=== PATIENT | male | born 1945 | race Caucasian/White ===

== ENCOUNTER 2020-07-17 00:12 | Observation (INO) | payer MEDICARE, BC ==
[~2020-07-17] VITALS: Ht 180.3 cm; Wt 102.1 kg
[~2020-07-17 00:12] MED LIST: AMLODIPINE BESY10 MG PO; ASPIRIN81 MG PO; COREG25 MG PO; FUROSEMIDE40 MG PO; ISOSORBIDE DINI30 MG PO; ISOSORBIDE1 GM; LIPITOR20 MG PO; LISINOPRIL40 MG PO; PLAVIX75 MG PO; PRILOSEC40 MG PO; QUINAPRIL HCL40 MG PO; TRIAMTERENE-HC1 EACH PO; VERAPAMIL ER240 MG PO; VICODIN 5-5001 EACH PO; coreg; furosemide; isosorbide; plavix; prilosec; verapamil
[2020-07-17] MEDS ORDERED: ASPIRIN 325 MG TAB PO ONE (00:30)
--- NOTE | 2020-07-17 00:36 | Emergency Department Note ---
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 Any updates have been documented here. 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 Past Surgical History: Cholecysctectomy, CABG, Back Surgery Other Surgery: CABG X2 avr, LT WRIST SX BILATERAL KNEE SX BACK SX X2 Social History Physically hurt or threatened: No Other Last Tetanus: unknown Review of Systems Review of Systems Constitutional: Reports no symptoms EENTM: Reports no symptoms Cardiovascular: Reports as per HPI, Reports chest pain Respiratory: Reports no symptoms Gastrointestinal: Reports no symptoms Genitourinary: Reports no symptoms Musculoskeletal: Reports no symptoms Integumentary: Reports no symptoms Neurological: Reports no symptoms Psychological: Reports no symptoms Endocrine: Reports no symptoms Hematological/Lymphatic: Reports no symptoms Physical Exam Related Data Allergies: Uncoded Allergies: DARVOCET (Allergy, Mild, RASH, 05/02/12) Triage Vital Signs Vital Signs Date Time Temp Pulse Resp B/P (MAP) Pulse Ox O2 Delivery O2 Flow Rate FiO2 07/17/20 00:18 98.1 90 20 170/91 98 Room Air Vital signs reviewed: Yes Physical Exam CONSTITUTIONAL Constitutional: Present well-developed, Present well-nourished HENT HENT: Present normocephalic, Present atraumatic, Present oropharynx clear/mo ist, Present nose normal HENT L/R: Present left ext ear normal, Present right ext ear normal EYES Eyes: Reports PERRL, Reports conjunctivae normal NECK Neck: Present ROM normal PULMONARY Pulmonary: Present effort normal, Present breath sounds normal CARDIOVASCULAR Cardiovascular: Present regular rhythm, Present heart sounds normal, Present capillary refill normal, Present normal rate GASTROINTESTINAL Abdominal: Present soft, Present nontender, Present bowel sounds normal GENITOURINARY Genitourinary: Present exam deferred SKIN Skin: Present warm, Present dry MUSCULOSKELETAL Musculoskeletal: Present ROM normal NEUROLOGICAL Neurological: Present alert, Present oriented x 3, Present no gross motor or sensory deficits PSYCHOLOGICAL Psychological: Present mood/affect normal, Present judgement normal Procedures 12 Lead ECG Interpretation ECG Interpretation : Woodworking Machine Offbearer: Interpreted by ED physician Date: Jul 17, 2020 Prior ECG tracings: reviewed Rhythm: sinus rhythm Rate: normal QRS axis: normal ST segment flattening: all T waves normal: Yes Clinical Impression: non-specific ECG Assessment & Plan Medical Decision Making MDM 75-year-old male presents for chest pain. States it is a case having a heart attack. History of CABG 2 and multiple stents. He was given aspirin and his sy mptoms largely resolved. Initial cardiopulmonary workup is unremarkable. He'll be admitted for chest pain workup. Patient was discussed with Dr. Colindres who does agree to admit. Reassessment Reassessment time: 02:12 Reassessment Well appearing, pain free Assessment & Plan Final Impression: (1) Chest pain Depart Disposition: ADMITTED Last Vital Signs Date Time Temp Pulse Resp B/P (MAP) Pulse Ox O2 Delivery O2 Flow Rate FiO2 07/17/20 00:18 98.1 90 20 170/91 98 Room Air Home Meds Reported Medications Lisinopril (LISINOPRIL) 40 Mg Tablet, 40 MG PO DAILY 06/24/15 Aspirin (ASPIRIN) 81 Mg Tab.chew, 81 MG PO DAILY 06/24/15 Furosemide (FUROSEMIDE) 40 Mg Tablet, 40 MG PO Daily, #30 TAB 06/24/15 Triamterene/Hydrochlorothiazid (TRIAMTERENE-HCTZ 50-25 MG CAP) 1 Each Capsule, 1 TAB PO DAILY 06/24/15 Amlodipine Besylate (AMLODIPINE BESYLATE) 10 Mg Tablet, 10 MG PO DAILY, #30 TAB 06/24/15 Atorvastatin Calcium (LIPITOR) 20 Mg Tablet, 20 MG PO DAILY 11/13/12 Isosorbide Dinitrate (ISOSORBIDE DINITRATE) 30 Mg Tablet, 30 MG PO DAILY 11/13/12 Carvedilol (COREG) 25 Mg Tab, 25 MG PO DAILY 11/13/12 Clopidogrel Bisulfate* (PLAVIX) 75 Mg Tablet, 75 MG PO DAILY 11/13/12 Omeprazole (PRILOSEC) 40 Mg Capsule.dr, 20 MG PO DAILY 11/13/12 Medications in the ED Aspirin 325 mg ONCE ONCE PO ; Start 07/17/20 at 00:30; Stop 07/17/20 at 00:31; Status UNV MINGO HEATH MD Jul 17, 2020 00:36
[2020-07-17 00:42] LABS: BASOPHILS # (AUTO) 0.1 (0.0-0.1); BASOPHILS % 0.8 % (0.0-1.0); EOSINOPHILS # (AUTO) 2.1 (0.0-0.4); EOSINOPHILS % 16.1 % (0.0-6.0); HEMATOCRIT 43.9 % (38.2-49.6); HEMOGLOBIN 15.1 g/dL (14.0-18.0); LYMPHOCYTES # (AUTO) 2.8 (1.0-3.2); LYMPHOCYTES % 21.5 % (18.0-39.1); MEAN CORPUSCULAR HEMOGLOBIN 32.6 pg (28-32); MEAN CORPUSCULAR HGB CONC 34.4 g/dL (31-35); MEAN CORPUSCULAR VOLUME 94.8 fL (81-99); MONOCYTES # (AUTO) 0.9 (0.2-0.8); MONOCYTES % 7.1 % (4.4-11.3); NEUTROPHILS # (AUTO) 7.1 (2.1-6.9); PLATELET COUNT 228 x10e3/uL (140-360); RED BLOOD COUNT 4.63 x10e6/uL (4.3-5.7)
[2020-07-17 01:03] LABS: ALBUMIN 4.7 g/dL (3.5-5.0); ALBUMIN/GLOBULIN RATIO 1.3 (0.8-2.0); ANION GAP 21.1 mmol/L (8-16); CREATININE, SERUM 1.44 mg/dL (0.72-1.25); POTASSIUM 3.1 mmol/L (3.5-5.1)
--- OUTSIDE RECORDS SUMMARY | 2020-07-17 01:18 | XMS REPORT | Clinical Summary ---
Author Author [facility] Address Unknown Phone Unavailable Care Team Providers Care Side Laster Tack Name Role Phone Geovanni Collazo MD PCP Allergies Comments Active Allergy Reactions Severity Noted Date Oxycodone-Acetaminophen Hives 03/07/2018 Propoxyphene Rash Low 10/07/2015 N-Acetaminophen Medications End Date Status Medication Sig Dispensed Refills Start Date Active amLODIPine (NORVASC) 10 Take 10 mg by 1 mg tablet mouth daily. 8 Active PROLENSA 0.07 % INSTILL 1 1 ophthalmic solution DROP IN RIGHT 8 EYE DAILY Active carvedilol (COREG) 25 MG Take 25 mg by 1 01/10 tablet mouth 2 (two) 8 times a day. Active celecoxib (CeleBREX) 200 TAKE 1 1 02/16 MG capsule CAPSULE TWICE 8 A DAY BY ORAL ROUTE DIRECTED FOR 90 DAYS. Active clopidogrel (PLAVIX) 75 Take 75 mg by 1 mg tablet mouth daily. 8 Active finasteride (PROSCAR) 5 TAKE 1 TABLET 1 mg tablet EVERY DAY BY 8 [address]TE FOR 90 DAYS. Active furosemide (LASIX) 40 mg Take 40 mg by 1 02/16 tablet mouth daily. 8 Active glimepiride (AMARYL) 2 MG TAKE 1 TABLET 11/06 tablet ONCE A DAY 8 WITH BREAKFAST Active hydroCHLOROthiazide Take 25 mg by 1 (HYDRODIURIL) 25 MG mouth daily. 8 tablet Active irbesartan (AVAPRO) 150 TAKE 1 TABLET MG tablet EVERY DAY BY 8 OR[address] R[address]TE FOR 90 DAYS. Active isosorbide mononitrate Take 60 mg by 1 01 (IMDUR) 60 MG 24 hr mouth daily. 8 tablet Active JENTADUETO XR 2.5-1,000 TAKE 2 1 mg tablet, IR & ER, TABLETS BY 8 biphasic 24hr MOUTH ONCE A DAY WITH LUNCH Active losartan (COZAAR) 50 MG Take 50 mg by 0 tablet mouth daily. 8 Active LOTEMAX 0.5 % drops,gel INSTILL 1 DROP INTO 8 RIGHT EYE 4 TIMES A DAY. START THE DAY BEFORE SURGERY Active nitroglycerin (NITROSTAT) PLACE 1 PILL 0 11/06 0.4 MG SL tablet UNDER TONGUE 8 EVERY 5 MINUTES FOR CHEST PAIN(MAX 3 PILLS & IF NO RELIEF 911) Active omeprazole (PriLOSEC) 20 Take 20 mg by 1 02/16 MG capsule mouth daily. 8 Active oxybutynin XL TAKE 1 TABLET 1 (DITROPAN-XL) 10 MG 24 hr EVERY DAY BY 8 tablet ORAL ROUTE FOR 90 DAYS. Active potassium chloride 20 mEq Take 1 tablet 0 11/06 tablet extended release by mouth 2 8 (two) times a day. Active rosuvastatin (CRESTOR) 40 TAKE 1 11/06 MG tablet TABLET(S) 8 EVERY DAY BY ORAL ROUTE FOR 90 DAYS. Active tamsulosin (FLOMAX) 0.4 Take 0.4 mg 1 mg capsule,extended by mouth 8 release 24hr daily. Active aspirin (ECOTRIN) 81 MG Take 81 mg by 0 enteric coated tablet mouth daily. Active carisoprodol (SOMA) 350 Take 350 mg 0 MG tablet by mouth daily. Active HYDROcodone-acetaminophen Take 1 tablet 0 (NORCO) 10-325 mg per by mouth tablet daily. Active lisinopril Take 40 mg by 0 (PRINIVIL,ZESTRIL) 40 mg mouth daily. tablet Active omeprazole (PriLOSEC) 20 TAKE ONE 0 MG capsule CAPSULE BY MOUTH EVERY DAY Active metFORMIN (GLUCOPHAGE) Take 1,000 mg 0 1,000 mg tablet by mouth 2 (two) times a day with meals. Active Problems Problem Noted Date Nuclear sclerotic cataract of left eye 03/27/2018 CAD (coronary artery disease) 03/06/2018 Diabetes mellitus with renal complications 8 Social History Date Tobacco Use Types Packs/Day Years Used Former Smoker Cigarettes Smokeless Tobacco: Never Used Drinks/Week oz/Week Comments Alcohol Use No Sex Assigned at Date Recorded Not on file Industry Job Start Date Occupation Not on file Not on file Not on file Travel End Travel History Travel Start No recent travel history available. Last Filed Vital Signs Not on file Plan of Treatment Not on file Implants Device Identifier Shelf Expiration Date Model / Serial / L ot Implanted Type Area Manufactur er 06/04/2021 [id number] / [id number] / [id number] Lens Iol Tecnis Monofocal Zcb 22.5d Intraocula Left: Eye ADAMS - [id number] - [id number] Lens MEDICAL Implanted: Qty: 1 on 03/28/2018 by Implant [employer] Murray Young MD at [facility] 03/26/2021 [id number] / [id number] / [id number] Lens Iol Tecnis Monofocal Zcb 21.5d Right: Eye A BBOTT - [id number] - [id number] MEDICAL Implanted: Qty: 1 on 03/07/2018 by [employer] Murray Young MD at [facility] Results Not on fileafter 07/17/2019 Insurance Type Payer Benefit Subscriber ID Effective Phone Address Plan / Dates Group Medicare MEDICARE MEDICARE xxxxxxxxxx [id number] [place], [place] B PPO BCBS BCBS xxxxxxxxxxxxxxx 2013- CHOICE Present PPO/ERIC JAIN PPO Advance Directives For more information, please contact: [phone] Patient Disc Pad 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
--- OUTSIDE RECORDS SUMMARY | 2020-07-17 01:19 | XMS REPORT | Continuity of Care Document ---
Author Author [facility] t Organization [facility] Address 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 Name Role Phone Zay DAVIS, Daniel Galarza PCP Payers Payer Name Policy Type Policy Number Effective Date Expiration Date S ource Problems Condition Name Condition Details Condition Category Status Onset Date Resolution Date Last Treatment Date Treating Clinician Comments Source Nuclear sclerotic cataract of left eye Nuclear sclerotic cat aract of left eye Disease Active 2018-03-27 00:00:00 Hakan Fuentes CAD (coronary artery disease) CAD (coronary artery disease) Disease Active 2018-03-06 00:00:00 Hakan Fuentes Diabetes mellitus with renal complications Diabetes me llitus with renal complications Disease Active 2018-03-06 00:00:00 Hakan Fuentes Renal disorder due to type 2 diabetes mellitus Renal D isorder Due to Type 2 Diabetes Mellitus Problem Active 2018-01-25 00:00:00 [facility] Chronic kidney disease stage 2 Chronic Kidney Disease Stage 2 Probl em Active 2018-01-25 00:00:00 [facility] Old myocardial infarction Old Myocardial Infarction Problem Ac tive 2018-01-24 00:00:00 [facility] Abdominal aortic atherosclerosis Abdominal Aortic Atherosclerosi s Problem Active 2017-02-15 00:00:00 [facility] Type 2 diabetes mellitus Type 2 Diabetes Mellitus Problem Acti ve 2016-12-27 00:00:00 [facility] Stable angina Stable Angina Problem Active 2016-12-27 00:00:00 [facility] 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 Problem Active 2016-12-27 00:00:00 [facility] History of percutaneous transluminal coronary angiopla sty History of Percutaneous Transluminal Coronary Angioplasty Problem Active 2016-12-27 00:00:00 [facility] Diverticular disease of colon Diverticular Disease of Colon Problem Active 2016-11-21 00:00:00 [facility] Steatosis of liver Steatosis of Liver Problem Active 2016-11-21 00:00:0 0 [facility] Pure hypercholesterolemia Pure Hypercholesterolemia Problem Ac tive 2015-10-07 00:00:00 [facility] Hypertensive heart and renal disease with (congestive) heart failure Hypertensive Heart and Renal Disease with (Congestive) Heart Failure Problem Active 2015-10-07 00:00:00 [facility] Chronic kidney disease Chronic Kidney Disease Problem Active 2015-10-07 00:00:00 [facility] Coronary bypass graft finding Coronary Bypass Graft Finding Problem Active 2015-10-07 00:00:00 [facility] Coronary arteriosclerosis in [place] artery Coronary Ar teriosclerosis in [place] Artery Problem Active 2006-04-16 00:00:00 [facility] Backache Backache Problem Active 2006-04-16 00:00:00 [facility] Edema Edema Problem Active 2006-04-16 00:00:00 [facility] History of artificial heart valve History of Artificial Heart Va lve Problem Active 2006-04-16 00:00:00 [facility] Myocardial infarction Myocardial Infarction Problem Active 201 06-05-29 00:00:00 2018-01-24 00:00:00 [facility] Benign essential hypertension Benign Essential Hypertension Problem Active 2017-04-04 00:00:00 2017-04-25 00:00:00 [facility] Chronic renal impairment Chronic Renal Impairment Problem Acti ve 2015-10-07 00:00:00 2017-01-25 00:00:00 [facility] Coronary atherosclerosis Coronary Atherosclerosis Problem Acti ve 2015-10-07 00:00:00 2016-12-27 00:00:00 [facility] Practice Left heart failure Left Heart Failure Problem Active 3 00:00:00 2016-12-27 00:00:00 [facility] History of cardiac surgery History of Cardiac Surgery Problem Active 2015-10-07 00:00:00 2016-12-27 00:00:00 [facility] Angina pectoris Angina Pectoris Problem Active 2006-04-16 00:0 0:00 2016-12-27 00:00:00 Damion ely Clinical finding Clinical Finding Problem Active 2015-10-07 00 :00:00 2016-12-26 00:00:00 Damion ely Allergies, Adverse Reactions, Alerts Allergy Name Allergy Type Status Severity Reaction(s) Onset Date Inacti ve Date Treating Clinician Comments Source codeine DA Active MO 2019-12-01 00:00:00 [facility] propoxyphene DA Active U 2019-12-01 00:00:00 [facility] acetaminophen DA Active U 2019-12-01 00:00:00 [facility] propoxyphene DA Active U 2018-10-24 00:00:00 [facility] acetaminophen DA Active U 2018-10-24 00:00:00 [facility] Oxycodone-Acetaminophen Propensity to adverse reactions to drug Activ e Hives 2018-03-07 00:00:00 [place] Elvia cartwrightist codeine DA Active MO 2016-08-19 00:00:00 [facility] propoxyphene DA Active MO 2016-08-19 00:00:00 [facility] DARVOCET-N 100 Allergy to substance Active Rash 2015-10-07 00:00 :00 [facility] Propoxyphene N-Acetaminophen Propensity to adverse reactions to spencer g Active Rash 2015-10-07 00:00:00 Hakan Fuentes Social History Social Habit Start Date Stop Date Quantity Comments Source History of tobacco use Cigarette Smoker Hakan Fuentes Sex Assigned At [facility] [employer] Alcohol intake 2018-03-28 00:00:00 2018-03-28 00:00:00 Current non-drinker of alcohol (finding) Hakan Fuentes Smoking Status Start Date Stop Date Source Never Smoker Damion ely Former smoker 2018-03-28 00:00:00 2018-03-28 00:00:00 Hakan Fuentes Medications Ordered Medication Name Filled Medication Name Start Date Stop Da te Current Medication? Ordering Clinician Indication Dosage Frequency Signature (SIG) Comments Components Source aspirin (ECOTRIN) 81 MG enteric coated tablet 2018-03-28 07:37:0 9 Yes 81mg QD Take 81 mg by mouth daily. H conor Fuentes carisoprodol (SOMA) 350 MG tablet 2018-03-28 07:37:09 Yes 350mg QD Take 350 mg by mouth daily. Hakan Fuentes HYDROcodone-acetaminophen (NORCO) 10-325 mg per tablet 2018-03-28 07:37:09 Yes 1{tbl} QD Take 1 tablet by mouth daily. Hakan Fuentes lisinopril (PRINIVIL,ZESTRIL) 40 mg tablet 2018-03-28 07:37:09 Yes 40mg QD Take 40 mg by mouth daily. Michael Mckeeist omeprazole (PriLOSEC) 20 MG capsule 2018-03-28 07:37:09 Yes TAKE ONE CAPSULE BY MOUTH EVERY DAY [facility] metFORMIN (GLUCOPHAGE) 1,000 mg tablet 2018-03-28 07:37:09 Yes 1000mg Q.5D Take 1,000 mg by mouth 2 (two) times a day with meals. Hakan Fuentes amLODIPine (NORVASC) 10 mg tablet 2018-02-16 00:00:00 Yes 10mg QD Take 10 mg by mouth daily. Hakna Fuentes celecoxib (CeleBREX) 200 MG capsule 2018-02-16 00:00:00 Yes TAKE 1 CAPSULE TWICE A DAY BY ORAL ROUTE DIRECTED FOR 90 DAYS. Hakan Fuentes finasteride (PROSCAR) 5 mg tablet 2018-02-16 00:00:00 Yes TAKE 1 TABLET EVERY DAY BY ORAL ROUTE FOR 90 DAYS. Hakan Fuentes furosemide (LASIX) 40 mg tablet 2018-02-16 00:00:00 Yes 40mg QD Take 40 mg by mouth daily. Hakan Fuentes isosorbide mononitrate (IMDUR) 60 MG 24 hr tablet 2018-02-16 00:00:00 Yes 60mg QD Take 60 mg by mouth daily. Hakan Fuentes omeprazole (PriLOSEC) 20 MG capsule 2018-02-16 00:00:00 Yes 20mg QD Take 20 mg by mouth daily. Hakan Fuentes oxybutynin XL (DITROPAN-XL) 10 MG 24 hr tablet 2018-02-16 00:00: 00 Yes TAKE 1 TABLET EVERY DAY BY ORAL ROUTE FOR 90 DAYS. Hakan Fuentes tamsulosin (FLOMAX) 0.4 mg capsule,extended release 24hr 2018-02-16 00:00:00 Yes .4mg QD Take 0.4 mg by mouth daily. Hakan Fuentes LOTEMAX 0.5 % drops,gel 2018-01-18 00:00:00 Yes INSTILL 1 DROP INTO RIGHT EYE 4 TIMES A DAY. START THE DAY BEFORE SURGERY Hakan Fuentes carvedilol (COREG) 25 MG tablet 2018-01-10 00:00:00 Yes 25mg Q.5D Take 25 mg by mouth 2 (two) times a day. Wisam Fuentes clopidogrel (PLAVIX) 75 mg tablet 2018-01-10 00:00:00 Yes 75mg QD Take 75 mg by mouth daily. Hakan Fuentes hydroCHLOROthiazide (HYDRODIURIL) 25 MG tablet 2018-01-10 00:00: 00 Yes 25mg QD Take 25 mg by mouth daily. H conor Fuentes PROLENSA 0.07 % ophthalmic solution 2018-01-08 00:00:00 Yes INSTILL 1 DROP IN RIGHT EYE DAILY Hakan velazquez irbesartan (AVAPRO) 150 MG tablet 2017-12-30 00:00:00 Yes TAKE 1 TABLET EVERY DAY BY ORAL ROUTE FOR 90 DAYS. Hakan Fuentes JENTADUETO XR 2.5-1,000 mg tablet, IR & ER, biphasic 24hr 2017-12-04 00:00:00 Yes TAKE 2 TABLETS BY MOUTH ONCE A D AY WITH LUNCH Hakan Fuentes glimepiride (AMARYL) 2 MG tablet 2017-12-03 00:00:00 Yes TAKE 1 TABLET ONCE A DAY WITH BREAKFAST Hakan Fuentes rosuvastatin (CRESTOR) 40 MG tablet 2017-12-03 00:00:00 Yes TAKE 1 TABLET(S) EVERY DAY BY ORAL ROUTE FOR 90 DAYS. Hakan Fuentes losartan (COZAAR) 50 MG tablet 2017-11-29 00:00:00 Yes 50mg QD Take 50 mg by mouth daily. Hakan Fuentes nitroglycerin (NITROSTAT) 0.4 MG SL tablet 2017-11-29 00:00:[address] 1 PILL UNDER TONGUE EVERY 5 MINUTES FOR CHEST PAIN(MAX 3 PILLS & IF NO RELIEF 911) Hakan Fuentes potassium chloride 20 mEq tablet extended release 2017-11-29 00:00:00 Yes 1{tbl} Q.5D Take 1 tablet by mouth 2 (two) times a day. Hakan Fuentes Accu-Chek Gaye Plus test strips Accu-Chek Gaye Plus test strips No Accu-Chek Gaye Plus test strips [facility] amlodipine 10 mg tablet amlodipine 10 mg tablet No amlodipine 10 mg tablet [facility] ice aspirin 81 mg tablet,delayed release aspirin 81 mg tablet,delayed r elease No aspirin 81 mg tablet,delayed release [facility] carisoprodol 350 mg tablet carisoprodol 350 mg tablet No carisoprodol 350 mg tablet [facility] carvedilol 25 mg tablet carvedilol 25 mg tablet No carvedilol 25 mg tablet [facility] ice celecoxib 200 mg capsule celecoxib 200 mg capsule No celecoxib 200 mg capsule [facility] ice clopidogrel 75 mg tablet clopidogrel 75 mg tablet No clopidogrel 75 mg tablet [facility] ice finasteride 5 mg tablet finasteride 5 mg tablet No finasteride 5 mg tablet [facility] ice furosemide 40 mg tablet furosemide 40 mg tablet No furosemide 40 mg tablet [facility] glimepiride 2 mg tablet glimepiride 2 mg tablet No glimepiride 2 mg tablet [facility] hydrochlorothiazide 25 mg tablet hydrochlorothiazide 25 mg tablet No hydrochlorothiazide 25 mg tablet [facility] hydrocodone 10 mg-acetaminophen 325 mg tablet hydrocod one 10 mg-acetaminophen 325 mg tablet No hydrocodone 10 mg-acetam inophen 325 mg tablet [facility] hydrocodone-homatropine 5 mg-1.5 mg/5 mL syrup hydroco done-homatropine 5 mg-1.5 mg/5 mL syrup No hydrocodone-homatropine 5 mg-1.5 mg/5 mL syrup [facility] irbesartan 150 mg tablet irbesartan 150 mg tablet No irbesartan 150 mg tablet [facility] ice isosorbide mononitrate ER 60 mg tablet,extended releas e 24 hr isosorbide mononitrate ER 60 mg tablet,extended release 24 hr No isosorbide mononitrate ER 60 mg tablet,extended release 24 hr [facility] Jentadueto XR 2.5 mg-1,000 mg tablet, extended release Jentadueto XR 2.5 mg- 1,000 mg tablet, extended release No Jentadueto XR 2.5 mg-1,000 mg tablet, extended release [facility] Levemir FlexTouch U-100 Insulin 100 unit/mL (3 mL) sub cutaneous pen Levemir FlexTouch U-100 Insulin 100 unit/mL (3 mL) subcutaneous pen No Levemir FlexTouch U-100 Insulin 100 unit/mL (3 mL) subcutaneous pen [facility] lisinopril 40 mg tablet lisinopril 40 mg tablet No lisinopril 40 mg tablet [facility] losartan 50 mg tablet Take 1 tablet every day by oral route. losartan 50 mg tablet Take 1 tablet every day by oral route. No 1 Q1D losartan 50 mg tablet Take 1 tablet every day by oral route. [facility] Lotemax 0.5 % eye gel drops Lotemax 0.5 % eye gel drops No Lotemax 0.5 % eye gel drops [facility] nitroglycerin 0.4 mg sublingual tablet P lace 1 tablet as needed by sublingual route. nitroglycerin 0.4 mg sublingual tablet P lace 1 tablet as needed by sublingual route. No 1 nitrog lycerin 0.[address] 1 tablet as needed by sublingual route. [facility] Novolog U-100 Insulin aspart 100 unit/mL subcutaneous solution Novolog U-100 Insulin aspart 100 unit/mL subcutaneous solution No Novolog U-100 Insulin aspart 100 unit/mL subcutaneous solution [facility] omeprazole 20 mg capsule,delayed release omeprazole 20 mg capsule,delayed release No omeprazole 20 mg capsule,delay ed release [facility] oxybutynin chloride ER 10 mg tablet,extended release 2 4 hr oxybutynin chloride ER 10 mg tablet,extended release 24 hr No oxybutynin chloride ER 10 mg tablet,extended release 24 hr [facility] potassium chloride ER 20 mEq tablet,extended release(p art/cryst) potassium chloride ER 20 mEq tablet,extended release(part/cryst) No potassium chloride ER 20 mEq tablet,extended release(part/cryst) [facility] Prolensa 0.07 % eye drops Prolensa 0.07 % eye drops No Prolensa 0.07 % eye drops [facility] rosuvastatin 40 mg tablet rosuvastatin 40 mg tablet No rosuvastatin 40 mg tablet [facility] tamsulosin 0.4 mg capsule tamsulosin 0.4 mg capsule No tamsulosin 0.4 mg capsule [facility] atorvastatin 20 mg tablet atorvastatin 20 mg tablet 00:00:00 No atorvastatin 20 mg tablet [facility] potassium chloride ER 20 mEq tablet,extended release p otassium chloride ER 20 mEq tablet,extended release 2017-12-03 00:00:00 No potassium chloride ER 20 mEq tablet,extended release [facility] Depo-Medrol 80 mg/mL suspension for injection injected 1 ml, once, deep IM Depo- Medrol 80 mg/mL suspension for injection injected 1 ml, once, deep IM 2017-11-21 00:00:00 No Depo- Medrol 80 mg/mL suspension for injection injected 1 ml, once, deep IM [facility] Klor-Con 20 mEq tablet,extended release Take 1 tablet every day by oral route as directed for 90 days. Klor-Con 20 mEq tablet,extended release Take 1 tablet every day by oral route as directed for 90 days. 2017-11-21 00:00:00 N o 1 Q1D Klor-Con 20 mEq tablet,extended release Take 1 tablet every day by oral route as directed for 90 days. [facility] methocarbamol 750 mg tablet methocarbamol 750 mg tablet 2017-07-18 00:00:00 No methocarbamol 750 mg tablet [facility] Kenalog 40 mg/mL suspension for injectio n mixed with lidocaine and injected into trigger point Kenalog 40 mg/mL suspension for injectio n mixed with lidocaine and injected into trigger point 2017-06-05 00:00:00 No Kenalog 40 mg/mL suspension for injection mixed with lidocaine and injected into trigger point [facility] lidocaine (PF) 10 mg/mL (1 %) injection solution mixed with Kenalog and injected into posterior superior iliac spine lidocaine (PF) 10 mg/mL (1 %) injection solution mixed with Kenalog and injected into posterior superior iliac spine 2017-06-05 00:00:00 No lidoc tosha (PF) 10 mg/mL (1 %) injection solution mixed with Kenalog and injected into posterior superior iliac spine [facility] meclizine 12.5 mg tablet meclizine 12.5 mg tablet 2017-04-25 00: 00:00 No meclizine 12.5 mg tablet [facility] tramadol 50 mg tablet tramadol 50 mg tablet 2017-04-25 00:00:00 No tramadol 50 mg tablet [facility] ctice Synvexia Patch 4 %-1 % topical Synvexia Patch 4 %-1 % topical 2017-04-04 00:00:00 No Synvexia Patch 4 %-1 % topical [facility] Voltaren 1 % topical gel Voltaren 1 % topical gel 2017-04-04 00: 00:00 No Voltaren 1 % topical gel [facility] amoxicillin 500 mg capsule amoxicillin 500 mg capsule 2016 00:00:00 No amoxicillin 500 mg capsule [facility] hydrocodone 7.5 mg-acetaminophen 325 mg tablet hydroco done 7.5 mg-acetaminophen 325 mg tablet 2017-03-21 00:00:00 No hydrocodone 7.5 mg-acetaminophen 325 mg tablet [facility] ibuprofen 800 mg tablet ibuprofen 800 mg tablet 2017-03-21 00:00 :00 No ibuprofen 800 mg tablet [facility] levofloxacin 500 mg tablet levofloxacin 500 mg tablet 2016 00:00:00 No levofloxacin 500 mg tablet [facility] methylprednisolone 4 mg tablets in a dose pack methylp rednisolone 4 mg tablets in a dose pack 2017-03-21 00:00:00 No methylprednisolone 4 mg tablets in a dose pack [facility] ice ondansetron 8 mg disintegrating tablet ondansetron 8 mg disinteg rating tablet 2017-03-21 00:00:00 No ondansetron 8 mg dis integrating tablet [facility] promethazine 25 mg/mL injection solution Take 1 mL by injection route. promethazine 25 mg/mL injection solution Take 1 mL by injection route. 2017-03-21 00:00:00 No 1mL prome thazine 25 mg/mL injection solution Take 1 mL by injection route. [facility] Pr actice Isosorbide Mononitrate CR 60 mg tablet,e xtended release Take 1 tablet every day by oral route as directed for 90 days. Isosorbide Mononitrate CR 60 mg tablet,extended release Take 1 tablet every day by oral route as directed for 90 days. 2017-02-15 00:00:00 No 1 Q1D Isos orbide Mononitrate CR 60 mg tablet,extended release Take 1 tablet every day by oral route as directed for 90 days. [facility] Ordered Immunization Name Filled Immunization Name Date Status Comments Source pneumococcal conjugate PCV 13 pneumococcal conjugate PCV 13 2017 15:11:00 Completed [facility] influenza, high dose seasonal influenza, high dose seasonal 2016 17:01:00 Completed [facility] influenza, injectable, quadrivalent influenza, injectable, q uadrivalent 2015-10-07 00:00:00 Completed [facility] ice influenza, seasonal, injectable influenza, seasonal, injecta ble 2014-07-21 00:00:00 Completed [facility] ice Vital Signs Vital Name Observation Time Observation Value Comments Source BP Diastolic 2018-01-25 00:00:00 89 mm[Hg] [facility] Height 2018-01-25 00:00:00 71 [in_i] [facility] BMI (Body Mass Index) 2018-01-25 00:00:00 31.7 kg/m2 [facility] BP Systolic 2018-01-25 00:00:00 166 mm[Hg] [facility] Body Weight 2018-01-25 00:00:00 227.4 [lb_av] [facility] BP Diastolic 2017-12-03 00:00:00 93 mm[Hg] [facility] Height 2017-12-03 00:00:00 71 [in_i] [facility] BMI (Body Mass Index) 2017-12-03 00:00:00 31.9 kg/m2 [facility] BP Systolic 2017-12-03 00:00:00 181 mm[Hg] [facility] Body Weight 2017-12-03 00:00:00 228.6 [lb_av] [facility] BP Diastolic 2017-11-21 00:00:00 77 mm[Hg] [facility] Height 2017-11-21 00:00:00 71 [in_i] [facility] BMI (Body Mass Index) 2017-11-21 00:00:00 31.5 kg/m2 [facility] BP Systolic 2017-11-21 00:00:00 131 mm[Hg] [facility] Body Weight 2017-11-21 00:00:00 225.6 [lb_av] [facility] BP Diastolic 2017-07-18 00:00:00 81 mm[Hg] [facility] Height 2017-07-18 00:00:00 71 [in_i] [facility] BMI (Body Mass Index) 2017-07-18 00:00:00 31.2 kg/m2 [facility] BP Systolic 2017-07-18 00:00:00 156 mm[Hg] [facility] Body Weight 2017-07-18 00:00:00 224 [lb_av] [facility] BP Diastolic 2017-06-05 00:00:00 85 mm[Hg] [facility] Height 2017-06-05 00:00:00 71 [in_i] [facility] BMI (Body Mass Index) 2017-06-05 00:00:00 30.8 kg/m2 [facility] BP Systolic 2017-06-05 00:00:00 156 mm[Hg] [facility] Body Weight 2017-06-05 00:00:00 221 [lb_av] [facility] BP Diastolic 2017-04-25 00:00:00 85 mm[Hg] [facility] Height 2017-04-25 00:00:00 71 [in_i] [facility] BMI (Body Mass Index) 2017-04-25 00:00:00 32 kg/m2 [facility] BP Systolic 2017-04-25 00:00:00 163 mm[Hg] [facility] Body Weight 2017-04-25 00:00:00 229.1 [lb_av] [facility] BP Diastolic 2017-04-04 00:00:00 91 mm[Hg] [facility] Height 2017-04-04 00:00:00 71 [in_i] [facility] BMI (Body Mass Index) 2017-04-04 00:00:00 31.8 kg/m2 [facility] BP Systolic 2017-04-04 00:00:00 165 mm[Hg] [facility] Body Weight 2017-04-04 00:00:00 228 [lb_av] [facility] BP Diastolic 2017-03-21 00:00:00 90 mm[Hg] [facility] Height 2017-03-21 00:00:00 71 [in_i] [facility] BMI (Body Mass Index) 2017-03-21 00:00:00 31.9 kg/m2 [facility] BP Systolic 2017-03-21 00:00:00 180 mm[Hg] [facility] Body Weight 2017-03-21 00:00:00 228.8 [lb_av] [facility] BP Diastolic 2017-02-15 00:00:00 94 mm[Hg] [facility] Height 2017-02-15 00:00:00 71 [in_i] [facility] BMI (Body Mass Index) 2017-02-15 00:00:00 31.5 kg/m2 [facility] BP Systolic 2017-02-15 00:00:00 158 mm[Hg] [facility] Body Weight 2017-02-15 00:00:00 226 [lb_av] [facility] BP Diastolic 2017-01-25 00:00:00 78 mm[Hg] [facility] Height 2017-01-25 00:00:00 71 [in_i] [facility] BMI (Body Mass Index) 2017-01-25 00:00:00 30.9 kg/m2 [facility] BP Systolic 2017-01-25 00:00:00 131 mm[Hg] [facility] Body Weight 2017-01-25 00:00:00 221.6 [lb_av] [facility] BP Diastolic 2016-12-27 00:00:00 78 mm[Hg] [facility] Height 2016-12-27 00:00:00 71 [in_i] [facility] BMI (Body Mass Index) 2016-12-27 00:00:00 31.2 kg/m2 [facility] BP Systolic 2016-12-27 00:00:00 137 mm[Hg] [facility] Body Weight 2016-12-27 00:00:00 224 [lb_av] [facility] BP Diastolic 2015-10-07 00:00:00 80 mm[Hg] [facility] Height 2015-10-07 00:00:00 68.5 [in_i] [facility] BMI (Body Mass Index) 2015-10-07 00:00:00 33.77 kg/m2 [facility] BP Systolic 2015-10-07 00:00:00 134 mm[Hg] [facility] Body Weight 2015-10-07 00:00:00 225.4 [lb_av] [facility] BP Diastolic 2015-04-08 00:00:00 78 mm[Hg] [facility] Height 2015-04-08 00:00:00 68.5 [in_i] [facility] BMI (Body Mass Index) 2015-04-08 00:00:00 34.43 kg/m2 [facility] BP Systolic 2015-04-08 00:00:00 125 mm[Hg] [facility] Body Weight 2015-04-08 00:00:00 229.8 [lb_av] [facility] BP Diastolic 2014-11-27 00:00:00 86 mm[Hg] [facility] Height 2014-11-27 00:00:00 68.5 [in_i] [facility] BMI (Body Mass Index) 2014-11-27 00:00:00 33.59 kg/m2 [facility] BP Systolic 2014-11-27 00:00:00 120 mm[Hg] [facility] Body Weight 2014-11-27 00:00:00 224.2 [lb_av] [facility] BP Diastolic 2014-11-11 00:00:00 86 mm[Hg] [facility] Height 2014-11-11 00:00:00 68.5 [in_i] [facility] BMI (Body Mass Index) 2014-11-11 00:00:00 34.76 kg/m2 [facility] BP Systolic 2014-11-11 00:00:00 115 mm[Hg] [facility] Body Weight 2014-11-11 00:00:00 232 [lb_av] [facility] BP Diastolic 2014-08-19 00:00:00 80 mm[Hg] [facility] Height 2014-08-19 00:00:00 68.5 [in_i] [facility] BMI (Body Mass Index) 2014-08-19 00:00:00 35.24 kg/m2 [facility] BP Systolic 2014-08-19 00:00:00 140 mm[Hg] [facility] Body Weight 2014-08-19 00:00:00 235.2 [lb_av] [facility] Height 2014-04-07 00:00:00 68.5 [in_i] [facility] Body Weight 2014-04-07 00:00:00 231.4 [lb_av] [facility] Height 2013-09-24 00:00:00 68.5 [in_i] [facility] Body Weight 2013-09-24 00:00:00 320.8 [lb_av] [facility] Height 2013-04-25 00:00:00 69.5 [in_i] [facility] [facility] Weight 2013-04-25 00:00:00 230.8 [lb_av] [facility] Height 2013-03-18 00:00:00 69.5 [in_i] [facility] Body Weight 2013-03-18 00:00:00 225.6 [lb_av] [facility] Height 2012-11-28 00:00:00 69.5 [in_i] [facility] Body Weight 2012-11-28 00:00:00 225.6 [lb_av] [facility] Height 2012-09-30 00:00:00 69.5 [in_i] [facility] Body Weight 2012-09-30 00:00:00 225.6 [lb_av] [facility] Height 2012-07-03 00:00:00 69.5 [in_i] [facility] Body Weight 2012-07-03 00:00:00 227.6 [lb_av] [facility] Height 2012-07-01 00:00:00 69.5 [in_i] [facility] Body Weight 2012-07-01 00:00:00 227.6 [lb_av] [facility] Height 2012-04-22 00:00:00 69.5 [in_i] [facility] Body Weight 2012-04-22 00:00:00 221.8 [lb_av] [facility] Height 2012-01-26 00:00:00 69.5 [in_i] [facility] Body Weight 2012-01-26 00:00:00 225.4 [lb_av] [facility] Height 2011-11-21 00:00:00 69.5 [in_i] [facility] Body Weight 2011-11-21 00:00:00 219.6 [lb_av] [facility] Body Weight 2011-09-20 00:00:00 228.2 [lb_av] [facility] Height 2011-09-20 00:00:00 69.5 [in_i] [facility] Height 2011-09-06 00:00:00 69.5 [in_i] [facility] Body Weight 2011-09-06 00:00:00 228.2 [lb_av] [facility] Body Weight 2010-12-13 00:00:00 213 [lb_av] [facility] Height 2010-08-10 00:00:00 69.5 [in_i] [facility] Body Weight 2010-08-10 00:00:00 208.2 [lb_av] [facility] Body Weight 2010-05-30 00:00:00 203 [lb_av] [facility] Height 2010-05-19 00:00:00 69.5 [in_i] [facility] Body Weight 2010-05-19 00:00:00 203 [lb_av] [facility] Body Weight 2010-04-11 00:00:00 206.6 [lb_av] [facility] Body Weight 2010-03-29 00:00:00 203.6 [lb_av] [facility] Body Weight 2009-08-13 00:00:00 220 [lb_av] [facility] Body Weight 2009-06-28 00:00:00 220 [lb_av] [facility] Height 2009-03-22 00:00:00 69.5 [in_i] [facility] Body Weight 2009-03-22 00:00:00 213 [lb_av] [facility] Height 2009-03-03 00:00:00 69.5 [in_i] [facility] Body Weight 2009-03-03 00:00:00 216 [lb_av] [facility] Height 2009-02-23 00:00:00 69.5 [in_i] [facility] Body Weight 2009-02-23 00:00:00 216 [lb_av] [facility] Body Weight 2008-07-09 00:00:00 215.5 [lb_av] [facility] Body Weight 2007-11-29 00:00:00 215.8 [lb_av] [facility] Body Weight 2007-08-02 00:00:00 218.5 [lb_av] [facility] Body Weight 2007-07-29 00:00:00 215.2 [lb_av] [facility] Body Weight 2007-02-12 00:00:00 221.3 [lb_av] [facility] Body Weight 2006-08-08 00:00:00 220 [lb_av] [facility] Body Weight 2006-07-18 00:00:00 217 [lb_av] [facility] Body Weight 2006-07-17 00:00:00 217 [lb_av] [facility] Body Weight 2006-04-16 00:00:00 212 [lb_av] [facility] Body Weight 2005-12-07 00:00:00 211 [lb_av] [facility] Body Weight 2005-11-09 00:00:00 215 [lb_av] [facility] Body Weight 2005-08-15 00:00:00 200 [lb_av] [facility] Body Weight 2005-08-04 00:00:00 200 [lb_av] [facility] Body Weight 2005-07-21 00:00:00 186 [lb_av] [facility] Body Weight 2004-11-15 00:00:00 214 [lb_av] [facility] Procedures Procedure Date / Time Performed Performing Clinician Sourc e Stent Placemt Retro Carotid 2017-11-28 00:00:00 [facility] X-RAY HIP UNLIATERAL (2-3 VIEWS) 2017-03-21 00:00:00 [facility] Cabg 2016-11-05 00:00:00 [facility] Plan of Care Planned Activity Planned Date Details Comments Source Instructions [facility] Instructions [facility] Encounters Start Date/Time End Date/Time Encounter Type Admission Type Attendi [facility] Facility Care Department Encounter ID Source 2018-01-25 00:00:00 2018-01-25 00:00:00 PAPA Marroquin: [id number] [facility], [address] [address], Ph. [facility] [id number] [facility] 2017-12-28 00:00:00 2017-12-28 00:00:00 Kristen De La Torre: [address] [facility] [address], Ph. [facility] - Care Management [id number] [facility] ice 2017-12-14 00:00:00 2017-12-14 00:00:00 Kristen De La Torre: [address] [facility] [facility], [place] [address], Ph. [facility] - Care Management [id number] [facility] ice 2017-12-03 00:00:00 2017-12-03 00:00:00 Geovanni Collazo MD: [address] [facility] [address], [address], [place] [address], Ph. [facility] [id number] [facility] colleen 2017-11-30 00:00:00 2017-11-30 00:00:00 Kristen De La Torre: [address], [address], [place] [address], [facility]. [facility] [id number] [facility] Family [facility] ice 2017-11-21 00:00:00 2017-11-21 00:00:00 Geovanni Collazo MD: [address] [facility], [address] [address], Ph. VFP [facility] Practice - [facility] [id number] [facility] Prac colleen 2017-07-18 00:00:00 2017-07-18 00:00:00 Geovanni Collazo MD: [address] [facility], [address] [address], Ph. V[facility] Practice - [facility] [id number] [facility] Prac colleen 2017-06-05 00:00:00 2017-06-05 00:00:00 Geovanni Collazo MD: [address] [facility], [address] [address], Ph. VFP [facility] Practice [facility] [id number] [facility] Prac colleen 2017-04-25 00:00:00 2017-04-25 00:00:00 Geovanni Collazo MD: [address] [facility], [address] [address], Ph. V[facility] Practice - [facility] [id number] [facility] Prac colleen 2017-04-04 00:00:00 2017-04-04 00:00:00 Jarad Oscar MD: [address] [facility], [address] [address], Ph. [facility] Practice - [facility] [id number] [facility] Prac colleen 2017-03-21 00:00:00 2017-03-21 00:00:00 BRICE CancinoP: [address] [facility], [address] [address], Ph. VFP [place] [facility] [id number] [facility] Prac [facility] 2017-02-15 00:00:00 2017-02-15 00:00:00 PAPA Cutler : [address] [facility], [address] [address], Ph. [facility] [id number] [facility] Practice 2017-01-25 00:00:00 2017-01-25 00:00:00 Geovanni Collazo MD: [address] [facility], [address] [address], Ph. [facility] [id number] [facility] 2016-12-27 00:00:00 2016-12-27 00:00:00 Geovanni Collazo MD: [address] [facility], [address] [address], Ph. [facility] [id number] [facility] 2016-12-12 00:00:00 2016-12-12 00:00:00 Gayla Wells: [address] [facility], [address] [address], Ph. [facility] Practice - Care Management [id number] [facility] 2016-11-28 00:00:00 2016-11-28 00:00:00 Geovanni Collazo MD: [address] [facility], [address] [address], Ph. [facility] [id number] [facility] 2016-11-27 00:00:00 2016-11-27 00:00:00 Gayla Claros: [address] [facility], [address] [address], Ph. [facility] Practice - Care Management [id number] [facility] Results Test Description Test Time Test Comments Results Result Comments Source INTERVERTEBRAL DISC 2020-03-22 15:57:00 RUN DATE: 03/22/20 [facility] PAGE 1 RUN TIME: 1557 Specimen Inquiry RUN USER: INTERFACE PATIENT: CELESTE JORDAN LOC: MOR U #: [id number] AGE/SX: 74/M ROOM: [facility] RE03/17/20REG DR: King Ahn MD : 45 BED: A DIS: 03/18/20 STATUS: DIS Jose TLOC: SPEC #: [id number] RECD: 03/18/20 STATUS: SOUT REQ #: [id number] TIANA: 03/17/20- SUBM DR: King Ahn MD ENTERED: 03/18/20 SP TYPE: INT DISC OTHR DR: Geovanni Collazo MD ORDERED: GROSS [place]: [place] [address] [place] [address] [email or web address] King Ahn MD [address] [facility]. [address] [address] PROCEDURES: GROSS (03/22/20-1236) TISSUES: LUMBAR REGION - DISC CLINICAL HISTORY COLLECTION DATE: 03/17/20 L4-5 RECURRENT DISC HERNIATION FINAL DIAGNOSIS Lumbar disc, right side, L4-5, redo laminectomy, medial facetectomy, and microsurgical discectomy: INTERVERTEBRAL DISC MATERIAL, FIBROTIC FIBROCONNECTIVE TISSUE, AND BONE NEGATIVE FOR MALIGNANCY DMW/gm D 93232, 12100 MACROSCOPIC The specimen is received in formalin, labeled with the patient's name, and identified as "lumbar disc". It consists of multiple paniauga fibrous fragments of tissue and palpable bone measuring 2.5 x 2.5 x 0.5 cm in aggregate. Samples of the specimen are submitted for decalcification and follow up microscopic evaluation in a single cassette. CONTINUED ON NEXT PAGE RUN DATE: 03/22/20 [facility] PAGE 2 RUN TIME: 1557 Specimen Inquiry RUN USER: INTERFACE SPEC #: [id number] PATIENT: CELESTE JORDAN #[id number] (Juan Jose nukatia) MACROSCOPIC (Continued) GROSS PERFORMED AT [facility] [address] [place] [address] (p)[phone] MICROSCOPIC All of the stains, including any controls performed, stain appropriately. MICROSCOPIC PERFORMED AT [facility] [address] [place] [address] (p)[phone] PERFORMING SITE Processed at: [facility] [address] [place] [address] Signed SIGNATURE ON FILE Lindsay Bolden MD 03/22/20 1557 END OF REPORT GLUBED 2020-03-18 08:32:00 Test Item GLUBED (test code = GLUBED) 308 mg/dL 74-106 H Performed by certified tanning drum operator [facility]~ - XR SPINE 1 V SPEC [id number] 13:20:00 FAX: Geovanni Antonio MD [phone] [place]: B St: REG FAX: King Stroud MD [phone] Name: CELESTE JORDAN [facility] : 1945 Age/S: 74/M [address] [facility] Unit #: [id number] Loc: [facility] [place] [address] Phys: King Ahn MD Acct: [id number] Dis Date: Status: REG SDC PHONE #: [phone] Exam Date: 03/17/2020 1219 FAX #: [phone] Reason: LAMINOTOMY EXAMS: CPT CODE: [id number] XR SPINE 1 V SPEC LEVEL [id number] HISTORY: LAMINOTOMY TECHNIQUE: Intraoperative late ral views of the lumbar spine. Comparison:Lumbar spine radiographs September 16, 2019 FINDINGS/ IMPRESSION: Moderate-sized vertebral body osteophytes are present on L3-L4. Verteb ral body heights and intervertebral disc spaces are maintained. Disc deg eneration is seen at L4-L5. Surgical instrumentation projects over the l evel of L4-L5. Location: [facility] Electronica lly Signed by Cyril Hale MD on 03/17/2020 at 1320 Repor deneen and signed by: Cyril Hale MD CC: Alonso Foster; King Ahn MD Technologist: FAISAL LUQUE JR Trnscrd Date/Time/By: 03/17/2020 (1493) : By: [email or web address] Orig Print D/T: S: 03/17/2020 (3390) PAGE 1 Signed Report - XR SPINE 1 V SPEC [id number] 13:20:00 FAX: Geovanni Antonio MD [phone] [place]: B St: REG FAX: King Stroud MD [phone] Name: CELESTE JORDAN [facility] : 1945 Age/S: 74/M [address] Unit #: [id number] Loc: [place] [address] Phys: King Ahn MD Acct: [id number] Dis Date: Status: REG [facility] PHONE #: [phone] Exam Date: 03/17/2020 1211 FAX #: [phone] Reason: LAMINOTOMY EXAMS: CPT CODE: [id number] XR SPINE 1 V SPEC LEVEL 92443 HISTORY: LAMINOTOMY TECHNIQUE: Intraoperative lateral views of the lumbar spine. Comparison:Lumbar spine radiographs September 16, 2019 FINDINGS/ IMPRESSION: Moderate- sized vertebral body osteophytes are present on L3-L4. Vertebral body heights and intervertebral disc spaces are maintained. Disc degeneration is seen at L4-L5. Surgical instrumentation projects over the level of L4-L5. Location: [facility] at 1320 Reported and signed by: Cyril Hale MD CC: Geovanni Collazo M.D.; King Ahn MD Technologist: FAISAL LUQUE JR Trnscrd Date/Time/By: 03/17/2020 (1320) : By: [email or web address] Orig Print D/T: S: 03/17/2020 (0281) PAGE 1 Signed Report [id number] 10:08:00* Test Item Value Reference Range Interpretation Comments GLUBED (test code = GLUBED) 178 mg/dL 74-106 H Performed by certified tanning drum operator at [facility] PROTHROMBIN [id number] 16:40:00* Test Item Value Reference Range Interpretation Comments PROTHROMBIN TIME PATIENT (test code = PTP) 10.9 seconds 9.0-14.0 N INTERNATIONAL NORMAL RATIO (test code = INR) 0.9 0.8-1.2 N The therapeutic range for oral anticoagulant therapy formost indications is an international normalized ratio (INR)of between 2.0 and 3.0. The recommended therapeutic INRrange for various clinical situations is listed below: Clinical Situation INR range Pulmonary e mbolism treatment (2.0-3.0)Venous thrombosis treatmentVenous thrombosis prophylaxis (high risk surgery)Prevention of systemic embolism from: Acute myocardial infarction Valvular heart disease Atrial fibrillation Mechanical prosthetic heart valves (2.5-3.5) IS PATIENT ON ANTICOAGULANTS? YLIST ANTICOAGULANTS PLAVIX ASPIRIN THROMBOPLASTIN TIME [id number] 16:40:00* Test Item Value Reference Range Interpretation Comments THROMBOPLASTIN TIME PARTIAL (test code = PTT) 30.3 seconds 23.0-37. 0 N IS PATIENT ON ANTICOAGULANTS? YLIST ANTICOAGULANTS PLAVIX ASPIRINCBC W/AUTO [id number] 16:29:00* Test Item Value Reference Range Interpretation Comments WHITE BLOOD CELL (test code = WBC) 11.5 K/mm3 4.5-12.5 N RED BLOOD CELL (test code = RBC) 4.47 mill/mm3 4.0-5.8 N HEMOGLOBIN (test code = HGB) 14.8 gram/dL 13.0-17.5 N HEMATOCRIT (test code = HCT) 41.9 % 42.0-52.0 L MEAN CELL VOLUME (test code = MCV) 93.7 fL 80-98 N MEAN CELL HGB (test code = MCH) 33.1 picogram 27.0-33.0 H MEAN CELL HGB CONCETRATION (test code = MCHC) 35.3 gram/dL 33.0-36. 0 N RED CELL DISTRIBUTION WIDTH (test code = RDW) 12.1 % 11.6-16. 2 N RED CELL DISTRIBUTION WIDTH SD (test code = RDW-SD) 41.7 fL 37 .0-51.0 N PLATELET COUNT (test code = PLT) 194 K/mm3 150-450 N MEAN PLATELET VOLUME (test code = MPV) 12.3 fL 6.7-11.0 H NEUTROPHIL % (test code = NT%) 61.7 % 39.0-69.0 N IMMATURE GRANULOCYTE % (test code = IG%) 0.5 % 0.0-5.0 N LYMPHOCYTE % (test code = LY%) 19.0 % 25.0-55.0 L MONOCYTE % (test code = MO%) 7.2 % 0.0-10.0 N EOSINOPHIL % (test code = EO%) 10.7 % 0.0-5.0 H BASOPHIL % (test code = BA%) 0.9 % 0.0-1.0 N NUCLEATED RBC % (test code = NRBC%) 0.0 % 0-0 N NEUTROPHIL # (test code = NT#) 7.07 K/mm3 1.8-7.7 N IMMATURE GRANULOCYTE # (test code = IG#) 0.06 x10 3/uL 0-0.03 H LYMPHOCYTE # (test code = LY#) 2.18 K/mm3 1.0-5.0 N MONOCYTE # (test code = MO#) 0.83 K/mm3 0-0.8 H EOSINOPHIL # (test code = EO#) 1.23 K/mm3 0.0-0.5 H BASOPHIL # (test code = BA#) 0.10 K/mm3 0.0-0.2 N NUCLEATED RBC # (test code = NRBC#) 0.00 K/mm3 0.0-0.1 N MANUAL DIFF REQUIRED (test code = MDIFF) NO CBC W/AUTO [id number] 16:27:00* Test Item Value Reference Range Interpretation Comments WHITE BLOOD CELL (test code = WBC) K/mm3 4.5-12.5 RED BLOOD CELL (test code = RBC) mill/mm3 4.0-5.8 HEMOGLOBIN (test code = HGB) 14.8 gram/dL 13.0-17.5 N HEMATOCRIT (test code = HCT) % 42.0-52.0 MEAN CELL VOLUME (test code = MCV) fL 80-98 MEAN CELL HGB (test code = MCH) picogram 27.0-33.0 MEAN CELL HGB CONCETRATION (test code = MCHC) gram/dL 33.0-36. 0 RED CELL DISTRIBUTION WIDTH (test code = RDW) % 11.6-16. 2 RED CELL DISTRIBUTION WIDTH SD (test code = RDW-SD) fL 37 .0-51.0 PLATELET COUNT (test code = PLT) K/mm3 150-450 MEAN PLATELET VOLUME (test code = MPV) fL 6.7-11.0 NEUTROPHIL % (test code = NT%) % 39.0-69.0 IMMATURE GRANULOCYTE % (test code = IG%) % 0.0-5.0 LYMPHOCYTE % (test code = LY%) % 25.0-55.0 MONOCYTE % (test code = MO%) % 0.0-10.0 EOSINOPHIL % (test code = EO%) % 0.0-5.0 BASOPHIL % (test code = BA%) % 0.0-1.0 NEUTROPHIL # (test code = NT#) K/mm3 1.8-7.7 LYMPHOCYTE # (test code = LY#) K/mm3 1.0-5.0 MONOCYTE # (test code = MO#) K/mm3 0-0.8 EOSINOPHIL # (test code = EO#) K/mm3 0.0-0.5 BASOPHIL # (test code = BA#) K/mm3 0.0-0.2 BASIC METABOLIC [id number] 16:27:00* Test Item Value Reference Range Interpretation Comments SODIUM (test code = NA) 138 mmol/L 136-145 N POTASSIUM (test code = K) 3.1 mmol/L 3.5-5.1 L CHLORIDE (test code = CL) 105.0 mmol/L 98-107 N CARBON DIOXIDE (test code = CO2) 25.0 mmol/L 21-32 N ANION GAP (test code = GAP) 11.1 10-20 N GLUCOSE (test code = GLU) 241 mg/dL 74-106 H BLOOD UREA NITROGEN (test code = BUN) 27 mg/dL 7-18 H GLOMERULAR FILTRATION RATE (test code = GFR) 42 mL/min >=60 Estimated GFR by using Modified MDRD formula.Chronic kidney disease is defined as either kidney damageor GFR <60 mL/min/1.73 m2 for >3 months. CREATININE (test code = CREAT) 1.60 mg/dL 0.7-1.3 H BUN/CREATININE RATIO (test code = BUN/CREA) 16.9 10-20 N CALCIUM (test code = CA) 9.1 mg/dL 8.5-10.1 N Coronavirus 2019 nCo [id number] 16:15:00* Test Item Value Reference Range Interpretation Comments Coronavirus 2019 nCoV Bedside (test code = COVNONPUIBED) Negative V.LAB.SPR 03/16/20 1531- XR CHEST 2 [id number] 15:48:00 FAX: Geovanni Antonio MD [phone] [place]: O St: PRE FAX: King Stroud MD [phone] Name: CELESTE JORDAN [facility] : 1945 Age/S: 74/M [address] [facility] Unit #: [id number] Loc: [place] [address] Phys: King Ahn MD Acct: [id number] Dis Date: Status: PRE IN PHONE #: [phone] Exam Date: 03/16/2020 1534 FAX #: [phone] Reason: PRE OP EXAMS: CPT CODE: [id number] XR CHEST 2 V 24383 REASON FOR EXAM: PRE OP Exam Order Date: 3:18 PM Ordering: King Ahn MD Attending:Julissa Ahn MD Location:[facility] PROCEDURE: - XR CHEST 2 V COMPARISON: 12/01/2019 FINDINGS: PA and lateral views o f the chest show clear lungs without evidence of consolidation. No evidenc e of effusion. The heart size is minimally enlarged. 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 Pulmonary vasculatures are unremarkable. The osseous structures are grossly intact. IMPRESSION: Minimal cardiomegaly at 1548 Reported and signed by: Mulugeta Li M.D. CC: Geovanni oCllazo M.D.; King Ahn MD Technologist: Ioana Valle(Jacinto) [facility] Date/Time/By: 10/2020 (1548) : By: [email or web address] Orig Print D/T: S: 03/16/2020 (1220) PAGE 1 Signed Report [id number] 05:56:00* Test Item Value Reference Range Interpretation Comments GLUBED (test code = GLUBED) 221 mg/dL 74-106 H Performed by certified tanning drum operator at [facility] [id number] 21:13:00* Test Item Value Reference Range Interpretation Comments GLUBED (test code = GLUBED) 271 mg/dL 74-106 H Performed by certified tanning drum operator at [facility] [id number] 18:31:00* Test Item Value Reference Range Interpretation Comments GLUBED (test code = GLUBED) 173 mg/dL 74-106 H Performed by certified tanning drum operator at [facility] [id number] 12:55:00* Test Item Value Reference Range Interpretation Comments GLUBED (test code = GLUBED) 141 mg/dL 74-106 H Performed by certified tanning drum operator at [facility] [id number] 05:08:00* Test Item Value Reference Range Interpretation Comments GLUBED (test code = GLUBED) 180 mg/dL 74-106 H Performed by certified tanning drum operator at [facility] [id number] 21:02:00* Test Item Value Reference Range Interpretation Comments GLUBED (test code = GLUBED) 146 mg/dL 74-106 H Performed by certified tanning drum operator at [facility] [id number] 17:04:00* Test Item Value Reference Range Interpretation Comments GLUBED (test code = GLUBED) 111 mg/dL 74-106 H Performed by certified tanning drum operator at [facility] [id number] 11:41:00* Test Item Value Reference Range Interpretation Comments GLUBED (test code = GLUBED) 201 mg/dL 74-106 H Performed by certified tanning drum operator at [facility] SED [id number] 09:43:00* Test Item Value Reference Range Interpretation Comments SED RATE (test code = SEDW) 36 mm/hr 0-15 H WINTROBE METHOD: NORMAL RANGE FOR MEN: 0-9 MM/HR WOMAN: 0-20 MM/HR SED RATE [id number] 09:42:00* Test Item Value Reference Range Interpretation Comments SED RATE CHRIS (test code = SEDW) 36 mm/hr 0-15 H - XR ANKLE 2 VIEWS [id number] 08:15:00 FAX: Geovanni Antonio MD [phone] [place]: St: ADM FAX: Carlton Bowden MD FAX: Sandy Olmstead [phone] Name: CELESTE JORDAN [facility] : 1945 Age/S: 74/M [address] [facility] Unit #: [id number] Loc: [address] [place] [address] Phys: Sandy Birch Acct: [id number] Dis Date: Status: ADM IN ONE #: [phone] Exam Date: 12/07/2019 0741 FAX #: [phone] Reason: pain, decreased ROM EXAMS: CPT CODE: [id number] XR AN[place] [address] [place] [address] CLINICAL HISTO RY: pain, decreased ROM TECHNIQUE: AP and lateral views of the lef t ankle COMPARISON: None FINDINGS/ IMPRESSIO N: No fracture. Bones are appropriately aligned and the ankle mortise is preserved. There is swelling of the soft tissues or o n the left ankle with joint effusion. Small calcaneal enthesophytes are present. Location: [facility] at 0815 Reported and signed b y: Cyril Hale MD CC: Geovanni Collazo M.D.; Carlton Saravia ; Sandy Birch Technologist: ROZ CHAVES RT(R) Trnscrd Date/Time/By: 12/07/2019 (0815) : By: [email or web address] Orig Print D/T: S: 12/07/2019 (0605) PAGE 1 Signed Report C REACTIVE [id number] 07:08:00* Test Item Value Reference Range Interpretation Comments C REACTIVE PROTEIN (test code = CRP) 6.17 mg/dL 0-0.3 H BASIC METABOLIC [id number] 07:08:00* Test Item Value Reference Range Interpretation Comments SODIUM (test code = NA) 142 mmol/L 136-145 N POTASSIUM (test code = K) 3.5 mmol/L 3.5-5.1 N CHLORIDE (test code = CL) 109.0 mmol/L 98-107 H CARBON DIOXIDE (test code = CO2) 24.0 mmol/L 21-32 N ANION GAP (test code = GAP) 12.5 10-20 N GLUCOSE (test code = GLU) 125 mg/dL 74-106 H BLOOD UREA NITROGEN (test code = BUN) 17 mg/dL 7-18 N GLOMERULAR FILTRATION RATE (test code = GFR) 59 mL/min >=60 Estimated GFR by using Modified MDRD formula.Chronic kidney disease is defined as either kidney damageor GFR <60 mL/min/1.73 m2 for >3 months. CREATININE (test code = CREAT) 1.20 mg/dL 0.7-1.3 N BUN/CREATININE RATIO (test code = BUN/CREA) 14.2 10-20 N CALCIUM (test code = CA) 8.4 mg/dL 8.5-10.1 L BASIC METABOLIC [id number] 07:05:00* Test Item Value Reference Range Interpretation Comments SODIUM (test code = NA) 142 mmol/L 136-145 N POTASSIUM (test code = K) 3.5 mmol/L 3.5-5.1 N CHLORIDE (test code = CL) 109.0 mmol/L 98-107 H CARBON DIOXIDE (test code = CO2) mmol/L 21-32 ANION GAP (test code = GAP) 10-20 GLUCOSE (test code = GLU) mg/dL 74-106 BLOOD UREA NITROGEN (test code = BUN) mg/dL 7-18 GLOMERULAR FILTRATION RATE (test code = GFR) mL/min >=60 CREATININE (test code = CREAT) mg/dL 0.7-1.3 BUN/CREATININE RATIO (test code = BUN/CREA) 10-20 CALCIUM (test code = CA) mg/dL 8.5-10.1 CBC W/AUTO [id number] 07:00:00* Test Item Value Reference Range Interpretation Comments WHITE BLOOD CELL (test code = WBC) 11.9 K/mm3 4.5-12.5 N RED BLOOD CELL (test code = RBC) 3.89 mill/mm3 4.0-5.8 L HEMOGLOBIN (test code = HGB) 12.6 gram/dL 13.0-17.5 L HEMATOCRIT (test code = HCT) 36.9 % 42.0-52.0 L MEAN CELL VOLUME (test code = MCV) 94.9 fL 80-98 N MEAN CELL HGB (test code = MCH) 32.4 picogram 27.0-33.0 N MEAN CELL HGB CONCETRATION (test code = MCHC) 34.1 gram/dL 33.0-36. 0 N RED CELL DISTRIBUTION WIDTH (test code = RDW) 12.7 % 11.6-16. 2 N RED CELL DISTRIBUTION WIDTH SD (test code = RDW-SD) 43.9 fL 37 .0-51.0 N PLATELET COUNT (test code = PLT) 152 K/mm3 150-450 N MEAN PLATELET VOLUME (test code = MPV) 12.4 fL 6.7-11.0 H NEUTROPHIL % (test code = NT%) 62.8 % 39.0-69.0 N IMMATURE GRANULOCYTE % (test code = IG%) 0.4 % 0.0-5.0 N LYMPHOCYTE % (test code = LY%) 13.0 % 25.0-55.0 L MONOCYTE % (test code = MO%) 9.1 % 0.0-10.0 N EOSINOPHIL % (test code = EO%) 14.0 % 0.0-5.0 H BASOPHIL % (test code = BA%) 0.7 % 0.0-1.0 N NUCLEATED RBC % (test code = NRBC%) 0.0 % 0-0 N NEUTROPHIL # (test code = NT#) 7.47 K/mm3 1.8-7.7 N IMMATURE GRANULOCYTE # (test code = IG#) 0.05 x10 3/uL 0-0.03 H LYMPHOCYTE # (test code = LY#) 1.54 K/mm3 1.0-5.0 N MONOCYTE # (test code = MO#) 1.08 K/mm3 0-0.8 H EOSINOPHIL # (test code = EO#) 1.67 K/mm3 0.0-0.5 H BASOPHIL # (test code = BA#) 0.08 K/mm3 0.0-0.2 N NUCLEATED RBC # (test code = NRBC#) 0.00 K/mm3 0.0-0.1 N MANUAL DIFF REQUIRED (test code = MDIFF) NO [id number] 21:09:00* Test Item Value Reference Range Interpretation Comments GLUBED (test code = GLUBED) 189 mg/dL 74-106 H Performed by certified tanning drum operator at [facility] [id number] 16:21:00* Test Item Value Reference Range Interpretation Comments GLUBED (test code = GLUBED) 95 mg/dL 74-106 N Performed by certified tanning drum operator at [facility] [id number] 11:52:00* Test Item Value Reference Range Interpretation Comments GLUBED (test code = GLUBED) 184 mg/dL 74-106 H Performed by certified tanning drum operator at [facility] [id number] 06:19:00* Test Item Value Reference Range Interpretation Comments GLUBED (test code = GLUBED) 123 mg/dL 74-106 H Performed by certified tanning drum operator at [facility] BASIC METABOLIC [id number] 05:31:00* Test Item Value Reference Range Interpretation Comments SODIUM (test code = NA) 141 mmol/L 136-145 N POTASSIUM (test code = K) 3.0 mmol/L 3.5-5.1 L CHLORIDE (test code = CL) 106.0 mmol/L 98-107 N CARBON DIOXIDE (test code = CO2) 27.0 mmol/L 21-32 N ANION GAP (test code = GAP) 11.0 10-20 N GLUCOSE (test code = GLU) 119 mg/dL 74-106 H BLOOD UREA NITROGEN (test code = BUN) 15 mg/dL 7-18 N GLOMERULAR FILTRATION RATE (test code = GFR) 59 mL/min >=60 Estimated GFR by using Modified MDRD formula.Chronic kidney disease is defined as either kidney damageor GFR <60 mL/min/1.73 m2 for >3 months. CREATININE (test code = CREAT) 1.20 mg/dL 0.7-1.3 N BUN/CREATININE RATIO (test code = BUN/CREA) 12.5 10-20 N CALCIUM (test code = CA) 8.5 mg/dL 8.5-10.1 N URIC [id number] 05:31:00* Test Item Value Reference Range Interpretation Comments URIC ACID (test code = URIC) 6.2 mg/dL 2.6-7.2 N BASIC METABOLIC [id number] 05:25:00* Test Item Value Reference Range Interpretation Comments SODIUM (test code = NA) 141 mmol/L 136-145 N POTASSIUM (test code = K) 3.0 mmol/L 3.5-5.1 L CHLORIDE (test code = CL) 106.0 mmol/L 98-107 N CARBON DIOXIDE (test code = CO2) mmol/L 21-32 ANION GAP (test code = GAP) 10-20 GLUCOSE (test code = GLU) mg/dL 74-106 BLOOD UREA NITROGEN (test code = BUN) mg/dL 7-18 GLOMERULAR FILTRATION RATE (test code = GFR) mL/min >=60 CREATININE (test code = CREAT) mg/dL 0.7-1.3 BUN/CREATININE RATIO (test code = BUN/CREA) 10-20 CALCIUM (test code = CA) mg/dL 8.5-10.1 URIC [id number] 05:25:00* Test Item Value Reference Range Interpretation Comments URIC ACID (test code = URIC) mg/dL 2.6-7.2 CBC W/AUTO [id number] 05:22:00* Test Item Value Reference Range Interpretation Comments WHITE BLOOD CELL (test code = WBC) 12.6 K/mm3 4.5-12.5 H RED BLOOD CELL (test code = RBC) 4.03 mill/mm3 4.0-5.8 N HEMOGLOBIN (test code = HGB) 13.2 gram/dL 13.0-17.5 N HEMATOCRIT (test code = HCT) 38.1 % 42.0-52.0 L MEAN CELL VOLUME (test code = MCV) 94.5 fL 80-98 N MEAN CELL HGB (test code = MCH) 32.8 picogram 27.0-33.0 N MEAN CELL HGB CONCETRATION (test code = MCHC) 34.6 gram/dL 33.0-36. 0 N RED CELL DISTRIBUTION WIDTH (test code = RDW) 12.6 % 11.6-16. 2 N RED CELL DISTRIBUTION WIDTH SD (test code = RDW-SD) 43.6 fL 37 .0-51.0 N PLATELET COUNT (test code = PLT) 149 K/mm3 150-450 L MEAN PLATELET VOLUME (test code = MPV) 12.3 fL 6.7-11.0 H NEUTROPHIL % (test code = NT%) 64.7 % 39.0-69.0 N IMMATURE GRANULOCYTE % (test code = IG%) 0.4 % 0.0-5.0 N LYMPHOCYTE % (test code = LY%) 13.4 % 25.0-55.0 L MONOCYTE % (test code = MO%) 9.8 % 0.0-10.0 N EOSINOPHIL % (test code = EO%) 11.1 % 0.0-5.0 H BASOPHIL % (test code = BA%) 0.6 % 0.0-1.0 N NUCLEATED RBC % (test code = NRBC%) 0.0 % 0-0 N NEUTROPHIL # (test code = NT#) 8.14 K/mm3 1.8-7.7 H IMMATURE GRANULOCYTE # (test code = IG#) 0.05 x10 3/uL 0-0.03 H LYMPHOCYTE # (test code = LY#) 1.69 K/mm3 1.0-5.0 N MONOCYTE # (test code = MO#) 1.23 K/mm3 0-0.8 H EOSINOPHIL # (test code = EO#) 1.40 K/mm3 0.0-0.5 H BASOPHIL # (test code = BA#) 0.08 K/mm3 0.0-0.2 N NUCLEATED RBC # (test code = NRBC#) 0.00 K/mm3 0.0-0.1 N MANUAL DIFF REQUIRED (test code = MDIFF) NO [id number] 20:58:00* Test Item Value Reference Range Interpretation Comments GLUBED (test code = GLUBED) 165 mg/dL 74-106 H Performed by certified tanning drum operator at [facility] [id number] 11:44:00* Test Item Value Reference Range Interpretation Comments GLUBED (test code = GLUBED) 163 mg/dL 74-106 H Performed by certified tanning drum operator at [facility] BASIC METABOLIC [id number] 06:56:00* Test Item Value Reference Range Interpretation Comments SODIUM (test code = NA) 142 mmol/L 136-145 N POTASSIUM (test code = K) 3.6 mmol/L 3.5-5.1 N CHLORIDE (test code = CL) 108.0 mmol/L 98-107 H CARBON DIOXIDE (test code = CO2) 24.0 mmol/L 21-32 N ANION GAP (test code = GAP) 13.6 10-20 N GLUCOSE (test code = GLU) 133 mg/dL 74-106 H BLOOD UREA NITROGEN (test code = BUN) 17 mg/dL 7-18 N GLOMERULAR FILTRATION RATE (test code = GFR) 59 mL/min >=60 Estimated GFR by using Modified MDRD formula.Chronic kidney disease is defined as either kidney damageor GFR <60 mL/min/1.73 m2 for >3 months. CREATININE (test code = CREAT) 1.20 mg/dL 0.7-1.3 N BUN/CREATININE RATIO (test code = BUN/CREA) 14.2 10-20 N CALCIUM (test code = CA) 8.6 mg/dL 8.5-10.1 N BASIC METABOLIC [id number] 06:48:00* Test Item Value Reference Range Interpretation Comments SODIUM (test code = NA) 142 mmol/L 136-145 N POTASSIUM (test code = K) 3.6 mmol/L 3.5-5.1 N CHLORIDE (test code = CL) 108.0 mmol/L 98-107 H CARBON DIOXIDE (test code = CO2) mmol/L 21-32 ANION GAP (test code = GAP) 10-20 GLUCOSE (test code = GLU) mg/dL 74-106 BLOOD UREA NITROGEN (test code = BUN) mg/dL 7-18 GLOMERULAR FILTRATION RATE (test code = GFR) mL/min >=60 CREATININE (test code = CREAT) mg/dL 0.7-1.3 BUN/CREATININE RATIO (test code = BUN/CREA) 10-20 CALCIUM (test code = CA) mg/dL 8.5-10.1 CBC W/AUTO [id number] 06:28:00* Test Item Value Reference Range Interpretation Comments WHITE BLOOD CELL (test code = WBC) 12.2 K/mm3 4.5-12.5 N RED BLOOD CELL (test code = RBC) 4.34 mill/mm3 4.0-5.8 N HEMOGLOBIN (test code = HGB) 14.0 gram/dL 13.0-17.5 N HEMATOCRIT (test code = HCT) 41.2 % 42.0-52.0 L MEAN CELL VOLUME (test code = MCV) 94.9 fL 80-98 N MEAN CELL HGB (test code = MCH) 32.3 picogram 27.0-33.0 N MEAN CELL HGB CONCETRATION (test code = MCHC) 34.0 gram/dL 33.0-36. 0 N RED CELL DISTRIBUTION WIDTH (test code = RDW) 12.5 % 11.6-16. 2 N RED CELL DISTRIBUTION WIDTH SD (test code = RDW-SD) 43.8 fL 37 .0-51.0 N PLATELET COUNT (test code = PLT) 150 K/mm3 150-450 N MEAN PLATELET VOLUME (test code = MPV) 12.4 fL 6.7-11.0 H NEUTROPHIL % (test code = NT%) 64.3 % 39.0-69.0 N IMMATURE GRANULOCYTE % (test code = IG%) 0.4 % 0.0-5.0 N LYMPHOCYTE % (test code = LY%) 11.7 % 25.0-55.0 L MONOCYTE % (test code = MO%) 9.4 % 0.0-10.0 N EOSINOPHIL % (test code = EO%) 13.7 % 0.0-5.0 H BASOPHIL % (test code = BA%) 0.5 % 0.0-1.0 N NUCLEATED RBC % (test code = NRBC%) 0.0 % 0-0 N NEUTROPHIL # (test code = NT#) 7.82 K/mm3 1.8-7.7 H IMMATURE GRANULOCYTE # (test code = IG#) 0.05 x10 3/uL 0-0.03 H LYMPHOCYTE # (test code = LY#) 1.42 K/mm3 1.0-5.0 N MONOCYTE # (test code = MO#) 1.15 K/mm3 0-0.8 H EOSINOPHIL # (test code = EO#) 1.67 K/mm3 0.0-0.5 H BASOPHIL # (test code = BA#) 0.06 K/mm3 0.0-0.2 N NUCLEATED RBC # (test code = NRBC#) 0.00 K/mm3 0.0-0.1 N [id number] 05:58:00* Test Item Value Reference Range Interpretation Comments GLUBED (test code = GLUBED) 130 mg/dL 74-106 H Performed by certified tanning drum operator at [facility] [id number] 20:55:00* Test Item Value Reference Range Interpretation Comments GLUBED (test code = GLUBED) 104 mg/dL 74-106 N Performed by certified tanning drum operator at [facility] COAGULATION TIME [id number] 15:15:00* Test Item Value Reference Range Interpretation Comments COAGULATION TIME ACTIVATED (test code = ACT) 210 seconds 62.8-88.0 H [id number] 11:31:00* Test Item Value Reference Range Interpretation Comments GLUBED (test code = GLUBED) 115 mg/dL 74-106 H Performed by certified tanning drum operator at [facility] [id number] 07:45:00* Test Item Value Reference Range Interpretation Comments GLUBED (test code = GLUBED) 128 mg/dL 74-106 H Performed by certified tanning drum operator at [facility] CBC W/MANUAL [id number] 05:15:00* Test Item Value Reference Range Interpretation Comments WHITE BLOOD CELL (test code = WBC) 12.6 K/mm3 4.5-12.5 H RED BLOOD CELL (test code = RBC) 4.23 mill/mm3 4.0-5.8 N HEMOGLOBIN (test code = HGB) 13.8 gram/dL 13.0-17.5 N HEMATOCRIT (test code = HCT) 40.6 % 42.0-52.0 L MEAN CELL VOLUME (test code = MCV) 96.0 fL 80-98 N MEAN CELL HGB (test code = MCH) 32.6 picogram 27.0-33.0 N MEAN CELL HGB CONCETRATION (test code = MCHC) 34.0 gram/dL 33.0-36. 0 N RED CELL DISTRIBUTION WIDTH (test code = RDW) 13.1 % 11.6-16. 2 N RED CELL DISTRIBUTION WIDTH SD (test code = RDW-SD) 46.4 fL 37 .0-51.0 N PLATELET COUNT (test code = PLT) 140 K/mm3 150-450 L MEAN PLATELET VOLUME (test code = MPV) 12.1 fL 6.7-11.0 H IMMATURE GRANULOCYTE % (test code = IG%) 0.6 % 0.0-5.0 N NUCLEATED RBC % (test code = NRBC%) 0.0 % 0-0 N NEUTROPHIL # (test code = NT#) 7.32 K/mm3 1.8-7.7 N IMMATURE GRANULOCYTE # (test code = IG#) 0.07 x10 3/uL 0-0.03 H LYMPHOCYTE # (test code = LY#) 1.80 K/mm3 1.0-5.0 N MONOCYTE # (test code = MO#) 1.03 K/mm3 0-0.8 H EOSINOPHIL # (test code = EO#) 2.34 K/mm3 0.0-0.5 H BASOPHIL # (test code = BA#) 0.07 K/mm3 0.0-0.2 N NUCLEATED RBC # (test code = NRBC#) 0.00 K/mm3 0.0-0.1 N MANUAL DIFF REQUIRED (test code = MDIFF) YES STAIN ACCEPTABILITY (test code = STN ACCEPTABLE) STAIN ACCEPTABLE TOTAL CELLS COUNTED (test code = TCC) 117 #CELLS SEGMENTED NEUTROPHILS (test code = SEG) 57.3 % 39-69 N BAND NEUTROPHIL (test code = BAND) 0 % 0-10 N LYMPHOCYTE (test code = LYMPH) 10.3 % 25-55 L REACTIVE LYMPH (test code = RELYMPH) 0.8 % MONOCYTE (test code = MON) 9.4 % 0-10 N EOSINOPHIL (test code = EOS) 22.2 % 0.0-5.0 H BASOPHIL (test code = BASO) 0 % 0-1.0 N METAMYELOCYTE (test code = META) 0 % 0-0 N MYELOCYTE (test code = MYELO) 0 % 0.0-0.0 N PROMYELOCYTE (test code = PROM) 0 % 0-0 N MORPHOLOGY COMMENT (test code = MOC) NORMAL PLATELET ESTIMATE (test code = PLTEST) ADEQUATE PLATELET MORPHOLOGY (test code = PLTMORPH) NORMAL IMMATURE FORMS (test code = IMMAT) 0 % 0-0 N BASIC METABOLIC [id number] 04:50:00* Test Item Value Reference Range Interpretation Comments SODIUM (test code = NA) 145 mmol/L 136-145 N POTASSIUM (test code = K) 3.2 mmol/L 3.5-5.1 L CHLORIDE (test code = CL) 111.0 mmol/L 98-107 H CARBON DIOXIDE (test code = CO2) 24.0 mmol/L 21-32 N ANION GAP (test code = GAP) 13.2 10-20 N GLUCOSE (test code = GLU) 125 mg/dL 74-106 H BLOOD UREA NITROGEN (test code = BUN) 27 mg/dL 7-18 H GLOMERULAR FILTRATION RATE (test code = GFR) 35 mL/min >=60 Estimated GFR by using Modified MDRD formula.Chronic kidney disease is defined as either kidney damageor GFR <60 mL/min/1.73 m2 for >3 months. CREATININE (test code = CREAT) 1.90 mg/dL 0.7-1.3 H BUN/CREATININE RATIO (test code = BUN/CREA) 14.2 10-20 N CALCIUM (test code = CA) 8.4 mg/dL 8.5-10.1 L BASIC METABOLIC [id number] 04:45:00* Test Item Value Reference Range Interpretation Comments SODIUM (test code = NA) 145 mmol/L 136-145 N POTASSIUM (test code = K) 3.2 mmol/L 3.5-5.1 L CHLORIDE (test code = CL) 111.0 mmol/L 98-107 H CARBON DIOXIDE (test code = CO2) mmol/L 21-32 ANION GAP (test code = GAP) 10-20 GLUCOSE (test code = GLU) mg/dL 74-106 BLOOD UREA NITROGEN (test code = BUN) mg/dL 7-18 GLOMERULAR FILTRATION RATE (test code = GFR) mL/min >=60 CREATININE (test code = CREAT) mg/dL 0.7-1.3 BUN/CREATININE RATIO (test code = BUN/CREA) 10-20 CALCIUM (test code = CA) 8.4 mg/dL 8.5-10.1 L CBC W/MANUAL [id number] 04:41:00* Test Item Value Reference Range Interpretation Comments WHITE BLOOD CELL (test code = WBC) 12.6 K/mm3 4.5-12.5 H RED BLOOD CELL (test code = RBC) 4.23 mill/mm3 4.0-5.8 N HEMOGLOBIN (test code = HGB) 13.8 gram/dL 13.0-17.5 N HEMATOCRIT (test code = HCT) 40.6 % 42.0-52.0 L MEAN CELL VOLUME (test code = MCV) 96.0 fL 80-98 N MEAN CELL HGB (test code = MCH) 32.6 picogram 27.0-33.0 N MEAN CELL HGB CONCETRATION (test code = MCHC) 34.0 gram/dL 33.0-36. 0 N RED CELL DISTRIBUTION WIDTH (test code = RDW) 13.1 % 11.6-16. 2 N RED CELL DISTRIBUTION WIDTH SD (test code = RDW-SD) 46.4 fL 37 .0-51.0 N PLATELET COUNT (test code = PLT) 140 K/mm3 150-450 L MEAN PLATELET VOLUME (test code = MPV) 12.1 fL 6.7-11.0 H IMMATURE GRANULOCYTE % (test code = IG%) 0.6 % 0.0-5.0 N NUCLEATED RBC % (test code = NRBC%) 0.0 % 0-0 N NEUTROPHIL # (test code = NT#) 7.32 K/mm3 1.8-7.7 N IMMATURE GRANULOCYTE # (test code = IG#) 0.07 x10 3/uL 0-0.03 H LYMPHOCYTE # (test code = LY#) 1.80 K/mm3 1.0-5.0 N MONOCYTE # (test code = MO#) 1.03 K/mm3 0-0.8 H EOSINOPHIL # (test code = EO#) 2.34 K/mm3 0.0-0.5 H BASOPHIL # (test code = BA#) 0.07 K/mm3 0.0-0.2 N NUCLEATED RBC # (test code = NRBC#) 0.00 K/mm3 0.0-0.1 N MANUAL DIFF REQUIRED (test code = MDIFF) YES STAIN ACCEPTABILITY (test code = STN ACCEPTABLE) TOTAL CELLS COUNTED (test code = TCC) #CELLS SEGMENTED NEUTROPHILS (test code = SEG) % 39-69 LYMPHOCYTE (test code = LYMPH) % 25-55 MONOCYTE (test code = MON) % 0-10 EOSINOPHIL (test code = EOS) % 0.0-5.0 CABOT RINGS (test code = CAB) MORPHOLOGY COMMENT (test code = MOC) PLATELET ESTIMATE (test code = PLTEST) PLATELET MORPHOLOGY (test code = PLTMORPH) CBC W/MANUAL [id number] 04:41:00* Test Item Value Reference Range Interpretation Comments WHITE BLOOD CELL (test code = WBC) 12.6 K/mm3 4.5-12.5 H RED BLOOD CELL (test code = RBC) 4.23 mill/mm3 4.0-5.8 N HEMOGLOBIN (test code = HGB) 13.8 gram/dL 13.0-17.5 N HEMATOCRIT (test code = HCT) 40.6 % 42.0-52.0 L MEAN CELL VOLUME (test code = MCV) 96.0 fL 80-98 N MEAN CELL HGB (test code = MCH) 32.6 picogram 27.0-33.0 N MEAN CELL HGB CONCETRATION (test code = MCHC) 34.0 gram/dL 33.0-36. 0 N RED CELL DISTRIBUTION WIDTH (test code = RDW) 13.1 % 11.6-16. 2 N RED CELL DISTRIBUTION WIDTH SD (test code = RDW-SD) 46.4 fL 37 .0-51.0 N PLATELET COUNT (test code = PLT) 140 K/mm3 150-450 L MEAN PLATELET VOLUME (test code = MPV) 12.1 fL 6.7-11.0 H IMMATURE GRANULOCYTE % (test code = IG%) 0.6 % 0.0-5.0 N NUCLEATED RBC % (test code = NRBC%) 0.0 % 0-0 N NEUTROPHIL # (test code = NT#) 7.32 K/mm3 1.8-7.7 N IMMATURE GRANULOCYTE # (test code = IG#) 0.07 x10 3/uL 0-0.03 H LYMPHOCYTE # (test code = LY#) 1.80 K/mm3 1.0-5.0 N MONOCYTE # (test code = MO#) 1.03 K/mm3 0-0.8 H EOSINOPHIL # (test code = EO#) 2.34 K/mm3 0.0-0.5 H BASOPHIL # (test code = BA#) 0.07 K/mm3 0.0-0.2 N NUCLEATED RBC # (test code = NRBC#) 0.00 K/mm3 0.0-0.1 N MANUAL DIFF REQUIRED (test code = MDIFF) YES STAIN ACCEPTABILITY (test code = STN ACCEPTABLE) TOTAL CELLS COUNTED (test code = TCC) #CELLS SEGMENTED NEUTROPHILS (test code = SEG) % 39-69 LYMPHOCYTE (test code = LYMPH) % 25-55 MONOCYTE (test code = MON) % 0-10 EOSINOPHIL (test code = EOS) % 0.0-5.0 CABOT RINGS (test code = CAB) MORPHOLOGY COMMENT (test code = MOC) PLATELET ESTIMATE (test code = PLTEST) PLATELET MORPHOLOGY (test code = PLTMORPH) CBC W/MANUAL [id number] 04:41:00* Test Item Value Reference Range Interpretation Comments WHITE BLOOD CELL (test code = WBC) 12.6 K/mm3 4.5-12.5 H RED BLOOD CELL (test code = RBC) 4.23 mill/mm3 4.0-5.8 N HEMOGLOBIN (test code = HGB) 13.8 gram/dL 13.0-17.5 N HEMATOCRIT (test code = HCT) 40.6 % 42.0-52.0 L MEAN CELL VOLUME (test code = MCV) 96.0 fL 80-98 N MEAN CELL HGB (test code = MCH) 32.6 picogram 27.0-33.0 N MEAN CELL HGB CONCETRATION (test code = MCHC) 34.0 gram/dL 33.0-36. 0 N RED CELL DISTRIBUTION WIDTH (test code = RDW) 13.1 % 11.6-16. 2 N RED CELL DISTRIBUTION WIDTH SD (test code = RDW-SD) 46.4 fL 37 .0-51.0 N PLATELET COUNT (test code = PLT) 140 K/mm3 150-450 L MEAN PLATELET VOLUME (test code = MPV) 12.1 fL 6.7-11.0 H IMMATURE GRANULOCYTE % (test code = IG%) 0.6 % 0.0-5.0 N NUCLEATED RBC % (test code = NRBC%) 0.0 % 0-0 N NEUTROPHIL # (test code = NT#) 7.32 K/mm3 1.8-7.7 N IMMATURE GRANULOCYTE # (test code = IG#) 0.07 x10 3/uL 0-0.03 H LYMPHOCYTE # (test code = LY#) 1.80 K/mm3 1.0-5.0 N MONOCYTE # (test code = MO#) 1.03 K/mm3 0-0.8 H EOSINOPHIL # (test code = EO#) 2.34 K/mm3 0.0-0.5 H BASOPHIL # (test code = BA#) 0.07 K/mm3 0.0-0.2 N NUCLEATED RBC # (test code = NRBC#) 0.00 K/mm3 0.0-0.1 N MANUAL DIFF REQUIRED (test code = MDIFF) YES STAIN ACCEPTABILITY (test code = STN ACCEPTABLE) TOTAL CELLS COUNTED (test code = TCC) #CELLS SEGMENTED NEUTROPHILS (test code = SEG) % 39-69 LYMPHOCYTE (test code = LYMPH) % 25-55 MONOCYTE (test code = MON) % 0-10 EOSINOPHIL (test code = EOS) % 0.0-5.0 MORPHOLOGY COMMENT (test code = MOC) PLATELET ESTIMATE (test code = PLTEST) PLATELET MORPHOLOGY (test code = PLTMORPH) CBC W/MANUAL [id number] 04:41:00* Test Item Value Reference Range Interpretation Comments WHITE BLOOD CELL (test code = WBC) 12.6 K/mm3 4.5-12.5 H RED BLOOD CELL (test code = RBC) 4.23 mill/mm3 4.0-5.8 N HEMOGLOBIN (test code = HGB) 13.8 gram/dL 13.0-17.5 N HEMATOCRIT (test code = HCT) 40.6 % 42.0-52.0 L MEAN CELL VOLUME (test code = MCV) 96.0 fL 80-98 N MEAN CELL HGB (test code = MCH) 32.6 picogram 27.0-33.0 N MEAN CELL HGB CONCETRATION (test code = MCHC) 34.0 gram/dL 33.0-36. 0 N RED CELL DISTRIBUTION WIDTH (test code = RDW) 13.1 % 11.6-16. 2 N RED CELL DISTRIBUTION WIDTH SD (test code = RDW-SD) 46.4 fL 37 .0-51.0 N PLATELET COUNT (test code = PLT) 140 K/mm3 150-450 L MEAN PLATELET VOLUME (test code = MPV) 12.1 fL 6.7-11.0 H IMMATURE GRANULOCYTE % (test code = IG%) 0.6 % 0.0-5.0 N NUCLEATED RBC % (test code = NRBC%) 0.0 % 0-0 N NEUTROPHIL # (test code = NT#) 7.32 K/mm3 1.8-7.7 N IMMATURE GRANULOCYTE # (test code = IG#) 0.07 x10 3/uL 0-0.03 H LYMPHOCYTE # (test code = LY#) 1.80 K/mm3 1.0-5.0 N MONOCYTE # (test code = MO#) 1.03 K/mm3 0-0.8 H EOSINOPHIL # (test code = EO#) 2.34 K/mm3 0.0-0.5 H BASOPHIL # (test code = BA#) 0.07 K/mm3 0.0-0.2 N NUCLEATED RBC # (test code = NRBC#) 0.00 K/mm3 0.0-0.1 N MANUAL DIFF REQUIRED (test code = MDIFF) YES STAIN ACCEPTABILITY (test code = STN ACCEPTABLE) TOTAL CELLS COUNTED (test code = TCC) #CELLS SEGMENTED NEUTROPHILS (test code = SEG) % 39-69 LYMPHOCYTE (test code = LYMPH) % 25-55 MONOCYTE (test code = MON) % 0-10 MORPHOLOGY COMMENT (test code = MOC) PLATELET ESTIMATE (test code = PLTEST) PLATELET MORPHOLOGY (test code = PLTMORPH) CBC W/MANUAL [id number] 04:41:00* Test Item Value Reference Range Interpretation Comments WHITE BLOOD CELL (test code = WBC) 12.6 K/mm3 4.5-12.5 H RED BLOOD CELL (test code = RBC) 4.23 mill/mm3 4.0-5.8 N HEMOGLOBIN (test code = HGB) 13.8 gram/dL 13.0-17.5 N HEMATOCRIT (test code = HCT) 40.6 % 42.0-52.0 L MEAN CELL VOLUME (test code = MCV) 96.0 fL 80-98 N MEAN CELL HGB (test code = MCH) 32.6 picogram 27.0-33.0 N MEAN CELL HGB CONCETRATION (test code = MCHC) 34.0 gram/dL 33.0-36. 0 N RED CELL DISTRIBUTION WIDTH (test code = RDW) 13.1 % 11.6-16. 2 N RED CELL DISTRIBUTION WIDTH SD (test code = RDW-SD) 46.4 fL 37 .0-51.0 N PLATELET COUNT (test code = PLT) 140 K/mm3 150-450 L MEAN PLATELET VOLUME (test code = MPV) 12.1 fL 6.7-11.0 H IMMATURE GRANULOCYTE % (test code = IG%) 0.6 % 0.0-5.0 N NUCLEATED RBC % (test code = NRBC%) 0.0 % 0-0 N NEUTROPHIL # (test code = NT#) 7.32 K/mm3 1.8-7.7 N IMMATURE GRANULOCYTE # (test code = IG#) 0.07 x10 3/uL 0-0.03 H LYMPHOCYTE # (test code = LY#) 1.80 K/mm3 1.0-5.0 N MONOCYTE # (test code = MO#) 1.03 K/mm3 0-0.8 H EOSINOPHIL # (test code = EO#) 2.34 K/mm3 0.0-0.5 H BASOPHIL # (test code = BA#) 0.07 K/mm3 0.0-0.2 N NUCLEATED RBC # (test code = NRBC#) 0.00 K/mm3 0.0-0.1 N MANUAL DIFF REQUIRED (test code = MDIFF) YES STAIN ACCEPTABILITY (test code = STN ACCEPTABLE) TOTAL CELLS COUNTED (test code = TCC) #CELLS SEGMENTED NEUTROPHILS (test code = SEG) % 39-69 LYMPHOCYTE (test code = LYMPH) % 25-55 MONOCYTE (test code = MON) % 0-10 EOSINOPHIL (test code = EOS) % 0.0-5.0 CABOT RINGS (test code = CAB) MORPHOLOGY COMMENT (test code = MOC) PLATELET ESTIMATE (test code = PLTEST) PLATELET MORPHOLOGY (test code = PLTMORPH) [id number] 19:54:00* Test Item Value Reference Range Interpretation Comments GLUBED (test code = GLUBED) 167 mg/dL 74-106 H Performed by certified tanning drum operator at [facility] [id number] 17:06:00* Test Item Value Reference Range Interpretation Comments GLUBED (test code = GLUBED) 96 mg/dL 74-106 N [facility] certified tanning drum [facility] [id number] 15:32:00* Test Item Value Reference Range Interpretation Comments GLUBED (test code = GLUBED) 102 mg/dL 74-106 N Performed by certified tanning drum operator at [facility] [id number] 14:45:00* Test Item Value Reference Range Interpretation Comments GLUBED (test code = GLUBED) 100 mg/dL 74-106 N [facility] certified tanning drum operator [facility] URINALYSIS [id number] 09:50:00* Test Item Value Reference Range Interpretation Comments UA COLOR (test code = COLU) Light-Yellow YELLOW UA APPEARANCE (test code = APPU) CLEAR CLEAR UA GLUCOSE DIPSTICK (test code = DGLUU) NEGATIVE mg/dL NEGATIVE UA BILIRUBIN DIPSTICK (test code = BILU) NEGATIVE mg/dL NEGATIVE UA KETONE DIPSTICK (test code = KETU) NEGATIVE mg/dL NEGATIVE UA SPECIFIC GRAVITY (test code = SGU) 1.008 1.001-1.035 UA BLOOD DIPSTICK (test code = MELISSA) Negative mg/dL NEGATIVE UA PH DIPSTICK (test code = ALPESH) 5.5 5.0-8.0 UA PROTEIN DIPSTICK (test code = PROU) NEGATIVE mg/dL NEGATIVE UA UROBILINIOGEN DIPSTICK (test code = URO) Normal mg/dL NEGATIVE UA NITRITE DIPSTICK (test code = JOCELYNE) NEGATIVE NEGATIVE UA LEUKOCYTE ESTERASE W REFLEX (test code = LEUUR) NEGATIVE Kiarra/uL NEGATIVE UA WBC (test code = WBCU) 0-5 per HPF 0-5 UA RBC (test code = RBCU) NONE SEEN #/HPF 0-5 UA EPITHELIAL CELLS (test code = EPIU) FEW per HPF FEW UA BACTERIA (test code = BACU) NONE SEEN #/HPF NONE UA HYALINE CAST (test code = HYALU) 0-2 #/LPF 0-5 Urine Source? [id number] 09:41:00* Test Item Value Reference Range Interpretation Comments GLUBED (test code = GLUBED) 122 mg/dL 74-106 H Performed by certified tanning drum operator at [facility] URINALYSIS [id number] 09:36:00* Test Item Value Reference Range Interpretation Comments UA COLOR (test code = COLU) Light-Yellow YELLOW UA APPEARANCE (test code = APPU) CLEAR CLEAR UA GLUCOSE DIPSTICK (test code = DGLUU) NEGATIVE mg/dL NEGATIVE UA BILIRUBIN DIPSTICK (test code = BILU) NEGATIVE mg/dL NEGATIVE UA KETONE DIPSTICK (test code = KETU) NEGATIVE mg/dL NEGATIVE UA SPECIFIC GRAVITY (test code = SGU) 1.008 1.001-1.035 UA BLOOD DIPSTICK (test code = MELISSA) Negative mg/dL NEGATIVE UA PH DIPSTICK (test code = ALPESH) 5.5 5.0-8.0 UA PROTEIN DIPSTICK (test code = PROU) NEGATIVE mg/dL NEGATIVE UA UROBILINIOGEN DIPSTICK (test code = URO) Normal mg/dL NEGATIVE UA NITRITE DIPSTICK (test code = JOCELYNE) NEGATIVE NEGATIVE UA LEUKOCYTE ESTERASE W REFLEX (test code = LEUUR) NEGATIVE Kiarra/uL NEGATIVE UA WBC (test code = WBCU) per HPF 0-5 UA RBC (test code = RBCU) per HPF 0-5 UA EPITHELIAL CELLS (test code = EPIU) per HPF Few UA BACTERIA (test code = BACU) per HPF NONE Urine Source? MidstreamLIPID PROFILE (CORONARY RISK)2019-12-03 08:29:00* Test Item Value Reference Range Interpretation Comments TRIGLYCERIDES (test code = TRIG) 286 mg/dL 20-150 H CHOLESTEROL (test code = CHOL) 185 mg/dL 0-200 N CHOLESTEROL/HDL RATIO (test code = CHOLHDL) 5.0 RATIO 0-4.9 H RISK ASSOCIATED WITH CHOL/HDL RATIOS: Risk Male Female1/2 AVERAGE 3.43 3.27AVERAGE 4.97 4.442X AVERAGE 9.55 7.053X AVERAGE 23.39 11.04 REFERENCE VALUE IS RELATED TO RISK LEVELS ASRECOMMENDED BY THE [facility]. HEART, LUNG, AND BLOOD INST. HDL CHOLESTEROL (test code = HDL) 37 mg/dL 40-60 L LIPOPROTEIN LDL (test code = LDL) 114 mg/dL 100-129 N RN PERSONNEL, CONTACT PHYSICIAN IMMEDIATELY IF THIS IS A STROKE, AMI OR CAROTID STENOSIS PATIENT WHEN THE LDL >100 (1ST OCCURENCE, THIS ADMISSION) Reference Interval: mg/dL mmol/L Optimal <100 <2.6Near/above optimal 100-129 2.6- 3.3Borderline High 130-159 3.4-4.1High 160-189 4.1-4.9Very High >=190 >=4.9========= This LDL result is a direct measurement.========= BASIC METABOLIC [id number] 03:27:00* Test Item Value Reference Range Interpretation Comments SODIUM (test code = NA) 140 mmol/L 136-145 N POTASSIUM (test code = K) 3.3 mmol/L 3.5-5.1 L CHLORIDE (test code = CL) 111.0 mmol/L 98-107 H CARBON DIOXIDE (test code = CO2) 20.0 mmol/L 21-32 L ANION GAP (test code = GAP) 12.3 10-20 N GLUCOSE (test code = GLU) 122 mg/dL 74-106 H BLOOD UREA NITROGEN (test code = BUN) 32 mg/dL 7-18 H GLOMERULAR FILTRATION RATE (test code = GFR) 29 mL/min >=60 Estimated GFR by using Modified MDRD formula.Chronic kidney disease is defined as either kidney damageor GFR <60 mL/min/1.73 m2 for >3 months. CREATININE (test code = CREAT) 2.20 mg/dL 0.7-1.3 H BUN/CREATININE RATIO (test code = BUN/CREA) 14.5 10-20 N CALCIUM (test code = CA) 8.5 mg/dL 8.5-10.1 N BASIC METABOLIC [id number] 03:26:00* Test Item Value Reference Range Interpretation Comments SODIUM (test code = NA) 140 mmol/L 136-145 N POTASSIUM (test code = K) 3.3 mmol/L 3.5-5.1 L CHLORIDE (test code = CL) 111.0 mmol/L 98-107 H CARBON DIOXIDE (test code = CO2) mmol/L 21-32 ANION GAP (test code = GAP) 10-20 GLUCOSE (test code = GLU) mg/dL 74-106 BLOOD UREA NITROGEN (test code = BUN) mg/dL 7-18 GLOMERULAR FILTRATION RATE (test code = GFR) mL/min >=60 CREATININE (test code = CREAT) mg/dL 0.7-1.3 BUN/CREATININE RATIO (test code = BUN/CREA) 10-20 CALCIUM (test code = CA) mg/dL 8.5-10.1 CBC W/AUTO [id number] 02:56:00* Test Item Value Reference Range Interpretation Comments WHITE BLOOD CELL (test code = WBC) 15.3 K/mm3 4.5-12.5 H RED BLOOD CELL (test code = RBC) 4.41 mill/mm3 4.0-5.8 N HEMOGLOBIN (test code = HGB) 14.3 gram/dL 13.0-17.5 N HEMATOCRIT (test code = HCT) 42.3 % 42.0-52.0 N MEAN CELL VOLUME (test code = MCV) 95.9 fL 80-98 N MEAN CELL HGB (test code = MCH) 32.4 picogram 27.0-33.0 N MEAN CELL HGB CONCETRATION (test code = MCHC) 33.8 gram/dL 33.0-36. 0 N RED CELL DISTRIBUTION WIDTH (test code = RDW) 13.0 % 11.6-16. 2 N RED CELL DISTRIBUTION WIDTH SD (test code = RDW-SD) 45.6 fL 37 .0-51.0 N PLATELET COUNT (test code = PLT) 110 K/mm3 150-450 L RESULT VERIFIED BY REPEAT ANALYSIS MEAN PLATELET VOLUME (test code = MPV) 12.4 fL 6.7-11.0 H NEUTROPHIL % (test code = NT%) 65.7 % 39.0-69.0 N IMMATURE GRANULOCYTE % (test code = IG%) 1.0 % 0.0-5.0 N LYMPHOCYTE % (test code = LY%) 13.4 % 25.0-55.0 L MONOCYTE % (test code = MO%) 9.0 % 0.0-10.0 N EOSINOPHIL % (test code = EO%) 10.4 % 0.0-5.0 H BASOPHIL % (test code = BA%) 0.5 % 0.0-1.0 N NUCLEATED RBC % (test code = NRBC%) 0.0 % 0-0 N NEUTROPHIL # (test code = NT#) 10.07 K/mm3 1.8-7.7 H IMMATURE GRANULOCYTE # (test code = IG#) 0.15 x10 3/uL 0-0.03 H LYMPHOCYTE # (test code = LY#) 2.06 K/mm3 1.0-5.0 N MONOCYTE # (test code = MO#) 1.38 K/mm3 0-0.8 H EOSINOPHIL # (test code = EO#) 1.60 K/mm3 0.0-0.5 H BASOPHIL # (test code = BA#) 0.08 K/mm3 0.0-0.2 N NUCLEATED RBC # (test code = NRBC#) 0.00 K/mm3 0.0-0.1 N MANUAL DIFF REQUIRED (test code = MDIFF) NO [id number] 21:07:00* Test Item Value Reference Range Interpretation Comments GLUBED (test code = GLUBED) 183 mg/dL 74-106 H Performed by certified tanning drum operator at [facility] [id number] 17:31:00* Test Item Value Reference Range Interpretation Comments GLUBED (test code = GLUBED) 113 mg/dL 74-106 H Performed by certified tanning drum operator at [facility] [id number] 17:31:00* Test Item Value Reference Range Interpretation Comments GLUBED (test code = GLUBED) 196 mg/dL 74-106 H Performed by certified tanning drum operator at [facility] [id number] 08:42:00* Test Item Value Reference Range Interpretation Comments GLUBED (test code = GLUBED) 108 mg/dL 74-106 H Performed by certified tanning drum operator at [facility] CBC W/MANUAL [id number] 05:03:00* Test Item Value Reference Range Interpretation Comments WHITE BLOOD CELL (test code = WBC) 15.8 K/mm3 4.5-12.5 H RED BLOOD CELL (test code = RBC) 4.63 mill/mm3 4.0-5.8 N HEMOGLOBIN (test code = HGB) 14.8 gram/dL 13.0-17.5 N HEMATOCRIT (test code = HCT) 43.6 % 42.0-52.0 N MEAN CELL VOLUME (test code = MCV) 94.2 fL 80-98 N MEAN CELL HGB (test code = MCH) 32.0 picogram 27.0-33.0 N MEAN CELL HGB CONCETRATION (test code = MCHC) 33.9 gram/dL 33.0-36. 0 N RED CELL DISTRIBUTION WIDTH (test code = RDW) 13.0 % 11.6-16. 2 N RED CELL DISTRIBUTION WIDTH SD (test code = RDW-SD) 44.6 fL 37 .0-51.0 N PLATELET COUNT (test code = PLT) 166 K/mm3 150-450 N MEAN PLATELET VOLUME (test code = MPV) 11.8 fL 6.7-11.0 H IMMATURE GRANULOCYTE % (test code = IG%) 0.9 % 0.0-5.0 N NUCLEATED RBC % (test code = NRBC%) 0.0 % 0-0 N NEUTROPHIL # (test code = NT#) 9.41 K/mm3 1.8-7.7 H IMMATURE GRANULOCYTE # (test code = IG#) 0.14 x10 3/uL 0-0.03 H LYMPHOCYTE # (test code = LY#) 2.62 K/mm3 1.0-5.0 N MONOCYTE # (test code = MO#) 1.08 K/mm3 0-0.8 H EOSINOPHIL # (test code = EO#) 2.48 K/mm3 0.0-0.5 H BASOPHIL # (test code = BA#) 0.08 K/mm3 0.0-0.2 N NUCLEATED RBC # (test code = NRBC#) 0.00 K/mm3 0.0-0.1 N MANUAL DIFF REQUIRED (test code = MDIFF) YES STAIN ACCEPTABILITY (test code = STN ACCEPTABLE) STAIN ACCEPTABLE TOTAL CELLS COUNTED (test code = TCC) 115 #CELLS SEGMENTED NEUTROPHILS (test code = SEG) 58.3 % 39-69 N BAND NEUTROPHIL (test code = BAND) 0 % 0-10 N LYMPHOCYTE (test code = LYMPH) 13.0 % 25-55 L REACTIVE LYMPH (test code = RELYMPH) 0 % MONOCYTE (test code = MON) 6.1 % 0-10 N EOSINOPHIL (test code = EOS) 22.6 % 0.0-5.0 H BASOPHIL (test code = BASO) 0 % 0-1.0 N METAMYELOCYTE (test code = META) 0 % 0-0 N MYELOCYTE (test code = MYELO) 0 % 0.0-0.0 N PROMYELOCYTE (test code = PROM) 0 % 0-0 N MORPHOLOGY COMMENT (test code = MOC) NORMAL PLATELET ESTIMATE (test code = PLTEST) ADEQUATE PLATELET MORPHOLOGY (test code = PLTMORPH) NORMAL IMMATURE FORMS (test code = IMMAT) 0 % 0-0 N [id number] 04:52:00* Test Item Value Reference Range Interpretation Comments TROPONIN-I (test code = TROPI) 0.239 ng/mL 0-0.045 HH Results called to [id number] by DAVIDE 12/02/19 0452Critical results verified and read back by Nurse? Y COMMENTS TO MECHANICAL DEVELOPER PROVER: COLLECT 3 HOURS AFTER PREVIOUS SAMPLEBASIC METABOLIC [id number] 04:46:00* Test Item Value Reference Range Interpretation Comments SODIUM (test code = NA) 141 mmol/L 136-145 N POTASSIUM (test code = K) 3.0 mmol/L 3.5-5.1 L CHLORIDE (test code = CL) 108.0 mmol/L 98-107 H CARBON DIOXIDE (test code = CO2) 23.0 mmol/L 21-32 N ANION GAP (test code = GAP) 13.0 10-20 N GLUCOSE (test code = GLU) 152 mg/dL 74-106 H BLOOD UREA NITROGEN (test code = BUN) 29 mg/dL 7-18 H GLOMERULAR FILTRATION RATE (test code = GFR) 50 mL/min >=60 Estimated GFR by using Modified MDRD formula.Chronic kidney disease is defined as either kidney damageor GFR <60 mL/min/1.73 m2 for >3 months. CREATININE (test code = CREAT) 1.40 mg/dL 0.7-1.3 H BUN/CREATININE RATIO (test code = BUN/CREA) 20.7 10-20 H CALCIUM (test code = CA) 8.4 mg/dL 8.5-10.1 L CBC W/MANUAL [id number] 04:39:00* Test Item Value Reference Range Interpretation Comments WHITE BLOOD CELL (test code = WBC) 15.8 K/mm3 4.5-12.5 H RED BLOOD CELL (test code = RBC) 4.63 mill/mm3 4.0-5.8 N HEMOGLOBIN (test code = HGB) 14.8 gram/dL 13.0-17.5 N HEMATOCRIT (test code = HCT) 43.6 % 42.0-52.0 N MEAN CELL VOLUME (test code = MCV) 94.2 fL 80-98 N MEAN CELL HGB (test code = MCH) 32.0 picogram 27.0-33.0 N MEAN CELL HGB CONCETRATION (test code = MCHC) 33.9 gram/dL 33.0-36. 0 N RED CELL DISTRIBUTION WIDTH (test code = RDW) 13.0 % 11.6-16. 2 N RED CELL DISTRIBUTION WIDTH SD (test code = RDW-SD) 44.6 fL 37 .0-51.0 N PLATELET COUNT (test code = PLT) 166 K/mm3 150-450 N MEAN PLATELET VOLUME (test code = MPV) 11.8 fL 6.7-11.0 H IMMATURE GRANULOCYTE % (test code = IG%) 0.9 % 0.0-5.0 N NUCLEATED RBC % (test code = NRBC%) 0.0 % 0-0 N NEUTROPHIL # (test code = NT#) 9.41 K/mm3 1.8-7.7 H IMMATURE GRANULOCYTE # (test code = IG#) 0.14 x10 3/uL 0-0.03 H LYMPHOCYTE # (test code = LY#) 2.62 K/mm3 1.0-5.0 N MONOCYTE # (test code = MO#) 1.08 K/mm3 0-0.8 H EOSINOPHIL # (test code = EO#) 2.48 K/mm3 0.0-0.5 H BASOPHIL # (test code = BA#) 0.08 K/mm3 0.0-0.2 N NUCLEATED RBC # (test code = NRBC#) 0.00 K/mm3 0.0-0.1 N MANUAL DIFF REQUIRED (test code = MDIFF) YES STAIN ACCEPTABILITY (test code = STN ACCEPTABLE) TOTAL CELLS COUNTED (test code = TCC) #CELLS SEGMENTED NEUTROPHILS (test code = SEG) % 39-69 LYMPHOCYTE (test code = LYMPH) % 25-55 MONOCYTE (test code = MON) % 0-10 EOSINOPHIL (test code = EOS) % 0.0-5.0 CABOT RINGS (test code = CAB) MORPHOLOGY COMMENT (test code = MOC) PLATELET ESTIMATE (test code = PLTEST) PLATELET MORPHOLOGY (test code = PLTMORPH) CBC W/MANUAL [id number] 04:39:00* Test Item Value Reference Range Interpretation Comments WHITE BLOOD CELL (test code = WBC) 15.8 K/mm3 4.5-12.5 H RED BLOOD CELL (test code = RBC) 4.63 mill/mm3 4.0-5.8 N HEMOGLOBIN (test code = HGB) 14.8 gram/dL 13.0-17.5 N HEMATOCRIT (test code = HCT) 43.6 % 42.0-52.0 N MEAN CELL VOLUME (test code = MCV) 94.2 fL 80-98 N MEAN CELL HGB (test code = MCH) 32.0 picogram 27.0-33.0 N MEAN CELL HGB CONCETRATION (test code = MCHC) 33.9 gram/dL 33.0-36. 0 N RED CELL DISTRIBUTION WIDTH (test code = RDW) 13.0 % 11.6-16. 2 N RED CELL DISTRIBUTION WIDTH SD (test code = RDW-SD) 44.6 fL 37 .0-51.0 N PLATELET COUNT (test code = PLT) 166 K/mm3 150-450 N MEAN PLATELET VOLUME (test code = MPV) 11.8 fL 6.7-11.0 H IMMATURE GRANULOCYTE % (test code = IG%) 0.9 % 0.0-5.0 N NUCLEATED RBC % (test code = NRBC%) 0.0 % 0-0 N NEUTROPHIL # (test code = NT#) 9.41 K/mm3 1.8-7.7 H IMMATURE GRANULOCYTE # (test code = IG#) 0.14 x10 3/uL 0-0.03 H LYMPHOCYTE # (test code = LY#) 2.62 K/mm3 1.0-5.0 N MONOCYTE # (test code = MO#) 1.08 K/mm3 0-0.8 H EOSINOPHIL # (test code = EO#) 2.48 K/mm3 0.0-0.5 H BASOPHIL # (test code = BA#) 0.08 K/mm3 0.0-0.2 N NUCLEATED RBC # (test code = NRBC#) 0.00 K/mm3 0.0-0.1 N MANUAL DIFF REQUIRED (test code = MDIFF) YES STAIN ACCEPTABILITY (test code = STN ACCEPTABLE) TOTAL CELLS COUNTED (test code = TCC) #CELLS SEGMENTED NEUTROPHILS (test code = SEG) % 39-69 LYMPHOCYTE (test code = LYMPH) % 25-55 MONOCYTE (test code = MON) % 0-10 EOSINOPHIL (test code = EOS) % 0.0-5.0 CABOT RINGS (test code = CAB) MORPHOLOGY COMMENT (test code = MOC) PLATELET ESTIMATE (test code = PLTEST) PLATELET MORPHOLOGY (test code = PLTMORPH) CBC W/MANUAL [id number] 04:39:00* Test Item Value Reference Range Interpretation Comments WHITE BLOOD CELL (test code = WBC) 15.8 K/mm3 4.5-12.5 H RED BLOOD CELL (test code = RBC) 4.63 mill/mm3 4.0-5.8 N HEMOGLOBIN (test code = HGB) 14.8 gram/dL 13.0-17.5 N HEMATOCRIT (test code = HCT) 43.6 % 42.0-52.0 N MEAN CELL VOLUME (test code = MCV) 94.2 fL 80-98 N MEAN CELL HGB (test code = MCH) 32.0 picogram 27.0-33.0 N MEAN CELL HGB CONCETRATION (test code = MCHC) 33.9 gram/dL 33.0-36. 0 N RED CELL DISTRIBUTION WIDTH (test code = RDW) 13.0 % 11.6-16. 2 N RED CELL DISTRIBUTION WIDTH SD (test code = RDW-SD) 44.6 fL 37 .0-51.0 N PLATELET COUNT (test code = PLT) 166 K/mm3 150-450 N MEAN PLATELET VOLUME (test code = MPV) 11.8 fL 6.7-11.0 H IMMATURE GRANULOCYTE % (test code = IG%) 0.9 % 0.0-5.0 N NUCLEATED RBC % (test code = NRBC%) 0.0 % 0-0 N NEUTROPHIL # (test code = NT#) 9.41 K/mm3 1.8-7.7 H IMMATURE GRANULOCYTE # (test code = IG#) 0.14 x10 3/uL 0-0.03 H LYMPHOCYTE # (test code = LY#) 2.62 K/mm3 1.0-5.0 N MONOCYTE # (test code = MO#) 1.08 K/mm3 0-0.8 H EOSINOPHIL # (test code = EO#) 2.48 K/mm3 0.0-0.5 H BASOPHIL # (test code = BA#) 0.08 K/mm3 0.0-0.2 N NUCLEATED RBC # (test code = NRBC#) 0.00 K/mm3 0.0-0.1 N MANUAL DIFF REQUIRED (test code = MDIFF) YES STAIN ACCEPTABILITY (test code = STN ACCEPTABLE) TOTAL CELLS COUNTED (test code = TCC) #CELLS SEGMENTED NEUTROPHILS (test code = SEG) % 39-69 LYMPHOCYTE (test code = LYMPH) % 25-55 MONOCYTE (test code = MON) % 0-10 EOSINOPHIL (test code = EOS) % 0.0-5.0 MORPHOLOGY COMMENT (test code = MOC) PLATELET ESTIMATE (test code = PLTEST) PLATELET MORPHOLOGY (test code = PLTMORPH) CBC W/MANUAL [id number] 04:39:00* Test Item Value Reference Range Interpretation Comments WHITE BLOOD CELL (test code = WBC) 15.8 K/mm3 4.5-12.5 H RED BLOOD CELL (test code = RBC) 4.63 mill/mm3 4.0-5.8 N HEMOGLOBIN (test code = HGB) 14.8 gram/dL 13.0-17.5 N HEMATOCRIT (test code = HCT) 43.6 % 42.0-52.0 N MEAN CELL VOLUME (test code = MCV) 94.2 fL 80-98 N MEAN CELL HGB (test code = MCH) 32.0 picogram 27.0-33.0 N MEAN CELL HGB CONCETRATION (test code = MCHC) 33.9 gram/dL 33.0-36. 0 N RED CELL DISTRIBUTION WIDTH (test code = RDW) 13.0 % 11.6-16. 2 N RED CELL DISTRIBUTION WIDTH SD (test code = RDW-SD) 44.6 fL 37 .0-51.0 N PLATELET COUNT (test code = PLT) 166 K/mm3 150-450 N MEAN PLATELET VOLUME (test code = MPV) 11.8 fL 6.7-11.0 H IMMATURE GRANULOCYTE % (test code = IG%) 0.9 % 0.0-5.0 N NUCLEATED RBC % (test code = NRBC%) 0.0 % 0-0 N NEUTROPHIL # (test code = NT#) 9.41 K/mm3 1.8-7.7 H IMMATURE GRANULOCYTE # (test code = IG#) 0.14 x10 3/uL 0-0.03 H LYMPHOCYTE # (test code = LY#) 2.62 K/mm3 1.0-5.0 N MONOCYTE # (test code = MO#) 1.08 K/mm3 0-0.8 H EOSINOPHIL # (test code = EO#) 2.48 K/mm3 0.0-0.5 H BASOPHIL # (test code = BA#) 0.08 K/mm3 0.0-0.2 N NUCLEATED RBC # (test code = NRBC#) 0.00 K/mm3 0.0-0.1 N MANUAL DIFF REQUIRED (test code = MDIFF) YES STAIN ACCEPTABILITY (test code = STN ACCEPTABLE) TOTAL CELLS COUNTED (test code = TCC) #CELLS SEGMENTED NEUTROPHILS (test code = SEG) % 39-69 LYMPHOCYTE (test code = LYMPH) % 25-55 MONOCYTE (test code = MON) % 0-10 MORPHOLOGY COMMENT (test code = MOC) PLATELET ESTIMATE (test code = PLTEST) PLATELET MORPHOLOGY (test code = PLTMORPH) CBC W/MANUAL [id number] 04:39:00* Test Item Value Reference Range Interpretation Comments WHITE BLOOD CELL (test code = WBC) 15.8 K/mm3 4.5-12.5 H RED BLOOD CELL (test code = RBC) 4.63 mill/mm3 4.0-5.8 N HEMOGLOBIN (test code = HGB) 14.8 gram/dL 13.0-17.5 N HEMATOCRIT (test code = HCT) 43.6 % 42.0-52.0 N MEAN CELL VOLUME (test code = MCV) 94.2 fL 80-98 N MEAN CELL HGB (test code = MCH) 32.0 picogram 27.0-33.0 N MEAN CELL HGB CONCETRATION (test code = MCHC) 33.9 gram/dL 33.0-36. 0 N RED CELL DISTRIBUTION WIDTH (test code = RDW) 13.0 % 11.6-16. 2 N RED CELL DISTRIBUTION WIDTH SD (test code = RDW-SD) 44.6 fL 37 .0-51.0 N PLATELET COUNT (test code = PLT) 166 K/mm3 150-450 N MEAN PLATELET VOLUME (test code = MPV) 11.8 fL 6.7-11.0 H IMMATURE GRANULOCYTE % (test code = IG%) 0.9 % 0.0-5.0 N NUCLEATED RBC % (test code = NRBC%) 0.0 % 0-0 N NEUTROPHIL # (test code = NT#) 9.41 K/mm3 1.8-7.7 H IMMATURE GRANULOCYTE # (test code = IG#) 0.14 x10 3/uL 0-0.03 H LYMPHOCYTE # (test code = LY#) 2.62 K/mm3 1.0-5.0 N MONOCYTE # (test code = MO#) 1.08 K/mm3 0-0.8 H EOSINOPHIL # (test code = EO#) 2.48 K/mm3 0.0-0.5 H BASOPHIL # (test code = BA#) 0.08 K/mm3 0.0-0.2 N NUCLEATED RBC # (test code = NRBC#) 0.00 K/mm3 0.0-0.1 N MANUAL DIFF REQUIRED (test code = MDIFF) YES STAIN ACCEPTABILITY (test code = STN ACCEPTABLE) TOTAL CELLS COUNTED (test code = TCC) #CELLS SEGMENTED NEUTROPHILS (test code = SEG) % 39-69 LYMPHOCYTE (test code = LYMPH) % 25-55 MONOCYTE (test code = MON) % 0-10 EOSINOPHIL (test code = EOS) % 0.0-5.0 CABOT RINGS (test code = CAB) MORPHOLOGY COMMENT (test code = MOC) PLATELET ESTIMATE (test code = PLTEST) PLATELET MORPHOLOGY (test code = PLTMORPH) BASIC METABOLIC [id number] 04:35:00* Test Item Value Reference Range Interpretation Comments SODIUM (test code = NA) 141 mmol/L 136-145 N POTASSIUM (test code = K) 3.0 mmol/L 3.5-5.1 L CHLORIDE (test code = CL) 108.0 mmol/L 98-107 H CARBON DIOXIDE (test code = CO2) mmol/L 21-32 ANION GAP (test code = GAP) 10-20 GLUCOSE (test code = GLU) mg/dL 74-106 BLOOD UREA NITROGEN (test code = BUN) mg/dL 7-18 GLOMERULAR FILTRATION RATE (test code = GFR) mL/min >=60 CREATININE (test code = CREAT) mg/dL 0.7-1.3 BUN/CREATININE RATIO (test code = BUN/CREA) 10-20 CALCIUM (test code = CA) mg/dL 8.5-10.1 [id number] 00:34:00* Test Item Value Reference Range Interpretation Comments TROPONIN-I (test code = TROPI) 0.237 ng/mL 0-0.045 Results called to [id number] by DAVIDE 12/02/19 0034Critical results verified and read back by Nurse? Y COMMENTS TO MECHANICAL DEVELOPER PROVER: COLLECT 3 HOURS AFTER PREVIOUS [id number] 20:08:00* Test Item Value Reference Range Interpretation Comments GLUBED (test code = GLUBED) 161 mg/dL 74-106 H Performed by certified tanning drum operator at [facility] [id number] 18:47:00* Test Item Value Reference Range Interpretation Comments GLUBED (test code = GLUBED) 180 mg/dL 74-106 H Performed by certified tanning drum operator at [facility] [id number] 16:26:00* Test Item Value Reference Range Interpretation Comments TROPONIN-I (test code = TROPI) 0.141 ng/mL 0-0.045 HH Results called to [id number] by [email or web address] 12/01/19 1622Critical results verified and read back by Nurse? Y - CT ABD PELVIS W/O [id number] 15:29:00 Name: CELESTE JORDAN [facility] : 1945 Age/S: 74 / M [address] [facility] Unit #: [id number] Loc: [place] [address] Phys: Abilio Diaz MD Acct: [id number] Dis Date: Status: REG ER PHONE #: [phone] Exam Date: 12/01/2019 1438 FAX #: [phone] Reason: nausea and vomiting EXAMS: CPT CODE: [id number] CT ABD PELVIS W/O CONT [id number] EXAM: CT of the abdomen and pelvis without contrast; INFORMATION: Nausea and vomiting; TECHNIQUE AND FINDINGS: CT dose reduction protocol; 5 mm cuts through the abdomen and pelvis without contrast; CT renal stone protocol; The kidneys are of normal size and shape. There is a 4 mm nonobstructing calyceal stone in the upper portion of the right kidney; there are also calcifications of the renal arteries bilaterally; no left renal calculus. No hydronephrosis, no hydroureters and no evidence of ureteral or bladder stones. No acute bowel abnormalities. Liver, spleen and pancreas are of normal size and shape; no focal lesions. Adrenal glands are unremarkable. Status post cholecystectomy; no biliary dilatation. No pelvic mass lesions. Extensive calcifications of the abdominal aorta, visceral arteries as well as iliofemoral arteries. Scans through the lower chest show extensive calcified plaques along the right diaphragmati c pleura. IMPRESSION: 1. No acute abdominal or pelvic ab normalities. 2. 4 mm nonobstructing calyceal stone in the right kidney. Location code: [facility] at 1529 Reported and signed by: Abdoulaye Rose M.D. CC: Geovanni Collazo M.D.; Abilio Diaz MD Technologist:Ricco Arguello RT(R),(MR),(CT) CTDI: DLP: Trnscb Date/Time: 12/01/19 (1529) [email or web address] Orig Print D/T: S: 12/01/2019 (1102) PAGE 1 Signed Report B-TYPE NATRIURETIC [id number] 14:16:00* Test Item Value Reference Range Interpretation Comments B-TYPE NATRIURETIC PEPTIDE (test code = BNP) 23.49 pgram/mL 0-100 N BASIC METABOLIC [id number] 13:58:00* Test Item Value Reference Range Interpretation Comments SODIUM (test code = NA) 137 mmol/L 136-145 N POTASSIUM (test code = K) 4.1 mmol/L 3.5-5.1 N CHLORIDE (test code = CL) 104.5 mmol/L 98-107 N CARBON DIOXIDE (test code = CO2) 23.0 mmol/L 21-32 N ANION GAP (test code = GAP) 13.6 10-20 N GLUCOSE (test code = GLU) 209 mg/dL 74-106 H BLOOD UREA NITROGEN (test code = BUN) 26 mg/dL 7-18 H GLOMERULAR FILTRATION RATE (test code = GFR) 41 mL/min >=60 Estimated GFR by using Modified MDRD formula.Chronic kidney disease is defined as either kidney damageor GFR <60 mL/min/1.73 m2 for >3 months. CREATININE (test code = CREAT) 1.64 mg/dL 0.7-1.3 H BUN/CREATININE RATIO (test code = BUN/CREA) 15.9 10-20 N CALCIUM (test code = CA) 9.1 mg/dL 8.5-10.1 N [id number] 13:58:00* Test Item Value Reference Range Interpretation Comments TROPONIN-I (test code = TROPI) 0.019 ng/mL 0-0.045 N - XR CHEST 1 [id number] 10:47:00 FAX: Geovanni Antonio MD [phone] [place]: St: REG FAX: Hung Martinez NP [phone] Name: CELESTE JORDAN [facility] : 1945 Age/S: 74/M [address] [facility] Unit #: [id number] Loc: [place] [address] Phys: Hung Martinez NP Acct: [id number] Dis Date: Status: REG ER PHONE #: [phone] Exam Date: 12/01/2019 1013 FAX #: [phone] Reason: CHEST PAIN EXAMS: CPT CODE: [id number] XR CHEST 1 V 69256 REASON FOR EXAM: CHEST PAIN Exam Order Date: 12/01/2019 9:43 AM Ordering MKristine: Hung Martinez NP PROCEDURE: - XR CHEST 1 V COMPARISON: Chest x-ray September 15, 2019 FINDINGS: The lungs are clear with no pleural effusion. There is a calcified pleural plaque along the right lung base is unchanged from the previous exam. 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 Degenerative changes are present in the shoulders. Upper abdomen is radiographically unremarkable. IMPRESSION: No acute cardiopulmonary process. Location: [facility] at 1047 Reported and signed by: Cyril Hale MD CC: Geovanni Collazo M.D.; Hung Martinez NP Technologist: Tammi Barber) Trnscrd Date/Time/By: 12/01/2019 (6085) : By: [email or web address] Orig Print D/T: S: 12/01/2019 (3048) PAGE 1 Signed Report CBC W/O [id number] 10:32:00* Test Item Value Reference Range Interpretation Comments WHITE BLOOD CELL (test code = WBC) 14.8 K/mm3 4.5-12.5 H RED BLOOD CELL (test code = RBC) 4.76 mill/mm3 4.0-5.8 N HEMOGLOBIN (test code = HGB) 15.5 gram/dL 13.0-17.5 N HEMATOCRIT (test code = HCT) 44.5 % 42.0-52.0 N MEAN CELL VOLUME (test code = MCV) 93.5 fL 80-98 N MEAN CELL HGB (test code = MCH) 32.6 picogram 27.0-33.0 N MEAN CELL HGB CONCETRATION (test code = MCHC) 34.8 gram/dL 33.0-36. 0 N RED CELL DISTRIBUTION WIDTH (test code = RDW) 13.0 % 11.6-16. 2 N PLATELET COUNT (test code = PLT) 161 K/mm3 150-450 N MEAN PLATELET VOLUME (test code = MPV) 12.6 fL 6.7-11.0 H TROPONIN I [id number] 10:29:00* Test Item Value Reference Range Interpretation Comments TROPONIN I RAPID (test code = TROPIRAP) 0.01 ng/mL <0.08 Please Note New Reference Range 0.00-0.079 ng/mL - Negative>or= 0.08 ng/mL - Positive The use of serial sampling and testing protocol is arecommended practice.An elevated troponin level alone is often not sufficient fordiagnosis of myocardial infarction. Troponin results obtained by different assays may vary.Evaluation of the extent of myocardial damage based onincrease of troponin would be valid only if similarmethodology is used. INTERVERTEBRAL [id number] 15:25:00 RUN DATE: 09/19/19 [facility] PAGE 1 RUN TIME: 1525 Specimen Inqui ry RUN USER: INTERFACE PATIENT: CELESTE JORDAN ACCT #: [id number] LOC: [facility] U #: [id number] AGE/SX: 74/M ROOM: [facility] RE09/16/19REG DR: King Ahn MD : 45 BED: A DIS: 09/17/19 STATUS: DIS Jose TLOC: SPEC #: [id number] RECD: 09/17/19 STATUS: MITCH REQ #: [id number] TIANA: 09/16/19- SUBM DR: King Ahn MD ENTERED: 09/17/19 SP TYPE: INT DISC OTHR DR: Geovanni Collazo MD ORDERED: GROSS [place]: [place] [address] [place] [address] [email or web address] King Ahn MD [address] [address] [phone] PROCEDURES: GROSS (09/19/19-1109) TISSUES: LUMBAR VERTEBRA, NOS - DI SC CLINICAL HISTORY COLLECTION DATE: 09/16/19 RIGHT L4-5 LATERA L RECESS STENOSIS FINAL DIAGNOSIS Lumbar disc, right side, L4-5, lami nectomy, medial fasciectomy and discectomy: INTERVERTEBRAL DISC MATERIAL LIGAMENT TYPE FIBROCONNECTIVE TISSUE BONE NEGATIVE FOR JANE GNANCY DMW/darlene 19426, 66311 MACROSCOPIC The specimen is received in formalin, labeled with the patient's name, and identified as "lum bar disc". It consists of multiple paniagua and pale yellow fragments of fibrous t issue and palpable bone measuring 3.8 x 3.2 x 0.7 cm in aggregate. Samples of the specimen are submitted for decalcification and CONTINUED ON NEXT PAGE RUN DATE: 09/19/19 [facility] PAGE 2 RUN TIME: 1525 Specimen Inquiry RUN USER: INTERFACE SPEC #: [id number] PATIENT: CELESTE JORDAN #[id number] (Continued)---- -------- MACROSCOPIC (Continued) follow up microscopic evaluation in a single cassette. GROSS PERFORMED AT [facility] [address] [address] [phone] MICROSCOPIC All of the stains, includ ing any controls performed, stain appropriately. MICROSCOPIC PERFORMED A T [facility] [address] [place] [address] [phone] PERFORMING SITE Diagnosis perfo rmed at: [facility] [address] [place] [address] [phone] Signed SIGNATURE ON FILE Lindsay Bolden MD 09/19/19 1525 END OF REPORT - XR SPINE 1 V SPEC [id number] 14:38:00 FAX: Geovanni Antonio MD [phone] [place]: B St: REG FAX: King Stroud MD [phone] Name: CELESTE JORDAN [facility] : 1945 Age/S: 74/M [address] [place] [address] Unit #: [id number] Loc: [place] [address] Phys: King Ahn MD Acct: [id number] Dis Date: Status: REG [facility] PHONE #: [phone] Exam Date: 09/16/2019 1420 FAX #: [phone] Reason: LAMINECTOMY EXAMS: CPT CODE: [id number] XR SPINE 1 V SPEC LEVEL [id number] EXAM: The spine, one view, special level x2; INFOR MATION: L4/5 lateral recess stenosis; laminectomy; IMPRESSION: 1. A single, lateral intraoperative radiograph of the lumbar spine, obtained at 1359 hours, shows 2 wire markers superimposed over the L4 /5 disc space and the L5 vertebral body. 2. A subsequent lateral intraop erative radiograph of the lumbar spine, obtained at 1420 hours, shows a surgical instrument positioned at the posterior elements, at the level o f the L4/5 disc. This disc is narrowed and shows an intervertebral vacuu m phenomenon. Location code: [facility] Electron ically Signed by Sohan Rose on 09/16/2019 at 1438 Reported and signed by: Abdoulaye valladares M.D. CC: Geovanni Collazo M.D.; King Ahn MD Technologist: Ioana Valle(R) Trnscrd Date/Time/By: 09/16/2019 (5216) : By: [email or web address] Orig Print D /T: S: 09/16/2019 (0170) PAGE 1 S igned Report - XR SPINE 1 V SPEC [id number] 14:38:00 FAX: Geovanni Antonio MD [phone] [place]: St: REG FAX: King Stroud MD [phone] Name: CELESTE JORDAN [facility] : 1945 Age/S: 74/M [address] Unit #: [id number] Loc: [place] [address] Phys: King Ahn MD Acct: [id number] Dis Date: Status: REG SDC PHONE #: [phone] Exam Date: 09/16/2019 1359 FAX #: [phone] Reason: LAMINECTOMY EXAMS: CPT CODE: [id number] XR SPINE 1 V SPEC LEVEL [id number] EXAM: The spine, one view, special level x2; INFORMATION: L4/5 lateral recess stenosis; laminectomy; IMPRESSION: 1. A single, lateral intraoperative radiograph of the lumbar spine, obtained at 1359 hours, shows 2 wire markers superimposed over the L4/5 disc space and the L5 vertebral body. 2. A subsequent lateral intraoperative radiograph of the lumbar spine, obtained at 1420 hours, shows a surgical instrument positioned at the posterior elements, at the level of the L4/5 disc. This disc is narrowed and shows an intervertebral vacuum phenomenon. Location code: [facility] Electron ically Signed by Sohan Rose on 09/16/2019 at 1438 Reported and signed by: Abdoulaye valladares M.D. CC: Geovanni Collazo M.D.; King Ahn MD Technologist: Ioana Valle(Jacinto) Trnscrd Date/Time/By: 09/16/2019 (4599) : By: AleeGRW Orig Print D /T: S: 09/16/2019 (9616) PAGE 1 S igned Report [id number] 11:00:00* Test Item Value Reference Range Interpretation Comments GLUBED (test code = GLUBED) 144 mg/dL 74-106 H Performed by certified tanning drum operator at [facility] PROTHROMBIN [id number] 10:10:00* Test Item Value Reference Range Interpretation Comments PROTHROMBIN TIME PATIENT (test code = PTP) 10.5 seconds 9.0-14.0 N INTERNATIONAL NORMAL RATIO (test code = INR) 0.9 0.8-1.2 N The therapeutic range for oral anticoagulant therapy formost indications is an international normalized ratio (INR)of between 2.0 and 3.0. The recommended therapeutic INRrange for various clinical situations is listed below: Clinical Situation INR range Pulmonary e mbolism treatment (2.0-3.0)Venous thrombosis treatmentVenous thrombosis prophylaxis (high risk surgery)Prevention of systemic embolism from: Acute myocardial infarction Valvular heart disease Atrial fibrillation Mechanical prosthetic heart valves (2.5-3.5) THROMBOPLASTIN TIME [id number] 10:10:00* Test Item Value Reference Range Interpretation Comments THROMBOPLASTIN TIME PARTIAL (test code = PTT) 31.0 seconds 25.0-36. 5 N BASIC METABOLIC [id number] 10:02:00* Test Item Value Reference Range Interpretation Comments SODIUM (test code = NA) 139 mmol/L 136-145 N POTASSIUM (test code = K) 3.5 mmol/L 3.5-5.1 N CHLORIDE (test code = CL) 105.0 mmol/L 98-107 N CARBON DIOXIDE (test code = CO2) 24.0 mmol/L 21-32 N ANION GAP (test code = GAP) 13.5 10-20 N GLUCOSE (test code = GLU) 178 mg/dL 74-106 H BLOOD UREA NITROGEN (test code = BUN) 24 mg/dL 7-18 H GLOMERULAR FILTRATION RATE (test code = GFR) 50 mL/min >=60 Estimated GFR by using Modified MDRD formula.Chronic kidney disease is defined as either kidney damageor GFR <60 mL/min/1.73 m2 for >3 months. CREATININE (test code = CREAT) 1.40 mg/dL 0.7-1.3 H BUN/CREATININE RATIO (test code = BUN/CREA) 17.3 10-20 N CALCIUM (test code = CA) 9.3 mg/dL 8.5-10.1 N BASIC METABOLIC [id number] 09:56:00* Test Item Value Reference Range Interpretation Comments SODIUM (test code = NA) 139 mmol/L 136-145 N POTASSIUM (test code = K) 3.5 mmol/L 3.5-5.1 N CHLORIDE (test code = CL) 105.0 mmol/L 98-107 N CARBON DIOXIDE (test code = CO2) mmol/L 21-32 ANION GAP (test code = GAP) 10-20 GLUCOSE (test code = GLU) mg/dL 74-106 BLOOD UREA NITROGEN (test code = BUN) mg/dL 7-18 GLOMERULAR FILTRATION RATE (test code = GFR) mL/min >=60 CREATININE (test code = CREAT) mg/dL 0.7-1.3 BUN/CREATININE RATIO (test code = BUN/CREA) 10-20 CALCIUM (test code = CA) mg/dL 8.5-10.1 - XR CHEST 2 [id number] 09:53:00 FAX: Geovanni Antonio MD [phone] [place]: St: PRE FAX: King Stroud MD [phone] Name: CELESTE JORDAN [facility] : 1945 Age/S: 74/M [address] [facility] Unit #: [id number] Loc: [place] [address] Phys: King Ahn MD Acct: [id number] Dis Date: Status: PRE IN PHONE #: [phone] Exam Date: 09/15/2019941 FAX #: [phone] Reason: PRE OP EXAMS: CPT CODE: [id number] XR CHEST 2 V 92445 HISTORY: Preop. COMPARISON: Chest x-ray from October 24, 2018. Location: [facility]. AP and lateral view of the chest: No acute infiltrates, effusion or congestion. Mild cardiomegaly. 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 IMPRESSION: No acute infiltrates, effusion or congestion. at 0953 Reported and signed by : Misbah Georges M.D. CC: Geovanni Collazo M.D.; King Ahn MD Technologist: RT Leola(Jacinto) Trnscrd Date/Time/By: 09/15/2019 (0953) : By: [email or web address] O rig Print D/T: S: 09/15/2019 (0956) PAGE 1 Signed Report CBC W/AUTO [id number] 09:47:00* Test Item Value Reference Range Interpretation Comments WHITE BLOOD CELL (test code = WBC) 12.5 K/mm3 4.5-12.5 N RED BLOOD CELL (test code = RBC) 4.88 mill/mm3 4.0-5.8 N HEMOGLOBIN (test code = HGB) 16.0 gram/dL 13.0-17.5 N HEMATOCRIT (test code = HCT) 45.7 % 42.0-52.0 N MEAN CELL VOLUME (test code = MCV) 93.6 fL 80-98 N MEAN CELL HGB (test code = MCH) 32.8 picogram 27.0-33.0 N MEAN CELL HGB CONCETRATION (test code = MCHC) 35.0 gram/dL 33.0-36. 0 N RED CELL DISTRIBUTION WIDTH (test code = RDW) 12.3 % 11.6-16. 2 N RED CELL DISTRIBUTION WIDTH SD (test code = RDW-SD) 42.5 fL 37 .0-51.0 N PLATELET COUNT (test code = PLT) 198 K/mm3 150-450 N MEAN PLATELET VOLUME (test code = MPV) 12.1 fL 6.7-11.0 H NEUTROPHIL % (test code = NT%) 67.7 % 39.0-69.0 N IMMATURE GRANULOCYTE % (test code = IG%) 0.3 % 0.0-5.0 N LYMPHOCYTE % (test code = LY%) 14.0 % 25.0-55.0 L MONOCYTE % (test code = MO%) 6.0 % 0.0-10.0 N EOSINOPHIL % (test code = EO%) 11.1 % 0.0-5.0 H BASOPHIL % (test code = BA%) 0.9 % 0.0-1.0 N NUCLEATED RBC % (test code = NRBC%) 0.0 % 0-0 N NEUTROPHIL # (test code = NT#) 8.44 K/mm3 1.8-7.7 H IMMATURE GRANULOCYTE # (test code = IG#) 0.04 x10 3/uL 0-0.03 H LYMPHOCYTE # (test code = LY#) 1.75 K/mm3 1.0-5.0 N MONOCYTE # (test code = MO#) 0.75 K/mm3 0-0.8 N EOSINOPHIL # (test code = EO#) 1.39 K/mm3 0.0-0.5 H BASOPHIL # (test code = BA#) 0.11 K/mm3 0.0-0.2 N NUCLEATED RBC # (test code = NRBC#) 0.00 K/mm3 0.0-0.[address] Chest w/o [id number] 09:19:27Patient: CELESTE JORDAN Date/Time01/10/2019 09:05 CSTReason for ExamDyspneaReportEXAM: CT CHEST WITHOUT CONTRASTINDICATION: DyspneaCOMPARISON: None availableTECHNIQUE: Routine axial CT images of the chest was performed without administration of intravenous contrast. Coronal and sagittal reformatted images were submitted for review.IV contrast: NoneDLP: 239.89 mGy- cmFINDINGS:The heart size is normal. There are coronary artery calcifications. No pericardial effusion is identified. The thoracic aorta and great vessels are normal course and caliber. There are atherosclerotic calcifications of the thoracic aorta. There is evidence of prior thoracic surgery.There is atelectasis in both lung bases. No suspicious pulmonary nodules are identified. The pulmonary vasculature is normal. There are pleural plaques calcifications overlying the right hemidiaphragm and within the bilateral hemithoraces.No m ediastinal, hilar, axillary or supraclavicular adenopathy is identified. The thy roid gland is normal in appearance.There is a small hiatal hernia.The osseous st ructures are unremarkable.IMPRESSION:1. No acute abnormality is identified in the chest.2. Minimal bibasilar atelectasis.3. Small hiatal hernia.4. Pleur al plaque calcifications overlying the right hemidiaphragm a within bilateral he mithoraces consistent with history of asbestos exposure.LOCATION: W[address] CT exa m was performed according to our departmental dose optimization program, which i ncludes automated exposure control, adjustment of the mA and/or kV according to the patient size and/or use of iterative reconstructive technique. Final Dictated by: MD Ji Melanie CDictated DT/TM: 01/10/2019 9:17 amSigned by: MD Ji Melanie CSigned (Electronic Signature): 01/10/2019 9:19 amXR Chest 1 View [id number] 13:52:47Patient: CELESTE JORDAN Date/Time01/09/2019 13:21 CSTReason for ExamChest painReportCHEST 1 VIEWCLINICAL INFORMATION: Chest painCOMPARISON: June 11, 2014FINDINGS:The lungs are well-expanded. A 1.3 cm nodular opacity projects over the left upper lobe in the region of the third anterior rib. This is indeterminate for a pulmonary nodule or overlapping soft tissues. Stable pleural-based calcification is seen along the right hemidiaphragm. The cardiac silhouette is moderately enlarged but stable. An aortic valve prosthesis and median sternotomy wires are noted.IMPRESSION:1. Stable enlargement of the cardiac silhouette.2. Questionable left upper lobe pulmonary nodule. CT follow-up is recommended.LOCATION: R16 Final Dictated by: MD Dave Adam FDictated DT/TM: 01/09/2019 1:50 pmSigned by: MD Dave Adam FSigned (Electronic Signature): 01/09/2019 1:52 pmHemoglobin A1c/Hemoglobin.total in [id number] 16:10:00* Test Item Value Reference Range Interpretation Comments A1C w/EAG (test code = A1C w/EAG) 8.7 % 1.0-5.7 H average blood glucose (test code = average blood glucose) 203 mg/dL [facility] W Auto Differential panel - [id number] 16:05:00 * Test Item Value Reference Range Interpretation Comments WBC (test code = WBC) 11.25 x10*3/?L 4.23-9.07 H RBC (test code = RBC) 4.58 10*12/L 4.63-6.08 L hemoglobin (test code = hemoglobin) 14.70 g/dL 13.70-17.50 hematocrit (test code = hematocrit) 43.7 % 40.1-51.0 MCV (test code = MCV) 95.4 fL 80.0-100.0 MCH (test code = MCH) 32.1 pg 25.7-32.2 MCHC (test code = MCHC) 33.6 g/dL 32.3-36.5 RDW-SD (test code = RDW-SD) 42.0 fL 35.1-43.9 platelet count (test code = platelet count) 216.0 k/uL 163.0-337. 0 MPV (test code = MPV) 12.6 fL 7.5-11.5 H neut% (test code = neut%) 63.6 % 34.0-67.9 lymph% (test code = lymph%) 17.2 % 21.8-53.1 L mon% (test code = mon%) 7.6 % 5.3-12.2 eos% (test code = eos%) 10.7 % 0.8-7.0 H baso% (test code = baso%) 0.9 % 0.2-1.2 neut# (test code = neut#) 7.2 x10*3/?L 1.8-5.4 H lymph# (test code = lymph#) 1.9 x10*3/?L 1.3-3.6 mon# (test code = mon#) 0.9 x10*3/?L 0.3-0.8 H eos# (test code = eos#) 1.20 x10*3/?L 0.04-0.54 H baso# (test code = baso#) 0.10 x10*3/?L 0.01-0.08 H [facility] 2000 [facility] - Serum or Plasma 2017-11-22 15:53:00* Test Item Value Reference Range Interpretation Comments ALT (test code = ALT) 19 U/L 0-55 AST (test code = AST) 16 U/L 5-34 BUN (test code = BUN) 17.5 mg/dL 8.4-25.7 alk phos (test code = alk phos) 63 unit/L 40-150 glucose (test code = glucose) 264 mg/dL 70-99 H albumin (test code = albumin) 3.6 g/dL 3.5-5.0 creatinine (test code = creatinine) 1.39 mg/dL 0.72-1.25 H eGFR non- (test code = eGFR non-jaime n armenian) 50 mL/min/1.73m2 >60 L total bilirubin (test code = total bilirubin) 1.3 mg/dL 0.2-1.2 H eGFR - (test code = eGFR - ) >60 >60 sodium (test code = sodium) 139 mEq/L 136-145 potassium (test code = potassium) 4.1 mEq/L 3.5-5.1 chloride (test code = chloride) 102 mmol/L 98-107 total protein (test code = total protein) 7.3 g/dL 6.4-8.3 calcium (test code = calcium) 9.3 mg/dL 8.8-10.0 CO2 (test code = CO2) 28.5 mmol/L 23.0-31.0 anion gap (test code = anion gap) 9 calc [facility] 1996 panel - Serum or [id number] 15:53:00* Test Item Value Reference Range Interpretation Comments HDL (test code = HDL) 30 mg/dL 40-60 L triglyceride (test code = triglyceride) 255 mg/dL 0-149 H VLDL calc. (test code = VLDL calc.) 51 mg/dL cholesterol/HDL ratio (test code = cholesterol/HDL ratio) 6.7 mg/dL non-HDL cholesterol calc. (test code = non-HDL cholesterol c alc.) 170 mg/dL 0-160 H cholesterol (test code = cholesterol) 200 mg/dL 0-199 H LDL calc. (test code = LDL calc.) 119 mg/dL 0-130 [facility] HospitalNatriuretic peptide B [Mass/volume] in Serum or Plasma 2017-11-22 13:17:00* Test Item Value Reference Range Interpretation Comments B type natriuretic peptide (BNP) (test code = B type n atriuretic peptide (BNP)) 98 pg/mL <100 [facility]Com[facility] 1999 panel - Serum or Plasma 2017-04-27 11:53:00* Test Item Value Reference Range Interpretation Comments ALT (test code = ALT) 21 U/L 0-55 AST (test code = AST) 16 U/L 5-34 BUN (test code = BUN) 27.7 mg/dL 8.4-25.7 H alk phos (test code = alk phos) 57 unit/L 40-150 glucose (test code = glucose) 124 mg/dL 70-99 H albumin (test code = albumin) 4.2 g/dL 3.5-5.0 creatinine (test code = creatinine) 1.51 mg/dL 0.72-1.25 H eGFR non- (test code = eGFR non-jaime n armenian) 46 mL/min/1.73m2 >60 L total bilirubin (test code = total bilirubin) 1.6 mg/dL 0.2-1.2 H eGFR - (test code = eGFR - ) 55 mL/min/1.73m2 >60 L sodium (test code = sodium) 139 mEq/L 136-145 potassium (test code = potassium) 3.5 mEq/L 3.5-5.1 chloride (test code = chloride) 104 mmol/L 98-107 total protein (test code = total protein) 7.7 g/dL 6.4-8.3 calcium (test code = calcium) 9.5 mg/dL 8.8-10.0 CO2 (test code = CO2) 22.8 mmol/L 23.0-31.0 L anion gap (test code = anion gap) 12 calc [facility] HospitalLip[facility] 1995 panel - Serum or [id number] 11:53:00* Test Item Value Reference Range Interpretation Comments HDL (test code = HDL) 36 mg/dL 40-60 L triglyceride (test code = triglyceride) 351 mg/dL 0-149 H VLDL calc. (test code = VLDL calc.) 70 mg/dL cholesterol/HDL ratio (test code = cholesterol/HDL ratio) 7 mg/dL non-HDL cholesterol calc. (test code = non-HDL cholesterol c alc.) 198 mg/dL 0-160 H cholesterol (test code = cholesterol) 234 mg/dL 0-199 H LDL calc. (test code = LDL calc.) 128 mg/dL 0-130 [facility] HospitalProstate specific Ag [Mass/volume] in Serum or Plasma 2017-04-27 11:53:00* Test Item Value Reference Range Interpretation Comments PSA, total (test code = PSA, total) 2.52 NG/mL <4.00 [facility] HospitalParathyrin.intact [Mass/volume] in Serum or Plasma 2017-04-27 09:46:00* Test Item Value Reference Range Interpretation Comments parathyroid hormone, intact (test code = parathyroid hormone , intact) 68 pg/mL 14-64 H [facility] HospitalMagnesium [Mass/volume] in Serum or [id number] 16:31:00* Test Item Value Reference Range Interpretation Comments magnesium (test code = magnesium) 1.8 mg/dL 1.5-2.[address] [place]/Creatinine [Mass Ratio] in [id number] 16:31:00* Test Item Value Reference Range Interpretation Comments sodium/creat ratio (test code = sodium/creat ratio) 27 mmol/g creat 20-233 sodium, random urine (test code = sodium, random urine) 43 mmol/L 28-272 creatinine, random urine (test code = creatinine, random uri ne) 159 mg/dL 20-370 [facility] HospitalPhosphate [Mass/volume] in Serum or [id number] 16:31:00* Test Item Value Reference Range Interpretation Comments phosphate ( phosphorus) (test code = phosphate ( phospho promise)) 3.0 mg/dL 2.1-4.3 [facility] HospitalCB W Auto Differential panel - [id number] 15:29:00 * Test Item Value Reference Range Interpretation Comments WBC (test code = WBC) 10.29 x10*3/?L 2.90-10.50 RBC (test code = RBC) 4.70 10*12/L 3.61-5.21 hemoglobin (test code = hemoglobin) 15.50 g/dL 12.30-17.50 hematocrit (test code = hematocrit) 44.6 % 37.1-51.3 MCV (test code = MCV) 94.9 fL 79.4-101.6 MCH (test code = MCH) 33.0 pg 26.2-34.8 MCHC (test code = MCHC) 34.8 g/dL 30.2-35.6 RDW-SD (test code = RDW-SD) 42.9 fL 35.8-49.8 platelet count (test code = platelet count) 192.0 k/uL 118.8-347. 0 MPV (test code = MPV) 12.0 fL 8.4-13.4 neut% (test code = neut%) 68.0 % 39.1-76.5 lymph% (test code = lymph%) 16.1 % 13.8-46.8 mon% (test code = mon%) 8.5 % 4.6-14.4 eos% (test code = eos%) 6.9 % 0.8-7.3 baso% (test code = baso%) 0.5 % 0.2-1.5 neut# (test code = neut#) 7.0 x10*3/?L 0.8-7.0 lymph# (test code = lymph#) 1.7 x10*3/?L 0.6-3.2 mon# (test code = mon#) 0.9 x10*3/?L 0.2-1.0 eos# (test code = eos#) 0.71 x10*3/?L 0.04-0.51 H baso# (test code = baso#) 0.05 x10*3/?L 0.01-0.09 [facility] metabolic panel - [id number] 04:30:00* Test Item Value Reference Range Interpretation Comments sodium (test code = sodium) 140 mmol/L 135-148 potassium (test code = potassium) 3.7 mmol/L 3.5-5.1 chloride (test code = chloride) 104 mmol/L 101-109 carbon dioxide (test code = carbon dioxide) 27.8 mmol/L 21-32 anion gap (test code = anion gap) 8 mmol/L 10-20 L glucose (test code = glucose) 224 mg/dL 74-106 H blood urea nitrogen (test code = blood urea nitrogen) 32 mg/dL 3-21 H glomerular filtration rate (test code = glomerular filtratio n rate) 58 mL/min >=60 creatinine (test code = creatinine) 1.23 mg/dL 0.55-1.3 calcium (test code = calcium) 8.2 mg/dL 8.4-10.2 L performing lab: (test code = performing lab:) [facility]CB with Ordered Manual Differential panel - Blood 2016-11-23 04:30:00* Test Item Value Reference Range Interpretation Comments white blood cell (test code = white blood cell) 23.4 K/mm3 4.5-12 .5 H red blood cell (test code = red blood cell) 4.26 mill/mm3 4.0-5.8 hemoglobin (test code = hemoglobin) 13.7 gram/dL 13.0-17.5 hematocrit (test code = hematocrit) 40.5 % 42.0-52.0 L mean cell volume (test code = mean cell volume) 95.0 fL 80.4-9 8 mean cell HGB (test code = mean cell HGB) 32.2 pg 27.0-33.0 mean cell HGB concetration (test code = mean cell HGB concet ration) 33.9 g/dL 33.0-36.0 red cell distribution width (test code = red cell distributi on width) 12.7 % 11.6-16.2 platelet count (test code = platelet count) 213 K/mm3 150-450 mean platelet volume (test code = mean platelet volume) 10.3 fL 6.7-10.0 H stain acceptability (test code = stain acceptability) stain accepta ble total cells counted (test code = total cells counted) 100 #cells segmented neutrophils (test code = segmented neutrophils) 83 % 39-69 H lymphocyte (test code = lymphocyte) 13 % 25-55 L monocyte (test code = monocyte) 4 % 0-10 morphology comment (test code = morphology comment) normal platelet estimate (test code = platelet estimate) adequate platelet morphology (test code = platelet morphology) size variable performing lab: (test code = performing lab:) [facility] HospitalInfluenza virus A Ag [Presence] in [id number] 18:04:00* Test Item Value Reference Range Interpretation Comments influenza A Ag (test code = influenza A Ag) see below performing lab: (test code = performing lab:) [facility] HospitalInfluenza virus B Ag [Presence] in Unspecified specimen 2016-11-22 18:04:00* Test Item Value Reference Range Interpretation Comments influenza B Ag (test code = influenza B Ag) see below performing lab: (test code = performing lab:) [facility] W Auto Differential panel - [id number] 04:21:00 * Test Item Value Reference Range Interpretation Comments white blood cell (test code = white blood cell) 29.0 K/mm3 4.5-12 .5 H red blood cell (test code = red blood cell) 4.41 mill/mm3 4.0-5.8 hemoglobin (test code = hemoglobin) 14.1 gram/dL 13.0-17.5 hematocrit (test code = hematocrit) 41.5 % 42.0-52.0 L mean cell volume (test code = mean cell volume) 94.1 fL 80.4-9 8 mean cell HGB (test code = mean cell HGB) 32.0 pg 27.0-33.0 mean cell HGB concetration (test code = mean cell HGB concet ration) 34.0 g/dL 33.0-36.0 red cell distribution width (test code = red cell distributi on width) 12.8 % 11.6-16.2 platelet count (test code = platelet count) 213 K/mm3 150-450 mean platelet volume (test code = mean platelet volume) 10.7 fL 6.7-10.0 H neutrophil % (test code = neutrophil %) 89.4 % 39.0-69.0 H lymphocyte % (test code = lymphocyte %) 4.0 % 23.0-38.0 L monocyte % (test code = monocyte %) 6.5 % 3.0-8.0 eosinophil % (test code = eosinophil %) 0.0 % 0.0-5.0 basophil % (test code = basophil %) 0.1 % 0.0-1.0 neutrophil # (test code = neutrophil #) 25.90 K/mm3 1.8-7.7 H lymphocyte # (test code = lymphocyte #) 1.1 K/mm3 1.0-5.0 monocyte # (test code = monocyte #) 1.90 K/mm3 0-0.8 H eosinophil # (test code = eosinophil #) 0.0 K/mm3 0.0-0.5 basophil # (test code = basophil #) 0.0 K/mm3 0.0-0.2 performing lab: (test code = performing lab:) [facility] HospitalHemoglobin A1c/Hemoglobin.total in [id number] 04:21:00* Test Item Value Reference Range Interpretation Comments glycosylated hemoglobin (ha1c) (test code = glycosylat ed hemoglobin (ha1c)) 6.9 % 4.5-6.2 H estimated average glucose (test code = estimated average glucose) 1 51 mg/dL performing lab: (test code = performing lab:) [facility] HospitalCom[facility] 2000 panel - Serum or Plasma 2016-11-22 04:21:00* Test Item Value Reference Range Interpretation Comments sodium (test code = sodium) 135 mmol/L 135-148 potassium (test code = potassium) 4.0 mmol/L 3.5-5.1 chloride (test code = chloride) 98 mmol/L 101-109 L carbon dioxide (test code = carbon dioxide) 25.6 mmol/L 21-32 anion gap (test code = anion gap) 11 mmol/L 10-20 glucose (test code = glucose) 373 mg/dL 74-106 H blood urea nitrogen (test code = blood urea nitrogen) 32 mg/dL 3-21 H glomerular filtration rate (test code = glomerular filtratio n rate) 40 mL/min >=60 creatinine (test code = creatinine) 1.70 mg/dL 0.55-1.3 H total protein (test code = total protein) 8.1 g/dL 6.5-8.4 albumin (test code = albumin) 3.3 g/dL 3.4-4.8 L globulin (test code = globulin) 4.8 g/dL 1-10 albumin/globulin ratio (test code = albumin/globulin ratio) 0.7 0.75-1.50 L calcium (test code = calcium) 9.1 mg/dL 8.4-10.2 bilirubin total (test code = bilirubin total) 0.60 mg/dL 0.0-1.0 SGOT/AST (test code = SGOT/AST) 13 U/L 6-32 SGPT/ALT (test code = SGPT/ALT) 28 U/L 12-78 alkaline phosphatase total (test code = alkaline phosphatase total) 81 U/L 38-126 performing lab: (test code = performing lab:) [facility] in [id number] 04:21:00* Test Item Value Reference Range Interpretation Comments phosphorus (test code = phosphorus) 2.1 mg/dL 2.6-4.7 L performing lab: (test code = performing lab:) [facility] [Enzymatic activity/volume] in Serum or Plasma 2016-11-22 04:21:00* Test Item Value Reference Range Interpretation Comments lipase (test code = lipase) 93 U/L 73.0-393.0 performing lab: (test code = performing lab:) [facility] PracticeMagnesium [Moles/volume] in Serum or [id number] 04:21:00* Test Item Value Reference Range Interpretation Comments magnesium (test code = magnesium) 1.9 mg/dL 1.6-2.3 performing lab: (test code = performing lab:) [facility] PracticeMicroscopic observation [Identifier] in Sputum by Gram [id number] 02:00:00* Test Item Value Reference Range Interpretation Comments gram stain sputum (test code = gram stain sputum) see below performing lab: (test code = performing lab:) [facility] by [id number] 02:00:00* Test Item Value Reference Range Interpretation Comments sputum culture (test code = sputum culture) see below performing lab: (test code = performing lab:) [facility].cardiac [Mass/volume] in Serum or Plasma 2016-11-21 09:58:00* Test Item Value Reference Range Interpretation Comments troponin-I (test code = troponin-I) <0.015 0.00-0.056 performing lab: (test code = performing lab:) [facility] PracticeTroponin I.cardiac [Mass/volume] in Serum or Plasma 2016-11-21 06:45:00* Test Item Value Reference Range Interpretation Comments troponin-I (test code = troponin-I) <0.015 0.00-0.056 performing lab: (test code = performing lab:) [facility] PracticeBacteria identified in Blood by [id number] 04:40:00* Test Item Value Reference Range Interpretation Comments blood culture (test code = blood culture) see below performing lab: (test code = performing lab:) [facility] PracticeBacteria identified in Blood by [id number] 04:30:00* Test Item Value Reference Range Interpretation Comments blood culture (test code = blood culture) see below performing lab: (test code = performing lab:) [facility] [id number] 02:50:00* Test Item Value Reference Range Interpretation Comments troponin I rapid (test code = troponin I rapid) 0.01 NG/mL <0.08 performing lab: (test code = performing lab:) [facility] [id number] 02:49:00* Test Item Value Reference Range Interpretation Comments BNP rapid (test code = BNP rapid) 53 pg/mL 0-100 performing lab: (test code = performing lab:) [facility] Differential panel - [id number] 02:40:00 * Test Item Value Reference Range Interpretation Comments white blood cell (test code = white blood cell) 16.8 K/mm3 4.5-12 .5 H red blood cell (test code = red blood cell) 4.68 mill/mm3 4.0-5.8 hemoglobin (test code = hemoglobin) 15.0 gram/dL 13.0-17.5 hematocrit (test code = hematocrit) 44.1 % 42.0-52.0 mean cell volume (test code = mean cell volume) 94.2 fL 80.4-9 8 mean cell HGB (test code = mean cell HGB) 32.0 pg 27.0-33.0 mean cell HGB concetration (test code = mean cell HGB concet ration) 33.9 g/dL 33.0-36.0 red cell distribution width (test code = red cell distributi on width) 12.8 % 11.6-16.2 platelet count (test code = platelet count) 190 K/mm3 150-450 mean platelet volume (test code = mean platelet volume) 10.2 fL 6.7-10.0 H neutrophil % (test code = neutrophil %) 74.0 % 39.0-69.0 H lymphocyte % (test code = lymphocyte %) 11.2 % 23.0-38.0 L monocyte % (test code = monocyte %) 11.4 % 3.0-8.0 H eosinophil % (test code = eosinophil %) 2.6 % 0.0-5.0 basophil % (test code = basophil %) 0.8 % 0.0-1.0 neutrophil # (test code = neutrophil #) 12.50 K/mm3 1.8-7.7 H lymphocyte # (test code = lymphocyte #) 1.9 K/mm3 1.0-5.0 monocyte # (test code = monocyte #) 1.90 K/mm3 0-0.8 H eosinophil # (test code = eosinophil #) 0.4 K/mm3 0.0-0.5 basophil # (test code = basophil #) 0.1 K/mm3 0.0-0.2 performing lab: (test code = performing lab:) [facility] 2000 [facility] - Serum or Plasma 2016-11-21 02:40:00* Test Item Value Reference Range Interpretation Comments sodium (test code = sodium) 137 mmol/L 135-148 potassium (test code = potassium) 3.0 mmol/L 3.5-5.1 L chloride (test code = chloride) 99 mmol/L 101-109 L carbon dioxide (test code = carbon dioxide) 27.8 mmol/L 21-32 anion gap (test code = anion gap) 10 mmol/L 10-20 glucose (test code = glucose) 193 mg/dL 74-106 H blood urea nitrogen (test code = blood urea nitrogen) 17 mg/dL 3-21 glomerular filtration rate (test code = glomerular filtratio n rate) 58 mL/min >=60 creatinine (test code = creatinine) 1.23 mg/dL 0.55-1.3 total protein (test code = total protein) 8.3 g/dL 6.5-8.4 albumin (test code = albumin) 3.5 g/dL 3.4-4.8 globulin (test code = globulin) 4.8 g/dL 1-10 albumin/globulin ratio (test code = albumin/globulin ratio) 0.7 0.75-1.50 L calcium (test code = calcium) 8.3 mg/dL 8.4-10.2 L bilirubin total (test code = bilirubin total) 1.80 mg/dL 0.0-1.0 H SGOT/AST (test code = SGOT/AST) 18 U/L 6-32 SGPT/ALT (test code = SGPT/ALT) 30 U/L 12-78 alkaline phosphatase total (test code = alkaline phosphatase total) 65 U/L 38-126 performing lab: (test code = performing lab:) [facility]
--- NOTE | 2020-07-17 02:25 | Diagnostic Imaging Report ---
EXAMINATION: CHEST SINGLE (PORTABLE) INDICATION: Chest pain COMPARISON: None FINDINGS: TUBES and LINES: None. LUNGS: Normal lung volumes. Lungs are clear. No consolidations. PLEURA: No pleural effusion or pneumothorax. Pleural-based calcifications can be due to cardiothoracic surgery or asbestos related exposure. HEART AND MEDIASTINUM: Cardiac size is mildly enlarged. Surgical changes. Aortic calcifications. BONES AND SOFT TISSUES: No acute osseous lesion. Soft tissues are unremarkable. Sternotomy wires. UPPER ABDOMEN: No free air under the diaphragm. IMPRESSION: Mild cardiomegaly. Signed by: Steven Carney DO on 07/17/2020 2:22 AM
[2020-07-17] MEDS ORDERED: DEXTROSE 50% SYRINGE 50 ML IV PRN (02:45)
--- OUTSIDE RECORDS SUMMARY | 2020-07-17 02:47 | XMS REPORT | Clinical Summary ---
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 Manufactur er 06/04/2021 [id number] / [id number] / [id number] Lens Iol Tecnis Monofocal Zcb 22.5d Intraocula Left: Eye ADAMS - [id number] - [id number] Lens MEDICAL Implanted: Qty: 1 on 03/28/2018 by Implant [employer] Murray Young MD at [facility] 03/26/2021 [id number] / [id number] / [id number] Lens Iol Tecnis Monofocal Zcb 21.5d Right: Eye A BBOTT - [id number] - [id number] MEDICAL Implanted: Qty: 1 on 03/07/2018 by [employer] Murary Young MD at [facility] Results Not on fileafter 07/17/2019 Insurance Type Payer Benefit Subscriber ID Effective Phone Address Plan / Dates Group Medicare MEDICARE MEDICARE xxxxxxxxxx [id number] [place], PART [place] AND resent [place] B PPO BCBS BCBS xxxxxxxxxxxxxxx 2013- CHOICE Present PPO/ERIC JAIN PPO Advance Directives For more information, please contact: [phone] 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
--- OUTSIDE RECORDS SUMMARY | 2020-07-17 02:47 | XMS REPORT | Continuity of Care Document ---
Author Author [facility] t Organization [facility] Address [address] [place] [address] Phone Unavailable Care Team Providers Care General Car Yard Supervisor Name Role Phone Zay DAVIS, Daniel Galarza PCP Nitin Phelps Attphys Unavailable JEN RAMOS Admphys Unavailable Payers Payer Name Policy Type Policy Number [...] 2 Diabetes Mellitus Problem Active 2018-01-25 00:00:00 [facility] Chronic kidney disease stage 2 Chronic Kidney Disease Stage 2 Probl em Active 2018-01-25 00:00:00 [facility] Old myocardial infarction Old Myocardial Infarction Problem Ac tive 2018-01-24 00:00:00 [facility] Abdominal aortic atherosclerosis Abdominal Aortic Atherosclerosi s Problem Active 2017-02-15 00:00:00 [facility] Type 2 diabetes mellitus Type 2 Diabetes Mellitus Problem Acti ve 2016-12-27 00:00:00 [facility] Stable angina Stable Angina Problem Active 2016-12-27 00:00:00 [facility] 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 Problem Active 2016-12-27 00:00:00 [facility] Practice History of percutaneous transluminal coronary angiopla sty History of Percutaneous Transluminal Coronary Angioplasty Problem Active 2016-12-27 00:00:00 [facility] Diverticular disease of colon Diverticular Disease of Colon Problem Active 2016-11-21 00:00:00 [facility] Steatosis of liver Steatosis of Liver Problem Active 2016-11-21 00:00:0 0 [facility] Practice Pure hypercholesterolemia Pure Hypercholesterolemia Problem Ac tive 2015-10-07 00:00:00 [facility] Hypertensive heart and renal disease with (congestive) heart failure Hypertensive Heart and Renal Disease with (Congestive) Heart Failure Problem Active 2015-10-07 00:00:00 [facility] Practice Chronic kidney disease Chronic Kidney Disease Problem Active 2015-10-07 00:00:00 [facility] Coronary bypass graft finding Coronary Bypass Graft Finding Problem Active 2015-10-07 00:00:00 [facility] Coronary arteriosclerosis in [place] artery Coronary Ar teriosclerosis in [place] Artery Problem Active 2006-04-16 00:00:00 [facility] Backache Backache Problem Active 2006-04-16 00:00:00 [facility] Edema Edema Problem Active 2006-04-16 00:00:00 [facility] History of artificial heart valve History of Artificial Heart Va lve Problem Active 2006-04-16 00:00:00 [facility] Myocardial infarction Myocardial Infarction Problem Active 201 06-05-29 00:00:00 2018-01-24 00:00:00 [facility] ly [facility] Benign essential hypertension Benign Essential Hypertension Problem Active 2017-04-04 00:00:00 2017-04-25 00:00:00 [facility] Practice Chronic renal impairment Chronic Renal Impairment Problem Acti ve 2015-10-07 00:00:00 2017-01-25 00:00:00 [facility] Practice Coronary atherosclerosis Coronary Atherosclerosis Problem Acti ve 2015-10-07 00:00:00 2016-12-27 00:00:00 [facility] Left heart failure Left Heart Failure Problem Active 3 00:00:00 2016-12-27 00:00:00 [facility] ly Practice History of cardiac surgery History of Cardiac Surgery Problem Active 2015-10-07 00:00:00 2016-12-27 00:00:00 [facility] Angina pectoris Angina Pectoris Problem Active 2006-04-16 00:0 0:00 2016-12-27 00:00:00 [facility] Clinical finding Clinical Finding Problem Active 2015-10-07 00 :00:00 2016-12-26 00:00:00 [facility] Allergies, Adverse Reactions, Alerts Allergy Name Allergy Type Status Severity Reaction(s) Onset Date Inacti ve Date Treating Clinician Comments Source codeine DA Active MO 2019-12-01 00:00:00 [facility] propoxyphene DA Active U 2019-12-01 00:00:00 [facility] acetaminophen DA Active U 2019-12-01 00:00:00 [facility] propoxyphene DA Active U 2018-10-24 00:00:00 [facility] acetaminophen DA Active U 2018-10-24 00:00:00 [facility] Oxycodone-Acetaminophen Propensity to adverse reactions to drug Activ e Hives 2018-03-07 00:00:00 [facility] Elvia odist codeine DA Active MO 2016-08-19 00:00:00 [facility] propoxyphene DA Active MO 2016-08-19 00:00:00 [facility] DARVOCET-N 100 Allergy to substance Active Rash 2015-10-07 00:00 :00 [facility] Propoxyphene N-Acetaminophen Propensity to adverse reactions to spencer g Active Rash 2015-10-07 00:00:00 Hakan Fuentes Social History Social Habit Start Date Stop Date Quantity Comments Source History of tobacco use Cigarette Smoker Hakan Fuentes Sex Assigned At Alok reyes Alfredo Alcohol intake 2018-03-28 00:00:00 2018-03-28 00:00:00 Current [...] QD Take 81 mg by mouth daily. Rahat Fuentes carisoprodol (SOMA) 350 MG tablet 2018-03-28 07:37:09 Yes 350mg QD Take 350 mg by mouth daily. Hakan Fuentes HYDROcodone-acetaminophen (NORCO) 10-325 mg per tablet 2018-03-28 07:37:09 Yes 1{tbl} QD Take 1 tablet by mouth daily. Hakan Fuentes lisinopril (PRINIVIL,ZESTRIL) 40 mg tablet 2018-03-28 07:37:09 Yes 40mg QD Take 40 mg by mouth daily. Michael Fuentes omeprazole (PriLOSEC) 20 MG capsule 2018-03-28 07:37:09 Yes TAKE ONE CAPSULE BY MOUTH EVERY DAY Hakan chow metFORMIN (GLUCOPHAGE) 1,000 mg tablet 2018-03-28 07:37:09 Yes 1000mg Q.5D Take 1,000 mg by mouth 2 (two) times a day with meals. Hakan Fuentes amLODIPine (NORVASC) 10 mg tablet 2018-02-16 00:00:00 Yes 10mg QD Take 10 mg by mouth daily. Hakan Fuentes celecoxib (CeleBREX) 200 MG capsule 2018-02-16 [...] QD Take 25 mg by mouth daily. Rahat Fuentes PROLENSA 0.07 % ophthalmic solution 2018-01-08 00:00:00 Yes INSTILL 1 DROP IN RIGHT EYE DAILY Hakan velazquez irbesartan (AVAPRO) 150 MG tablet 2017-12-30 00:00:00 Yes TAKE 1 TABLET EVERY DAY BY ORAL ROUTE FOR 90 DAYS. aHkan Fuentes JENTADUETO XR 2.5-1,000 mg tablet, IR [...] strips No Accu-Chek Gaye Plus test strips [facility] amlodipine 10 mg tablet amlodipine 10 mg tablet No amlodipine 10 mg tablet [facility] ice aspirin 81 mg tablet,delayed release aspirin 81 mg tablet,delayed r elease No aspirin 81 mg tablet,delayed release [facility] carisoprodol 350 mg tablet carisoprodol 350 mg tablet No carisoprodol 350 mg tablet [facility] carvedilol 25 mg tablet carvedilol 25 mg tablet No carvedilol 25 mg tablet [facility] ice celecoxib 200 mg capsule celecoxib 200 mg capsule No celecoxib 200 mg capsule [facility] ice clopidogrel 75 mg tablet clopidogrel 75 mg tablet No clopidogrel 75 mg tablet [facility] ice finasteride 5 mg tablet finasteride 5 mg tablet No finasteride 5 mg tablet [facility] ice furosemide 40 mg tablet furosemide 40 mg tablet No furosemide 40 mg tablet [facility] ice glimepiride 2 mg tablet glimepiride 2 mg tablet No glimepiride 2 mg tablet [facility] hydrochlorothiazide 25 mg tablet hydrochlorothiazide 25 mg tablet No hydrochlorothiazide 25 mg tablet [facility] hydrocodone 10 mg-acetaminophen 325 mg tablet hydrocod one 10 mg-acetaminophen 325 mg tablet No hydrocodone 10 mg-acetam inophen 325 mg tablet [facility] hydrocodone-homatropine 5 mg-1.5 mg/5 mL syrup hydroco done-homatropine 5 mg-1.5 mg/5 mL syrup No hydrocodone-homatropine 5 mg-1.5 mg/5 mL syrup [facility] irbesartan 150 mg tablet irbesartan 150 mg tablet No irbesartan 150 mg tablet [facility] ice isosorbide mononitrate ER 60 mg tablet,extended releas e 24 hr isosorbide mononitrate ER 60 mg tablet,extended release 24 hr No isosorbide mononitrate ER 60 mg tablet,extended release 24 hr [facility] Jentadueto XR 2.5 mg-1,000 mg tablet, extended release Jentadueto XR 2.5 mg- 1,000 mg tablet, extended release No Jentadueto XR 2.5 mg-1,000 mg tablet, extended release [facility] Levemir FlexTouch U-100 Insulin 100 unit/mL (3 mL) sub cutaneous pen Levemir FlexTouch U-100 Insulin 100 unit/mL (3 mL) subcutaneous pen No Levemir FlexTouch U-100 Insulin 100 unit/mL (3 mL) subcutaneous pen [facility] lisinopril 40 mg tablet lisinopril 40 mg tablet No lisinopril 40 mg tablet [facility] losartan 50 mg tablet Take 1 tablet every day by oral route. losartan 50 mg tablet Take 1 tablet every day by oral route. No 1 Q1D losartan 50 mg tablet Take 1 tablet every day by oral route. [facility] Lotemax 0.5 % eye gel drops Lotemax 0.5 % eye gel drops No Lotemax 0.5 % eye gel drops [facility] nitroglycerin 0.4 mg sublingual tablet P lace 1 tablet as needed by sublingual route. nitroglycerin 0.4 mg sublingual tablet P lace 1 tablet as needed by sublingual route. No 1 nitrog lycerin 0.[address] 1 tablet as needed by sublingual route. [facility] Novolog U-100 Insulin aspart 100 unit/mL subcutaneous solution Novolog U-100 Insulin aspart 100 unit/mL subcutaneous solution No Novolog U-100 Insulin aspart 100 unit/mL subcutaneous solution [facility] omeprazole 20 mg capsule,delayed release omeprazole 20 mg capsule,delayed release No omeprazole 20 mg capsule,delay ed release [facility] oxybutynin chloride ER 10 mg tablet,extended release 2 4 hr oxybutynin chloride ER 10 mg tablet,extended release 24 hr No oxybutynin chloride ER 10 mg tablet,extended release 24 hr [facility] potassium chloride ER 20 mEq tablet,extended release(p art/cryst) potassium chloride ER 20 mEq tablet,extended release(part/cryst) No potassium chloride ER 20 mEq tablet,extended release(part/cryst) [facility] Prolensa 0.07 % eye drops Prolensa 0.07 % eye drops No Prolensa 0.07 % eye drops [facility] rosuvastatin 40 mg tablet rosuvastatin 40 mg tablet No rosuvastatin 40 mg tablet [facility] tamsulosin 0.4 mg capsule tamsulosin 0.4 mg capsule No tamsulosin 0.4 mg capsule [facility] atorvastatin 20 mg tablet atorvastatin 20 mg tablet 00:00:00 No atorvastatin 20 mg tablet [facility] potassium chloride ER 20 mEq tablet,extended release p otassium chloride ER 20 mEq tablet,extended release 2017-12-03 00:00:00 No potassium chloride ER 20 mEq tablet,extended release [facility] Depo-Medrol 80 mg/mL suspension for injection injected 1 ml, once, deep IM Depo- Medrol 80 mg/mL suspension for injection injected 1 ml, once, deep IM 2017-11-21 00:00:00 No Depo- Medrol 80 mg/mL suspension for injection injected 1 ml, once, deep IM [facility] Klor-Con 20 mEq tablet,extended release Take 1 tablet every day by oral route as directed for 90 days. Klor-Con 20 mEq tablet,extended release Take 1 tablet every day by oral route as directed for 90 days. 2017-11-21 00:00:00 N o 1 Q1D Klor-Con 20 mEq tablet,extended release Take 1 tablet every day by oral route as directed for 90 days. [facility] methocarbamol 750 mg tablet methocarbamol 750 mg tablet 2017-07-18 00:00:00 No methocarbamol 750 mg tablet [facility] Kenalog 40 mg/mL suspension for injectio n mixed with lidocaine and injected into trigger point Kenalog 40 mg/mL suspension for injectio n mixed with lidocaine and injected into trigger point 2017-06-05 00:00:00 No Kenalog 40 mg/mL suspension for injection mixed with lidocaine and injected into trigger point [facility] lidocaine (PF) 10 mg/mL (1 %) injection solution mixed with Kenalog and injected into posterior superior iliac spine lidocaine (PF) 10 mg/mL (1 %) injection solution mixed with Kenalog and injected into posterior superior iliac spine 2017-06-05 00:00:00 No lidoc tosha (PF) 10 mg/mL (1 %) injection solution mixed with Kenalog and injected into posterior superior iliac spine [facility] meclizine 12.5 mg tablet meclizine 12.5 mg tablet 2017-04-25 00: 00:00 No meclizine 12.5 mg tablet [facility] tramadol 50 mg tablet tramadol 50 mg tablet 2017-04-25 00:00:00 No tramadol 50 mg tablet [facility] ctice Synvexia Patch 4 %-1 % topical Synvexia Patch 4 %-1 % topical 2017-04-04 00:00:00 No Synvexia Patch 4 %-1 % topical [facility] Voltaren 1 % topical gel Voltaren 1 % topical gel 2017-04-04 00: 00:00 No Voltaren 1 % topical gel [facility] amoxicillin 500 mg capsule amoxicillin 500 mg capsule 2016 00:00:00 No amoxicillin 500 mg capsule [facility] hydrocodone 7.5 mg-acetaminophen 325 mg tablet hydroco done 7.5 mg-acetaminophen 325 mg tablet 2017-03-21 00:00:00 No hydrocodone 7.5 mg-acetaminophen 325 mg tablet [facility] ice ibuprofen 800 mg tablet ibuprofen 800 mg tablet 2017-03-21 00:00 :00 No ibuprofen 800 mg tablet [facility] levofloxacin 500 mg tablet levofloxacin 500 mg tablet 2016 00:00:00 No levofloxacin 500 mg tablet [facility] methylprednisolone 4 mg tablets in a dose pack methylp rednisolone 4 mg tablets in a dose pack 2017-03-21 00:00:00 No methylprednisolone 4 mg tablets in a dose pack [facility] ice ondansetron 8 mg disintegrating tablet ondansetron 8 mg disinteg rating tablet 2017-03-21 00:00:00 No ondansetron 8 mg dis integrating tablet [facility] promethazine 25 mg/mL injection solution Take 1 mL by injection route. promethazine 25 mg/mL injection solution Take 1 mL by injection route. 2017-03-21 00:00:00 No 1mL prome thazine 25 mg/mL injection solution Take 1 mL by injection route. [facility] Pr actice Isosorbide Mononitrate CR 60 mg [...] oral route as directed for 90 days. [facility] ice Immunizations Ordered Immunization Name Filled Immunization Name Date Status Comments Source pneumococcal conjugate PCV 13 pneumococcal conjugate PCV 13 2017 15:11:00 Completed [facility] influenza, high dose seasonal influenza, high dose seasonal 2016 17:01:00 Completed [facility] influenza, injectable, quadrivalent influenza, injectable, q uadrivalent 2015-10-07 00:00:00 Completed [facility] ice influenza, seasonal, injectable influenza, seasonal, injecta ble 2014-07-21 00:00:00 Completed [facility] ice Vital Signs Vital Name Observation Time Observation Value Comments Source BP Diastolic 2018-01-25 00:00:00 89 mm[Hg] [facility] Height 2018-01-25 00:00:00 71 [in_i] [facility] BMI (Body Mass Index) 2018-01-25 00:00:00 31.7 kg/m2 [facility] BP Systolic 2018-01-25 00:00:00 166 mm[Hg] [facility] Body Weight 2018-01-25 00:00:00 227.4 [lb_av] [facility] BP Diastolic 2017-12-03 00:00:00 93 mm[Hg] [facility] Height 2017-12-03 00:00:00 71 [in_i] [facility] BMI (Body Mass Index) 2017-12-03 00:00:00 31.9 kg/m2 [facility] BP Systolic 2017-12-03 00:00:00 181 mm[Hg] [facility] Body Weight 2017-12-03 00:00:00 228.6 [lb_av] [facility] BP Diastolic 2017-11-21 00:00:00 77 mm[Hg] [facility] Height 2017-11-21 00:00:00 71 [in_i] [facility] BMI (Body Mass Index) 2017-11-21 00:00:00 31.5 kg/m2 [facility] BP Systolic 2017-11-21 00:00:00 131 mm[Hg] [facility] Body Weight 2017-11-21 00:00:00 225.6 [lb_av] [facility] BP Diastolic 2017-07-18 00:00:00 81 mm[Hg] [facility] Height 2017-07-18 00:00:00 71 [in_i] [facility] BMI (Body Mass Index) 2017-07-18 00:00:00 31.2 kg/m2 [facility] BP Systolic 2017-07-18 00:00:00 156 mm[Hg] [facility] Body Weight 2017-07-18 00:00:00 224 [...] Practice Body Weight 2017-04-25 00:00:00 229.1 [lb_av] [facility] BP Diastolic 2017-04-04 00:00:00 91 mm[Hg] [facility] Height 2017-04-04 00:00:00 71 [in_i] [facility] BMI (Body Mass Index) 2017-04-04 00:00:00 31.8 kg/m2 [facility] BP Systolic 2017-04-04 00:00:00 165 mm[Hg] [facility] Body Weight 2017-04-04 00:00:00 228 [lb_av] [facility] BP Diastolic 2017-03-21 00:00:00 90 mm[Hg] [facility] Height 2017-03-21 00:00:00 71 [in_i] [facility] BMI (Body Mass Index) 2017-03-21 00:00:00 31.9 kg/m2 [facility] BP Systolic 2017-03-21 00:00:00 180 mm[Hg] [facility] Body Weight 2017-03-21 00:00:00 228.8 [lb_av] [facility] BP Diastolic 2017-02-15 00:00:00 94 mm[Hg] [facility] Height 2017-02-15 00:00:00 71 [in_i] [facility] BMI (Body Mass Index) 2017-02-15 00:00:00 31.5 kg/m2 [facility] BP Systolic 2017-02-15 00:00:00 158 [...] (Body Mass Index) 2014-08-19 00:00:00 35.24 kg/m2 [facility] BP Systolic 2014-08-19 00:00:00 140 [...] Practice Body Weight 2005-08-15 00:00:00 200 [lb_av] [facility] Body Weight 2005-08-04 00:00:00 200 [lb_av] [facility] Body Weight 2005-07-21 00:00:00 186 [lb_av] [facility] Body Weight 2004-11-15 00:00:00 214 [lb_av] [facility] Procedures Procedure Date / Time Performed Performing Clinician Sourc e Stent Placemt Retro Carotid 2017-11-28 00:00:00 [facility] X-RAY HIP UNLIATERAL (2-3 VIEWS) 2017-03-21 00:00:00 [facility] Cabg 2016-11-05 00:00:00 [facility] ly Practice Plan of Care Planned Activity Planned Date Details Comments Source Instructions [facility] Instructions [facility] Encounters Start Date/Time End Date/Time Encounter Type Admission Type Attendi [facility] Care Department Encounter ID Source 2018-01-25 00:00:00 2018-01-25 00:00:00 PAPA Marroquin: [id number] [facility], [address], [place] [address], Ph. [facility] [place], [place] [id number] [facility] colleen 2017-12-28 00:00:00 2017-12-28 00:00:00 Kristen De La Torre: [address] [facility], [address], [place] [address], Ph. [facility] - Care Management [id number] [facility] 2017-12-14 00:00:00 2017-12-14 00:00:00 Kristen De La Torre: [address] [facility], [address], [place] [address], Ph. [facility] - Care Management [id number] [facility] 2017-12-03 00:00:00 2017-12-03 00:00:00 Geovanni Collazo MD: [id number] [facility], [address], [place] [address], Ph. [facility] [place] [place] [id number] [facility] colleen 2017-11-30 00:00:00 2017-11-30 00:00:00 Kristen De La Torre: [address] [facility], [address], [place] [address], Ph. [facility] - Care Management [id number] [facility] Pract ice 2017-11-21 00:00:00 2017-11-21 00:00:00 Geovanni Collazo MD: [id number] [facility], [address] [place] [id number], Ph. [facility] [place], [place] [id number] [facility] Prac colleen 2017-07-18 00:00:00 2017-07-18 00:00:00 Geovanni Collazo MD: [id number] [facility], [address] [place] [id number], Ph. [facility] [place], [place] [id number] [facility] Prac colleen 2017-06-05 00:00:00 2017-06-05 00:00:00 Geovanni Collazo MD: [id number] [facility], [address] [place] [address], Ph. [facility] [place], [place] [id number] [facility] Prac colleen 2017-04-25 00:00:00 2017-04-25 00:00:00 Geovanni Collazo MD: [id number] [facility], [address] [place] [address], Ph. [facility] [place], [place] [id number] [facility] Prac colleen 2017-04-04 00:00:00 2017-04-04 00:00:00 Jarad Oscar MD: [id number] [facility], [address] [place] [phone], Ph. [facility] [place] [place] [id number] [facility] Prac colleen 2017-03-21 00:00:00 2017-03-21 00:00:00 CLAIRE Cancino: [id number] [facility], [address], [place] [address], Ph. [facility] [id number] [facility] Prac [facility] 2017-02-15 00:00:00 2017-02-15 00:00:00 PAPA Cutler : [id number] [facility], [address], [place] [address], Ph. [facility] [place] [place] [id number] [facility] 2017-01-25 00:00:00 2017-01-25 00:00:00 Geovanni Collazo MD: [id number] [facility], [address] [address], Ph. [facility] [place], [place] [id number] [facility] 2016-12-27 00:00:00 2016-12-27 00:00:00 Geovanni Collazo MD: [id number] [facility], [address] [address], Ph. [facility] [place], [place] [id number] [facility] Prac [facility] 2016-12-12 00:00:00 2016-12-12 00:00:00 Gayla Wells: [address] [facility], [address] [address], Ph. [facility] - Care Management [id number] [facility] 2016-11-28 00:00:00 2016-11-28 00:00:00 Geovanni Collazo MD: [id number] [facility], [address] [address], Ph. [facility] [place], [place] [id number] [facility] Prac colleen 2016-11-27 00:00:00 2016-11-27 00:00:00 Gayla Wells: [address] [facility], [address] [address], Ph. [facility] - Care Management [id number] [facility] Results Test Description Test Time Test Comments Results Result Comments Source CHEST SINGLE (PORTABLE) 2020-07-17 02:20:00 [place] [address] Patient Name: CELESTE JORDAN MR #: [id number] : 1945 Age/Sex: 75/M Req #: [id number] Adm Physician: Ordered by: Mingo Phelps MD Report #: [id number] Location: ER Room/Bed: Procedure: [id number] DX/CHEST SINGLE (PORTABLE) Exam Date: 07/17/20 Exam Time: 39 REPORT STATUS: Signed EXAMINATION: CHEST SINGLE (PORTABLE) INDICATION: Chest pain COMPARISON: None FINDINGS: TUBES and LINES: None. LUNGS: Normal lung volumes. Lungs are clear. No consolidations. PLEURA: No pleural effusion or pneu mothorax. Pleural-based calcifications can be due to cardiothoracic surgery or asbestos related exposure. HEART AND MEDIASTINUM: Cardiac size is mildly enlarged. Surgical changes. Aortic calcifications. BONES AND SOFT TISSUES: No acute osseous lesion. Soft tissues are unremarkable. Sternotomy wires. UPPER ABDOMEN: No free air under the diaphragm. IMPRESSION: Mild cardiomegaly. Signed by: Steven Esparza DO on 07/17/2020 2:22 AM Dictated By: STEVEN ESPARZA DO 1 Transcribed By: EDWARD on 07/17/20221 COPY TO: MINGO PHELPS MD INTERVERTEBRAL DISC 2020-03-22 15:57:00 RUN DATE: 03/22/20 [facility] PAGE 1 RUN TIME: 1557 Specimen Inquiry RUN USER: INTERFACE PATIENT: CELESTE JORDAN LOC: MOR U #: [id number] AGE/SX: 74/M ROOM: [facility] RE03/17/20REG DR: King Ahn MD : 45 BED: A DIS: 03/18/20 STATUS: DIS Jose TLOC: SPEC #: [id number] RECD: 03/18/20 STATUS: MITCH GARCIA #: [id number] TIANA: 03/17/20- SUBM DR: King Ahn MD ENTERED: 03/18/20 SP TYPE: INT DISC OTHR DR: Geovanni Collazo MD ORDERED: TJ [place]: [place] [address] [place] [address] [email or web address] King Ahn MD [address] [address] PROCEDURES: GROSS (03/22/20-1236) TISSUES: LUMBAR REGION - DISC CLINICAL HISTORY COLLECTION DATE: 03/17/20 L4-5 RECURRENT DISC HERNIATION FINAL DIAGNOSIS Lumbar disc, right side, L4-5, redo laminectomy, medial facetectomy, and microsurgical discectomy: INTERVERTEBRAL DISC MATERIAL, FIBROTIC FIBROCONNECTIVE TISSUE, AND BONE NEGATIVE FOR MALIGNANCY DMW/gm D 81664, 92061 MACROSCOPIC The specimen is received in formalin, labeled with the patient's name, and identified as "lumbar disc". It consists of multiple paniagua fibrous fragments of tissue and palpable bone measuring 2.5 x 2.5 x 0.5 cm in aggregate. Samples of the specimen are submitted for decalcification and follow up microscopic evaluation in a single cassette. CONTINUED ON NEXT PAGE RUN DATE: 03/22/20 [facility] [place] [facility] PAGE 2 RUN TIME: 1557 Specimen Inquiry RUN USER: INTERFACE SPEC #: [id number] PATIENT: CELESTE JORDAN #[id number] (Juan Jose nukatia) MACROSCOPIC (Continued) GROSS PERFORMED AT [facility] [address] [facility] [place] [address] [phone])[phone] MICROSCOPIC All of the stains, including any controls performed, stain appropriately. MICROSCOPIC PERFORMED AT [facility] [address] [facility] [place] [address] (P)[phone] PERFORMING SITE Processed at: [facility] [address] [facility], [place] [address] Signed SIGNATURE ON FILE Lindsay Bolden MD 03/22/20 1557 END OF REPORT GLUBED 2020-03-18 08:32:00 Test Item GLUBED (test code = GLUBED) 308 mg/dL 74-106 H Per[facility] by certified [facility] - XR SPINE 1 V SPEC [id number] 13:20:00 FAX: Geovanni Antonio MD [phone] [place]: B St: REG FAX: King Stroud MD [phone] Name: CELESTE JORDAN [facility] : 1945 Age/S: 74/M [address] Unit #: [id number] Loc: [place] [address] Phys: King Ahn MD Acct: [id number] Dis Date: Status: REG [facility] PHONE #: [phone] Exam Date: 03/17/2020 1219 FAX #: [phone] Reason: LAMINOTOMY EXAMS: CPT CODE: [id number] XR SPINE 1 V SPEC LEVEL 31245 HISTORY: LAMINOTOMY TECHNIQUE: Intraoperative late ral views of the lumbar spine. Comparison:Lumbar spine radiographs September 16, 2019 FINDINGS/ IMPRESSION: Moderate-sized vertebral body osteophytes are present on L3-L4. Verteb ral body heights and intervertebral disc spaces are maintained. Disc deg eneration is seen at L4-L5. Surgical instrumentation projects over the l evel of L4-L5. Location: [facility] Signed by Cyril Hale MD on 03/17/2020 at 1320 Repor deneen and signed by: Cyril Hale MD CC: Alonso Foster; King Ahn MD Technologist: FAISAL LUQUE JR [facility] Date/Time/By: 03/17/2020 (1320) : By: [email or web address] 1 Orig Print D/T: S: 03/17/2020 (0331) PAGE 1 Signed Report - XR SPINE 1 V SPEC [id number] 13:20:00 FAX: Geovanni Antonio MD [phone] [place]: B St: REG FAX: King Stroud MD [phone] Name: CELESTE JORDAN [facility] : 1945 Age/S: 74/M [address] Unit #: [id number] Loc: [place] [address] Phys: King Ahn MD Acct: [id number] Dis Date: Status: [facility] PHONE #: [phone] Exam Date: 03/17/2020 1211 FAX #: [phone] Reason: LAMINOTOMY EXAMS: CPT CODE: [id number] XR SPINE 1 V SPEC LEVEL 24066 HISTORY: LAMINOTOMY TECHNIQUE: Intraoperative lateral views of the lumbar spine. Comparison:Lumbar spine radiographs September 16, 2019 FINDINGS/ IMPRESSION: Moderate- sized vertebral body osteophytes are present on L3-L4. Vertebral body heights and intervertebral disc spaces are maintained. Disc degeneration is seen at L4-L5. Surgical instrumentation projects over the level of L4-L5. Location: [facility] at 1320 Reported and signed by: Cyril Hale MD CC: Geovanni Collazo M.D.; King Ahn MD Technologist: FAISAL LUQUE JR Trnscrd Date/Time/By: 03/17/2020 (3976) : By: [email or web address] Orig Print D/T: S: 03/17/2020 (0649) PAGE 1 Signed Report [id number] 10:08:00* Test Item Value Reference Range Interpretation Comments GLUBED (test code = GLUBED) 178 mg/dL 74-106 H Performed by certified fill plant operator at [facility] PROTHROMBIN [id number] 16:40:00* Test Item Value Reference Range Interpretation [...] ANTICOAGULANTS? YLIST ANTICOAGULANTS PLAVIX ASPIRIN THROMBOPLASTIN TIME [id number] 16:40:00* Test Item Value Reference Range Interpretation Comments THROMBOPLASTIN TIME PARTIAL (test code = PTT) 30.3 seconds 23.0-37. 0 N IS PATIENT ON ANTICOAGULANTS? YLIST ANTICOAGULANTS PLAVIX ASPIRINCBC W/AUTO [id number] 16:29:00* Test Item Value Reference Range Interpretation [...] (test code = MDIFF) NO CBC W/AUTO [id number] 16:27:00* Test Item Value Reference Range Interpretation [...] code = BA#) K/mm3 0.0-0.2 BASIC METABOLIC [id number] 16:27:00* Test Item Value Reference Range Interpretation [...] = CA) 9.1 mg/dL 8.5-10.1 N Coronavirus 2018 nCoV [id number] 16:15:00* Test Item Value Reference Range Interpretation Comments Coronavirus 2019 nCoV Bedside (test code = COVNONPUIBED) Negative V.LAB.SPR 03/16/20 1531- XR CHEST 2 [id number] 15:48:00 FAX: Geovanni Antonio MD [phone] [place]: St: PRE FAX: King Stroud MD [phone] Name: CELESTE JORDAN [facility] : 1945 Age/S: 74/M [address] [facility] Unit #: [id number] Loc: [place] [address] Phys: King Ahn MD Acct: [id number] Dis Date: Status: PRE IN PHONE #: [phone] Exam Date: 03/16/2020 1534 FAX #: [phone] Reason: PRE OP EXAMS: CPT CODE: [id number] XR CHEST 2 V 46311 REASON FOR EXAM: PRE OP Exam Order Date: 3:18 PM Ordering: King Ahn MD Attending:Julissa Ahn MD Location:[facility] PROCEDURE: - XR CHEST 2 V COMPARISON: [...] signed by: Mulugeta Li M.D. CC: Geovanni Collazo M.D.; King Ahn MD Technologist: Ioana Valle(R) Trnscrd Date/Time/By: 10/2020 (5541) : By: Nanci Orig Print D/T: S: 03/16/2020 (6051) PAGE 1 Signed Report [id number] 05:56:00* Test Item Value Reference Range Interpretation Comments GLUBED (test code = GLUBED) 221 mg/dL 74-106 H Performed by certified fill plant operator at [facility] [id number] 21:13:00* Test Item Value Reference Range Interpretation Comments GLUBED (test code = GLUBED) 271 mg/dL 74-106 H Performed by certified fill plant operator at [facility] [id number] 18:31:00* Test Item Value Reference Range Interpretation Comments GLUBED (test code = GLUBED) 173 mg/dL 74-106 H Performed by certified fill plant operator at [facility] [id number] 12:55:00* Test Item Value Reference Range Interpretation Comments GLUBED (test code = GLUBED) 141 mg/dL 74-106 H Performed by certified fill plant operator at [facility] [id number] 05:08:00* Test Item Value Reference Range Interpretation Comments GLUBED (test code = GLUBED) 180 mg/dL 74-106 H Performed by certified fill plant operator at [facility] [id number] 21:02:00* Test Item Value Reference Range Interpretation Comments GLUBED (test code = GLUBED) 146 mg/dL 74-106 H Performed by certified fill plant operator at [facility] [id number] 17:04:00* Test Item Value Reference Range Interpretation Comments GLUBED (test code = GLUBED) 111 mg/dL 74-106 H Performed by certified fill plant operator at [facility] [id number] 11:41:00* Test Item Value Reference Range Interpretation Comments GLUBED (test code = GLUBED) 201 mg/dL 74-106 H Performed by certified fill plant operator at [facility] SED [id number] 09:43:00* Test Item Value Reference Range Interpretation Comments SED RATE (test code = SEDW) 36 mm/hr 0-15 H WINTROBE METHOD: NORMAL RANGE FOR MEN: 0-9 MM/HR WOMAN: 0-20 MM/HR SED RATE [id number] 09:42:00* Test Item Value Reference Range Interpretation Comments SED RATE WESTERGREN (test code = SEDW) 36 mm/hr 0-15 H - XR ANKLE 2 VIEWS [id number] 08:15:00 FAX: Geovanni Antonio MD [phone] [place]: B St: ADM FAX: Carlton Bowden MD FAX: Sandy Olmstead [phone] Name: CELESTE JORDAN [facility] : 1945 Age/S: 74/M [address] [facility] Unit #: [id number] Loc: V.[address] [place] [address] Phys: Sandy Birch Acct: [id number] Dis Date: Status: ADM IN ONE #: [phone] Exam Date: 12/07/2019 0741 FAX #: [phone] Reason: pain, decreased ROM EXAMS: CPT CODE: [id number] XR ANKLE [address] [place] [address] CLINICAL HISTO RY: pain, decreased ROM TECHNIQUE: AP and lateral views of the lef t ankle COMPARISON: None FINDINGS/ IMPRESSIO N: No fracture. Bones are appropriately aligned and the ankle mortise is preserved. There is swelling of the soft tissues or o n the left ankle with joint effusion. Small calcaneal enthesophytes are present. Location: [facility] at 0815 Reported and signed b y: Cyril Hale MD CC: Geovanni Collazo M.D.; Carlton Saravia ; Sandy Birch Technologist: RT CORIN(R) Trnscrd Date/Time/By: 12/07/2019 (0815) : By: [email or web address] Orig Print D/T: S: 12/07/2019 (5978) PAGE 1 Signed Report C REACTIVE [id number] 07:08:00* Test Item Value Reference Range Interpretation Comments C REACTIVE PROTEIN (test code = CRP) 6.17 mg/dL 0-0.3 H BASIC METABOLIC [id number] 07:08:00* Test Item Value Reference Range Interpretation [...] CA) 8.4 mg/dL 8.5-10.1 L BASIC METABOLIC [id number] 07:05:00* Test Item Value Reference Range Interpretation [...] code = CA) mg/dL 8.5-10.1 CBC W/AUTO [id number] 07:00:00* Test Item Value Reference Range Interpretation [...] DIFF REQUIRED (test code = MDIFF) NO [id number] 21:09:00* Test Item Value Reference Range Interpretation Comments GLUBED (test code = GLUBED) 189 mg/dL 74-106 H Performed by certified fill plant operator at [facility] [id number] 16:21:00* Test Item Value Reference Range Interpretation Comments GLUBED (test code = GLUBED) 95 mg/dL 74-106 N Performed by certified fill plant operator at [facility] [id number] 11:52:00* Test Item Value Reference Range Interpretation Comments GLUBED (test code = GLUBED) 184 mg/dL 74-106 H Performed by certified fill plant operator at [facility] [id number] 06:19:00* Test Item Value Reference Range Interpretation Comments GLUBED (test code = GLUBED) 123 mg/dL 74-106 H Performed by certified fill plant operator at [facility] BASIC METABOLIC [id number] 05:31:00* Test Item Value Reference Range Interpretation [...] = CA) 8.5 mg/dL 8.5-10.1 N URIC [id number] 05:31:00* Test Item Value Reference Range Interpretation Comments URIC ACID (test code = URIC) 6.2 mg/dL 2.6-7.2 N BASIC METABOLIC [id number] 05:25:00* Test Item Value Reference Range Interpretation [...] (test code = CA) mg/dL 8.5-10.1 URIC [id number] 05:25:00* Test Item Value Reference Range Interpretation Comments URIC ACID (test code = URIC) mg/dL 2.6-7.2 CBC W/AUTO [id number] 05:22:00* Test Item Value Reference Range Interpretation [...] DIFF REQUIRED (test code = MDIFF) NO [id number] 20:58:00* Test Item Value Reference Range Interpretation Comments GLUBED (test code = GLUBED) 165 mg/dL 74-106 H Performed by certified fill plant operator at [facility] [id number] 11:44:00* Test Item Value Reference Range Interpretation Comments GLUBED (test code = GLUBED) 163 mg/dL 74-106 H Performed by certified fill plant operator at [facility] BASIC METABOLIC [id number] 06:56:00* Test Item Value Reference Range Interpretation [...] CA) 8.6 mg/dL 8.5-10.1 N BASIC METABOLIC [id number] 06:48:00* Test Item Value Reference Range Interpretation [...] code = CA) mg/dL 8.5-10.1 CBC W/AUTO [id number] 06:28:00* Test Item Value Reference Range Interpretation [...] code = NRBC#) 0.00 K/mm3 0.0-0.1 N [id number] 05:58:00* Test Item Value Reference Range Interpretation Comments GLUBED (test code = GLUBED) 130 mg/dL 74-106 H Performed by certified fill plant operator at [facility] [id number] 20:55:00* Test Item Value Reference Range Interpretation Comments GLUBED (test code = GLUBED) 104 mg/dL 74-106 N Performed by certified fill plant operator at [facility] COAGULATION TIME [id number] 15:15:00* Test Item Value Reference Range Interpretation Comments COAGULATION TIME ACTIVATED (test code = ACT) 210 seconds 62.8-88.0 H [id number] 11:31:00* Test Item Value Reference Range Interpretation Comments GLUBED (test code = GLUBED) 115 mg/dL 74-106 H Performed by certified fill plant operator at [facility] [id number] 07:45:00* Test Item Value Reference Range Interpretation Comments GLUBED (test code = GLUBED) 128 mg/dL 74-106 H Performed by certified fill plant operator at [facility] CBC W/MANUAL [id number] 05:15:00* Test Item Value Reference Range Interpretation [...] IMMAT) 0 % 0-0 N BASIC METABOLIC [id number] 04:50:00* Test Item Value Reference Range Interpretation [...] CA) 8.4 mg/dL 8.5-10.1 L BASIC METABOLIC [id number] 04:45:00* Test Item Value Reference Range Interpretation [...] CA) 8.4 mg/dL 8.5-10.1 L CBC W/MANUAL [id number] 04:41:00* Test Item Value Reference Range Interpretation [...] MORPHOLOGY (test code = PLTMORPH) CBC W/MANUAL [id number] 04:41:00* Test Item Value Reference Range Interpretation [...] MORPHOLOGY (test code = PLTMORPH) CBC W/MANUAL [id number] 04:41:00* Test Item Value Reference Range Interpretation [...] MORPHOLOGY (test code = PLTMORPH) CBC W/MANUAL [id number] 04:41:00* Test Item Value Reference Range Interpretation [...] MORPHOLOGY (test code = PLTMORPH) CBC W/MANUAL [id number] 04:41:00* Test Item Value Reference Range Interpretation [...] PLTEST) PLATELET MORPHOLOGY (test code = PLTMORPH) [id number] 19:54:00* Test Item Value Reference Range Interpretation Comments GLUBED (test code = GLUBED) 167 mg/dL 74-106 H Performed by certified fill plant operator at [facility] [id number] 17:06:00* Test Item Value Reference Range Interpretation Comments GLUBED (test code = GLUBED) 96 mg/dL 74-106 N Performed by certified fill plant operator [facility] [id number] 15:32:00* Test Item Value Reference Range Interpretation Comments GLUBED (test code = GLUBED) 102 mg/dL 74-106 N Performed by certified fill plant operator at [facility] [id number] 14:45:00* Test Item Value Reference Range Interpretation Comments GLUBED (test code = GLUBED) 100 mg/dL 74-106 N Performed by certified fill plant operator [facility] URINALYSIS [id number] 09:50:00* Test Item Value Reference Range Interpretation [...] = HYALU) 0-2 #/LPF 0-5 Urine Source? [id number] 09:41:00* Test Item Value Reference Range Interpretation Comments GLUBED (test code = GLUBED) 122 mg/dL 74-106 H Performed by certified fill plant operator at [facility] URINALYSIS [id number] 09:36:00* Test Item Value Reference Range Interpretation [...] result is a direct measurement.========= BASIC METABOLIC [id number] 03:27:00* Test Item Value Reference Range Interpretation [...] CA) 8.5 mg/dL 8.5-10.1 N BASIC METABOLIC [id number] 03:26:00* Test Item Value Reference Range Interpretation [...] code = CA) mg/dL 8.5-10.1 CBC W/AUTO [id number] 02:56:00* Test Item Value Reference Range Interpretation [...] DIFF REQUIRED (test code = MDIFF) NO [id number] 21:07:00* Test Item Value Reference Range Interpretation Comments GLUBED (test code = GLUBED) 183 mg/dL 74-106 H Performed by certified fill plant operator at [facility] [id number] 17:31:00* Test Item Value Reference Range Interpretation Comments GLUBED (test code = GLUBED) 113 mg/dL 74-106 H Performed by certified fill plant operator at [facility] [id number] 17:31:00* Test Item Value Reference Range Interpretation Comments GLUBED (test code = GLUBED) 196 mg/dL 74-106 H Performed by certified fill plant operator at [facility] [id number] 08:42:00* Test Item Value Reference Range Interpretation Comments GLUBED (test code = GLUBED) 108 mg/dL 74-106 H Performed by certified fill plant operator at [facility] CBC W/MANUAL [id number] 05:03:00* Test Item Value Reference Range Interpretation [...] code = IMMAT) 0 % 0-0 N [id number] 04:52:00* Test Item Value Reference Range Interpretation Comments TROPONIN-I (test code = TROPI) 0.239 ng/mL 0-0.045 HH Results called to [id number] by DAVIDE 12/02/19 0452Critical results verified and read back by Nurse? Y COMMENTS TO DIRECTOR SPECIAL EDUCATION: COLLECT 3 HOURS AFTER PREVIOUS SAMPLEBASIC METABOLIC [id number] 04:46:00* Test Item Value Reference Range Interpretation [...] CA) 8.4 mg/dL 8.5-10.1 L CBC W/MANUAL [id number] 04:39:00* Test Item Value Reference Range Interpretation [...] MORPHOLOGY (test code = PLTMORPH) CBC W/MANUAL [id number] 04:39:00* Test Item Value Reference Range Interpretation [...] MORPHOLOGY (test code = PLTMORPH) CBC W/MANUAL [id number] 04:39:00* Test Item Value Reference Range Interpretation [...] MORPHOLOGY (test code = PLTMORPH) CBC W/MANUAL [id number] 04:39:00* Test Item Value Reference Range Interpretation [...] MORPHOLOGY (test code = PLTMORPH) CBC W/MANUAL [id number] 04:39:00* Test Item Value Reference Range Interpretation [...] MORPHOLOGY (test code = PLTMORPH) BASIC METABOLIC [id number] 04:35:00* Test Item Value Reference Range Interpretation [...] CALCIUM (test code = CA) mg/dL 8.5-10.1 [id number] 00:34:00* Test Item Value Reference Range Interpretation Comments TROPONIN-I (test code = TROPI) 0.237 ng/mL 0-0.045 HH Results called to [id number] by DAVIDE 12/02/19 0034Critical results verified and read back by Nurse? Y COMMENTS TO DIRECTOR SPECIAL EDUCATION: COLLECT 3 HOURS AFTER PREVIOUS [id number] 20:08:00* Test Item Value Reference Range Interpretation Comments GLUBED (test code = GLUBED) 161 mg/dL 74-106 H Performed by certified fill plant operator at [facility] [id number] 18:47:00* Test Item Value Reference Range Interpretation Comments GLUBED (test code = GLUBED) 180 mg/dL 74-106 H Performed by certified fill plant operator at [facility] [id number] 16:26:00* Test Item Value Reference Range Interpretation Comments TROPONIN-I (test code = TROPI) 0.141 ng/mL 0-0.045 HH Results called to [id number] by V.LAB.SD 12/01/19 1622Critical results verified and read back by Nurse? Y - CT ABD PELVIS W/O [id number] 15:29:00 [facility] 1945 Age/S: 74 / M [address] [facility] Unit #: [id number] Loc: [place] [address] Phys: Abilio Diaz MD Acct: [id number] Dis Date: Status: REG ER PHONE #: [phone] Exam Date: 12/01/2019 1432 FAX #: [phone] Reason: nausea and vomiting EXAMS: CPT CODE: [id number] CT ABD PELVIS W/O CONT 87945 EXAM: CT of the abdomen and pelvis [...] stone in the right kidney. Location code: [facility] at 1529 Reported and signed by: Abdoulaye Rose M.D. CC: Geovanni Collazo M.D.; Abilio Diaz MD Technologist:Ricco Arguello RT(R),(MR),(CT) CTDI: DLP: Trnscb Date/Time: 12/01/19 (152) t.SDR.GRW Orig Print D/T: S: 12/01/2019 (2532) PAGE 1 Signed Report B-TYPE NATRIURETIC [id number] 14:16:00* Test Item Value Reference Range Interpretation Comments B-TYPE NATRIURETIC PEPTIDE (test code = BNP) 23.49 pgram/mL 0-100 N BASIC METABOLIC [id number] 13:58:00* Test Item Value Reference Range Interpretation [...] code = CA) 9.1 mg/dL 8.5-10.1 N [id number] 13:58:00* Test Item Value Reference Range Interpretation Comments TROPONIN-I (test code = TROPI) 0.019 ng/mL 0-0.045 N - XR CHEST 1 [id number] 10:47:00 FAX: Geovanni Antonio MD [phone] [place]: St: REG FAX: Hung Martinez NP [phone] Name: CELESTE JORDAN [facility] : 1945 Age/S: 74/M [address] [facility] Unit #: [id number] Loc: [place] [address] Phys: Hung Martinez 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 IMPRESSION: No acute cardiopulmonary process. Location: [facility] at 1047 Reported and signed by: Cyril Hale MD CC: Geovanni Collazo M.D.; Hung Martinez NP Technologist: Tammi Valle(Jacinto) Trnscrd Date/Time/By: 12/01/2019 (4423) : By: [email or web address] Orig Print D/T: S: 12/01/2019 (5654) PAGE 1 Signed Report CBC W/O [id number] 10:32:00* Test Item Value Reference Range Interpretation [...] MPV) 12.6 fL 6.7-11.0 H TROPONIN I [id number] 10:29:00* Test Item Value Reference Range Interpretation [...] valid only if similarmethodology is used. INTERVERTEBRAL [id number] 15:25:00 RUN DATE: 09/19/19 [place] [facility] PAGE 1 RUN TIME: 1525 Specimen Inqui ry RUN USER: INTERFACE PATIENT: CELESTE JORDAN ACCT #: [id number] LOC: MOR U #: [id number] AGE/SX: 74/M ROOM: [facility] RE09/16/19REG DR: King Ahn MD : 45 BED: A DIS: 09/17/19 STATUS: DIS Jose TLOC: SPEC #: [id number] RECD: 09/17/19 STATUS: MITCH REQ #: [id number] TIANA: 09/16/19- [facility] DR: King Ahn MD ENTERED: 09/17/19 SP TYPE: INT DISC OTHR DR: Geovanni Collazo MD ORDERED: TJ [place]: [place] [address] [place] [address] [email or web address] King Ahn MD [address] [address] PROCEDURES: GROSS (09/19/19-1109) TISSUES: LUMBAR VERTEBRA, NOS - DI SC CLINICAL HISTORY COLLECTION DATE: 09/16/19 RIGHT L4-5 LATERA L RECESS STENOSIS FINAL DIAGNOSIS Lumbar disc, right side, L4-5, lami nectomy, medial fasciectomy and discectomy: INTERVERTEBRAL DISC MATERIAL LIGAMENT TYPE FIBROCONNECTIVE TISSUE BONE NEGATIVE FOR JANE GNANCY DMW/darlene 58[address], [address] MACROSCOPIC The specimen is received in formalin, labeled with the patient's name, and identified as "lum bar disc". It consists of multiple paniagua and pale yellow fragments of fibrous t issue and palpable bone measuring 3.8 x 3.2 x 0.7 cm in aggregate. Samples of the specimen are submitted for decalcification and CONTINUED ON NEXT PAGE RUN DATE: 09/19/19 [place] [facility] PAGE 2 RUN TIME: 1525 Specimen Inquiry RUN USER: INTERFACE SPEC #: [id number] PATIENT: CELESTE JORDAN #[id number] (Continued)---- -------- MACROSCOPIC (Continued) follow up microscopic evaluation in a single cassette. GROSS PERFORMED AT [facility] [address] [place], [place] [address]D[place]LENE SIL[place] [address] ([phone] MICROSCOPIC All of the stains, includ ing any controls performed, stain appropriately. MICROSCOPIC PERFORMED A T [facility] [address] [facility] [place] [address] (P)[phone] PERFORMING SITE Diagnosis perfo rmed at: [facility] [address] [place], [place] [address] Signed SIGNATURE ON FILE Lindsay Bolden MD 09/19/19 1525 END OF REPORT - XR SPINE 1 V SPEC [id number] 14:38:00 FAX: Geovanni Antonio MD [phone] [place]: St: REG FAX: King Stroud MD [phone] Name: [facility] : 1945 Age/S: 74/M [address] [place] [address] Unit #: [id number] Loc: [place] [address] Phys: King Ahn MD Acct: [id number] Dis Date: Status: REG [facility] PHONE #: [phone] Exam Date: 09/16/2019 1420 FAX #: [phone] Reason: LAMINECTOMY EXAMS: CPT CODE: [id number] XR SPINE 1 V SPEC LEVEL 15179 EXAM: The spine, one view, special level [...] an intervertebral vacuu m phenomenon. Location code: [facility] ically Signed by Sohan Rose on 09/16/2019 at 1438 Reported and signed by: Abdoulaye valladares M.D. CC: Geovanni Collazo M.D.; King Ahn MD Technologist: Ioana Valle(Jacinto) Trnscrd Date/Time/By: 09/16/2019 (3744) : By: AleeGRW Orig Print D /T: S: 09/16/2019 (1416) PAGE 1 S igned Report - XR SPINE 1 V SPEC [id number] 14:38:00 FAX: Geovanni Antonio MD [phone] [place]: St: REG FAX: King Stroud MD [phone] Name: [facility] : 1945 Age/S: 74/M [place] [facility] Unit #: [id number] Loc: [place] [address] Phys: King Ahn MD Acct: [id number] Dis Date: Status: [facility] PHONE #: [phone] Exam Date: 09/16/2019 1359 FAX #: [phone] Reason: LAMINECTOMY EXAMS: CPT CODE: [id number] XR SPINE 1 V SPEC LEVEL [id number] EXAM: The spine, one view, special level [...] shows an intervertebral vacuum phenomenon. Location code: [facility] Electron ically Signed by Sohan Rose on 09/16/2019 at 1438 Reported and signed by: Abdoulaye valladares M.D. CC: Geovanni Collazo M.D.; King Ahn MD Technologist: Ioana Valle(Jacinto) Trnscrd Date/Time/By: 09/16/2019 (0805) : By: AleeGRW Orig Print D /T: S: 09/16/2019 (1796) PAGE 1 S igned Report [id number] 11:00:00* Test Item Value Reference Range Interpretation Comments GLUBED (test code = GLUBED) 144 mg/dL 74-106 H Performed by certified fill plant operator at [facility] PROTHROMBIN [id number] 10:10:00* Test Item Value Reference Range Interpretation [...] Mechanical prosthetic heart valves (2.5-3.5) THROMBOPLASTIN TIME [id number] 10:10:00* Test Item Value Reference Range Interpretation Comments THROMBOPLASTIN TIME PARTIAL (test code = PTT) 31.0 seconds 25.0-36. 5 N BASIC METABOLIC [id number] 10:02:00* Test Item Value Reference Range Interpretation [...] CA) 9.3 mg/dL 8.5-10.1 N BASIC METABOLIC [id number] 09:56:00* Test Item Value Reference Range Interpretation [...] CA) mg/dL 8.5-10.1 - XR CHEST 2 [id number] 09:53:00 FAX: Geovanni Antonio MD [phone] [place]: St: PRE FAX: King Stroud MD [phone] Name: [facility] : 1945 Age/S: 74/M [address] [facility] Unit #: [id number] Loc: [place] [address] Phys: King Ahn MD Acct: [id number] Dis Date: Status: PRE IN PHONE #: [phone] Exam Date: 09/15/2019 0942 FAX #: [phone] Reason: PRE OP EXAMS: CPT CODE: [id number] XR CHEST 2 V 29650 HISTORY: Preop. COMPARISON: Chest x-ray from October 24, 2018. Location: [facility]. AP and lateral view of the chest: No acute infiltrates, effusion or congestion. Mild cardiomegaly. 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 IMPRESSION: No acute infiltrates, effusion or congestion. at 0953 Reported and signed by : Misbah Georges M.D. 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 Final Dictated by: MD Ji Melanie CDictated DT/TM: 01/10/2019 9:17 amSigned by: MD Ji Melanie CSigned (Electronic Signature): 01/10/2019 9:19 amXR Chest 1 View [id number] 13:52:47Patient: CELESTE JORDAN Date/Time01/09/2019 13:21 CSTReason for [...] (Electronic Signature): 01/09/2019 1:52 pmHemoglobin A1c/Hemoglobin.total in [id number] 16:10:00* Test Item Value Reference Range Interpretation Comments A1C w/EAG (test code = A1C w/EAG) 8.7 % 1.0-5.7 H average blood glucose (test code = average blood glucose) 203 mg/dL [facility] W Auto Differential panel - [id number] 16:05:00 * Test Item Value Reference Range [...] code = baso#) 0.10 x10*3/?L 0.01-0.08 H [facility]Com[facility] 2000 panel - Serum or Plasma [...] non- (test code = eGFR non-jaime n tristanian) 50 mL/min/1.73m2 >60 L total bilirubin (test [...] (test code = anion gap) 9 calc [facility] CenterLipid 1995 panel - Serum or [id number] 15:53:00* Test Item Value Reference Range Interpretation [...] code = LDL calc.) 119 mg/dL 0-130 [facility] CenterNatriuretic peptide B [Mass/volume] in Serum or Plasma 2017-11-22 13:17:00* Test Item Value Reference Range Interpretation Comments B type natriuretic peptide (BNP) (test code = B type n atriuretic peptide (BNP)) 98 pg/mL <100 [facility]Com[facility] 2000 panel - Serum or Plasma 2017-04-27 11:53:00* [...] non- (test code = eGFR non-jaime n tristanian) 46 mL/min/1.73m2 >60 L total bilirubin (test [...] (test code = anion gap) 12 calc [facility] PracticeLipid 1995 panel - Serum or [id number] 11:53:00* Test Item Value Reference Range Interpretation [...] code = LDL calc.) 128 mg/dL 0-130 [facility] Ag [Mass/volume] in Serum or Plasma 2017-04-27 11:53:00* Test Item Value Reference Range Interpretation Comments PSA, total (test code = PSA, total) 2.52 NG/mL <4.00 [facility] CenterParathyrin.intact [Mass/volume] in Serum or Plasma 2017-04-27 09:46:00* Test Item Value Reference Range Interpretation Comments parathyroid hormone, intact (test code = parathyroid hormone , intact) 68 pg/mL 14-64 H [facility] CenterMagnesium [Mass/volume] in Serum or [id number] 16:31:00* Test Item Value Reference Range Interpretation Comments magnesium (test code = magnesium) 1.8 mg/dL 1.5-2.[address] [facility] [Mass Ratio] in [id number] 16:31:00* Test Item Value Reference Range Interpretation Comments sodium/creat ratio (test code = sodium/creat ratio) 27 mmol/g creat 20-233 sodium, random urine (test code = sodium, random urine) 43 mmol/L 28-272 creatinine, random urine (test code = creatinine, random uri ne) 159 mg/dL 20-370 [facility] CenterPhosphate [Mass/volume] in Serum or [id number] 16:31:00* Test Item Value Reference Range Interpretation Comments phosphate ( phosphorus) (test code = phosphate ( phospho promise)) 3.0 mg/dL 2.1-4.3 [facility] CenterCBC W Auto Differential panel - [id number] 15:29:00 * Test Item Value Reference Range [...] (test code = baso#) 0.05 x10*3/?L 0.01-0.09 [facility] metabolic panel - [id number] 04:30:00* Test Item Value Reference Range Interpretation [...] performing lab: (test code = performing lab:) [facility] with Ordered Manual Differential panel - Blood [...] performing lab: (test code = performing lab:) [facility] CenterInfluenza virus A Ag [Presence] in [id number] 18:04:00* Test Item Value Reference Range Interpretation Comments influenza A Ag (test code = influenza A Ag) see below performing lab: (test code = performing lab:) [facility] CenterInfluenza virus B Ag [Presence] in Unspecified specimen 2016-11-22 18:04:00* Test Item Value Reference Range Interpretation Comments influenza B Ag (test code = influenza B Ag) see below performing lab: (test code = performing lab:) [facility] W Auto Differential panel - [id number] 04:21:00 * Test Item Value Reference Range [...] performing lab: (test code = performing lab:) [facility] CenterHemoglobin A1c/Hemoglobin.total in [id number] 04:21:00* Test Item Value Reference Range Interpretation Comments glycosylated hemoglobin (ha1c) (test code = glycosylat ed hemoglobin (ha1c)) 6.9 % 4.5-6.2 H estimated average glucose (test code = estimated average glucose) 1 51 mg/dL performing lab: (test code = performing lab:) [facility] CenterComprehensive metabolic 2000 panel - Serum or Plasma [...] performing lab: (test code = performing lab:) [facility] CenterPhosphate [Moles/volume] in [id number] 04:21:00* Test Item Value Reference Range Interpretation Comments phosphorus (test code = phosphorus) 2.1 mg/dL 2.6-4.7 L performing lab: (test code = performing lab:) [facility] PracticeLipase [Enzymatic activity/volume] in Serum or Plasma 2016-11-22 04:21:00* Test Item Value Reference Range Interpretation Comments lipase (test code = lipase) 93 U/L 73.0-393.0 performing lab: (test code = performing lab:) [facility] PracticeMagnesium [Moles/volume] in Serum or [id number] 04:21:00* Test Item Value Reference Range Interpretation Comments magnesium (test code = magnesium) 1.9 mg/dL 1.6-2.3 performing lab: (test code = performing lab:) [facility] PracticeMicroscopic observation [Identifier] in Sputum by Gram [id number] 02:00:00* Test Item Value Reference Range Interpretation Comments gram stain sputum (test code = gram stain sputum) see below performing lab: (test code = performing lab:) [facility] CenterBacteria identified in Sputum by [id number] 02:00:00* Test Item Value Reference Range Interpretation Comments sputum culture (test code = sputum culture) see below performing lab: (test code = performing lab:) [facility] PracticeTroponin I.cardiac [Mass/volume] in Serum or Plasma 2016-11-21 09:58:00* Test Item Value Reference Range Interpretation Comments troponin-I (test code = troponin-I) <0.015 0.00-0.056 performing lab: (test code = performing lab:) [facility] PracticeTroponin I.cardiac [Mass/volume] in Serum or Plasma 2016-11-21 06:45:00* Test Item Value Reference Range Interpretation Comments troponin-I (test code = troponin-I) <0.015 0.00-0.056 performing lab: (test code = performing lab:) [facility] PracticeBacteria identified in Blood by [id number] 04:40:00* Test Item Value Reference Range Interpretation Comments blood culture (test code = blood culture) see below performing lab: (test code = performing lab:) [facility] PracticeBacteria identified in Blood by [id number] 04:30:00* Test Item Value Reference Range Interpretation Comments blood culture (test code = blood culture) see below performing lab: (test code = performing lab:) [facility] CentercTnI [id number] 02:50:00* Test Item Value Reference Range Interpretation Comments troponin I rapid (test code = troponin I rapid) 0.01 NG/mL <0.08 performing lab: (test code = performing lab:) [facility] CenterBNP [id number] 02:49:00* Test Item Value Reference Range Interpretation Comments BNP rapid (test code = BNP rapid) 53 pg/mL 0-100 performing lab: (test code = performing lab:) [facility] CenterCB W Auto Differential panel - [id number] 02:40:00 * Test Item Value Reference Range [...] performing lab: (test code = performing lab:) [facility] CenterComprehensive metabolic 2000 panel - Serum or Plasma [...] performing lab: (test code = performing lab:) [facility]
[2020-07-17] MEDS ORDERED: FINASTERIDE5 MG PO (06:04)
[2020-07-17] MEDS ORDERED: GLIMEPIRIDE2 MG PO (06:04)
[2020-07-17] MEDS ORDERED: JENTADUETO XR1 EACH PO (06:04)
[2020-07-17] MEDS ORDERED: IRBESARTAN150 MG PO (06:04)
[2020-07-17] MEDS ORDERED: METOPROLOL SUCC50 MG PO (06:04)
[2020-07-17] MEDS ORDERED: FLOMAX0.4 MG PO (06:04)
[2020-07-17] MEDS ORDERED: SIMVASTATIN40 MG PO (06:04)
[2020-07-17] MEDS ORDERED: HYDROCHLOROTHIA25 MG PO (06:04)
[2020-07-17] MEDS ORDERED: CELEBREX100 MG PO (06:04)
[2020-07-17] MEDS ORDERED: TOVIAZ4 MG PO (06:04)
[2020-07-17] MEDS ORDERED: RANEXA500 MG PO (06:04)
[2020-07-17] MEDS: INSULIN REGULAR, HUMAN 100 UNIT/1 ML 3ML VIAL SQ SCH ×4 (08:26→20:47)
--- NOTE | 2020-07-17 08:50 | History and Physical ---
REASON FOR ADMISSION: Chest pain, rule out HI. HISTORY OF PRESENT ILLNESS: The patient is a gentleman with history of hypertension, chronic kidney disease stage 3, diabetes, who presented with some chest pain mostly up into the left arm area that is currently resolved. So, he has been admitted for further evaluation and treatment. PAST MEDICAL HISTORY: Significant for diabetes, hypertension, chronic kidney disease stage 3. MEDICATIONS: See MAR. ALLERGIES: DARVOCET. SOCIAL HISTORY: Nonsmoker and nondrinker. FAMILY HISTORY: Hypertension. PHYSICAL EXAMINATION: VITAL SIGNS: Temperature 98.6, blood pressure 157/76, pulse 102, sats 100% on room air. GENERAL: No apparent distress, lying in bed. LUNGS: Decreased breath sounds. ABDOMEN: Good bowel sounds. Soft, nontender. CARDIOVASCULAR: Regular rate and rhythm. NECK: Supple. No lymphadenopathy. EXTREMITIES: No clubbing or cyanosis. NEUROLOGIC: Nonfocal. ASSESSMENT AND PLAN: 1. Chest pain. We will rule out myocardial infarction and consult Cardiology. Put him on telemetry. 2. Hypokalemia. We will replace. 3. Chronic kidney disease, stage 3. We will continue to monitor. 4. Diabetes. We will continue the current care and monitor. 5. Leukocytosis. We will continue to monitor. Please see hospital chart for full details. MD TIM Paul/ELIO /[id number]
--- NOTE | 2020-07-17 11:39 | NUR ---
Attempted to call report will call back
--- NOTE | 2020-07-17 11:55 | NUR ---
Nursing report given to Kelsea ALBERTO on Med-surg 3
--- NOTE | 2020-07-17 12:20 | NUR ---
pt arrived to unit via wheel, resp even and unlabored at this time, no distress noted, pt able to make need known, no c/o chest pain when asked. pt oriented to room and call light, be din its lowest position, bed rails up X 2, call light in reach, will cont to monitor.
--- NOTE | 2020-07-17 12:42 | Consultation ---
DATE OF CONSULTATION: Cardiology Consultation REASON FOR CONSULTATION: Chest pain. HISTORY OF PRESENT ILLNESS: This is a 75-year-old man who has a history of coronary artery disease status post coronary artery bypass graft surgery and percutaneous coronary intervention, bioprosthetic aortic valve, history of hypertension, diabetes mellitus, hyperlipidemia, who presented to the emergency department with chest pressure and left arm discomfort. The patient's symptoms lasted for only 1 hour, were fjux-gl-vhlnwfqw in intensity, no other radiation, associated with some shortness of breath, no palpitations or syncope, no other exacerbating or relieving factors. He was at [facility] in March and underwent percutaneous coronary intervention of one of his saphenous vein grafts. He has been doing well since then until yesterday. REVIEW OF SYSTEMS: A 12-point review of system was conducted, is negative except stated above in the HPI. PAST MEDICAL HISTORY: As stated above in the HPI. PAST SURGICAL HISTORY: As stated above in the HPI in addition to multiple orthopedic surgical procedures, and cholecystectomy. PAST FAMILY HISTORY: Noncontributory to current illness. ALLERGIES: DARVOCET. MEDICATIONS: See medication reconciliation form. SOCIAL HISTORY: No illicit drug, active, or tobacco use. PHYSICAL EXAMINATION: VITAL SIGNS: Temperature is 97.8, heart rate 62, respirations 16, blood pressure is 148/68, oxygen saturation 99% on room air. GENERAL: Well-appearing elderly man, lying comfortably in bed, in no apparent distress. Alert and oriented x3. HEENT: Head is normocephalic and atraumatic. Eyes, the extraocular muscles are intact. Conjunctivae are clear. NECK: No JVD. No bruits. CARDIOVASCULAR: Regular rate and rhythm with a mild systolic murmur at the right sternal border. LUNGS: Clear to auscultation bilaterally. No wheezing or rales. ABDOMEN: Soft, nontender, and nondistended. EXTREMITIES: No clubbing, cyanosis, or edema. VASCULAR: 2+ pulses. SKIN: Warm, dry, intact. NEUROLOGIC: No focal deficits noted. Cranial nerves appear grossly intact. LABORATORY DATA: Reviewed. White blood cell count is 13, hemoglobin is 15, creatinine 1.44. Troponin negative x2. Potassium 3.1. Chest x-ray shows mild cardiomegaly. IMPRESSION: 1. Precordial pain. 2. History of coronary artery disease status post coronary artery bypass graft surgery and percutaneous coronary intervention with most recent in March of this year of his saphenous vein graft. 3. Chronic angina. 4. Hypertension. 5. Hyperlipidemia. 6. Diabetes mellitus. 7. History of aortic valve replacement. 8. Hypokalemia. 9. Chronic kidney disease. RECOMMENDATIONS: We will trend one more troponin to rule out acute coronary syndrome. I suspect he is having an exacerbation of his chronic angina. We will recommend switching the isosorbide dinitrate to mononitrate and start at 60 mg daily. Also, we can increase his Ranexa to 1 g twice daily. Otherwise, continue all current cardiovascular medications including dual anti-platelet therapy and statin. We will monitor overnight. If the patient is chest pain free and feeling better, he may be discharged from a cardiovascular standpoint with outpatient followup and workup. DO MALLORY Vásquez/KASHL /[id number]
[2020-07-17 12:49] VITALS: BP 185/83
[2020-07-17] MEDS: CLOPIDOGREL BISULFATE 75 MG TAB PO SCH (13:26)
[2020-07-17] MEDS: ISOSORBIDE MONONITRATE 30 MG TAB CR PO SCH (13:26)
[2020-07-17] MEDS: RANOLAZINE 500 MG TABSR PO SCH ×2 (13:30→16:11)
--- NOTE | 2020-07-17 13:38 | NUR ---
pt had a run of v tach, pt states he has no chest pain nor discomfort, nor head at this time, Dr. Martinez called at this time. will cont to monitor.
[2020-07-17 13:45] VITALS: BP 185/83
--- NOTE | 2020-07-17 14:11 | NUR ---
spoke with Dr Mcginnis, no orders at this time, print out on chart.
[2020-07-17 15:38] VITALS: BP 160/78
--- NOTE | 2020-07-17 19:19 | NUR ---
walking rounds complete , report given to oncoming nurse.
[2020-07-17 20:00] VITALS: BP 125/63
[2020-07-17 20:40] VITALS: BP 125/63
[2020-07-18] VITALS: BP 153/78
[2020-07-18 04:00] VITALS: BP 157/85
--- NOTE | 2020-07-18 06:13 | NUR ---
Dr. Colindres here to see patient. Per MD plan to DC patient home if troponin is within normal range.
[2020-07-18 07:03] LABS: BASOPHILS # (AUTO) 0.1 (0.0-0.1); BASOPHILS % 0.9 % (0.0-1.0); EOSINOPHILS # (AUTO) 2.2 (0.0-0.4); EOSINOPHILS % 16.6 % (0.0-6.0); HEMATOCRIT 38.4 % (38.2-49.6); HEMOGLOBIN 13.6 g/dL (14.0-18.0); LYMPHOCYTES # (AUTO) 2.2 (1.0-3.2); LYMPHOCYTES % 16.3 % (18.0-39.1); MEAN CORPUSCULAR HEMOGLOBIN 34.8 pg (28-32); MEAN CORPUSCULAR HGB CONC 35.4 g/dL (31-35); MEAN CORPUSCULAR VOLUME 98.2 fL (81-99); MONOCYTES # (AUTO) 0.8 (0.2-0.8); MONOCYTES % 6.2 % (4.4-11.3); NEUTROPHILS # (AUTO) 7.9 (2.1-6.9); NEUTROPHILS % 59.5 % (38.7-80.0); PLATELET COUNT 177 x10e3/uL (140-360); RED BLOOD COUNT 3.91 x10e6/uL (4.3-5.7); RED CELL DISTRIBUTION WIDTH 13.2 % (11.7-14.4)
--- NOTE | 2020-07-18 07:03 | NUR ---
Bedside report given to oncoming nurse. AM nurse made aware of plan for possible DC today if troponin normal. Patient awake and resting in bed, no s/s of distress at this time. All safety measures in place.
[2020-07-18 07:27] LABS: ANION GAP 17.3 mmol/L (8-16); CALCIUM 8.9 mg/dL (8.4-10.2); CREATININE, SERUM 1.2 mg/dL (0.72-1.25); POTASSIUM 3.3 mmol/L (3.5-5.1)
[2020-07-18 07:34] VITALS: BP 148/79
[2020-07-18 08:41] VITALS: BP 148/79
[2020-07-18 09:27] LABS: EOSINOPHILS % (MANUAL) 17 % (0-7); LYMPHOCYTES % (MANUAL) 22 % (19-48); MONOCYTES % (MANUAL) 4 % (3.4-9.0); NEUTROPHILS % (MANUAL) 57 % (40-74); PLATELET ESTIMATE ADEQUATE; PLATELET MORPHOLOGY COMMENT NORMAL; RBC MORPHOLOGY COMMENT NORMAL
[2020-07-18] MEDS: CLOPIDOGREL BISULFATE 75 MG TAB PO SCH (09:42)
[2020-07-18] MEDS: RANOLAZINE 500 MG TABSR PO SCH (09:45)
[2020-07-18] MEDS: ISOSORBIDE MONONITRATE 30 MG TAB CR PO SCH (09:49)
[2020-07-18] MEDS: INSULIN REGULAR, HUMAN 100 UNIT/1 ML 3ML VIAL SQ SCH (09:50)
[2020-07-18] MEDS ORDERED: RANEXA500 MG PO (10:07)
[2020-07-18] MEDS ORDERED: ISOSORBIDE MONO20 MG PO (10:08)
--- NOTE | 2020-07-18 10:40 | NUR ---
pt alert resp even and unlabored at this time , pt educated on his prescriptions and verbalized understanding, iv site removed no redness nor swelling to site.
--- NOTE | 2020-07-19 19:57 | Discharge Summary ---
DISCHARGE DIAGNOSIS: Chest pain, rule out myocardial infarction. HISTORY OF PRESENT ILLNESS AND HOSPITAL COURSE: The patient is a gentleman, who presented with some atypical chest pain, was brought in and was ruled out for AL by serial enzymes and EKG. Telemetry was unremarkable. He was seen by Cardiology, once he cleared the patient, he is able to be discharged home in good condition. 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 The patient stated that once he was in the emergency room, he no longer had any further chest pain. Please see hospital chart for full details. MD TIM Paul/ELIO /[id number]
== END 2020-07-18 10:45 | disposition home or self-care (01) ==
LOC: ER 00:47 → ERHOLD 02:10 → MED/SURG3 12:14
PROVIDERS: ADMIT Internal Medicine; ATTEND Internal Medicine
DX: R07.2 Precordial pain (principal); I25.118 Atherosclerotic heart disease of native coronary artery with other forms of angina pectoris; E11.22 Type 2 diabetes mellitus with diabetic chronic kidney disease; I25.2 Old myocardial infarction; K21.9 Gastro-esophageal reflux disease without esophagitis; E78.5 Hyperlipidemia, unspecified; Z90.49 Acquired absence of other specified parts of digestive tract; Z95.1 Presence of aortocoronary bypass graft; Z88.5 Allergy status to narcotic agent; I12.9 Hypertensive chronic kidney disease with stage 1 through stage 4 chronic kidney disease, or unspecified chronic kidney disease; N18.3 Chronic kidney disease, stage 3 (moderate); E87.6 Hypokalemia; Z95.2 Presence of prosthetic heart valve; Z95.5 Presence of coronary angioplasty implant and graft; Z11.59 Encounter for screening for other viral diseases; Z79.84 Long term (current) use of oral hypoglycemic drugs
CPT/HCPCS: 36415 ×2; 71045; 80048; 80053; 82948 ×2; 83690; 83880; 84484 ×2; 85025 ×2; 93005; 96372; 99285; G0378 ×2; J1817; U0002

== ENCOUNTER 2020-08-02 23:41 | Observation (INO) | payer MEDICARE, BC ==
[~2020-08-02] VITALS: Ht 180.3 cm; Wt 102.1 kg
[~2020-08-02 23:41] MED LIST changes: +CELEBREX100 MG PO; +FINASTERIDE5 MG PO; +FLOMAX0.4 MG PO; +GLIMEPIRIDE2 MG PO; +HYDROCHLOROTHIA25 MG PO; +IRBESARTAN150 MG PO; +ISOSORBIDE MONO20 MG PO; +JENTADUETO XR1 EACH PO; +METOPROLOL SUCC50 MG PO; +RANEXA500 MG PO; +SIMVASTATIN40 MG PO; +TOVIAZ4 MG PO
[2020-08-03] VITALS (9 sets, daily range): BP systolic 127–181; BP diastolic 57–90
[2020-08-03 00:10] LABS: INR 0.85; PROTHROMBIN TIME 12.1 seconds (11.9-14.5)
[2020-08-03 00:11] LABS: BASOPHILS # (AUTO) 0.1 (0.0-0.1); BASOPHILS % 0.9 % (0.0-1.0); EOSINOPHILS # (AUTO) 2.2 (0.0-0.4); EOSINOPHILS % 14.8 % (0.0-6.0); HEMOGLOBIN 16.2 g/dL (14.0-18.0); LYMPHOCYTES # (AUTO) 3.4 (1.0-3.2); LYMPHOCYTES % 22.6 % (18.0-39.1); MEAN CORPUSCULAR HEMOGLOBIN 33.3 pg (28-32); MEAN CORPUSCULAR HGB CONC 35.2 g/dL (31-35); MEAN CORPUSCULAR VOLUME 94.7 fL (81-99); PARTIAL THROMBOPLASTIN TIME 27.3 seconds (23.8-35.5); PLATELET COUNT 223 x10e3/uL (140-360); RED BLOOD COUNT 4.86 x10e6/uL (4.3-5.7); RED CELL DISTRIBUTION WIDTH 12.6 % (11.7-14.4)
[2020-08-03] MEDS ORDERED: ASPIRIN 81 MG CHEW TAB PO ONE ×3 (00:15→21:15)
--- NOTE | 2020-08-03 00:16 | Emergency Department Note ---
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 PER PATIENT STATMENT-HE HAS A SIGNIFICANT CARDIAC HISTORY. DR RAMOS IS THE SOFTWARE BUSINESS ANALYST WHICH MANAGES HIS CARE. DENIES CHEST PAIN AT THIS MOMENT. Historian: Patient Arrival Mode: Car Supervisor Coke Handling Required: No Onset (how long ago): hour(s) (1) Location: LEFT SHOUDLER Quality: PAIN Radiation: Reports non-radiation Severity: mild Onset quality: sudden Duration (how long): hour(s) Progression: unchanged Chronicity: recurrent Context: Denies recent illness, Denies recent surgery, Denies trauma/injury Relieving factors: none Exacerbating factors: none Associated symptoms: Reports denies other symptoms Treatments prior to arrival: none Past Medical/Family History Physician Review I have reviewed the patient's past medical and family history. Any updates have been documented here. Past Medical History Recent Fever: No Clinical Suspicion of Infectio: No New/Unexplained Change in Ment: No Past Medical History: Hypertension, Diabetes, MA, CAD, Cancer, GERD, Chronic Back Pain Other Medical History: MA X 7 Past Surgical History: Cholecysctectomy, CABG, Back Surgery, Cataract Removal Other Surgery: CABG X2 avr, LT WRIST SX BILATERAL KNEE SX BACK SX X2 PROSTHETIC VALVE REPLACEMENT Social History Smoking Cessation: Never Smoker Counseling Performed: No Alcohol Use: None Any Illegal Drug Use: No Physically hurt or threatened: No Other Last Tetanus: unknown Any Pre-Existing Lines (PICC,: No Review of Systems Review of Systems Constitutional: Reports no symptoms EENTM: Reports no symptoms Cardiovascular: Reports as per HPI Respiratory: Reports no symptoms Gastrointestinal: Reports no symptoms Genitourinary: Reports no symptoms Musculoskeletal: Reports no symptoms Integumentary: Reports no symptoms Neurological: Reports no symptoms Psychological: Reports no symptoms Endocrine: Reports no symptoms Hematological/Lymphatic: Reports no symptoms Physical Exam Related Data Allergies: Uncoded Allergies: DARVOCET (Allergy, Mild, RASH, 05/02/12) Triage Vital Signs Vital Signs Date Time Temp Pulse Resp B/P (MAP) Pulse Ox O2 Delivery O2 Flow Rate FiO2 08/02/20 23:48 97.9 83 22 184/90 99 Room Air Vital signs reviewed: Yes Physical Exam CONSTITUTIONAL Constitutional: Present well-developed, Present well-nourished; Absent distressed HENT HENT: Present normocephalic, Present atraumatic, Present oropharynx clear/moist, Present nose normal HENT L/R: Present left ext ear normal, Present right ext ear normal EYES Eyes: Reports PERRL, Reports conjunctivae normal NECK Neck: Present ROM normal PULMONARY Pulmonary: Present effort normal, Present breath sounds normal CARDIOVASCULAR Cardiovascular: Present regular rhythm, Present heart sounds normal, Present capillary refill normal, Present normal rate GASTROINTESTINAL Abdominal: Present soft, Present nontender, Present bowel sounds normal GENITOURINARY Genitourinary: Present exam deferred SKIN Skin: Present warm, Present dry MUSCULOSKELETAL Musculoskeletal: Present ROM normal NEUROLOGICAL Neurological: Present alert, Present oriented x 3, Present no gross motor or sensory deficits PSYCHOLOGICAL Psychological: Present mood/affect normal, Present judgement normal Results Laboratory Laboratory Laboratory Tests Test 08/02/20 23:50 White Blood Count 14.82 x10e3/uL (4.8-10.8) Red Blood Count 4.86 x10e6/uL (4.3-5.7) Hemoglobin 16.2 g/dL (14.0-18.0) Hematocrit 46.0 % (38.2-49.6) Mean Corpuscular Volume 94.7 fL (81-99) Mean Corpuscular Hemoglobin 33.3 pg (28-32) Mean Corpuscular Hemoglobin Concent 35.2 g/dL (31-35) Red Cell Distribution Width 12.6 % (11.7-14.4) Platelet Count 223 x10e3/uL (140-360) Neutrophils (%) (Auto) 54.0 % (38.7-80.0) Lymphocytes (%) (Auto) 22.6 % (18.0-39.1) Monocytes (%) (Auto) 7.0 % (4.4-11.3) Eosinophils (%) (Auto) 14.8 % (0.0-6.0) Basophils (%) (Auto) 0.9 % (0.0-1.0) Neutrophils # (Auto) 8.0 (2.1-6.9) Lymphocytes # (Auto) 3.4 (1.0-3.2) Monocytes # (Auto) 1.0 (0.2-0.8) Eosinophils # (Auto) 2.2 (0.0-0.4) Basophils # (Auto) 0.1 (0.0-0.1) Absolute Immature Granulocyte (auto 0.11 x10e3/uL (0-0.1) Prothrombin Time 12.1 seconds (11.9-14.5) Prothromb Time International Ratio 0.85 Activated Partial Thromboplast Time 27.3 seconds (23.8-35.5) Sodium Level 139 mmol/L (136-145) Potassium Level 3.4 mmol/L (3.5-5.1) Chloride Level 102 mmol/L (98-107) Carbon Dioxide Level 25 mmol/L (22-29) Anion Gap 15.4 mmol/L (8-16) Blood Urea Nitrogen 22 mg/dL (7-26) Creatinine 1.65 mg/dL (0.72-1.25) Estimat Glomerular Filtration Rate 41 ML/MIN (60-) BUN/Creatinine Ratio 13 (6-25) Glucose Level 180 mg/dL (74-118) Calcium Level 10.4 mg/dL (8.4-10.2) Total Bilirubin 0.8 mg/dL (0.2-1.2) Aspartate Amino Transf (AST/SGOT) 16 IU/L (5-34) Alanine Aminotransferase (ALT/SGPT) 18 IU/L (0-55) Alkaline Phosphatase 77 IU/L (40-150) Creatine Kinase 46 IU/L (30-200) Creatine Kinase MB 0.70 ng/mL (0-5.0) Troponin I 0.014 ng/mL (0-0.300) Total Protein 8.6 g/dL (6.5-8.1) Albumin 5.0 g/dL (3.5-5.0) Globulin 3.6 g/dL (2.3-3.5) Albumin/Globulin Ratio 1.4 (0.8-2.0) Laboratory Tests Test 08/02/20 23:50 Lab results reviewed: Yes Imaging Imaging results reviewed: Yes Impressions Procedure: [id number] DX/CHEST SINGLE (PORTABLE) Exam Date: Exam Time: REPORT STATUS: Signed EXAMINATION: CHEST SINGLE (PORTABLE) INDICATION: Left arm discomfort COMPARISON: Chest x-ray 07/17/2020 FINDINGS: TUBES and LINES: None. LUNGS: Normal lung volumes. Lungs are clear. No consolidations. PLEURA: No pleural effusion or pneumothorax. Pleural-based calcifications can be due to cardiothoracic surgery or asbestos related exposure. HEART AND MEDIASTINUM: The cardiomediastinal silhouette is borderline enlarged. Surgical changes along the mediastinum. Coronary stents. Aortic calcifications. BONES AND SOFT TISSUES: No acute osseous lesion. Soft tissues are unremarkable. Sternotomy wires. Degenerative changes. UPPER ABDOMEN: No free air under the diaphragm. IMPRESSION: Coronary stents and mild cardiomegaly. Signed by: Steven Carney DO on 08/03/2020 1:13 AM Dictated By: STEVEN CARNEY DO 2 Transcribed By: EDWARD on 08/03/20112 COPY TO: HARJINDER RAMOS MD~ Procedures 12 Lead ECG Interpretation ECG Interpretation : ECG: ECG 1 Supervisor Coke Handling: Interpreted by ED physician Date: Aug 02, 2020 Time: 23:47 Rhythm: sinus rhythm Rate: normal BPM: 85 QRS axis: right ST segments normal: No (NON SPECIFIC CHANGES) T waves normal: Yes Other findings: no other findings Clinical Impression: abnormal ECG Assessment & Plan Medical Decision Making MDM PT WITH CARDIAC HISTORY WITH LEFT ARM PAIN THAT IS NOT REPRODUCIBLE CBC, CMP, CARDIAC ENZYMES, CXR, EKG ORDERED TO EVAL FOR MYOCARDIAL INFARCTION, ELECTROLYTE ABNORMALITY, INTRATHORACIC ABNORMALITY I SPOKE WITH DR LAMBERT AND DR Destin GREENBERG COVERING FOR DR RAMOS Assessment & Plan Final Impression: (1) Chest pain Depart Disposition: ADMITTED Last Vital Signs Date Time Temp Pulse Resp B/P (MAP) Pulse Ox O2 Delivery O2 Flow Rate FiO2 08/03/20 00:00 79 18 184/90 99 Room Air 08/02/20 23:48 97.9 Home Meds Reported Medications Isosorbide Mononitrate (ISOSORBIDE MONONITRATE) 20 Mg Tablet, 60 MG PO DAILY, #30 TAB 07/18/20 Ranolazine (RANEXA) 500 Mg Tabsr, 1000 MG PO BID, #60 TAB 07/18/20 Finasteride (FINASTERIDE) 5 Mg Tablet, 5 MG PO DAILY, #30 TAB 07/17/20 Simvastatin (SIMVASTATIN) 40 Mg Tablet, 40 MG PO 2100, #30 TAB 07/17/20 Fesoterodine Fumarate (TOVIAZ) 4 Mg Tab.er.24h, 4 MG PO DAILY 07/17/20 Glimepiride (GLIMEPIRIDE) 2 Mg Tablet, 2 MG PO DAILY, TAB 07/17/20 Hydrochlorothiazide (HYDROCHLOROTHIAZIDE) 25 Mg Tablet, 25 MG PO DAILY, #30 TAB 07/17/20 Irbesartan (IRBESARTAN) 150 Mg Tablet, 150 MG PO DAILY, #30 TAB 07/17/20 Tamsulosin Hcl* (FLOMAX*) 0.4 Mg Cap, 0.4 MG PO DAILY, #30 CAP 07/17/20 Metoprolol Succinate (METOPROLOL SUCCINATE) 50 Mg Tab.er.24h, 100 MG PO DAILY, MG 07/17/20 Celecoxib* (CELEBREX*) 100 Mg Capsule, 200 MG PO BID, #30 CAP 07/17/20 Linagliptin/Metformin HCl (Jentadueto Xr 2.5 mg-1,000 mg) 1 Each Tab.bp.24h, 2 TAB PO ACL 07/17/20 Lisinopril (LISINOPRIL) 40 Mg Tablet, 40 MG PO DAILY 06/24/15 Aspirin (ASPIRIN) 81 Mg Tab.chew, 81 MG PO DAILY 06/24/15 Furosemide (FUROSEMIDE) 40 Mg Tablet, 40 MG PO Daily, #30 TAB 06/24/15 Triamterene/Hydrochlorothiazid (TRIAMTERENE-HCTZ 50-25 MG CAP) 1 Each Capsule, 1 TAB PO DAILY 06/24/15 Amlodipine Besylate (AMLODIPINE BESYLATE) 10 Mg Tablet, 10 MG PO DAILY, #30 TAB 06/24/15 Atorvastatin Calcium (LIPITOR) 20 Mg Tablet, 20 MG PO DAILY 11/13/12 Carvedilol (COREG) 25 Mg Tab, 25 MG PO DAILY 11/13/12 Clopidogrel Bisulfate* (PLAVIX) 75 Mg Tablet, 75 MG PO DAILY 11/13/12 Omeprazole (PRILOSEC) 40 Mg Capsule.dr, 20 MG PO DAILY 11/13/12 Medications in the ED Aspirin 81 mg PRN ONCE PO ; Start 08/03/20 at 00:15; Stop 08/03/20 at 00:16 HARJINDER RAMOS MD Aug 03, 2020 00:16
[2020-08-03 00:18] LABS: ALBUMIN/GLOBULIN RATIO 1.4 (0.8-2.0); ANION GAP 15.4 mmol/L (8-16); CALCIUM 10.4 mg/dL (8.4-10.2); CREATININE, SERUM 1.65 mg/dL (0.72-1.25); POTASSIUM 3.4 mmol/L (3.5-5.1)
[2020-08-03 00:24] LABS: CREATINE KINASE MB 0.7 ng/mL (0-5.0)
--- NOTE | 2020-08-03 01:16 | Diagnostic Imaging Report ---
EXAMINATION: CHEST SINGLE (PORTABLE) INDICATION: Left arm discomfort COMPARISON: Chest x-ray 07/17/2020 FINDINGS: TUBES and LINES: None. LUNGS: Normal lung volumes. Lungs are clear. No consolidations. PLEURA: No pleural effusion or pneumothorax. Pleural-based calcifications can be due to cardiothoracic surgery or asbestos related exposure. HEART AND MEDIASTINUM: The cardiomediastinal silhouette is borderline enlarged. Surgical changes along the mediastinum. Coronary stents. Aortic calcifications. BONES AND SOFT TISSUES: No acute osseous lesion. Soft tissues are unremarkable. Sternotomy wires. Degenerative changes. UPPER ABDOMEN: No free air under the diaphragm. IMPRESSION: Coronary stents and mild cardiomegaly. Signed by: Steven Carney DO on 08/03/2020 1:13 AM
[2020-08-03] MEDS ORDERED: SODIUM CHLORIDE FLUSH 10 ML SYR INJ PRN (01:30)
--- OUTSIDE RECORDS SUMMARY | 2020-08-03 02:05 | XMS REPORT | Clinical Summary ---
Author Author [facility] Organization [facility] Address Unknown Phone Unavailable Care Team Providers Care Stave Inspector Name Role Phone Geovanni Collazo MD PCP [...] Assigned at Date Recorded Not on file Last Filed Vital Signs Not on file Plan of Treatment Not on file Implants Device Identifier Shelf Expiration Date Model / Serial / L ot Implanted Type Area Manufactur er 06/04/2021 [id number] / [id number] / [id number] Lens Iol Tecnis Monofocal Zcb 22.5d Intraocula Left: Eye ADAMS - [id number] - [id number] Lens MEDICAL Implanted: Qty: 1 on 03/28/2018 by Implant [employer] Murray Young MD at [facility] 03/26/2021 [id number] / [id number] / [id number] Lens Iol Tecnis Monofocal Zcb 21.5d Right: Eye A BBOTT - [id number] - [id number] MEDICAL Implanted: Qty: 1 on 03/07/2018 by [employer] Murray Young MD at [facility] Results Not on fileafter 08/03/2019 Insurance Type Payer Benefit Subscriber ID Effective Phone Address Plan / Dates Group Medicare MEDICARE MEDICARE [id number] 2010-P [place], PART A AND resent [place] B PPO BCBS BCBS [id number] 2013- CHOICE Present PPO/ERIC JAIN PPO Advance Directives For more information, please contact: [phone] 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
--- OUTSIDE RECORDS SUMMARY | 2020-08-03 02:07 | XMS REPORT | Continuity of Care Document ---
Author Author [facility] t Organization [facility] Address [address] [place] [address] Phone Unavailable Care Team Providers Care Rabbet Operator Name Role Phone MD Jacinto COLLAZO ([facility]) SHEYLA PCP [phone] Kale RAMOS Attphys Unavailable Nitin Phelps Attphys Unavailable JEN RAMOS Admphys Unavailable Payers Payer Name Policy Type Policy Number Effective Date Expiration Date Arpita rojas [facility] [id number] 2013 00:00:00 [facility] Medicare A & B [id number] 2010 00:00:00 [facility] Problems Condition Name Condition Details Condition Category [...] 2 Diabetes Mellitus Problem Active 2018-01-25 00:00:00 [facility] Chronic kidney disease stage 2 Chronic Kidney Disease Stage 2 Probl em Active 2018-01-25 00:00:00 [facility] Old myocardial infarction Old Myocardial Infarction Problem Ac tive 2018-01-24 00:00:00 [facility] Abdominal aortic atherosclerosis Abdominal Aortic Atherosclerosi s Problem Active 2017-02-15 00:00:00 [facility] Practice Type 2 diabetes mellitus Type 2 Diabetes Mellitus Problem Acti ve 2016-12-27 00:00:00 [facility] Stable angina Stable Angina Problem Active 2016-12-27 00:00:00 [facility] 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 Problem Active 2016-12-27 00:00:00 [facility] History of percutaneous transluminal coronary angiopla sty History of Percutaneous Transluminal Coronary Angioplasty Problem Active 2016-12-27 00:00:00 [facility] Diverticular disease of colon Diverticular Disease of Colon Problem Active 2016-11-21 00:00:00 [facility] Steatosis of liver Steatosis of Liver Problem Active 2016-11-21 00:00:0 0 [facility] Pure hypercholesterolemia Pure Hypercholesterolemia Problem tive 2015-10-07 00:00:00 [facility] Hypertensive heart and renal disease with (congestive) heart failure Hypertensive Heart and Renal Disease with (Congestive) Heart Failure Problem Active 2015-10-07 00:00:00 [facility] Chronic kidney disease Chronic Kidney Disease Problem Active 2015-10-07 00:00:00 [facility] Coronary bypass graft finding Coronary Bypass Graft Finding Problem Active 2015-10-07 00:00:00 [facility] Coronary arteriosclerosis in [place] artery Coronary Ar teriosclerosis in [place] Artery Problem Active 2006-04-16 00:00:00 [facility] Backache Backache Problem Active 2006-04-16 00:00:00 [facility] Edema Edema Problem Active 2006-04-16 00:00:00 [facility] History of artificial heart valve History of Artificial Heart Va lve Problem Active 2006-04-16 00:00:00 [facility] Chest pain Problem Active ALIN [facility] Myocardial infarction Myocardial Infarction Problem Active 201 06-05-29 00:00:00 2018-01-24 00:00:00 [facility] Benign essential hypertension Benign Essential Hypertension Problem Active 2017-04-04 00:00:00 2017-04-25 00:00:00 [facility] Practice Chronic renal impairment Chronic Renal Impairment Problem Acti ve 2015-10-07 00:00:00 2017-01-25 00:00:00 [facility] Coronary atherosclerosis Coronary Atherosclerosis Problem Acti ve 2015-10-07 00:00:00 2016-12-27 00:00:00 [facility] Left heart failure Left Heart Failure Problem Active 3 00:00:00 2016-12-27 00:00:00 [facility] ly Practice History of cardiac surgery History of Cardiac Surgery Problem Active 2015-10-07 00:00:00 2016-12-27 00:00:00 [facility] Angina pectoris Angina Pectoris Problem Active 2006-04-16 00:0 0:00 2016-12-27 00:00:00 [facility] ractice Clinical finding Clinical Finding Problem Active 2015-10-07 00 :00:00 2016-12-26 00:00:00 [facility] ractice Allergies, Adverse Reactions, Alerts Allergy Name Allergy Type Status Severity Reaction(s) Onset Date Inacti ve Date Treating Clinician Comments Source codeine DA Active MO 2019-12-01 00:00:00 [facility] propoxyphene DA Active U 2019-12-01 00:00:00 [facility] acetaminophen DA Active U 2019-12-01 00:00:00 [facility] propoxyphene DA Active U 2018-10-24 00:00:00 [facility] acetaminophen DA Active U 2018-10-24 00:00:00 [facility] Oxycodone-Acetaminophen Propensity to adverse reactions to drug Activ e Hives 2018-03-07 00:00:00 Hakan Gan odist codeine DA Active MO 2016-08-19 00:00:00 [facility] propoxyphene DA Active MO 2016-08-19 00:00:00 [facility] DARVOCET-N 100 Allergy to substance Active Rash 2015-10-07 00:00 :00 [facility] Propoxyphene N-Acetaminophen Propensity to adverse reactions to spencer g Active Rash 2015-10-07 00:00:00 Hakan Fuentes DARVOCET Allergy to substance Active Mild RASH 2012-05-02 00:00:00 [facility] Social History Social Habit Start Date Stop Date Quantity Comments Source History of tobacco use Cigarette Smoker Hakan Fuentes Sex Assigned At Alok reyes Alfredo Tobacco use and exposure 2018-03-28 00:00:00 2018-03-28 00:00:00 Zonia r used Hakan Fuentes Alcohol intake 2018-03-28 00:00:00 2018-03-28 00:00:00 Current non-drinker of alcohol (finding) Hakan Fuentes Smoking Status Start Date Stop Date Source Never Smoker [facility] Former smoker 2018-03-28 00:00:00 2018-03-28 00:00:00 [...] BY ORAL ROUTE FOR 90 DAYS. Hakan Feuntes furosemide (LASIX) 40 mg tablet 2018-02-16 00:00:00 [...] 2 (two) times a day. Hakan Fuentes Amlodipine Besylate Amlodipine Besylate Yes 10 Daily [facility] Aspirin Aspirin Yes 81 Daily [facility] Atorvastatin Calcium (Lipitor) 20 Mg TABLET Atorvastat in Calcium (Lipitor) 20 Mg TABLET Yes 20 Daily [facility] Carvedilol (Coreg) 25 Mg TAB Carvedilol (Coreg) 25 Mg TAB Y es 25 Daily [facility] Celecoxib (Celebrex*) 100 Mg CAPSULE Celecoxib (Celebrex*) 100 Mg C APSULE Yes 200 Twice A Day [facility] Clopidogrel Bisulfate (Plavix) 75 Mg TABLET Clopidogre l Bisulfate (Plavix) 75 Mg TABLET Yes 75 Daily [facility] Fesoterodine Fumarate (Toviaz) 4 Mg TAB.ER.24H Fesoter odine Fumarate (Toviaz) 4 Mg TAB.ER.24H Yes 4 Daily [facility] Finasteride Finasteride Yes 5 Daily [facility] Furosemide Furosemide Yes 40 Daily [facility] Glimepiride Glimepiride Yes 2 Daily [facility] Hydrochlorothiazide Hydrochlorothiazide Yes 25 Daily [facility] Irbesartan Irbesartan Yes 150 Daily [facility] Isosorbide Mononitrate Isosorbide Mononitrate Yes 60 Daily [facility] Linagliptin/Metformin Hcl (Jentadueto Xr 2.5 Mg-1,000 Mg) 1 Each TAB.BP.24H Linagliptin/Metformin Hcl (Jentadueto Xr 2.5 Mg-1,000 Mg) 1 Each TAB.BP.24H Yes 2 Before Lunch [facility] Lisinopril Lisinopril Yes 40 Daily [facility] Metoprolol Succinate Metoprolol Succinate Yes 100 Daily [facility] Omeprazole (Prilosec) 40 Mg CAPSULE. Omeprazole (Prilosec) 40 Mg CAPSULE.DR Yes 20 Daily [facility] Ranolazine (Ranexa) 500 Mg TABSR Ranolazine (Ranexa) 500 Mg TABSR Yes 1000 Twice A Day [facility] Simvastatin Simvastatin Yes 40 Today At 9:00PM [facility] Tamsulosin Hcl (Flomax*) 0.4 Mg CAP Tamsulosin Hcl (Flomax*) 0.4 Mg C AP Yes .4 Daily [facility] Triamterene/Hydrochlorothiazid (Triamterene-Hctz 50-25 Mg Cap) 1 Each CAPSULE Triamterene/Hydrochlorothiazid (Triamterene-Hctz 50-25 Mg Cap) 1 Each CAPSULE Yes 1 Daily [facility] Accu-Chek Gaye Plus test strips Accu-Chek Gaye Plus test strips No Accu-Chek Gaye Plus test strips [facility] amlodipine 10 mg tablet amlodipine 10 mg tablet No amlodipine 10 mg tablet [facility] aspirin 81 mg tablet,delayed release aspirin 81 mg tablet,delayed r elease No aspirin 81 mg tablet,delayed release [facility] carisoprodol 350 mg tablet carisoprodol 350 mg tablet No carisoprodol 350 mg tablet [facility] carvedilol 25 mg tablet carvedilol 25 mg tablet No carvedilol 25 mg tablet [facility] celecoxib 200 mg capsule celecoxib 200 mg capsule No celecoxib 200 mg capsule [facility] clopidogrel 75 mg tablet clopidogrel 75 mg tablet No clopidogrel 75 mg tablet [facility] ice finasteride 5 mg tablet finasteride 5 mg tablet No finasteride 5 mg tablet [facility] furosemide 40 mg tablet furosemide 40 mg tablet No furosemide 40 mg tablet [facility] ice glimepiride 2 mg tablet glimepiride 2 mg tablet No glimepiride 2 mg tablet [facility] ice hydrochlorothiazide 25 mg tablet hydrochlorothiazide 25 mg tablet No hydrochlorothiazide 25 mg tablet [facility] hydrocodone 10 mg-acetaminophen 325 mg tablet hydrocod one 10 mg-acetaminophen 325 mg tablet No hydrocodone 10 mg-acetam inophen 325 mg tablet [facility] hydrocodone-homatropine 5 mg-1.5 mg/5 mL syrup hydroco done-homatropine 5 mg-1.5 mg/5 mL syrup No hydrocodone-homatropine 5 mg-1.5 mg/5 mL syrup [facility] irbesartan 150 mg tablet irbesartan 150 mg tablet No irbesartan 150 mg tablet [facility] ice isosorbide mononitrate ER 60 mg tablet,extended releas e 24 hr isosorbide mononitrate ER 60 mg tablet,extended release 24 hr No isosorbide mononitrate ER 60 mg tablet,extended release 24 hr [facility] Jentadueto XR 2.5 mg-1,000 mg tablet, extended release Jentadueto XR 2.5 mg- 1,000 mg tablet, extended release No Jentadueto XR 2.5 mg-1,000 mg tablet, extended release [facility] Levemir FlexTouch U-100 Insulin 100 unit/mL (3 mL) sub cutaneous pen Levemir FlexTouch U-100 Insulin 100 unit/mL (3 mL) subcutaneous pen No Levemir FlexTouch U-100 Insulin 100 unit/mL (3 mL) subcutaneous pen [facility] lisinopril 40 mg tablet lisinopril 40 mg tablet No lisinopril 40 mg tablet [facility] ice losartan 50 mg tablet Take 1 tablet every day by oral route. losartan 50 mg tablet Take 1 tablet every day by oral route. No 1 Q1D losartan 50 mg tablet Take 1 tablet every day by oral route. [facility] Lotemax 0.5 % eye gel drops Lotemax 0.5 % eye gel drops No Lotemax 0.5 % eye gel drops [facility] nitroglycerin 0.4 mg sublingual tablet P lace 1 tablet as needed by sublingual route. nitroglycerin 0.4 mg sublingual tablet P lace 1 tablet as needed by sublingual route. No 1 nitrog lycerin 0.[address] 1 tablet as needed by sublingual route. [facility] Novolog U-100 Insulin aspart 100 unit/mL subcutaneous solution Novolog U-100 Insulin aspart 100 unit/mL subcutaneous solution No Novolog U-100 Insulin aspart 100 unit/mL subcutaneous solution [facility] omeprazole 20 mg capsule,delayed release omeprazole 20 mg capsule,delayed release No omeprazole 20 mg capsule,delay ed release [facility] oxybutynin chloride ER 10 mg tablet,extended release 2 4 hr oxybutynin chloride ER 10 mg tablet,extended release 24 hr No oxybutynin chloride ER 10 mg tablet,extended release 24 hr [facility] potassium chloride ER 20 mEq tablet,extended release(p art/cryst) potassium chloride ER 20 mEq tablet,extended release(part/cryst) No potassium chloride ER 20 mEq tablet,extended release(part/cryst) [facility] Prolensa 0.07 % eye drops Prolensa 0.07 % eye drops No Prolensa 0.07 % eye drops [facility] ice rosuvastatin 40 mg tablet rosuvastatin 40 mg tablet No rosuvastatin 40 mg tablet [facility] ice tamsulosin 0.4 mg capsule tamsulosin 0.4 mg capsule No tamsulosin 0.4 mg capsule [facility] Isosorbide Dinitrate Isosorbide Dinitrate 2020-07-18 00:00:00 No 30 Daily [facility] Ranolazine (Ranexa) 500 Mg TABSR Ranolazine (Ranexa) 500 Mg TABS R 2020-07-18 00:00:00 No 500 Twice A Day [facility] atorvastatin 20 mg tablet atorvastatin 20 mg tablet 00:00:00 No atorvastatin 20 mg tablet [facility] potassium chloride ER 20 mEq tablet,extended release p otassium chloride ER 20 mEq tablet,extended release 2017-12-03 00:00:00 No potassium chloride ER 20 mEq tablet,[facility] Depo-Medrol 80 mg/mL suspension for injection injected 1 ml, once, deep IM Depo- Medrol 80 mg/mL suspension for injection injected 1 ml, once, deep IM 2017-11-21 00:00:00 No Depo- Medrol 80 mg/mL suspension for injection injected 1 ml, once, deep IM [facility] K[facility]-Con 20 mEq tablet,extended release Take 1 tablet every day by oral route as directed for 90 days. Klor-Con 20 mEq tablet,extended release Take 1 tablet every day by oral route as directed for 90 days. 2017-11-21 00:00:00 N o 1 Q1D Klor-Con 20 mEq tablet,extended release Take 1 tablet every day by oral route as directed for 90 days. [facility] methocarbamol 750 mg tablet methocarbamol 750 mg tablet 2017-07-18 00:00:00 No methocarbamol 750 mg tablet [facility] Kenalog 40 mg/mL suspension for injectio n mixed with lidocaine and injected into trigger point Kenalog 40 mg/mL suspension for injectio n mixed with lidocaine and injected into trigger point 2017-06-05 00:00:00 No Kenalog 40 mg/mL suspension for injection mixed with lidocaine and injected into trigger point [facility] lidocaine (PF) 10 mg/mL (1 %) injection solution mixed with Kenalog and injected into posterior superior iliac spine lidocaine (PF) 10 mg/mL (1 %) injection solution mixed with Kenalog and injected into posterior superior iliac spine 2017-06-05 00:00:00 No lidoc tosha (PF) 10 mg/mL (1 %) injection solution mixed with Kenalog and injected into posterior superior iliac spine [facility] meclizine 12.5 mg tablet meclizine 12.5 mg tablet 2017-04-25 00: 00:00 No meclizine 12.5 mg tablet [facility] tramadol 50 mg tablet tramadol 50 mg tablet 2017-04-25 00:00:00 No tramadol 50 mg tablet [facility] Synvexia Patch 4 %-1 % topical Synvexia Patch 4 %-1 % topical 2017-04-04 00:00:00 No Synvexia Patch 4 %-1 % topical [facility] Voltaren 1 % topical gel Voltaren 1 % topical gel 2017-04-04 00: 00:00 No Voltaren 1 % topical gel [facility] amoxicillin 500 mg capsule amoxicillin 500 mg capsule 2016 00:00:00 No amoxicillin 500 mg capsule [facility] hydrocodone 7.5 mg-acetaminophen 325 mg tablet hydroco done 7.5 mg-acetaminophen 325 mg tablet 2017-03-21 00:00:00 No hydrocodone 7.5 mg-acetaminophen 325 mg tablet [facility] ibup[facility] 800 mg tablet ibuprofen 800 mg tablet 2017-03-21 00:00 :00 No ibuprofen 800 mg tablet [facility] levofloxacin 500 mg tablet levofloxacin 500 mg tablet 2016 00:00:00 No levofloxacin 500 mg tablet [facility] methylprednisolone 4 mg tablets in a dose pack methylp rednisolone 4 mg tablets in a dose pack 2017-03-21 00:00:00 No methylprednisolone 4 mg tablets in a dose pack [facility] ice ondansetron 8 mg disintegrating tablet ondansetron 8 mg disinteg rating tablet 2017-03-21 00:00:00 No ondansetron 8 mg dis integrating tablet [facility] promethazine 25 mg/mL injection solution Take 1 mL by injection route. promethazine 25 mg/mL injection solution Take 1 mL by injection route. 2017-03-21 00:00:00 No 1mL prome thazine 25 mg/mL injection solution Take 1 mL by injection route. [facility] Pr actice Isosorbide Mononitrate CR 60 [...] oral route as directed for 90 days. [facility] Hydrocodone Bit/Acetaminophen* (Vicodin 5-500 Tablet*) 1 Each TABLET Hydrocodone Bit/Acetaminophen* (Vicodin 5-500 Tablet*) 1 Each TABLET 201 03-12-20 00:00:00 No [facility] Quinapril Hcl Quinapril Hcl 2015-06-24 00:00:00 No 40 Daily [facility] Verapamil Hcl (Verapamil Er) 240 Mg TABSR Verapamil Hc l (Verapamil Er) 240 Mg TABSR 2015-06-24 00:00:00 No 240 Daily [facility] Coreg Coreg 2012-11-13 00:00:00 No [facility] Furosemide Furosemide 2012-11-13 00:00:00 No [facility] Isosorbide Isosorbide 2012-11-13 00:00:00 No 30 [facility] Isosorbide Isosorbide 2012-11-13 00:00:00 No [facility] Plavix Plavix 2012-11-13 00:00:00 No [facility] Prilosec Prilosec 2012-11-13 00:00:00 No [facility] Verapamil Verapamil 2012-11-13 00:00:00 [facility] Immunizations Ordered Immunization Name Filled Immunization Name Date Status Comments Source pneumococcal conjugate PCV 13 pneumococcal conjugate PCV 13 2017 15:11:00 Completed [facility] influenza, high dose seasonal influenza, high dose seasonal 2016 17:01:00 Completed [facility] influenza, injectable, quadrivalent influenza, injectable, q uadrivalent 2015-10-07 00:00:00 Completed [facility] influenza, seasonal, injectable influenza, seasonal, injecta ble 2014-07-21 00:00:00 Completed [facility] ice Vital Signs Vital Name Observation Time Observation Value Comments Source Body Temperature 2020-07-18 08:41:00 97.8 [degF] [facility] BMI (Body Mass Index) 2020-07-17 16:26:00 31.4 kg/m2 [facility] Weight 2020-07-17 00:18:00 225 [lb_av] [facility] BP Diastolic 2018-01-25 00:00:00 89 mm[Hg] [facility] Height 2018-01-25 00:00:00 71 [in_i] [facility] BMI (Body Mass Index) 2018-01-25 00:00:00 31.7 kg/m2 [facility] BP Systolic 2018-01-25 00:00:00 166 mm[Hg] [facility] Body Weight 2018-01-25 00:00:00 227.4 [lb_av] [facility] BP Diastolic 2017-12-03 00:00:00 93 mm[Hg] [facility] Height 2017-12-03 00:00:00 71 [in_i] [facility] BMI (Body Mass Index) 2017-12-03 00:00:00 31.9 kg/m2 [facility] BP Systolic 2017-12-03 00:00:00 181 mm[Hg] [facility] Body Weight 2017-12-03 00:00:00 228.6 [lb_av] [facility] BP Diastolic 2017-11-21 00:00:00 77 mm[Hg] [facility] Height 2017-11-21 00:00:00 71 [in_i] [facility] BMI (Body Mass Index) 2017-11-21 00:00:00 31.5 kg/m2 [facility] BP Systolic 2017-11-21 00:00:00 131 mm[Hg] [facility] Body Weight 2017-11-21 00:00:00 225.6 [lb_av] [facility] BP Diastolic 2017-07-18 00:00:00 81 mm[Hg] [facility] Height 2017-07-18 00:00:00 71 [in_i] [facility] BMI (Body Mass Index) 2017-07-18 00:00:00 31.2 kg/m2 [facility] BP Systolic 2017-07-18 00:00:00 156 [...] Practice BP Diastolic 2014-08-19 00:00:00 80 mm[Hg] [facility] Height 2014-08-19 00:00:00 68.5 [in_i] [facility] BMI (Body Mass Index) 2014-08-19 00:00:00 35.24 kg/m2 [facility] BP Systolic 2014-08-19 00:00:00 140 mm[Hg] [facility] Body Weight 2014-08-19 00:00:00 235.2 [lb_av] [facility] Height 2014-04-07 00:00:00 68.5 [in_i] [facility] Body Weight 2014-04-07 00:00:00 231.4 [lb_av] [facility] Height 2013-09-24 00:00:00 68.5 [in_i] [facility] Body Weight 2013-09-24 00:00:00 320.8 [lb_av] [facility] Height 2013-04-25 00:00:00 69.5 [in_i] [...] Family Practice Height 2009-02-23 00:00:00 69.5 [in_i] [facility] Body Weight 2009-02-23 00:00:00 216 [lb_av] [facility] Body Weight 2008-07-09 00:00:00 215.5 [lb_av] [facility] Body Weight 2007-11-29 00:00:00 215.8 [lb_av] [facility] Body Weight 2007-08-02 00:00:00 218.5 [lb_av] [facility] Body Weight 2007-07-29 00:00:00 215.2 [lb_av] [facility] Body Weight 2007-02-12 00:00:00 221.3 [lb_av] [facility] Body Weight 2006-08-08 00:00:00 220 [lb_av] [facility] Body Weight 2006-07-18 00:00:00 217 [lb_av] [facility] Body Weight 2006-07-17 00:00:00 217 [lb_av] [facility] Body Weight 2006-04-16 00:00:00 212 [lb_av] [facility] Body Weight 2005-12-07 00:00:00 211 [lb_av] [facility] Body Weight 2005-11-09 00:00:00 215 [lb_av] [facility] Body Weight 2005-08-15 00:00:00 200 [lb_av] [facility] Body Weight 2005-08-04 00:00:00 200 [lb_av] [facility] Body Weight 2005-07-21 00:00:00 186 [lb_av] [facility] Body Weight 2004-11-15 00:00:00 214 [lb_av] [facility] Procedures Procedure Date / Time Performed Performing Clinician Sourc e Stent Placemt Retro Carotid 2017-11-28 00:00:00 [facility] X-RAY HIP UNLIATERAL (2-3 VIEWS) 2017-03-21 00:00:00 [facility] Practice Cabg 2016-11-05 00:00:00 [facility] Plan of Care Planned Activity Planned Date Details Comments Source Instructions Angina [facility] Instructions Chest Pain - Chest Wall [facility] Instructions [facility] Instructions [facility] Encounters Start Date/Time End Date/Time Encounter Type Admission Type Attendi ng Clinicians Care Facility Care Department Encounter ID Source 2020-07-17 02:10:00 2020-07-18 10:45:00 Discharged Inpatient (obs) 1 Mingo Phelps [facility] [id number] [facility] 2018-01-25 00:00:00 2018-01-25 00:00:00 PAPA Marroquin: [id number] [facility] [address], [place] [address], Ph. [facility] [id number] [facility] Family Prac colleen 2017-12-28 00:00:00 2017-12-28 00:00:00 Kristen De La Torre: [phone] [facility] [place] [address] [address], Ph. [facility] - Care Management [id number] [facility] Pract ice 2017-12-14 00:00:00 2017-12-14 00:00:00 Kristen De La Torre: [address], [address], [place] [address], Ph. [facility] [id number] [facility] 2017-12-03 00:00:00 2017-12-03 00:00:00 Sheyla Collazo MD: [id number] [address] [facility] [place] [address], [place] [address], Ph. [facility] [id number] [facility] Prac colleen 2017-11-30 00:00:00 2017-11-30 00:00:00 Kristen De La Torre: [phone] [facility] [place] [address], [place] [address], Ph. [facility] - Care Management [id number] [facility] Pract ice 2017-11-21 00:00:00 2017-11-21 00:00:00 Sheyla Collazo MD: [id number] [facility] [place] [address], [place] [address], Ph. VFP [place] - [facility] [id number] [facility] colleen 2017-07-18 00:00:00 2017-07-18 00:00:00 Sheyla Collazo MD: [address]22 [facility], [address] [place] [address], Ph. [place] - [facility] [id number] [facility] colleen 2017-06-05 00:00:00 2017-06-05 00:00:00 Sheyla Collazo MD: 95312 [facility], [address] [place] [address], Ph. [place] - [facility] [id number] [facility] colleen 2017-04-25 00:00:00 2017-04-25 00:00:00 Sheyla Collazo MD: 22866 [facility], [address] [address], Ph. VFP [place] - [facility] [id number] [facility] colleen 2017-04-04 00:00:00 2017-04-04 00:00:00 Jarad Oscar MD: 05679 [facility], [address] [address], Ph. VFP [place] - [facility] - [facility] [id number] [facility] colleen 2017-03-21 00:00:00 2017-03-21 00:00:00 CLAIRE Cancino: 03856 [facility], [address] [address], Ph. VFP [facility] [id number] [facility] colleen 2017-02-15 00:00:00 2017-02-15 00:00:00 PAPA Cutler : [address] [facility], [address] [address], Ph. VFP [place] - [facility] [id number] [facility] 2017-01-25 00:00:00 2017-01-25 00:00:00 Sheyla Collazo MD: 71008 [facility], [address], [place] [address], Ph. [facility] [id number] [facility] 2016-12-27 00:00:00 2016-12-27 00:00:00 Sheyla Collazo MD: [address] [facility], [address], [place] [address], Ph. [facility] [id number] [facility] 2016-12-12 00:00:00 2016-12-12 00:00:00 Gayla Wells: [address] [facility], [address], [place] [address], Ph. [facility] [id number] [facility] 2016-11-28 00:00:00 2016-11-28 00:00:00 Sheyla Collazo MD: 05289 [facility], [address], [place] [address], Ph. [facility] [id number] [facility] 2016-11-27 00:00:00 2016-11-27 00:00:00 Gayla Wells: [address] [facility], [address], [place] [address], Ph. [facility] Management [id number] [facility] Results Test Description Test Time Test Comments Results Result Comments Source CHEST SINGLE (PORTABLE) 2020-08-03 01:06:00 [facility] [address] [address] Patient Name: CELESTE JORDAN MR #: [id number] : 1945 Age/Sex: 75/M Req #: [id number] Adm Physician: Ordered by: HARJINDER RAMOS MD Report #: [id number] Location: ER Room/Bed: Procedure: [id number] DX/CHEST SINGLE (PORTABLE) Exam Date: Exam Time: REPORT STATUS: Signed EXAMINATION: CHEST SINGLE (PORTABLE) INDICATION: Left arm discomfort COMPARISON: Chest x-ray 07/17/2020 FINDINGS: TUBES and LINES: None. LUNGS: Normal lung volumes. Lungs are clear. No consolidations. PLEURA: No pleural effusion or pneumothorax. Pleural-based calcifications can be due to cardiothoracic surgery or asbestos related exposure. HEART AND MEDIASTINUM: The cardiomediastinal silhouette is borderline enlarged. Surgical changes along the mediastinum. Coronary stents. Aortic calcifications. BONES AND SOFT TISSUES: No acute osseous lesion. Soft tissues are unremarkable. Sternotomy wires. Degenerative changes. UPPER ABDOMEN: No free air under the diaphragm. IMPRESSION: Coronary stents and mild cardiomegaly. Signed by: Steven Esparza DO on 08/03/2020 1:13 AM Dictated By: STEVEN ESPARZA DO 2 Transcribed By: EDWARD on 08/03/20112 COPY TO: HARJINDER RAMOS MD Capillary blood glucose measurement by glucometer (mas s/volume) 2020-07-18 07:04:00 Test Item Bedside Glucose (test code = 91480-4) 167 70-120 Meter ID: [id number] Park Regional Medical CenterBlood leukocytes automated count (number/volume)2020-07-18 06:00:00* Test Item Value Reference Range Interpretation Comments White Blood Count (test code = 6690-2) 13.30 4.8-10.8 [facility] CenterB[facility] erythrocytes automated count (number/volume)2020-07-18 06:00:00* Test Item Value Reference Range Interpretation Comments Red Blood Count (test code = 789-8) 3.91 4.3-5.7 [facility] CenterBlood hemoglobin measurement (moles/volume)2020-07-18 06:00:00* Test Item Value Reference Range Interpretation Comments Hemoglobin (test code = 29222-4) 13.6 14.0-18.0 [facility] CenterAutomated blood hematocrit (volume fraction)2020-07-18 06:00:00* Test Item Value Reference Range Interpretation Comments Hematocrit (test code = 4544-3) 38.4 38.2-49.6 [facility] CenterAutomated erythrocyte mean corpuscular nwcima8770-93-45 06:00:00* Test Item Value Reference Range Interpretation Comments Mean Corpuscular Volume (test code = 787-2) 98.2 81-99 [facility] CenterAutomated erythrocyte mean corpuscular hemoglobin (mass per erythrocyte)2020-07-18 06:00:00* Test Item Value Reference Range Interpretation Comments Mean Corpuscular Hemoglobin (test code = 785-6) 34.8 28-32 [facility] CenterAutomated erythrocyte mean corpuscular hemoglobin concentration measurement (mass/volume)2020-07-18 06:00:00* Test Item Value Reference Range Interpretation Comments Mean Corpuscular Hemoglobin Concent (test code = 786-4) 35.4 31-35 [facility] CenterRDW LglBo-Aky2574-91-13 06:00:00* Test Item Value Reference Range Interpretation Comments Red Cell Distribution Width (test code = 05138-4) 13.2 11.7 -14.4 [facility] CenterAutomated blood platelet count (count/volume)2020-07-18 06:00:00* Test Item Value Reference Range Interpretation Comments Platelet Count (test code = 777-3) 177 140-360 [facility] CenterAutomated blood segmented neutrophil count as percentage of total bckztwemyo5116-88-12 06:00:00* Test Item Value Reference Range Interpretation Comments Neutrophils (%) (Auto) (test code = 08456-5) 59.5 38.7-80.0 [facility] CenterAutomated blood lymphocyte count as percentage ot total sxhuwwmmod5196-45-33 06:00:00* Test Item Value Reference Range Interpretation Comments Lymphocytes (%) (Auto) (test code = 736-9) 16.3 18.0-39.1 [facility] CenterAutomated blood monocyte count as percentage of total wlohznnlfd1478-62-65 06:00:00* Test Item Value Reference Range Interpretation Comments Monocytes (%) (Auto) (test code = 5905-5) 6.2 4.4-11.3 [facility] CenterAutomated blood eosinophil count as percentage of total locghognpw3336-71-05 06:00:00* Test Item Value Reference Range Interpretation Comments Eosinophils (%) (Auto) (test code = 713-8) 16.6 0.0-6.0 [facility] bas[facility] count as percentage of total ruqrbuhpza7170-04-68 06:00:00* Test Item Value Reference Range Interpretation Comments Basophils (%) (Auto) (test code = 706-2) 0.9 0.0-1.0 [facility] CenterFluoroscopic procedure less than one hour fwbdbnoh8521-41-33 06:00:00* Test Item Value Reference Range Interpretation Comments IM GRANULOCYTES % (test code = IM GRANULOCYTES %) 0.5 0.0- 1.0 [facility] CenterAutomated blood neutrophil count 2020-07-18 06:00:00* Test Item Value Reference Range Interpretation Comments Neutrophils # (Auto) (test code = 751-8) 7.9 2.1-6.9 [facility] CenterBlood lymphocytes count (number/volume) 2020-07-18 06:00:00* Test Item Value Reference Range Interpretation Comments Lymphocytes # (Auto) (test code = 12437-7) 2.2 1.0-3.2 [facility] CenterBlood monocytes automated count (number/volume)2020-07-18 06:00:00* Test Item Value Reference Range Interpretation Comments Monocytes # (Auto) (test code = 742-7) 0.8 0.2-0.8 [facility] CenterAutomated blood eosinophil count 2020-07-18 06:00:00* Test Item Value Reference Range Interpretation Comments Eosinophils # (Auto) (test code = 711-2) 2.2 0.0-0.4 [facility] CenterAutomated blood basophil count (count/volume)2020-07-18 06:00:00* Test Item Value Reference Range Interpretation Comments Basophils # (Auto) (test code = 704-7) 0.1 0.0-0.1 [facility] CenterFluoroscopic procedure less than one hour xbxwltkp2769-48-93 06:00:00* Test Item Value Reference Range Interpretation Comments Absolute Immature Granulocyte (auto (sho t code = Absolute Immature Granulocyte (auto) 0.06 0-0.1 [facility] CenterFluoroscopic procedure less than one hour tysafiar5858-03-84 06:00:00* Test Item Value Reference Range Interpretation Comments Differential Total Cells Counted (test code = Shara tial Total Cells Counted) 100 [facility] blood neutrophils/100 leukocytes 2020-07-18 06:00:00* Test Item Value Reference Range Interpretation Comments Neutrophils % (Manual) (test code = 29538-4) 57 40-74 [facility] blood lymphocytes/100 leukocytes 2020-07-18 06:00:00* Test Item Value Reference Range Interpretation Comments Lymphocytes % (Manual) (test code = 737-7) 22 19-48 [facility] blood monocytes/100 leukocytes 2020-07-18 06:00:00* Test Item Value Reference Range Interpretation Comments Monocytes % (Manual) (test code = 744-3) 4 3.4-9.0 [facility] blood eosinophil count as percentage of total hddntqbyvu1745-67-87 06:00:00* Test Item Value Reference Range Interpretation Comments Eosinophils % (Manual) (test code = 714-6) 17 0-7 [facility] CenterBlood platelets count by estimate (number/volume)2020-07-18 06:00:00* Test Item Value Reference Range Interpretation Comments Platelet Estimate (test code = 93406-6) ADEQUATE [facility] CenterPlatelet yzgqljpakn1654-55-38 06:00:00* Test Item Value Reference Range Interpretation Comments Platelet Morphology Comment (test code = 28730-0) NORMAL [facility] CenterRBC ctnurstfcs1413-16-52 06:00:00* Test Item Value Reference Range Interpretation Comments Red Cell Morphology Comment (test code = 6742-1) NORMAL [facility] plasma sodium measurement (moles/volume)2020-07-18 06:00:00* Test Item Value Reference Range Interpretation Comments Sodium Level (test code = 2951-2) 139 136-145 [facility] Systemerum or plasma potassium measurement (moles/volume)2020-07-18 06:00:00* Test Item Value Reference Range Interpretation Comments Potassium Level (test code = 2823-3) 3.3 3.5-5.1 [facility] Systemerum or plasma chloride measurement (moles/volume)2020-07-18 06:00:00* Test Item Value Reference Range Interpretation Comments Chloride Level (test code = 2075-0) 104 98-107 [facility] Systemerum or plasma carbon dioxide, total measurement (moles/volume)2020-07-18 06:00:00* Test Item Value Reference Range Interpretation Comments Carbon Dioxide Level (test code = 2028-9) 21 22-29 [facility] Systemerum or plasma anion one5782-82-61 06:00:00* Test Item Value Reference Range Interpretation Comments Anion Gap (test code = 80804-7) 17.3 8-16 [facility] Systemerum or plasma urea nitrogen measurement (mass/volume)2020-07-18 06:00:00* Test Item Value Reference Range Interpretation Comments Blood Urea Nitrogen (test code = 3094-0) 19 7-26 [facility] Systemerum or plasma creatinine measurement (mass/volume)2020-07-18 06:00:00* Test Item Value Reference Range Interpretation Comments Creatinine (test code = 2160-0) 1.20 0.72-1.25 [facility] Systemerum or plasma urea nitrogen/creatinine mass ocjdf7658-68-73 06:00:00* Test Item Value Reference Range Interpretation Comments BUN/Creatinine Ratio (test code = 3097-3) 16 6-25 [facility] CenterEstimated glomerular filtration rate (GFR) yhujgelhbdeyh1902-14-86 06:00:00* Test Item Value Reference Range Interpretation Comments Estimat Glomerular Filtration Rate (test code = 703273179) 59 >60 Ranges were taken from the National Kidney Disease Education Program and the [facility] Kid[facility] Foundation literature.Reference ranges:60 or greater: Xfmrye65-97 ( for 3 consecutive months): Chronic kidney disease 15 or less: Kidney failureCedar Park Regional Medical CenterGlucose bnqbkgrfrry1697-43-17 06:00:00* Test Item Value Reference Range Interpretation Comments Glucose Level (test code = XQE6874) 150 74-118 [facility] Systemerum or plasma calcium measurement (mass/volume)2020-07-18 06:00:00* Test Item Value Reference Range Interpretation Comments Calcium Level (test code = 48850-0) 8.9 8.4-10.2 [facility] CenterTroponin I measurement by highly sensitive enzyme tqxkzyydpkz7609-00-77 06:00:00* Test Item Value Reference Range Interpretation Comments Troponin I (test code = 94081-6) 0.014 0-0.300 [facility] CenterCHEST SINGLE (PORTABLE)2020-07-17 02:20:00 [facility] [address] [place] [address] Patient Name: CELESTE JORDAN MR #: [id number] : 1945 Age/Sex: 75/M Req #: [id number] Adm Physician: Ordered by: Mingo Phelps MD Report #: [id number] Location: ER Room/Bed: Procedure: DX/CHEST SING LE (PORTABLE) Exam Date: 07/17/20 Exam Time: 39 REPORT STATUS: Signed EXAMINATION: CHEST SINGLE (PORTABLE) INDICATION: Chest pain COMPARISON: None FINDINGS: TUBES and LINES: None. LUNGS: Normal l fernanda volumes. Lungs are clear. No consolidations. PLEURA: No pleural effu mihai or pneumothorax. Pleural-based calcifications can be due to cardiothoraci c surgery or asbestos related exposure. HEART AND MEDIASTINUM: Cardiac siz e is mildly enlarged. Surgical changes. Aortic calcifications. BONES AND SOFT TISSUES: No acute osseous lesion. Soft tissues are unremarkable. Sterno jenaro wires. UPPER ABDOMEN: No free air under the diaphragm. IMPRES MIHAI: Mild cardiomegaly. Signed by: Steven Esparza DO on 07/17/2020 2 :22 AM Dictated By: STEVEN ESPARZA DO 1 Transcribed By: EDWARD on 07/17/20221 C OPY TO: MINGO PHELPS MD Serum or plasma total bilirubin measurement (mass/volume)2020-07-17 00:33:00* Test Item Value Reference Range Interpretation Comments Total Bilirubin (test code = 1975-2) 0.7 0.2-1.2 [facility] CenterFluoroscopic procedure less than one hour epmtjxil8841-11-32 00:33:00* Test Item Value Reference Range Interpretation Comments Aspartate Amino Transf (AST/SGOT) (test code = Aspartate Amino Transf (AST/SGOT)) 24 5-34 [facility] Systemerum or plasma alanine aminotransferase measurement (enzymatic activity/volume)2020-07-17 00:33:00* Test Item Value Reference Range Interpretation Comments Alanine Aminotransferase (ALT/SGPT) (test code = 1742-6) 26 0-55 [facility] Systemerum or plasma protein measurement (mass/volume)2020-07-17 00:33:00* Test Item Value Reference Range Interpretation Comments Total Protein (test code = 2885-2) 8.2 6.5-8.1 [facility] Systemerum or plasma albumin measurement (mass/volume)2020-07-17 00:33:00* Test Item Value Reference Range Interpretation Comments Albumin (test code = 1751-7) 4.7 3.5-5.0 [facility] CenterPlasma globulin measurement (mass/volume) 2020-07-17 00:33:00* Test Item Value Reference Range Interpretation Comments Globulin (test code = 59856-2) 3.5 2.3-3.5 [facility] Systemerum or plasma albumin/globulin mass gdrjo0595-44-87 00:33:00* Test Item Value Reference Range Interpretation Comments Albumin/Globulin Ratio (test code = 1759-0) 1.3 0.8-2.0 [facility] Systemerum or plasma alkaline phosphatase measurement (enzymatic activity/volume)2020-07-17 00:33:00* Test Item Value Reference Range Interpretation Comments Alkaline Phosphatase (test code = 6768-6) 81 40-150 [facility] CenterBNP Fjn-xWya5546-86-12 00:33:00* Test Item Value Reference Range Interpretation Comments B-Type Natriuretic Peptide (test code = 96763-8) 56.0 0-100 [facility] Systemerum or plasma lipase measurement (enzymatic activity/volume)2020-07-17 00:33:00* Test Item Value Reference Range Interpretation Comments Lipase (test code = 3040-3) 28 8-78 [facility] CenterINTERVERTEBRAL GULV7371-69-60 15:57:00 RUN DATE: 03/22/20 [employer] PAGE 1 RUN TIME: 1557 Specimen Inqui ry RUN USER: INTERFACE PATIENT: CELESTE JORDAN ACCT #: [id number] LOC: MOR #: [id number] AGE/SX: 74/M ROOM: [facility] RE03/17/20REG DR: King Ahn MD : 45 BED: A DIS: 03/18/20 STATUS: DIS Jose TLOC: SPEC #: [id number] RECD: 03/18/20 STATUS: MITCH REQ #: [id number] TIANA: 03/17/20- [facility] DR: King Ahn MD ENTERED: 03/18/20 SP TYPE: INT DISC OTHR DR: Sheyla Collazo MD ORDERED: GROSS COPIES [place]: [place] [address] [place] [address] [email or web address] King Anh MD [address] [address] PROCEDURES: GROSS (03/22/20-1236) TISSUES: LUMBAR REGION - DISC CLINICAL HISTORY COLLECTION DATE: 03/17/20 L4-5 RECURRENT DISC HERNI ATION FINAL DIAGNOSIS Lumbar disc, right side, L4-5, redo laminectomy , medial facetectomy, and microsurgical discectomy: INTERVERTEBRAL DISC MATERIAL, FIBROTIC FIBROCONNECTIVE TISSUE, AND BONE NEGATIVE FOR MALIGNA NCY DMW/gm D 66802, [address] MACROSCOPIC The specimen is rec eived in formalin, labeled with the patient's name, and identified as "lumbar disc". It consists of multiple paniagua fibrous fragments of tissue and palpable b one measuring 2.5 x 2.5 x 0.5 cm in aggregate. Samples of the specimen are keys bmitted for decalcification and follow up microscopic evaluation in a single c assette. CONTINUED ON NEXT PAGE -RUN DATE: 03/22/20 [facility] PAGE 2 RUN TIME: 1557 Specimen Inquiry RUN USER: INTERFACE SPEC #: [id number] PATIENT: CELESTE JORDAN #[id number] (Continued) MACROSCOPIC (Continued) GROSS PERFORMED AT [facility] [address] [place] [address] (Y) MICROSCOPIC All of the stains, including any controls perform ed, stain appropriately. MICROSCOPIC PERFORMED AT [facility] [address] [place] [address] (p )[phone] PERFORMING SITE Processed at: [facility], [place] [address] [place] [address] Signed SIGNATURE ON FILE Lindsay Bolden MD 03/22/20 1557 END OF REPORT GLUBED 2020-03-18 08:32:00* Test Item Value Reference Range Interpretation Comments GLUBED (test code = GLUBED) 308 mg/dL 74-106 H Performed by certified rubber flap tuber machine operator at [facility] CenterNotified Nurse~ - XR SPINE 1 V SPEC [id number] 13:20:00 FAX: Sheyla Antonio MD [phone] [place]: [facility]: [facility] FAX: Knig Stroud MD [phone] Name: CELESTE JORDAN [facility] : 1945 Age/S: 74/M [address] Unit #: [id number] Loc: [place] [address] Phys: King Ahn MD Acct: [id number] Dis Date: Status: REG [facility] PHONE #: [phone] Exam Date: 03/17/2020 1219 FAX #: [phone] Reason: LAMINOTOMY EXAMS: CPT CODE: [id number] XR SPINE 1 V SPEC LEVEL 70724 HISTORY: LAMINOTOMY TECHNIQUE: Intraoperative late ral views of the lumbar spine. Comparison:Lumbar spine radiographs September 16, 2019 FINDINGS/ IMPRESSION: Moderate-sized vertebral body osteophytes are present on L3-L4. Verteb ral body heights and intervertebral disc spaces are maintained. Disc deg eneration is seen at L4-L5. Surgical instrumentation projects over the l evel of L4-L5. Location: [facility] Electronica lly Signed by Cyril Hale MD on 03/17/2020 at 1320 Repor deneen and signed by: Cyril Hale MD CC: Alonso Foster; King Ahn MD Technologist: FAISAL LUQUE JR [facility] Date/Time/By: 03/17/2020 (3610) : By: [email or web address] 1 Orig Print D/T: S: 03/17/2020 (4769) PAGE 1 Signed Report - XR SPINE 1 V SPEC [id number] 13:20:00 FAX: Sheyla Antonio MD [phone] [place]: St: REG FAX: King Stroud MD [phone] Name: CELESTE JORDAN [facility] : 1945 Age/S: 74/M [address] [facility] Unit #: [id number] Loc: [place] [address] Phys: King Ahn MD Acct: [id number] Dis Date: Status: REG [facility] PHONE #: [phone] Exam Date: 03/17/2020 1211 FAX #: [phone] Reason: LAMINOTOMY EXAMS: CPT CODE: [id number] XR SPINE 1 V SPEC LEVEL 16971 HISTORY: LAMINOTOMY TECHNIQUE: Intraoperative lateral views of the lumbar spine. Comparison:Lumbar spine radiographs September 16, 2019 FINDINGS/ IMPRESSION: Moderate- sized vertebral body osteophytes are present on L3-L4. Vertebral body heights and intervertebral disc spaces are maintained. Disc degeneration is seen at L4-L5. Surgical instrumentation projects over the level of L4-L5. Location: [facility] at 1320 Reported and signed by: Cyril Hale MD CC: Sheyla Collazo M.D.; King Ahn MD Technologist: FAISAL LUQUE JR Trnscrd Date/Time/By: 03/17/2020 (0130) : By: [email or web address] Orig Print D/T: S: 03/17/2020 (7534) PAGE 1 Signed Report [id number] 10:08:00* Test Item Value Reference Range Interpretation Comments GLUBED (test code = GLUBED) 178 mg/dL 74-106 H Performed by certified rubber flap tuber machine operator at [facility] PROTHROMBIN [id number] 16:40:00* Test Item Value Reference Range Interpretation [...] heart valves (2.5-3.5) IS PATIENT ON ANTICOAGULANTS? STANLEYIST ANTICOAGULANTS PLAVIX ASPIRIN THROMBOPLASTIN TIME [id number] 16:40:00* Test Item Value Reference Range Interpretation Comments THROMBOPLASTIN TIME PARTIAL (test code = PTT) 30.3 seconds 23.0-37. 0 N IS PATIENT ON ANTICOAGULANTS? YLIST ANTICOAGULANTS PLAVIX ASPIRINCBC W/AUTO [id number] 16:29:00* Test Item Value Reference Range Interpretation [...] (test code = MDIFF) NO CBC W/AUTO [id number] 16:27:00* Test Item Value Reference Range Interpretation [...] code = BA#) K/mm3 0.0-0.2 BASIC METABOLIC GCBDT8414-86-59 16:27:00* Test Item Value Reference Range Interpretation [...] 9.1 mg/dL 8.5-10.1 N Coronavirus 2018 nCoV Vxwgtte3417-33-06 16:15:00* Test Item Value Reference Range Interpretation Comments Coronavirus 2019 nCoV Bedside (test code = COVNONPUIBED) Negative V.LAB.SPR 03/16/20 1531- XR CHEST 2 [id number] 15:48:00 FAX: Sheyla Antonio MD [phone] [place]: O St: PRE FAX: King Stroud MD [phone] Name: CELESTE JORDAN [facility] : 1945 Age/S: 74/M [address] Unit #: [id number] Loc: [place] [address] Phys: King Ahn MD Acct: [id number] Dis Date: Status: PRE IN PHONE #: [phone] Exam Date: 03/16/2020 1534 FAX #: [phone] Reason: PRE OP EXAMS: CPT CODE: [id number] XR CHEST 2 V 48426 REASON FOR EXAM: PRE OP Exam Order Date: 3:18 PM Ordering: King Ahn MD Attending:Julissa Ahn MD Location:[facility] PROCEDURE: - XR CHEST 2 V COMPARISON: 12/01/2019 FINDINGS: PA and lateral views o f the chest show clear lungs without evidence of consolidation. No evidenc e of effusion. The heart size is minimally enlarged. 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 Pulmonary vasculatures are unremarkable. The osseous structures are grossly intact. IMPRESSION: Minimal cardiomegaly at 9508 Reported and signed by: Mulugeta Li M.D. CC: Sheyla Collazo M.D.; King Ahn MD Technologist: Ioana Valle(Jacinto) Trnscrd Date/Time/By: 10/2020 (8962) : By: EmeryL Orig Print D/T: S: 03/16/2020 (2659) PAGE 1 Signed Report [id number] 05:56:00* Test Item Value Reference Range Interpretation Comments GLUBED (test code = GLUBED) 221 mg/dL 74-106 H Performed by certified rubber flap tuber machine operator at [facility] [id number] 21:13:00* Test Item Value Reference Range Interpretation Comments GLUBED (test code = GLUBED) 271 mg/dL 74-106 H Performed by certified rubber flap tuber machine operator at [facility] [id number] 18:31:00* Test Item Value Reference Range Interpretation Comments GLUBED (test code = GLUBED) 173 mg/dL 74-106 H Performed by certified rubber flap tuber machine operator at [facility] [id number] 12:55:00* Test Item Value Reference Range Interpretation Comments GLUBED (test code = GLUBED) 141 mg/dL 74-106 H Performed by certified rubber flap tuber machine operator at [facility] [id number] 05:08:00* Test Item Value Reference Range Interpretation Comments GLUBED (test code = GLUBED) 180 mg/dL 74-106 H Performed by certified rubber flap tuber machine operator at [facility] [id number] 21:02:00* Test Item Value Reference Range Interpretation Comments GLUBED (test code = GLUBED) 146 mg/dL 74-106 H Performed by certified rubber flap tuber machine operator at [facility] [id number] 17:04:00* Test Item Value Reference Range Interpretation Comments GLUBED (test code = GLUBED) 111 mg/dL 74-106 H Performed by certified rubber flap tuber machine operator at [facility] [id number] 11:41:00* Test Item Value Reference Range Interpretation Comments GLUBED (test code = GLUBED) 201 mg/dL 74-106 H Performed by certified rubber flap tuber machine operator at [facility] SED [id number] 09:43:00* Test Item Value Reference Range Interpretation Comments SED RATE (test code = SEDW) 36 mm/hr 0-15 H WINTROBE METHOD: NORMAL RANGE FOR MEN: 0-9 MM/HR WOMAN: 0-20 MM/HR SED RATE [id number] 09:42:00* Test Item Value Reference Range Interpretation Comments SED RATE WESTERGREN (test code = SEDW) 36 mm/hr 0-15 H - XR ANKLE 2 VIEWS [id number] 08:15:00 FAX: Sheyla Antonio MD [phone] [place]: B St: [facility] FAX: Carlton Bowden MD FAX: Sandy Olmstead [phone] Name: CELESTE JORDAN [facility] : 1945 Age/S: 74/M [address] Unit #: [id number] Loc: V.2088 [place] [address] Phys: Sandy Birch Acct: [id number] Dis Date: Status: ADM IN ONE #: [phone] Exam Date: 12/07/2019 0741 FAX #: [phone] Reason: pain, decreased ROM EXAMS: CPT CODE: [id number] XR ANKLE [address] [place] [address] CLINICAL HISTO RY: pain, decreased ROM TECHNIQUE: AP and lateral views of the lef t ankle COMPARISON: None FINDINGS/ IMPRESSIO N: No fracture. Bones are appropriately aligned and the ankle mortise is preserved. There is swelling of the soft tissues or o n the left ankle with joint effusion. Small calcaneal enthesophytes are present. Location: [facility] at 0815 Reported and signed b y: Cyril Hale MD CC: Sheyla Collazo M.D.; Carlton Saravia ; Sandy Birch Technologist: RT CORIN(Jacinto) Trnscrd Date/Time/By: 12/07/2019 (0815) : By: [email or web address] Orig Print D/T: S: 12/07/2019 (2519) PAGE 1 Signed Report C REACTIVE [id number] 07:08:00* Test Item Value Reference Range Interpretation Comments C REACTIVE PROTEIN (test code = CRP) 6.17 mg/dL 0-0.3 H BASIC METABOLIC [id number] 07:08:00* Test Item Value Reference Range Interpretation [...] CA) 8.4 mg/dL 8.5-10.1 L BASIC METABOLIC [id number] 07:05:00* Test Item Value Reference Range Interpretation [...] code = CA) mg/dL 8.5-10.1 CBC W/AUTO [id number] 07:00:00* Test Item Value Reference Range Interpretation [...] DIFF REQUIRED (test code = MDIFF) NO [id number] 21:09:00* Test Item Value Reference Range Interpretation Comments GLUBED (test code = GLUBED) 189 mg/dL 74-106 H Performed by certified rubber flap tuber machine operator at [facility] [id number] 16:21:00* Test Item Value Reference Range Interpretation Comments GLUBED (test code = GLUBED) 95 mg/dL 74-106 N Performed by certified rubber flap tuber machine operator at [facility] [id number] 11:52:00* Test Item Value Reference Range Interpretation Comments GLUBED (test code = GLUBED) 184 mg/dL 74-106 H Performed by certified rubber flap tuber machine operator at [facility] [id number] 06:19:00* Test Item Value Reference Range Interpretation Comments GLUBED (test code = GLUBED) 123 mg/dL 74-106 H Performed by certified rubber flap tuber machine operator at [facility] BASIC METABOLIC [id number] 05:31:00* Test Item Value Reference Range Interpretation [...] = CA) 8.5 mg/dL 8.5-10.1 N URIC [id number] 05:31:00* Test Item Value Reference Range Interpretation Comments URIC ACID (test code = URIC) 6.2 mg/dL 2.6-7.2 N BASIC METABOLIC [id number] 05:25:00* Test Item Value Reference Range Interpretation [...] (test code = CA) mg/dL 8.5-10.1 URIC [id number] 05:25:00* Test Item Value Reference Range Interpretation Comments URIC ACID (test code = URIC) mg/dL 2.6-7.2 CBC W/AUTO [id number] 05:22:00* Test Item Value Reference Range Interpretation [...] DIFF REQUIRED (test code = MDIFF) NO [id number] 20:58:00* Test Item Value Reference Range Interpretation Comments GLUBED (test code = GLUBED) 165 mg/dL 74-106 H Performed by certified rubber flap tuber machine operator at [facility] [id number] 11:44:00* Test Item Value Reference Range Interpretation Comments GLUBED (test code = GLUBED) 163 mg/dL 74-106 H Performed by certified rubber flap tuber machine operator at [facility] BASIC METABOLIC [id number] 06:56:00* Test Item Value Reference Range Interpretation [...] CA) 8.6 mg/dL 8.5-10.1 N BASIC METABOLIC [id number] 06:48:00* Test Item Value Reference Range Interpretation [...] code = CA) mg/dL 8.5-10.1 CBC W/AUTO [id number] 06:28:00* Test Item Value Reference Range Interpretation [...] code = NRBC#) 0.00 K/mm3 0.0-0.1 N [id number] 05:58:00* Test Item Value Reference Range Interpretation Comments GLUBED (test code = GLUBED) 130 mg/dL 74-106 H Performed by certified rubber flap tuber machine operator at [facility] [id number] 20:55:00* Test Item Value Reference Range Interpretation Comments GLUBED (test code = GLUBED) 104 mg/dL 74-106 N Performed by certified rubber flap tuber machine operator at [facility] COAGULATION TIME [id number] 15:15:00* Test Item Value Reference Range Interpretation Comments COAGULATION TIME ACTIVATED (test code = ACT) 210 seconds 62.8-88.0 H [id number] 11:31:00* Test Item Value Reference Range Interpretation Comments GLUBED (test code = GLUBED) 115 mg/dL 74-106 H Performed by certified rubber flap tuber machine operator at [facility] [id number] 07:45:00* Test Item Value Reference Range Interpretation Comments GLUBED (test code = GLUBED) 128 mg/dL 74-106 H Performed by certified rubber flap tuber machine operator at [facility] CBC W/MANUAL [id number] 05:15:00* Test Item Value Reference Range Interpretation [...] IMMAT) 0 % 0-0 N BASIC METABOLIC [id number] 04:50:00* Test Item Value Reference Range Interpretation [...] CA) 8.4 mg/dL 8.5-10.1 L BASIC METABOLIC [id number] 04:45:00* Test Item Value Reference Range Interpretation [...] CA) 8.4 mg/dL 8.5-10.1 L CBC W/MANUAL [id number] 04:41:00* Test Item Value Reference Range Interpretation [...] MORPHOLOGY (test code = PLTMORPH) CBC W/MANUAL [id number] 04:41:00* Test Item Value Reference Range Interpretation [...] MORPHOLOGY (test code = PLTMORPH) CBC W/MANUAL [id number] 04:41:00* Test Item Value Reference Range Interpretation [...] MORPHOLOGY (test code = PLTMORPH) CBC W/MANUAL [id number] 04:41:00* Test Item Value Reference Range Interpretation [...] MORPHOLOGY (test code = PLTMORPH) CBC W/MANUAL [id number] 04:41:00* Test Item Value Reference Range Interpretation [...] PLTEST) PLATELET MORPHOLOGY (test code = PLTMORPH) [id number] 19:54:00* Test Item Value Reference Range Interpretation Comments GLUBED (test code = GLUBED) 167 mg/dL 74-106 H Performed by certified rubber flap tuber machine operator at [facility] [id number] 17:06:00* Test Item Value Reference Range Interpretation Comments GLUBED (test code = GLUBED) 96 mg/dL 74-106 N Performed by certified rubber flap tuber machine operator [facility]~ [id number] 15:32:00* Test Item Value Reference Range Interpretation Comments GLUBED (test code = GLUBED) 102 mg/dL 74-106 N Performed by certified rubber flap tuber machine operator at [facility] [id number] 14:45:00* Test Item Value Reference Range Interpretation Comments GLUBED (test code = GLUBED) 100 mg/dL 74-106 N Performed by certified rubber flap tuber machine operator [facility]~ URINALYSIS [id number] 09:50:00* Test Item Value Reference Range Interpretation [...] = HYALU) 0-2 #/LPF 0-5 Urine Source? [id number] 09:41:00* Test Item Value Reference Range Interpretation Comments GLUBED (test code = GLUBED) 122 mg/dL 74-106 H Performed by certified rubber flap tuber machine operator at [facility] URINALYSIS [id number] 09:36:00* Test Item Value Reference Range Interpretation [...] result is a direct measurement.========= BASIC METABOLIC [id number] 03:27:00* Test Item Value Reference Range Interpretation [...] CA) 8.5 mg/dL 8.5-10.1 N BASIC METABOLIC [id number] 03:26:00* Test Item Value Reference Range Interpretation [...] code = CA) mg/dL 8.5-10.1 CBC W/AUTO [id number] 02:56:00* Test Item Value Reference Range Interpretation [...] DIFF REQUIRED (test code = MDIFF) NO [id number] 21:07:00* Test Item Value Reference Range Interpretation Comments GLUBED (test code = GLUBED) 183 mg/dL 74-106 H Performed by certified rubber flap tuber machine operator at [facility] [id number] 17:31:00* Test Item Value Reference Range Interpretation Comments GLUBED (test code = GLUBED) 113 mg/dL 74-106 H Performed by certified rubber flap tuber machine operator at [facility] [id number] 17:31:00* Test Item Value Reference Range Interpretation Comments GLUBED (test code = GLUBED) 196 mg/dL 74-106 H Performed by certified rubber flap tuber machine operator at [facility] [id number] 08:42:00* Test Item Value Reference Range Interpretation Comments GLUBED (test code = GLUBED) 108 mg/dL 74-106 H Performed by certified rubber flap tuber machine operator at [facility] CBC W/MANUAL [id number] 05:03:00* Test Item Value Reference Range Interpretation [...] code = IMMAT) 0 % 0-0 N [id number] 04:52:00* Test Item Value Reference Range Interpretation Comments TROPONIN-I (test code = TROPI) 0.239 ng/mL 0-0.045 HH Results called to [id number] by [email or web address] 12/02/19 0452Critical results verified and read back by Nurse? Y COMMENTS TO RN ONCOLOGY CLINICAL: COLLECT 3 HOURS AFTER PREVIOUS SAMPLEBASIC METABOLIC [id number] 04:46:00* Test Item Value Reference Range Interpretation [...] CA) 8.4 mg/dL 8.5-10.1 L CBC W/MANUAL [id number] 04:39:00* Test Item Value Reference Range Interpretation [...] MORPHOLOGY (test code = PLTMORPH) CBC W/MANUAL [id number] 04:39:00* Test Item Value Reference Range Interpretation [...] MORPHOLOGY (test code = PLTMORPH) CBC W/MANUAL [id number] 04:39:00* Test Item Value Reference Range Interpretation [...] MORPHOLOGY (test code = PLTMORPH) CBC W/MANUAL [id number] 04:39:00* Test Item Value Reference Range Interpretation [...] MORPHOLOGY (test code = PLTMORPH) CBC W/MANUAL [id number] 04:39:00* Test Item Value Reference Range Interpretation [...] MORPHOLOGY (test code = PLTMORPH) BASIC METABOLIC [id number] 04:35:00* Test Item Value Reference Range Interpretation [...] CALCIUM (test code = CA) mg/dL 8.5-10.1 [id number] 00:34:00* Test Item Value Reference Range Interpretation Comments TROPONIN-I (test code = TROPI) 0.237 ng/mL 0-0.045 HH Results called to [place] [id number] by V.LAB.[facility] 12/02/19 0034Critical results verified and read back by Nurse? Y COMMENTS TO RN ONCOLOGY CLINICAL: COLLECT 3 HOURS AFTER PREVIOUS [id number] 20:08:00* Test Item Value Reference Range Interpretation Comments GLUBED (test code = GLUBED) 161 mg/dL 74-106 H Performed by certified rubber flap tuber machine operator at [facility] [id number] 18:47:00* Test Item Value Reference Range Interpretation Comments GLUBED (test code = GLUBED) 180 mg/dL 74-106 H Performed by certified rubber flap tuber machine operator at [facility] [id number] 16:26:00* Test Item Value Reference Range Interpretation Comments TROPONIN-I (test code = TROPI) 0.141 ng/mL 0-0.045 HH Results called to [id number] by V.LAB.MD 12/01/19 1622Critical results verified and read back by Nurse? Y - CT ABD PELVIS W/O [id number] 15:29:00 Name: CELESTE JORDAN [facility] : 1945 Age/S: 74 / M [address] [facility] Unit #: [id number] Loc: [place] [address] Phys: Abilio Diaz MD Acct: [id number] Dis Date: Status: REG ER PHONE #: [phone] Exam Date: 12/01/2019 8829 FAX #: [phone] Reason: nausea and vomiting EXAMS: CPT CODE: [id number] CT ABD PELVIS W/O CONT 33926 EXAM: CT of the abdomen and pelvis [...] in the right kidney. Location code: [facility] at 1529 Reported and signed by: Abdoulaye Rose M.D. CC: Sheyla Collazo M.D.; Abilio Diaz MD Technologist:Ricco Arguello RT(R),(MR),(CT) CTDI: DLP: Trnscb Date/Time: 12/01/19 (2698) [email or web address] Orig Print D/T: S: 12/01/2019 (9801) PAGE 1 Signed Report B-TYPE NATRIURETIC [id number] 14:16:00* Test Item Value Reference Range Interpretation Comments B-TYPE NATRIURETIC PEPTIDE (test code = BNP) 23.49 pgram/mL 0-100 N BASIC METABOLIC [id number] 13:58:00* Test Item Value Reference Range Interpretation [...] code = CA) 9.1 mg/dL 8.5-10.1 N [id number] 13:58:00* Test Item Value Reference Range Interpretation Comments TROPONIN-I (test code = TROPI) 0.019 ng/mL 0-0.045 N - XR CHEST 1 [id number] 10:47:00 FAX: Sheyla Antonio MD [phone] [place]: [facility]: [facility] FAX: Hung Martinez NP [phone] Name: CELESTE JORDAN [facility] : 1945 Age/S: 74/M [address] Unit #: [id number] Loc: [place] [address] Phys: Hung Martinez CANAL TENDER Acct: [id number] Dis Date: Status: REG ER PHONE #: [phone] Exam Date: 12/01/2019 1013 FAX #: [phone] Reason: CHEST PAIN EXAMS: CPT CODE: [id number] XR CHEST 1 V 28237 REASON FOR EXAM: CHEST PAIN Exam Order [...] IMPRESSION: No acute cardiopulmonary process. Location: [facility] at 1047 Reported and signed by: Cyril Hale MD CC: Sheyla Collazo M.D.; Hung Martinez NP Technologist: Tammi Valle(Jacinto) Trnscrd Date/Time/By: 12/01/2019 (8163) : By: [email or web address] Orig Print D/T: S: 12/01/2019 (2436) PAGE 1 Signed Report CBC W/O [id number] 10:32:00* Test Item Value Reference Range Interpretation [...] MPV) 12.6 fL 6.7-11.0 H TROPONIN I [id number] 10:29:00* Test Item Value Reference Range Interpretation [...] valid only if similarmethodology is used. INTERVERTEBRAL [id number] 15:25:00 RUN DATE: 09/19/19 [place] - Lab PAGE 1 RUN TIME: 1525 Specimen Inqui ry RUN USER: INTERFACE PATIENT: CELESTE JORDAN ACCT #: [id number] LOC: MOR U #: [id number] AGE/SX: 74/M ROOM: [facility] RE09/16/19REG DR: King Ahn MD : [birth year] BED: A DIS: 09/17/19 STATUS: DIS Jose TLOC: SPEC #: [id number] RECD: 09/17/19 STATUS: MITCH REQ #: [id number] TIANA: 09/16/19 DR: King Ahn MD ENTERED: 09/17/19 SP TYPE: INT DISC OTHR DR: Sheyla Collazo MD ORDERED: GROSS [place]: [place] [address] [place] [address] [email or web address] King Ahn MD [address] [address] PROCEDURES: GROSS (09/19/19-1109) TISSUES: LUMBAR VERTEBRA, NOS - DI SC CLINICAL HISTORY COLLECTION DATE: 09/16/19 RIGHT L4-5 LATERA L RECESS STENOSIS FINAL DIAGNOSIS Lumbar disc, right side, L4-5, lami nectomy, medial fasciectomy and discectomy: INTERVERTEBRAL DISC MATERIAL LIGAMENT TYPE FIBROCONNECTIVE TISSUE BONE NEGATIVE FOR JANE GNANCY DMW/darlene [address], [address] MACROSCOPIC The specimen is received in formalin, labeled with the patient's name, and identified as "lum bar disc". It consists of multiple paniagua and pale yellow fragments of fibrous t issue and palpable bone measuring 3.8 x 3.2 x 0.7 cm in aggregate. Samples of the specimen are submitted for decalcification and CONTINUED ON NEXT PAGE RUN DATE: 09/19/19 [place] 2 RUN TIME: 1525 Specimen Inquiry RUN USER: INTERFACE SPEC #: [id number] PATIENT: CELESTE JORDAN #[id number] (Continued)---- -------- MACROSCOPIC (Continued) follow up microscopic evaluation in a single cassette. GROSS PERFORMED AT [facility] [address] [place] [address] [phone] MICROSCOPIC All of the stains, includ ing any controls performed, stain appropriately. MICROSCOPIC PERFORMED A T [facility] [address] [place] [address] [phone] PERFORMING SITE Diagnosis perfo rmed at: [facility], [place] [address] [place] [address] [phone] Signed SIGNATURE ON FILE Lindsay Bolden MD 09/19/19 1525 END OF REPORT - XR SPINE 1 V SPEC [id number] 14:38:00 FAX: Sheyla Antonio MD [phone] [place]: St: REG FAX: King Stroud MD [phone] Name: CELESTE JORDAN [facility] : 1945 Age/S: 74/M [address] [facility] Unit #: [id number] Loc: [place] [address] Phys: King hAn MD Acct: [id number] Dis Date: Status: REG [facility] PHONE #: [phone] Exam Date: 09/16/2019 [facility] FAX #: [phone] Reason: LAMINECTOMY EXAMS: CPT CODE: [id number] XR SPINE 1 V SPEC LEVEL 86437 EXAM: The spine, one view, special level [...] intervertebral vacuu m phenomenon. Location code: [facility] Rafa cullen Signed by Sohan Rose on 09/16/2019 at 1438 Reported and signed by: Abdoulaye valladares M.D. CC: Sheyla Collazo M.D.; King Ahn MD Technologist: Ioana Valle(R) Trnscrd Date/Time/By: 09/16/2019 (2338) : By: AleeGRW Orig Print D /T: S: 09/16/2019 (9680) PAGE 1 S igned Report - XR SPINE 1 V SPEC [id number] 14:38:00 FAX: Sheyla Antonio MD [phone] [place]: B St: REG FAX: King tSroud MD [phone] Name: CELESTE JORDAN [facility] : 1945 Age/S: 74/M [address] [facility] Unit #: [id number] Loc: [place] [address] Phys: King Ahn MD Acct: [id number] Dis Date: Status: REG [facility] PHONE #: [phone] Exam Date: 09/16/2019 1359 FAX #: [phone] Reason: LAMINECTOMY EXAMS: CPT CODE: [id number] XR SPINE 1 V SPEC LEVEL 59527 EXAM: The spine, one view, special level [...] shows an intervertebral vacuum phenomenon. Location code: [facility] Electron ically Signed by Sohan Rose on 09/16/2019 at 1438 Reported and signed by: Abdoulaye valladares M.D. CC: Sheyla Collazo M.D.; King Ahn MD Technologist: Ioana Valle(Jacinto) Trnscrd Date/Time/By: 09/16/2019 (3143) : By: AleeGRW Orig Print D /T: S: 09/16/2019 (2743) PAGE 1 S igned Report [id number] 11:00:00* Test Item Value Reference Range Interpretation Comments GLUBED (test code = GLUBED) 144 mg/dL 74-106 H Performed by certified rubber flap tuber machine operator at [facility] PROTHROMBIN [id number] 10:10:00* Test Item Value Reference Range Interpretation [...] Mechanical prosthetic heart valves (2.5-3.5) THROMBOPLASTIN TIME [id number] 10:10:00* Test Item Value Reference Range Interpretation Comments THROMBOPLASTIN TIME PARTIAL (test code = PTT) 31.0 seconds 25.0-36. 5 N BASIC METABOLIC [id number] 10:02:00* Test Item Value Reference Range Interpretation [...] CA) 9.3 mg/dL 8.5-10.1 N BASIC METABOLIC [id number] 09:56:00* Test Item Value Reference Range Interpretation [...] CA) mg/dL 8.5-10.1 - XR CHEST 2 [id number] 09:53:00 FAX: Sheyla Antonio MD [phone] [place]: O St: PRE FAX: King Stroud MD [phone] Name: CELESTE JORDAN [facility] : 1945 Age/S: 74/M [address] [facility] Unit #: [id number] Loc: [place] [address] Phys: King Ahn MD Acct: [id number] Dis Date: Status: PRE IN PHONE #: [phone] Exam Date: 09/15/2019 09 FAX #: [phone] Reason: PRE OP EXAMS: CPT CODE: [id number] XR CHEST 2 V 39773 HISTORY: Preop. COMPARISON: Chest x-ray from October 24, 2018. Location: [facility]. AP and lateral view of the chest: No acute infiltrates, effusion or congestion. Mild cardiomegaly. 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 IMPRESSION: No acute infiltrates, effusion or congestion. at 0953 Reported and signed by : Misbah Georges M.D. 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 Final Dictated by: MD Ji Melanie CDictated DT/TM: 01/10/2019 9:17 amSigned by: MD Ji Melanie CSigned (Electronic Signature): 01/10/2019 9:19 amXR Chest 1 View [id number] 13:52:47Patient: CELESTE JORDAN Date/Time01/09/2019 13:21 CSTReason for [...] (Electronic Signature): 01/09/2019 1:52 pmHemoglobin A1c/Hemoglobin.total in [id number] 16:10:00* Test Item Value Reference Range Interpretation Comments A1C w/EAG (test code = A1C w/EAG) 8.7 % 1.0-5.7 H average blood glucose (test code = average blood glucose) 203 mg/dL [facility] W Auto Differential panel - [id number] 16:05:00 * Test Item Value Reference Range [...] code = baso#) 0.10 x10*3/?L 0.01-0.08 H [facility] - Serum or [...] non- (test code = eGFR non-jaime n comoran) 50 mL/min/1.73m2 >60 L total bilirubin (test [...] (test code = anion gap) 9 calc [facility] 1995 panel - Serum or [id number] 15:53:00* Test Item Value Reference Range Interpretation [...] code = LDL calc.) 119 mg/dL 0-130 [facility]ure[facility] peptide B [Mass/volume] in Serum or Plasma 2017-11-22 13:17:00* Test Item Value Reference Range Interpretation Comments B type natriuretic peptide (BNP) (test code = B type n atriuretic peptide (BNP)) 98 pg/mL <100 [facility] 1999 panel - Serum or Plasma [...] non- (test code = eGFR non-jaime n comoran) 46 mL/min/1.73m2 >60 L total bilirubin (test [...] (test code = anion gap) 12 calc [facility] 1996 panel - Serum or [id number] 11:53:00* Test Item Value Reference Range Interpretation [...] code = LDL calc.) 128 mg/dL 0-130 [facility] specific Ag [Mass/volume] in Serum or Plasma 2017-04-27 11:53:00* Test Item Value Reference Range Interpretation Comments PSA, total (test code = PSA, total) 2.52 NG/mL <4.00 [facility] CenterParathyrin.intact [Mass/volume] in Serum or Plasma 2017-04-27 09:46:00* Test Item Value Reference Range Interpretation Comments parathyroid hormone, intact (test code = parathyroid hormone , intact) 68 pg/mL 14-64 [facility] CenterMagnesium [Mass/volume] in Serum or [id number] 16:31:00* Test Item Value Reference Range Interpretation Comments magnesium (test code = magnesium) 1.8 mg/dL 1.5-2.5 [facility] PracticeSodium/Creatinine [Mass Ratio] in [id number] 16:31:00* Test Item Value Reference Range Interpretation Comments sodium/creat ratio (test code = sodium/creat ratio) 27 mmol/g creat 20-233 sodium, random urine (test code = sodium, random urine) 43 mmol/L 28-272 creatinine, random urine (test code = creatinine, random uri ne) 159 mg/dL 20-370 [facility] Serum or [id number] 16:31:00* Test Item Value Reference Range Interpretation Comments phosphate ( phosphorus) (test code = phosphate ( phospho promise)) 3.0 mg/dL 2.1-4.3 [facility]CBC W Auto Differential panel - [id number] 15:29:00 * Test Item Value Reference Range [...] (test code = baso#) 0.05 x10*3/?L 0.01-0.09 [facility] metabolic panel - [id number] 04:30:00* Test Item Value Reference Range Interpretation [...] performing lab: (test code = performing lab:) [facility] with Ordered Manual Differential panel - Blood [...] performing lab: (test code = performing lab:) [facility] CenterInfluenza virus A Ag [Presence] in [id number] 18:04:00* Test Item Value Reference Range Interpretation Comments influenza A Ag (test code = influenza A Ag) see below performing lab: (test code = performing lab:) [facility] CenterInfluenza virus B Ag [Presence] in Unspecified specimen 2016-11-22 18:04:00* Test Item Value Reference Range Interpretation Comments influenza B Ag (test code = influenza B Ag) see below performing lab: (test code = performing lab:) [facility] CenterCB W Auto Differential panel - [id number] 04:21:00 * Test Item Value Reference Range [...] performing lab: (test code = performing lab:) [facility] CenterHemoglobin A1c/Hemoglobin.total in [id number] 04:21:00* Test Item Value Reference Range Interpretation Comments glycosylated hemoglobin (ha1c) (test code = glycosylat ed hemoglobin (ha1c)) 6.9 % 4.5-6.2 H estimated average glucose (test code = estimated average glucose) 1 51 mg/dL performing lab: (test code = performing lab:) [facility] CenterComprehensive metabolic 2000 panel - Serum or [...] performing lab: (test code = performing lab:) [facility] CenterPhosphate [Moles/volume] in [id number] 04:21:00* Test Item Value Reference Range Interpretation Comments phosphorus (test code = phosphorus) 2.1 mg/dL 2.6-4.7 L performing lab: (test code = performing lab:) [facility] CenterLipase [Enzymatic activity/volume] in Serum or Plasma 2016-11-22 04:21:00* Test Item Value Reference Range Interpretation Comments lipase (test code = lipase) 93 U/L 73.0-393.0 performing lab: (test code = performing lab:) [facility] PracticeMagnesium [Moles/volume] in Serum or [id number] 04:21:00* Test Item Value Reference Range Interpretation Comments magnesium (test code = magnesium) 1.9 mg/dL 1.6-2.3 performing lab: (test code = performing lab:) [facility] CenterMicroscopic observation [Identifier] in Sputum by Gram [id number] 02:00:00* Test Item Value Reference Range Interpretation Comments gram stain sputum (test code = gram stain sputum) see below performing lab: (test code = performing lab:) [facility] CenterBacteria identified in Sputum by [id number] 02:00:00* Test Item Value Reference Range Interpretation Comments sputum culture (test code = sputum culture) see below performing lab: (test code = performing lab:) [facility].cardiac [Mass/volume] in Serum or Plasma 2016-11-21 09:58:00* Test Item Value Reference Range Interpretation Comments troponin-I (test code = troponin-I) <0.015 0.00-0.056 performing lab: (test code = performing lab:) [facility] I.cardiac [Mass/volume] in Serum or Plasma 2016-11-21 06:45:00* Test Item Value Reference Range Interpretation Comments troponin-I (test code = troponin-I) <0.015 0.00-0.056 performing lab: (test code = performing lab:) [facility] CenterBacteria identified in Blood by [id number] 04:40:00* Test Item Value Reference Range Interpretation Comments blood culture (test code = blood culture) see below performing lab: (test code = performing lab:) [facility] CenterBacteria identified in Blood by [id number] 04:30:00* Test Item Value Reference Range Interpretation Comments blood culture (test code = blood culture) see below performing lab: (test code = performing lab:) [facility] CentercTnI [id number] 02:50:00* Test Item Value Reference Range Interpretation Comments troponin I rapid (test code = troponin I rapid) 0.01 NG/mL <0.08 performing lab: (test code = performing lab:) [facility] CenterBNP [id number] 02:49:00* Test Item Value Reference Range Interpretation Comments BNP rapid (test code = BNP rapid) 53 pg/mL 0-100 performing lab: (test code = performing lab:) [facility] CenterCBC W Auto Differential panel - [id number] 02:40:00 * Test Item Value Reference Range [...] performing lab: (test code = performing lab:) [facility] CenterComprehensive metabolic 2000 panel - Serum or [...] performing lab: (test code = performing lab:) [facility]
--- OUTSIDE RECORDS SUMMARY | 2020-08-03 02:10 | XMS REPORT | Continuity of Care Document ---
Author Author [facility] t Organization [facility] Address [address] [place] [address] Phone Unavailable Care Team Providers Care Lunchroom Mother Name Role Phone MD Jacinto COLLAZO ([facility]) SHEYLA PCP [phone] Kale RAMOS Attphys Unavailable Nitin Phelps Attphys Unavailable JEN RAMOS Admphys Unavailable Payers Payer Name Policy Type Policy Number Effective Date Expiration Date Arpita rojas [facility] [id number] 2013 00:00:00 [facility] Medicare A & B [id number] 2010 00:00:00 [facility] Problems Condition Name Condition Details [...] 2 Diabetes Mellitus Problem Active 2018-01-25 00:00:00 [facility] Chronic kidney disease stage 2 Chronic Kidney Disease Stage 2 Probl em Active 2018-01-25 00:00:00 [facility] Old myocardial infarction Old Myocardial Infarction Problem Ac tive 2018-01-24 00:00:00 [facility] Abdominal aortic atherosclerosis Abdominal Aortic Atherosclerosi s Problem Active 2017-02-15 00:00:00 [facility] Practice Type 2 diabetes mellitus Type 2 Diabetes Mellitus Problem Acti ve 2016-12-27 00:00:00 [facility] Stable angina Stable Angina Problem Active 2016-12-27 00:00:00 [facility] 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 Problem Active 2016-12-27 00:00:00 [facility] History of percutaneous transluminal coronary angiopla sty History of Percutaneous Transluminal Coronary Angioplasty Problem Active 2016-12-27 00:00:00 [facility] Diverticular disease of colon Diverticular Disease of Colon Problem Active 2016-11-21 00:00:00 [facility] Steatosis of liver Steatosis of Liver Problem Active 2016-11-21 00:00:0 0 [facility] Pure hypercholesterolemia Pure Hypercholesterolemia Problem tive 2015-10-07 00:00:00 [facility] Hypertensive heart and renal disease with (congestive) heart failure Hypertensive Heart and Renal Disease with (Congestive) Heart Failure Problem Active 2015-10-07 00:00:00 [facility] Chronic kidney disease Chronic Kidney Disease Problem Active 2015-10-07 00:00:00 [facility] Coronary bypass graft finding Coronary Bypass Graft Finding Problem Active 2015-10-07 00:00:00 [facility] Coronary arteriosclerosis in [place] artery Coronary Ar teriosclerosis in [place] Artery Problem Active 2006-04-16 00:00:00 [facility] Backache Backache Problem Active 2006-04-16 00:00:00 [facility] Edema Edema Problem Active 2006-04-16 00:00:00 [facility] History of artificial heart valve History of Artificial Heart Va lve Problem Active 2006-04-16 00:00:00 [facility] Chest pain Problem Active ALIN powers [facility] Myocardial infarction Myocardial Infarction Problem Active 201 06-05-29 00:00:00 2018-01-24 00:00:[address] [facility] Benign essential hypertension Benign Essential Hypertension Problem Active 2017-04-04 00:00:00 2017-04-25 00:00:00 [facility] Chronic renal impairment Chronic Renal Impairment Problem Acti ve 2015-10-07 00:00:00 2017-01-25 00:00:00 [facility] Coronary atherosclerosis Coronary Atherosclerosis Problem Acti ve 2015-10-07 00:00:00 2016-12-27 00:00:00 [facility] Left heart failure Left Heart Failure Problem Active 3 00:00:00 2016-12-27 00:00:00 [facility] ly Practice History of cardiac surgery History of Cardiac Surgery Problem Active 2015-10-07 00:00:00 2016-12-27 00:00:00 [facility] Angina pectoris Angina Pectoris Problem Active 2006-04-16 00:0 0:00 2016-12-27 00:00:00 [facility] ractice Clinical finding Clinical Finding Problem Active 2015-10-07 00 :00:00 2016-12-26 00:00:00 [facility] ractice Allergies, Adverse Reactions, Alerts Allergy Name [...] Hospital propoxyphene DA Active MO 2016-08-19 00:00:00 [facility] DARVOCET-N 100 Allergy to substance Active Rash 2015-10-07 00:00 :00 [facility] Propoxyphene N-Acetaminophen Propensity to adverse reactions to spencer g Active Rash 2015-10-07 00:00:00 Hakan Fuentes DARVOCET Allergy to substance Active Mild RASH 2012-05-02 00:00:00 [facility] Social History Social Habit Start [...] Amlodipine Besylate Amlodipine Besylate Yes 10 Daily [facility] Aspirin Aspirin Yes 81 Daily [facility] Atorvastatin Calcium (Lipitor) 20 Mg TABLET Atorvastat in Calcium (Lipitor) 20 Mg TABLET Yes 20 Daily [facility] Carvedilol (Coreg) 25 Mg TAB Carvedilol (Coreg) 25 Mg TAB Y es 25 Daily [facility] Celecoxib (Celebrex*) 100 Mg CAPSULE Celecoxib (Celebrex*) 100 Mg C APSULE Yes 200 Twice A Day [facility] Clopidogrel Bisulfate (Plavix) 75 Mg TABLET Clopidogre l Bisulfate (Plavix) 75 Mg TABLET Yes 75 Daily [facility] Fesoterodine Fumarate (Toviaz) 4 Mg TAB.ER.24H Fesoter odine Fumarate (Toviaz) 4 Mg TAB.ER.24H Yes 4 Daily [facility] Finasteride Finasteride Yes 5 Daily [facility] Furosemide Furosemide Yes 40 Daily [facility] Glimepiride Glimepiride Yes 2 Daily [facility] Hydrochlorothiazide Hydrochlorothiazide Yes 25 Daily [facility] Irbesartan Irbesartan Yes 150 Daily [facility] Isosorbide Mononitrate Isosorbide Mononitrate Yes 60 Daily [facility] Linagliptin/Metformin Hcl (Jentadueto Xr 2.5 Mg-1,000 Mg) 1 Each TAB.BP.24H Linagliptin/Metformin Hcl (Jentadueto Xr 2.5 Mg-1,000 Mg) 1 Each TAB.BP.24H Yes 2 Before Lunch [facility] Lisinopril Lisinopril Yes 40 Daily [facility] Metoprolol Succinate Metoprolol Succinate Yes 100 Daily [facility] Omeprazole (Prilosec) 40 Mg CAPSULE. Omeprazole (Prilosec) 40 Mg CAPSULE.DR Yes 20 Daily [facility] Ranolazine (Ranexa) 500 Mg TABSR Ranolazine (Ranexa) 500 Mg TABSR Yes 1000 Twice A Day [facility] Simvastatin Simvastatin Yes 40 Today At 9:00PM [facility] Tamsulosin Hcl (Flomax*) 0.4 Mg CAP Tamsulosin Hcl (Flomax*) 0.4 Mg C AP Yes .4 Daily [facility] Triamterene/Hydrochlorothiazid (Triamterene-Hctz 50-25 Mg Cap) 1 Each CAPSULE Triamterene/Hydrochlorothiazid (Triamterene-Hctz 50-25 Mg Cap) 1 Each CAPSULE Yes 1 Daily [facility] Accu-Chek Gaye Plus test strips Accu-Chek Gaye Plus test strips No Accu-Chek Gaye Plus test strips [facility] amlodipine 10 mg tablet amlodipine 10 mg tablet No amlodipine 10 mg tablet [facility] 81 mg tablet,delayed release aspirin 81 mg tablet,delayed r elease No aspirin 81 mg tablet,delayed release [facility] carisoprodol 350 mg tablet carisoprodol 350 mg tablet No carisoprodol 350 mg tablet [facility] carvedilol 25 mg tablet carvedilol 25 mg tablet No carvedilol 25 mg tablet [facility] cele[facility] 200 mg capsule celecoxib 200 mg capsule No celecoxib 200 mg capsule [facility] clopidogrel 75 mg tablet clopidogrel 75 mg tablet No clopidogrel 75 mg tablet [facility] ice finasteride 5 mg tablet finasteride 5 mg tablet No finasteride 5 mg tablet [facility] furosemide 40 mg tablet furosemide 40 mg tablet No furosemide 40 mg tablet [facility] ice glimepiride 2 mg tablet glimepiride 2 mg tablet No glimepiride 2 mg tablet [facility] ice hydrochlorothiazide 25 mg tablet hydrochlorothiazide 25 mg tablet No hydrochlorothiazide 25 mg tablet [facility] hydrocodone 10 mg-acetaminophen 325 mg tablet hydrocod one 10 mg-acetaminophen 325 mg tablet No hydrocodone 10 mg-acetam inophen 325 mg tablet [facility] hydrocodone-homatropine 5 mg-1.5 mg/5 mL syrup hydroco done-homatropine 5 mg-1.5 mg/5 mL syrup No hydrocodone-homatropine 5 mg-1.5 mg/5 mL syrup [facility] irbesartan 150 mg tablet irbesartan 150 mg tablet No irbesartan 150 mg tablet [facility] ice isosorbide mononitrate ER 60 mg tablet,extended releas e 24 hr isosorbide mononitrate ER 60 mg tablet,extended release 24 hr No isosorbide mononitrate ER 60 mg tablet,extended release 24 hr [facility] Jentadueto XR 2.5 mg-1,000 mg tablet, extended release Jentadueto XR 2.5 mg- 1,000 mg tablet, extended release No Jentadueto XR 2.5 mg-1,000 mg tablet, extended release [facility] Levemir FlexTouch U-100 Insulin 100 unit/mL (3 mL) sub cutaneous pen Levemir FlexTouch U-100 Insulin 100 unit/mL (3 mL) subcutaneous pen No Levemir FlexTouch U-100 Insulin 100 unit/mL (3 mL) subcutaneous pen [facility] lisinopril 40 mg tablet lisinopril 40 mg tablet No lisinopril 40 mg tablet [facility] ice losartan 50 mg tablet Take 1 tablet every day by oral route. losartan 50 mg tablet Take 1 tablet every day by oral route. No 1 Q1D losartan 50 mg tablet Take 1 tablet every day by oral route. [facility] Lotemax 0.5 % eye gel drops [...] tablet as needed by sublingual route. Vi [facility] Novolog U-100 Insulin aspart 100 unit/mL subcutaneous solution Novolog U-100 Insulin aspart 100 unit/mL subcutaneous solution No Novolog U-100 Insulin aspart 100 unit/mL subcutaneous solution [facility] omeprazole 20 mg capsule,delayed release omeprazole 20 mg capsule,delayed release No omeprazole 20 mg capsule,delay ed release [facility] oxybutynin chloride ER 10 mg tablet,extended release 2 4 hr oxybutynin chloride ER 10 mg tablet,extended release 24 hr No oxybutynin chloride ER 10 mg tablet,extended release 24 hr [facility] potassium chloride ER 20 mEq tablet,extended release(p art/cryst) potassium chloride ER 20 mEq tablet,extended release(part/cryst) No potassium chloride ER 20 mEq tablet,extended release(part/cryst) [facility] Prolensa 0.07 % eye drops Prolensa 0.07 % eye drops No Prolensa 0.07 % eye drops [facility] ice rosuvastatin 40 mg tablet rosuvastatin 40 mg tablet No rosuvastatin 40 mg tablet [facility] ice tamsulosin 0.4 mg capsule tamsulosin 0.4 mg capsule No tamsulosin 0.4 mg capsule [facility] Isosorbide Dinitrate Isosorbide Dinitrate 2020-07-18 00:00:00 No 30 Daily [facility] Ranolazine (Ranexa) 500 Mg TABSR Ranolazine (Ranexa) 500 Mg TABS R 2020-07-18 00:00:00 No 500 Twice A Day [facility] atorvastatin 20 mg tablet atorvastatin 20 mg tablet 00:00:00 No atorvastatin 20 mg tablet [facility] potassium chloride ER 20 mEq tablet,extended release p otassium chloride ER 20 mEq tablet,extended release 2017-12-03 00:00:00 No potassium chloride ER 20 mEq tablet,[facility] Depo-Medrol 80 mg/mL suspension for injection injected 1 ml, once, deep IM Depo- Medrol 80 mg/mL suspension for injection injected 1 ml, once, deep IM 2017-11-21 00:00:00 No Depo- Medrol 80 mg/mL suspension for injection injected 1 ml, once, deep IM [facility]-Con 20 mEq tablet,extended release Take 1 tablet every day by oral route as directed for 90 days. Klor-Con 20 mEq tablet,extended release Take 1 tablet every day by oral route as directed for 90 days. 2017-11-21 00:00:00 N o 1 Q1D Klor-Con 20 mEq tablet,extended release Take 1 tablet every day by oral route as directed for 90 days. [facility] methocarbamol 750 mg tablet methocarbamol 750 mg tablet 2017-07-18 00:00:00 No methocarbamol 750 mg tablet [facility] Kenalog 40 mg/mL suspension for injectio n mixed with lidocaine and injected into trigger point Kenalog 40 mg/mL suspension for injectio n mixed with lidocaine and injected into trigger point 2017-06-05 00:00:00 No Kenalog 40 mg/mL suspension for injection mixed with lidocaine and injected into trigger point [facility] lidocaine (PF) 10 mg/mL (1 %) injection solution mixed with Kenalog and injected into posterior superior iliac spine lidocaine (PF) 10 mg/mL (1 %) injection solution mixed with Kenalog and injected into posterior superior iliac spine 2017-06-05 00:00:00 No lidoc tosha (PF) 10 mg/mL (1 %) injection solution mixed with Kenalog and injected into posterior superior iliac spine [facility] meclizine 12.5 mg tablet meclizine 12.5 mg tablet 2017-04-25 00: 00:00 No meclizine 12.5 mg tablet [facility] tramadol 50 mg tablet tramadol 50 mg tablet 2017-04-25 00:00:00 No tramadol 50 mg tablet [facility] ctice Synvexia Patch 4 %-1 % topical Synvexia Patch 4 %-1 % topical 2017-04-04 00:00:00 No Synvexia Patch 4 %-1 % topical [facility] Voltaren 1 % topical gel Voltaren 1 % topical gel 2017-04-04 00: 00:00 No Voltaren 1 % topical gel [facility] amoxicillin 500 mg capsule amoxicillin 500 mg capsule 2016 00:00:00 No amoxicillin 500 mg capsule [facility] hydrocodone 7.5 mg-acetaminophen 325 mg tablet hydroco done 7.5 mg-acetaminophen 325 mg tablet 2017-03-21 00:00:00 No hydrocodone 7.5 mg-acetaminophen 325 mg tablet [facility]up[facility] 800 mg tablet ibuprofen 800 mg tablet 2017-03-21 00:00 :00 No ibuprofen 800 mg tablet [facility] levofloxacin 500 mg tablet levofloxacin 500 mg tablet 2016 00:00:00 No levofloxacin 500 mg tablet [facility] methylprednisolone 4 mg tablets in a dose pack methylp rednisolone 4 mg tablets in a dose pack 2017-03-21 00:00:00 No methylprednisolone 4 mg tablets in a dose pack [facility] ice ondansetron 8 mg disintegrating tablet ondansetron 8 mg disinteg rating tablet 2017-03-21 00:00:00 No ondansetron 8 mg dis integrating tablet [facility] promethazine 25 mg/mL injection solution Take 1 mL by injection route. promethazine 25 mg/mL injection solution Take 1 mL by injection route. 2017-03-21 00:00:00 No 1mL prome thazine 25 mg/mL injection solution Take 1 mL by injection route. [facility] Pr actice Isosorbide Mononitrate CR 60 mg [...] oral route as directed for 90 days. [facility] Bit/Acetaminophen* (Vicodin 5-500 Tablet*) 1 Each TABLET Hydrocodone Bit/Acetaminophen* (Vicodin 5-500 Tablet*) 1 Each TABLET 201 03-12-20 00:00:00 No [facility] Quinapril Hcl Quinapril Hcl 2015-06-24 00:00:00 No 40 Daily [facility] Verapamil Hcl (Verapamil Er) 240 Mg TABSR Verapamil Hc l (Verapamil Er) 240 Mg TABSR 2015-06-24 00:00:00 No 240 Daily [facility] Coreg Coreg 2012-11-13 00:00:00 No [facility] Furosemide Furosemide 2012-11-13 00:00:00 No [facility] Isosorbide Isosorbide 2012-11-13 00:00:00 No 30 [facility] Isosorbide Isosorbide 2012-11-13 00:00:00 No [facility] Plavix Plavix 2012-11-13 00:00:00 No [facility] Prilosec Prilosec 2012-11-13 00:00:00 No [facility] Verapamil Verapamil 2012-11-13 00:00:00 [facility] Immunizations Ordered Immunization Name Filled Immunization Name Date Status Comments Source pneumococcal conjugate PCV 13 pneumococcal conjugate PCV 13 2017 15:11:00 Completed [facility] influenza, high dose seasonal influenza, high dose seasonal 2016 17:01:00 Completed [facility] influenza, injectable, quadrivalent influenza, injectable, q uadrivalent 2015-10-07 00:00:00 [facility], seasonal, injectable influenza, seasonal, injecta ble 2014-07-21 00:00:00 Completed [facility] ice Vital Signs Vital Name Observation Time Observation Value Comments Source Body Temperature 2020-07-18 08:41:00 97.8 [degF] [facility] BMI (Body Mass Index) 2020-07-17 16:26:00 31.4 kg/m2 [facility] Weight 2020-07-17 00:18:00 225 [lb_av] [facility] BP Diastolic 2018-01-25 00:00:00 89 mm[Hg] [facility] Height 2018-01-25 00:00:00 71 [in_i] [facility] BMI (Body Mass Index) 2018-01-25 00:00:00 31.7 kg/m2 [facility] BP Systolic 2018-01-25 00:00:00 166 mm[Hg] [facility] Body Weight 2018-01-25 00:00:00 227.4 [lb_av] [facility] BP Diastolic 2017-12-03 00:00:00 93 mm[Hg] [facility] BP Diastolic 2014-08-19 00:00:00 80 mm[Hg] [facility] Height 2014-08-19 00:00:00 68.5 [in_i] [facility] BMI (Body Mass Index) 2014-08-19 00:00:00 35.24 kg/m2 [facility] BP Systolic 2014-08-19 00:00:00 140 mm[Hg] [facility] Body Weight 2014-08-19 00:00:00 235.2 [lb_av] [facility] Height 2014-04-07 00:00:00 68.5 [in_i] [facility] Body Weight 2014-04-07 00:00:00 231.4 [lb_av] [facility] Height 2013-09-24 00:00:00 68.5 [in_i] [facility] Body Weight 2013-09-24 00:00:00 320.8 [lb_av] [facility] Height 2013-04-25 00:00:00 69.5 [...] Family Practice Height 2009-02-23 00:00:00 69.5 [in_i] [facility] Body Weight 2009-02-23 00:00:00 216 [lb_av] [facility] Body Weight 2008-07-09 00:00:00 215.5 [lb_av] [facility] Body Weight 2007-11-29 00:00:00 215.8 [lb_av] [facility] Body Weight 2007-08-02 00:00:00 218.5 [lb_av] [facility] Body Weight 2007-07-29 00:00:00 215.2 [lb_av] [facility] Body Weight 2007-02-12 00:00:00 221.3 [lb_av] [facility] Body Weight 2006-08-08 00:00:00 220 [lb_av] [facility] Body Weight 2006-07-18 00:00:00 217 [lb_av] [facility] Body Weight 2006-07-17 00:00:00 217 [lb_av] [facility] Body Weight 2006-04-16 00:00:00 212 [lb_av] [facility] Body Weight 2005-12-07 00:00:00 211 [lb_av] [facility] Body Weight 2005-11-09 00:00:00 215 [lb_av] [facility] Body Weight 2005-08-15 00:00:00 200 [lb_av] [facility] Body Weight 2005-08-04 00:00:00 200 [lb_av] [facility] Body Weight 2005-07-21 00:00:00 186 [lb_av] [facility] Body Weight 2004-11-15 00:00:00 214 [lb_av] [facility] Procedures Procedure Date / Time Performed Performing Clinician Sourc e Stent Placemt Retro Carotid 2017-11-28 00:00:00 [facility] X-RAY HIP UNLIATERAL (2-3 VIEWS) 2017-03-21 00:00:00 [facility] Practice Cabg 2016-11-05 00:00:[address] [facility] Plan of Care Planned Activity Planned Date Details Comments Source Instructions Angina [facility] Instructions Chest Pain - Chest Wall [facility] Instructions [facility] Instructions [facility] Encounters Start Date/Time End Date/Time Encounter Type Admission Type Attendi ng Clinicians Care Facility Care Department Encounter ID Source 2020-07-17 02:10:00 2020-07-18 10:45:00 Discharged Inpatient (obs) 1 Mingo Phelps [facility] [id number] [facility] 2018-01-25 00:00:00 2018-01-25 00:00:00 PAPA Marroquin: [id number] [facility] [address], [place] [address], Ph. [facility] [id number] [facility] Prac colleen 2017-12-28 00:00:00 2017-12-28 00:00:00 Kristen De La Torre: [phone] [facility], [place] [address], Ph. [facility] - Care Management [id number] [facility] Pract ice 2017-12-14 00:00:00 2017-12-14 00:00:00 Kristen De La Torre: [phone], [address], [place] [address], Ph. [facility] - Care [facility] [id number] [facility] 2017-12-03 00:00:00 2017-12-03 00:00:00 Sheyla Collazo MD: [id number] [employer] [facility], [address], [place] [address], Ph. [facility] [id number] [facility] Prac colleen 2017-11-30 00:00:00 2017-11-30 00:00:00 Kristen De La Torre: [phone] [facility], [address], [place] [address], Ph. [facility] - Care Management [id number] [facility] Pract ice 2017-11-21 00:00:00 2017-11-21 00:00:00 Sheyla Collazo MD: [id number] [facility] [address], [place] [address], Ph. [facility] [place] [facility] [id number] [facility] Prac colleen 2017-07-18 00:00:00 2017-07-18 00:00:00 Sheyla Collazo MD: [id number] [facility], [address] [place] [id number], Ph. [facility] [place] [facility] [id number] [facility] Prac colleen 2017-06-05 00:00:00 2017-06-05 00:00:00 Sheyla Collazo MD: [id number] [facility], [address] [place] [address], Ph. [facility] [place] [facility] [id number] [facility] Prac colleen 2017-04-25 00:00:00 2017-04-25 00:00:00 Sheyla Collazo MD: [id number] [facility], [address] [address], Ph. [facility] [place] - [facility] [id number] [facility] Prac colleen 2017-04-04 00:00:00 2017-04-04 00:00:00 Jarad Oscar MD: [id number] [facility], [address] [address], Ph. [facility] [place] - [facility] - [facility] [id number] [facility] Prac colleen 2017-03-21 00:00:00 2017-03-21 00:00:00 CLAIRE Cancino: [id number] [facility], [address] [address], Ph. [facility] [id number] [facility] Prac colleen 2017-02-15 00:00:00 2017-02-15 00:00:00 PAPA Cutler : [address] [facility], [address] [address], Ph. [facility] [place] - [facility] [id number] [facility] 2017-01-25 00:00:00 2017-01-25 00:00:00 Sheyla Collazo MD: [address]295 [facility], [address], [place] [address], Ph. [facility] [id number] [facility] 2016-12-27 00:00:00 2016-12-27 00:00:00 Sheyla Collazo MD: [address] [facility], [address], [place] [address], Ph. [facility] [id number] [facility] 2016-12-12 00:00:00 2016-12-12 00:00:00 Gayla Wells: [address] [facility], [address], [place] [address], Ph. [facility] [id number] [facility] 2016-11-28 00:00:00 2016-11-28 00:00:00 Sheyla Collazo MD: [address] [facility], [address], [place] [address], Ph. [facility] [id number] [facility] 2016-11-27 00:00:00 2016-11-27 00:00:00 Gayla Wells: [address] [facility], [address], [place] [address], Ph. [facility] Management [id number] [facility] Results Test Description Test Time Test Comments Results Result Comments Source CHEST SINGLE (PORTABLE) 2020-08-03 01:06:00 [facility] [address] [address] Patient Name: CELESTE JORDAN MR #: [id number] : 1945 Age/Sex: 75/M Req #: [id number] Adm Physician: Ordered by: HARJINDER RAMOS MD Report #: [id number] Location: ER Room/Bed: Procedure: [id number] DX/CHEST SINGLE (PORTABLE) Exam Date: Exam Time: [...] Test Item Bedside Glucose (test code = 41201-7) 167 70-120 Meter ID: [id number] [facility] CenterBlood leukocytes automated count (number/volume)2020-07-18 06:00:00* Test Item Value Reference Range Interpretation Comments White Blood Count (test code = 6690-2) 13.30 4.8-10.8 [facility] erythrocytes automated count (number/volume)2020-07-18 06:00:00* Test Item Value Reference Range Interpretation Comments Red Blood Count (test code = 789-8) 3.91 4.3-5.7 [facility] CenterBlood hemoglobin measurement (moles/volume)2020-07-18 06:00:00* Test Item Value Reference Range Interpretation Comments Hemoglobin (test code = 54195-5) 13.6 14.0-18.0 [facility] CenterAutomated blood hematocrit (volume fraction)2020-07-18 06:00:00* Test Item Value Reference Range Interpretation Comments Hematocrit (test code = 4544-3) 38.4 38.2-49.6 [facility] CenterAutomated erythrocyte mean corpuscular ucwiwp3334-18-54 06:00:00* Test Item Value Reference Range Interpretation Comments Mean Corpuscular Volume (test code = 787-2) 98.2 81-99 [facility] CenterAutomated erythrocyte mean corpuscular hemoglobin (mass per erythrocyte)2020-07-18 06:00:00* Test Item Value Reference Range Interpretation Comments Mean Corpuscular Hemoglobin (test code = 785-6) 34.8 28-32 [facility] CenterAutomated erythrocyte mean corpuscular hemoglobin concentration measurement (mass/volume)2020-07-18 06:00:00* Test Item Value Reference Range Interpretation Comments Mean Corpuscular Hemoglobin Concent (test code = 786-4) 35.4 31-35 [facility] CenterRDW IsvPk-Tsw5920-65-13 06:00:00* Test Item Value Reference Range Interpretation Comments Red Cell Distribution Width (test code = 12038-2) 13.2 11.7 -14.4 [facility] CenterAutomated blood platelet count (count/volume)2020-07-18 06:00:00* Test Item Value Reference Range Interpretation Comments Platelet Count (test code = 777-3) 177 140-360 [facility] CenterAutomated blood segmented neutrophil count as percentage of total hjbymrlqbi4787-79-02 06:00:00* Test Item Value Reference Range Interpretation Comments Neutrophils (%) (Auto) (test code = 30112-3) 59.5 38.7-80.0 [facility] CenterAutomated blood lymphocyte count as percentage ot total dwdrlgmjpz2035-25-81 06:00:00* Test Item Value Reference Range Interpretation Comments Lymphocytes (%) (Auto) (test code = 736-9) 16.3 18.0-39.1 [facility] CenterAutomated blood monocyte count as percentage of total onapyphkfv0002-27-93 06:00:00* Test Item Value Reference Range Interpretation Comments Monocytes (%) (Auto) (test code = 5905-5) 6.2 4.4-11.3 [facility] CenterAutomated blood eosinophil count as percentage of total qqiwipubcy6869-77-55 06:00:00* Test Item Value Reference Range Interpretation Comments Eosinophils (%) (Auto) (test code = 713-8) 16.6 0.0-6.0 [facility] bas[facility] count as percentage of total dyhagghvis8642-94-22 06:00:00* Test Item Value Reference Range Interpretation Comments Basophils (%) (Auto) (test code = 706-2) 0.9 0.0-1.0 [facility] CenterFluoroscopic procedure less than one hour sapxmayt5658-14-14 06:00:00* Test Item Value Reference Range Interpretation Comments IM GRANULOCYTES % (test code = IM GRANULOCYTES %) 0.5 0.0- 1.0 [facility] CenterAutomated blood neutrophil count 2020-07-18 06:00:00* Test Item Value Reference Range Interpretation Comments Neutrophils # (Auto) (test code = 751-8) 7.9 2.1-6.9 [facility] CenterBlood lymphocytes count (number/volume) 2020-07-18 06:00:00* Test Item Value Reference Range Interpretation Comments Lymphocytes # (Auto) (test code = 86682-8) 2.2 1.0-3.2 [facility] CenterBlood monocytes automated count (number/volume)2020-07-18 06:00:00* Test Item Value Reference Range Interpretation Comments Monocytes # (Auto) (test code = 742-7) 0.8 0.2-0.8 [facility] CenterAutomated blood eosinophil count 2020-07-18 06:00:00* Test Item Value Reference Range Interpretation Comments Eosinophils # (Auto) (test code = 711-2) 2.2 0.0-0.4 [facility] CenterAutomated blood basophil count (count/volume)2020-07-18 06:00:00* Test Item Value Reference Range Interpretation Comments Basophils # (Auto) (test code = 704-7) 0.1 0.0-0.1 [facility] CenterFluoroscopic procedure less than one hour ckxzgyss7236-55-27 06:00:00* Test Item Value Reference Range Interpretation Comments Absolute Immature Granulocyte (auto (sho t code = Absolute Immature Granulocyte (auto) 0.06 0-0.1 [facility] CenterFluoroscopic procedure less than one hour bzoqjbji0402-13-65 06:00:00* Test Item Value Reference Range Interpretation Comments Differential Total Cells Counted (test code = Shara tial Total Cells Counted) 100 [facility] blood neutrophils/100 leukocytes 2020-07-18 06:00:00* Test Item Value Reference Range Interpretation Comments Neutrophils % (Manual) (test code = 76074-2) 57 40-74 [facility] blood lymphocytes/100 leukocytes 2020-07-18 06:00:00* Test Item Value Reference Range Interpretation Comments Lymphocytes % (Manual) (test code = 737-7) 22 19-48 [facility] blood monocytes/100 leukocytes 2020-07-18 06:00:00* Test Item Value Reference Range Interpretation Comments Monocytes % (Manual) (test code = 744-3) 4 3.4-9.0 [facility] blood eosinophil count as percentage of total ovwpgkemru1206-36-10 06:00:00* Test Item Value Reference Range Interpretation Comments Eosinophils % (Manual) (test code = 714-6) 17 0-7 [facility] CenterBlood platelets count by estimate (number/volume)2020-07-18 06:00:00* Test Item Value Reference Range Interpretation Comments Platelet Estimate (test code = 03753-3) ADEQUATE [facility] CenterPlatelet htnpjwkzfx3638-10-36 06:00:00* Test Item Value Reference Range Interpretation Comments Platelet Morphology Comment (test code = 28031-7) NORMAL [facility] CenterRBC bzzgvemqjw7388-94-09 06:00:00* Test Item Value Reference Range Interpretation Comments Red Cell Morphology Comment (test code = 6742-1) NORMAL [facility] sodium measurement (moles/volume)2020-07-18 06:00:00* Test Item Value Reference Range Interpretation Comments Sodium Level (test code = 2951-2) 139 136-145 [facility] or plasma potassium measurement (moles/volume)2020-07-18 06:00:00* Test Item Value Reference Range Interpretation Comments Potassium Level (test code = 2823-3) 3.3 3.5-5.1 [facility] or plasma chloride measurement (moles/volume)2020-07-18 06:00:00* Test Item Value Reference Range Interpretation Comments Chloride Level (test code = 2075-0) 104 98-107 [facility]er[facility] or plasma carbon dioxide, total measurement (moles/volume)2020-07-18 06:00:00* Test Item Value Reference Range Interpretation Comments Carbon Dioxide Level (test code = 2028-9) 21 22-29 [facility] or plasma anion ywu7577-18-39 06:00:00* Test Item Value Reference Range Interpretation Comments Anion Gap (test code = 05777-7) 17.3 8-16 [facility] or plasma urea nitrogen measurement (mass/volume)2020-07-18 06:00:00* Test Item Value Reference Range Interpretation Comments Blood Urea Nitrogen (test code = 3094-0) 19 7-26 [facility] or plasma creatinine measurement (mass/volume)2020-07-18 06:00:00* Test Item Value Reference Range Interpretation Comments Creatinine (test code = 2160-0) 1.20 0.72-1.25 [facility] or plasma urea nitrogen/creatinine mass plxjj7745-74-02 06:00:00* Test Item Value Reference Range Interpretation Comments BUN/Creatinine Ratio (test code = 3097-3) 16 6-25 [facility] CenterEstimated glomerular filtration rate (GFR) qufmixfchpthf0089-07-00 06:00:00* Test Item Value Reference Range Interpretation Comments Estimat Glomerular Filtration Rate (test code = 120990186) 59 >60 Ranges were taken from the National Kidney Disease Education Program and the [facility] [employer] literature.Reference ranges:60 or greater: Lphghy09-88 ( for 3 consecutive months): Chronic kidney disease 15 or less: Kidney failureHCA Houston Healthcare Medical CenterGlucose imqjfiuphsp2152-60-16 06:00:00* Test Item Value Reference Range Interpretation Comments Glucose Level (test code = FGY6612) 150 74-118 [facility] or plasma calcium measurement (mass/volume)2020-07-18 06:00:00* Test Item Value Reference Range Interpretation Comments Calcium Level (test code = 10598-3) 8.9 8.4-10.2 [facility] CenterTroponin I measurement by highly sensitive enzyme kpdcbtsdivu6903-48-09 06:00:00* Test Item Value Reference Range Interpretation Comments Troponin I (test code = 31208-3) 0.014 0-0.300 [facility] CenterCHEST SINGLE (PORTABLE)2020-07-17 02:20:00 [facility] [address] [place] [address] Patient Name: CELESTE JORDAN MR #: [id number] : 1945 Age/Sex: 75/M Req #: [id number] Adm Physician: Ordered by: Mingo Phelps MD Report #: [id number] Location: ER Room/Bed: Procedure: DX/CHEST SING LE [...] Bilirubin (test code = 1975-2) 0.7 0.2-1.2 [facility] CenterFluoroscopic procedure less than one hour vkfzazrz6428-82-81 00:33:00* Test Item Value Reference Range Interpretation Comments Aspartate Amino Transf (AST/SGOT) (test code = Aspartate Amino Transf (AST/SGOT)) 24 5-34 [facility] or plasma alanine aminotransferase measurement (enzymatic activity/volume)2020-07-17 00:33:00* Test Item Value Reference Range Interpretation Comments Alanine Aminotransferase (ALT/SGPT) (test code = 1742-6) 26 0-55 [facility]erum or plasma protein measurement (mass/volume)2020-07-17 00:33:00* Test Item Value Reference Range Interpretation Comments Total Protein (test code = 2885-2) 8.2 6.5-8.1 [facility]er[facility] or plasma albumin measurement (mass/volume)2020-07-17 00:33:00* Test Item Value Reference Range Interpretation Comments Albumin (test code = 1751-7) 4.7 3.5-5.0 [facility] CenterPlasma globulin measurement (mass/volume) 2020-07-17 00:33:00* Test Item Value Reference Range Interpretation Comments Globulin (test code = 87596-7) 3.5 2.3-3.5 [facility]er[facility] or plasma albumin/globulin mass gqhyd7143-59-25 00:33:00* Test Item Value Reference Range Interpretation Comments Albumin/Globulin Ratio (test code = 1759-0) 1.3 0.8-2.0 [facility]er[facility] or plasma alkaline phosphatase measurement (enzymatic activity/volume)2020-07-17 00:33:00* Test Item Value Reference Range Interpretation Comments Alkaline Phosphatase (test code = 6768-6) 81 40-150 [facility] CenterBNP Lmj-gKuy7848-04-12 00:33:00* Test Item Value Reference Range Interpretation Comments B-Type Natriuretic Peptide (test code = 02736-5) 56.0 0-100 [facility]er[facility] or plasma lipase measurement (enzymatic activity/volume)2020-07-17 00:33:00* Test Item Value Reference Range Interpretation Comments Lipase (test code = 3040-3) 28 8-78 [facility] CenterINTERVERTEBRAL PFSF3044-26-50 15:57:00 RUN DATE: 03/22/20 Zumbl PAGE 1 RUN TIME: 1557 Specimen Inqui ry RUN USER: INTERFACE PATIENT: CELESTE JORDAN ACCT #: [id number] LOC: MOR #: [id number] AGE/SX: 74/M ROOM: [facility] RE03/17/20REG DR: King Ahn MD : 45 BED: A DIS: 03/18/20 STATUS: DIS Jose TLOC: SPEC #: [id number] RECD: 03/18/20 STATUS: MITCH REQ #: [id number] TIANA: 03/17/20- [facility] DR: King Ahn MD ENTERED: 03/18/20 SP TYPE: INT DISC OTHR DR: Sheyla Collazo MD ORDERED: GROSS COPIES [place]: [place] [address] [place] [address] [email or web address] King Ahn MD [address] 6[address] PROCEDURES: GROSS (03/22/20-1236) TISSUES: LUMBAR REGION - DISC CLINICAL HISTORY COLLECTION DATE: 03/17/20 L4-5 RECURRENT DISC HERNI ATION FINAL DIAGNOSIS Lumbar disc, right side, L4-5, redo laminectomy , medial facetectomy, and microsurgical discectomy: INTERVERTEBRAL DISC MATERIAL, FIBROTIC FIBROCONNECTIVE TISSUE, AND BONE NEGATIVE FOR MALIGNA NCY DMW/gm D 06160, 96251 MACROSCOPIC The specimen is rec eived in [...] CONTINUED ON NEXT PAGE -RUN DATE: 03/22/20 [facility] PAGE 2 RUN TIME: 1557 Specimen Inquiry RUN USER: INTERFACE SPEC #: [id number] PATIENT: CELESTE JORDAN #[id number] (Continued) MACROSCOPIC (Continued) GROSS PERFORMED AT [facility] [address] [place] [address] [phone] MICROSCOPIC All of the stains, including any controls perform ed, stain appropriately. MICROSCOPIC PERFORMED AT [facility] [address] [place] [address] (p )[phone] PERFORMING SITE Processed at: [facility], [place] [address] [place] [address] Signed SIGNATURE ON FILE Lindsay Bolden MD 03/22/20 1557 END OF REPORT GLUBED 2020-03-18 08:32:00* Test Item Value Reference Range Interpretation Comments GLUBED (test code = GLUBED) 308 mg/dL 74-106 H Performed by certified button cutting machine operator at [facility]Notified [facility]~ - XR SPINE 1 V SPEC [id number] 13:20:00 FAX: Sheyla Antonio MD [phone] North English: [facility]: [facility] FAX: King Stroud MD [phone] Name: CELESTE JORDAN [facility] : 1945 Age/S: 74/M [address] Unit #: [id number] Loc: [place] [address] Phys: King Ahn MD Acct: [id number] Dis Date: Status: REG [facility] PHONE #: [phone] Exam Date: 03/17/2020 1219 FAX #: [phone] Reason: LAMINOTOMY EXAMS: CPT CODE: [id number] XR SPINE 1 V SPEC LEVEL 96795 HISTORY: LAMINOTOMY TECHNIQUE: Intraoperative late ral views of the lumbar spine. Comparison:Lumbar spine radiographs September 16, 2019 FINDINGS/ IMPRESSION: Moderate-sized vertebral body osteophytes are present on L3-L4. Verteb ral body heights and intervertebral disc spaces are maintained. Disc deg eneration is seen at L4-L5. Surgical instrumentation projects over the l evel of L4-L5. Location: [facility] Electronica lly Signed by Cyril Hale MD on 03/17/2020 at 1320 Repor deneen and signed by: Cyril Hale MD CC: Alonso Foster; King Ahn MD Technologist: FAISAL LUQUE JR [facility] Date/Time/By: 03/17/2020 (4030) : By: [email or web address] 1 Orig Print D/T: S: 03/17/2020 (2416) PAGE 1 Signed Report - XR SPINE 1 V SPEC [id number] 13:20:00 FAX: Sheyla Antonio MD [phone] North English: St: REG FAX: King Stroud MD [phone] Name: CELESTE JORDAN [facility] : 1945 Age/S: 74/M [address] [facility] Unit #: [id number] Loc: [place] [address] Phys: King Ahn MD Acct: [id number] Dis Date: Status: REG [facility] PHONE #: [phone] Exam Date: 03/17/2020 1211 FAX #: [phone] Reason: LAMINOTOMY EXAMS: CPT CODE: [id number] XR SPINE 1 V SPEC LEVEL 95054 HISTORY: LAMINOTOMY TECHNIQUE: Intraoperative lateral views of the lumbar spine. Comparison:Lumbar spine radiographs September 16, 2019 FINDINGS/ IMPRESSION: Moderate- sized vertebral body osteophytes are present on L3-L4. Vertebral body heights and intervertebral disc spaces are maintained. Disc degeneration is seen at L4-L5. Surgical instrumentation projects over the level of L4-L5. Location: [facility] at 1320 Reported and signed by: Cyril Hale MD CC: Sheyla Collazo M.D.; King Ahn MD Technologist: FAISAL LUQUE JR Trnscrd Date/Time/By: 03/17/2020 (4530) : By: [email or web address] Orig Print D/T: S: 03/17/2020 (3100) PAGE 1 Signed Report [id number] 10:08:00* Test Item Value Reference Range Interpretation Comments GLUBED (test code = GLUBED) 178 mg/dL 74-106 H Performed by certified button cutting machine operator at [facility] PROTHROMBIN [id number] 16:40:00* Test Item Value Reference Range Interpretation [...] ANTICOAGULANTS? STANLEYIST ANTICOAGULANTS PLAVIX ASPIRIN THROMBOPLASTIN TIME [id number] 16:40:00* Test Item Value Reference Range Interpretation Comments THROMBOPLASTIN TIME PARTIAL (test code = PTT) 30.3 seconds 23.0-37. 0 N IS PATIENT ON ANTICOAGULANTS? YLIST ANTICOAGULANTS PLAVIX ASPIRINCBC W/AUTO MKLA0643-06-61 16:29:00* Test Item Value Reference Range Interpretation [...] (test code = MDIFF) NO CBC W/AUTO [id number] 16:27:00* Test Item Value Reference Range Interpretation [...] code = BA#) K/mm3 0.0-0.2 BASIC METABOLIC [id number] 16:27:00* Test Item Value Reference Range Interpretation [...] 9.1 mg/dL 8.5-10.1 N Coronavirus 2018 nCoV Dyoomqb6910-92-06 16:15:00* Test Item Value Reference Range Interpretation Comments Coronavirus 2019 nCoV Bedside (test code = COVNONPUIBED) Negative V.LAB.SPR 03/16/20 1531- XR CHEST 2 [id number] 15:48:00 FAX: Sheyla Antonio MD [phone] North English: O St: PRE FAX: King Stroud MD [phone] Name: CELESTE JORDAN [facility] : 1945 Age/S: 74/M [address] Unit #: [id number] Loc: [place] [address] Phys: King Ahn MD Acct: [id number] Dis Date: Status: PRE IN PHONE #: [phone] Exam Date: 03/16/2020 1534 FAX #: [phone] Reason: PRE OP EXAMS: CPT CODE: [id number] XR CHEST 2 V 34857 REASON FOR EXAM: PRE OP Exam Order Date: 3:18 PM Ordering: King Ahn MD Attending:Julissa Ahn MD Location:[facility] PROCEDURE: - XR CHEST 2 V COMPARISON: 12/01/2019 FINDINGS: PA and lateral views o f the chest show clear lungs without evidence of consolidation. No evidenc e of effusion. The heart size is minimally enlarged. 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 Pulmonary vasculatures are unremarkable. The osseous structures are grossly intact. IMPRESSION: Minimal cardiomegaly at 2380 Reported and signed by: Mulugeta Li M.D. CC: Sheyla Collazo M.D.; King Ahn MD Technologist: Ioana Valle(Jacinto) Trnscrd Date/Time/By: 10/2020 (2326) : By: EmeryL Orig Print D/T: S: 03/16/2020 (6187) PAGE 1 Signed Report [id number] 05:56:00* Test Item Value Reference Range Interpretation Comments GLUBED (test code = GLUBED) 221 mg/dL 74-106 H Performed by certified button cutting machine operator at [facility] [id number] 21:13:00* Test Item Value Reference Range Interpretation Comments GLUBED (test code = GLUBED) 271 mg/dL 74-106 H Performed by certified button cutting machine operator at [facility] [id number] 18:31:00* Test Item Value Reference Range Interpretation Comments GLUBED (test code = GLUBED) 173 mg/dL 74-106 H Performed by certified button cutting machine operator at [facility] [id number] 12:55:00* Test Item Value Reference Range Interpretation Comments GLUBED (test code = GLUBED) 141 mg/dL 74-106 H Performed by certified button cutting machine operator at [facility] HLYIOF3354-64-77 05:08:00* Test Item Value Reference Range Interpretation Comments GLUBED (test code = GLUBED) 180 mg/dL 74-106 H Performed by certified button cutting machine operator at [facility] MRAGJQ8857-81-57 21:02:00* Test Item Value Reference Range Interpretation Comments GLUBED (test code = GLUBED) 146 mg/dL 74-106 H Performed by certified button cutting machine operator at [facility] [id number] 17:04:00* Test Item Value Reference Range Interpretation Comments GLUBED (test code = GLUBED) 111 mg/dL 74-106 H Performed by certified button cutting machine operator at [facility] [id number] 11:41:00* Test Item Value Reference Range Interpretation Comments GLUBED (test code = GLUBED) 201 mg/dL 74-106 H Performed by certified button cutting machine operator at [facility] SED UFXI3603-35-80 09:43:00* Test Item Value Reference Range Interpretation Comments SED RATE (test code = SEDW) 36 mm/hr 0-15 H WINTROBE METHOD: NORMAL RANGE FOR MEN: 0-9 MM/HR WOMAN: 0-20 MM/HR SED RATE SIYILKUASG8475-08-08 09:42:00* Test Item Value Reference Range Interpretation Comments SED RATE WESTERGREN (test code = SEDW) 36 mm/hr 0-15 H - XR ANKLE 2 VIEWS [id number] 08:15:00 FAX: Sheyla Antonio MD [phone] North English: B St: [facility] FAX: Carlton Bowden MD FAX: Sandy Olmstead [phone] Name: CELESTE JORDAN [facility] : 1945 Age/S: 74/M [address] Unit #: [id number] Loc: V.2088 [place] [address] Phys: Sandy Birch Acct: [id number] Dis Date: Status: ADM IN ONE #: [phone] Exam Date: 12/07/2019 0741 FAX #: [phone] Reason: pain, decreased ROM EXAMS: CPT CODE: [id number] XR ANKLE [address] [place] [address] CLINICAL HISTO RY: pain, decreased ROM TECHNIQUE: AP and lateral views of the lef t ankle COMPARISON: None FINDINGS/ IMPRESSIO N: No fracture. Bones are appropriately aligned and the ankle mortise is preserved. There is swelling of the soft tissues or o n the left ankle with joint effusion. Small calcaneal enthesophytes are present. Location: [facility] at 0815 Reported and signed b y: Cyril Hale MD CC: Sheyla Collazo M.D.; Carlton Saravia ; Sandy Birch Technologist: RT CORIN(Jacinto) Trnscrd Date/Time/By: 12/07/2019 (0815) : By: [email or web address] Orig Print D/T: S: 12/07/2019 (0419) PAGE 1 Signed Report C REACTIVE [id number] 07:08:00* Test Item Value Reference Range Interpretation Comments C REACTIVE PROTEIN (test code = CRP) 6.17 mg/dL 0-0.3 H BASIC METABOLIC [id number] 07:08:00* Test Item Value Reference Range Interpretation [...] CA) 8.4 mg/dL 8.5-10.1 L BASIC METABOLIC [id number] 07:05:00* Test Item Value Reference Range Interpretation [...] code = CA) mg/dL 8.5-10.1 CBC W/AUTO [id number] 07:00:00* Test Item Value Reference Range Interpretation [...] DIFF REQUIRED (test code = MDIFF) NO [id number] 21:09:00* Test Item Value Reference Range Interpretation Comments GLUBED (test code = GLUBED) 189 mg/dL 74-106 H Performed by certified button cutting machine operator at [facility] [id number] 16:21:00* Test Item Value Reference Range Interpretation Comments GLUBED (test code = GLUBED) 95 mg/dL 74-106 N Performed by certified button cutting machine operator at [facility] [id number] 11:52:00* Test Item Value Reference Range Interpretation Comments GLUBED (test code = GLUBED) 184 mg/dL 74-106 H Performed by certified button cutting machine operator at [facility] [id number] 06:19:00* Test Item Value Reference Range Interpretation Comments GLUBED (test code = GLUBED) 123 mg/dL 74-106 H Performed by certified button cutting machine operator at [facility] BASIC METABOLIC [id number] 05:31:00* Test Item Value Reference Range Interpretation [...] = CA) 8.5 mg/dL 8.5-10.1 N URIC [id number] 05:31:00* Test Item Value Reference Range Interpretation Comments URIC ACID (test code = URIC) 6.2 mg/dL 2.6-7.2 N BASIC METABOLIC [id number] 05:25:00* Test Item Value Reference Range Interpretation [...] (test code = CA) mg/dL 8.5-10.1 URIC [id number] 05:25:00* Test Item Value Reference Range Interpretation Comments URIC ACID (test code = URIC) mg/dL 2.6-7.2 CBC W/AUTO [id number] 05:22:00* Test Item Value Reference Range Interpretation [...] DIFF REQUIRED (test code = MDIFF) NO [id number] 20:58:00* Test Item Value Reference Range Interpretation Comments GLUBED (test code = GLUBED) 165 mg/dL 74-106 H Performed by certified button cutting machine operator at [facility] [id number] 11:44:00* Test Item Value Reference Range Interpretation Comments GLUBED (test code = GLUBED) 163 mg/dL 74-106 H Performed by certified button cutting machine operator at [facility] BASIC METABOLIC [id number] 06:56:00* Test Item Value Reference Range Interpretation [...] CA) 8.6 mg/dL 8.5-10.1 N BASIC METABOLIC [id number] 06:48:00* Test Item Value Reference Range Interpretation [...] code = CA) mg/dL 8.5-10.1 CBC W/AUTO [id number] 06:28:00* Test Item Value Reference Range Interpretation [...] code = NRBC#) 0.00 K/mm3 0.0-0.1 N [id number] 05:58:00* Test Item Value Reference Range Interpretation Comments GLUBED (test code = GLUBED) 130 mg/dL 74-106 H Performed by certified button cutting machine operator at [facility] [id number] 20:55:00* Test Item Value Reference Range Interpretation Comments GLUBED (test code = GLUBED) 104 mg/dL 74-106 N Performed by certified button cutting machine operator at [facility] COAGULATION TIME [id number] 15:15:00* Test Item Value Reference Range Interpretation Comments COAGULATION TIME ACTIVATED (test code = ACT) 210 seconds 62.8-88.0 H [id number] 11:31:00* Test Item Value Reference Range Interpretation Comments GLUBED (test code = GLUBED) 115 mg/dL 74-106 H Performed by certified button cutting machine operator at [facility] [id number] 07:45:00* Test Item Value Reference Range Interpretation Comments GLUBED (test code = GLUBED) 128 mg/dL 74-106 H Performed by certified button cutting machine operator at [facility] CBC W/MANUAL [id number] 05:15:00* Test Item Value Reference Range Interpretation [...] IMMAT) 0 % 0-0 N BASIC METABOLIC [id number] 04:50:00* Test Item Value Reference Range Interpretation [...] CA) 8.4 mg/dL 8.5-10.1 L BASIC METABOLIC [id number] 04:45:00* Test Item Value Reference Range Interpretation [...] CA) 8.4 mg/dL 8.5-10.1 L CBC W/MANUAL [id number] 04:41:00* Test Item Value Reference Range Interpretation [...] MORPHOLOGY (test code = PLTMORPH) CBC W/MANUAL [id number] 04:41:00* Test Item Value Reference Range Interpretation [...] MORPHOLOGY (test code = PLTMORPH) CBC W/MANUAL [id number] 04:41:00* Test Item Value Reference Range Interpretation [...] MORPHOLOGY (test code = PLTMORPH) CBC W/MANUAL [id number] 04:41:00* Test Item Value Reference Range Interpretation [...] MORPHOLOGY (test code = PLTMORPH) CBC W/MANUAL [id number] 04:41:00* Test Item Value Reference Range Interpretation [...] PLTEST) PLATELET MORPHOLOGY (test code = PLTMORPH) [id number] 19:54:00* Test Item Value Reference Range Interpretation Comments GLUBED (test code = GLUBED) 167 mg/dL 74-106 H Performed by certified button cutting machine operator at [facility] [id number] 17:06:00* Test Item Value Reference Range Interpretation Comments GLUBED (test code = GLUBED) 96 mg/dL 74-106 N [facility] by certified button cutting machine operator [facility]~ [id number] 15:32:00* Test Item Value Reference Range Interpretation Comments GLUBED (test code = GLUBED) 102 mg/dL 74-106 N Performed by certified button cutting machine operator at [facility] [id number] 14:45:00* Test Item Value Reference Range Interpretation Comments GLUBED (test code = GLUBED) 100 mg/dL 74-106 N Per[facility] by certified button cutting machine operator [facility]~ URINALYSIS [id number] 09:50:00* Test Item Value Reference Range Interpretation [...] = HYALU) 0-2 #/LPF 0-5 Urine Source? [id number] 09:41:00* Test Item Value Reference Range Interpretation Comments GLUBED (test code = GLUBED) 122 mg/dL 74-106 H Performed by certified button cutting machine operator at [facility] URINALYSIS [id number] 09:36:00* Test Item Value Reference Range Interpretation [...] result is a direct measurement.========= BASIC METABOLIC [id number] 03:27:00* Test Item Value Reference Range Interpretation [...] CA) 8.5 mg/dL 8.5-10.1 N BASIC METABOLIC [id number] 03:26:00* Test Item Value Reference Range Interpretation [...] code = CA) mg/dL 8.5-10.1 CBC W/AUTO [id number] 02:56:00* Test Item Value Reference Range Interpretation [...] DIFF REQUIRED (test code = MDIFF) NO [id number] 21:07:00* Test Item Value Reference Range Interpretation Comments GLUBED (test code = GLUBED) 183 mg/dL 74-106 H Performed by certified button cutting machine operator at [facility] [id number] 17:31:00* Test Item Value Reference Range Interpretation Comments GLUBED (test code = GLUBED) 113 mg/dL 74-106 H Performed by certified button cutting machine operator at [facility] [id number] 17:31:00* Test Item Value Reference Range Interpretation Comments GLUBED (test code = GLUBED) 196 mg/dL 74-106 H Performed by certified button cutting machine operator at [facility] [id number] 08:42:00* Test Item Value Reference Range Interpretation Comments GLUBED (test code = GLUBED) 108 mg/dL 74-106 H Performed by certified button cutting machine operator at [facility] CBC W/MANUAL [id number] 05:03:00* Test Item Value Reference Range Interpretation [...] code = IMMAT) 0 % 0-0 N [id number] 04:52:00* Test Item Value Reference Range Interpretation Comments TROPONIN-I (test code = TROPI) 0.239 ng/mL 0-0.045 HH Results called to [id number] by [email or web address] 12/02/19 0452Critical results verified and read back by Nurse? Y COMMENTS TO OUTSIDE SALES REPRESENTATIVE: COLLECT 3 HOURS AFTER PREVIOUS SAMPLEBASIC METABOLIC [id number] 04:46:00* Test Item Value Reference Range Interpretation [...] CA) 8.4 mg/dL 8.5-10.1 L CBC W/MANUAL [id number] 04:39:00* Test Item Value Reference Range Interpretation [...] MORPHOLOGY (test code = PLTMORPH) CBC W/MANUAL [id number] 04:39:00* Test Item Value Reference Range Interpretation [...] MORPHOLOGY (test code = PLTMORPH) CBC W/MANUAL [id number] 04:39:00* Test Item Value Reference Range Interpretation [...] MORPHOLOGY (test code = PLTMORPH) CBC W/MANUAL [id number] 04:39:00* Test Item Value Reference Range Interpretation [...] MORPHOLOGY (test code = PLTMORPH) CBC W/MANUAL [id number] 04:39:00* Test Item Value Reference Range Interpretation [...] MORPHOLOGY (test code = PLTMORPH) BASIC METABOLIC [id number] 04:35:00* Test Item Value Reference Range Interpretation [...] CALCIUM (test code = CA) mg/dL 8.5-10.1 [id number] 00:34:00* Test Item Value Reference Range Interpretation Comments TROPONIN-I (test code = TROPI) 0.237 ng/mL 0-0.045 HH Results called to [place] [address] by V.LAB.[facility] 12/02/19 0034Critical results verified and read back by Nurse? Y COMMENTS TO OUTSIDE SALES REPRESENTATIVE: COLLECT 3 HOURS AFTER PREVIOUS [id number] 20:08:00* Test Item Value Reference Range Interpretation Comments GLUBED (test code = GLUBED) 161 mg/dL 74-106 H Performed by certified button cutting machine operator at [facility] [id number] 18:47:00* Test Item Value Reference Range Interpretation Comments GLUBED (test code = GLUBED) 180 mg/dL 74-106 H Performed by certified button cutting machine operator at [facility] [id number] 16:26:00* Test Item Value Reference Range Interpretation Comments TROPONIN-I (test code = TROPI) 0.141 ng/mL 0-0.045 HH Results called to [id number] by V.LAB.VA 12/01/19 1622Critical results verified and read back by Nurse? Y - CT ABD PELVIS W/O [id number] 15:29:00 Name: CELESTE JORDAN [facility] : 1945 Age/S: 74 / M [address] [facility] Unit #: [id number] Loc: [place] [address] Phys: Abilio Diaz MD Acct: [id number] Dis Date: Status: REG ER PHONE #: [phone] Exam Date: 12/01/2019 2942 FAX #: [phone] Reason: nausea and vomiting EXAMS: CPT CODE: [id number] CT ABD PELVIS W/O CONT 50748 EXAM: CT of the abdomen and pelvis [...] right kidney. Location code: [facility] at 1529 Reported and signed by: Abdoulaye Rose M.D. CC: Sheyla Collazo M.D.; Abilio Diaz MD Technologist:Ricco Arguello RT(R),(MR),(CT) CTDI: DLP: Trnscb Date/Time: 12/01/19 (5201) [email or web address] Orig Print D/T: S: 12/01/2019 (8359) PAGE 1 Signed Report B-TYPE NATRIURETIC [id number] 14:16:00* Test Item Value Reference Range Interpretation Comments B-TYPE NATRIURETIC PEPTIDE (test code = BNP) 23.49 pgram/mL 0-100 N BASIC METABOLIC [id number] 13:58:00* Test Item Value Reference Range Interpretation [...] code = CA) 9.1 mg/dL 8.5-10.1 N [id number] 13:58:00* Test Item Value Reference Range Interpretation Comments TROPONIN-I (test code = TROPI) 0.019 ng/mL 0-0.045 N - XR CHEST 1 [id number] 10:47:00 FAX: Sheyla Antonio MD [phone] [place]: [facility]: [facility] FAX: Hung Martinez NP [phone] Name: CELESTE JORDAN [facility] : 1945 Age/S: 74/M [place] Unit #: [id number] Loc: [place] [address] Phys: Hung Martinez CREDIT REVIEW OFFICER Acct: [id number] Dis Date: Status: REG ER PHONE #: [phone] Exam Date: 12/01/2019 1013 FAX #: [phone] Reason: CHEST PAIN EXAMS: CPT CODE: [id number] XR CHEST 1 V 23820 REASON FOR EXAM: CHEST PAIN Exam Order [...] acute cardiopulmonary process. Location: [facility] at 1047 Reported and signed by: Cyril Hale MD CC: Sheyla Collazo M.D.; Hung Martinez NP Technologist: Tammi Valle(Jacinto) Trnscrd Date/Time/By: 12/01/2019 (5922) : By: [email or web address] Orig Print D/T: S: 12/01/2019 (9360) PAGE 1 Signed Report CBC W/O [id number] 10:32:00* Test Item Value Reference Range Interpretation [...] MPV) 12.6 fL 6.7-11.0 H TROPONIN I [id number] 10:29:00* Test Item Value Reference Range Interpretation [...] valid only if similarmethodology is used. INTERVERTEBRAL [id number] 15:25:00 RUN DATE: 09/19/19 [place] - Lab PAGE 1 RUN TIME: 1525 Specimen Inqui ry RUN USER: INTERFACE PATIENT: CELESTE JORDAN ACCT #: [id number] LOC: [facility] U #: [id number] AGE/SX: 74/M ROOM: [facility] RE09/16/19REG DR: King Ahn MD : [birth year] BED: A DIS: 09/17/19 STATUS: DIS Jose TLOC: SPEC #: [id number] RECD: 09/17/19 STATUS: MITCH REQ #: [id number] TIANA: 09/16/19 DR: King Ahn MD ENTERED: 09/17/19 SP TYPE: INT DISC OTHR DR: Sheyla Collazo MD ORDERED: GROSS [place]: [place] [address] [place] [address] [email or web address] King Ahn MD [address] [address] PROCEDURES: GROSS (09/19/19-1109) TISSUES: LUMBAR VERTEBRA, NOS - DI SC CLINICAL HISTORY COLLECTION DATE: 09/16/19 RIGHT L4-5 LATERA L RECESS STENOSIS FINAL DIAGNOSIS Lumbar disc, right side, L4-5, lami nectomy, medial fasciectomy and discectomy: INTERVERTEBRAL DISC MATERIAL LIGAMENT TYPE FIBROCONNECTIVE TISSUE BONE NEGATIVE FOR JANE GNANCY DMW/darlene [address], [address]1987 MACROSCOPIC The specimen is received in formalin, labeled with the patient's name, and identified as "lum bar disc". It consists of multiple paniagua and pale yellow fragments of fibrous t issue and palpable bone measuring 3.8 x 3.2 x 0.7 cm in aggregate. Samples of the specimen are submitted for decalcification and CONTINUED ON NEXT PAGE RUN DATE: 09/19/19 [place] [facility] PAGE 2 RUN TIME: 1525 Specimen Inquiry RUN USER: INTERFACE SPEC #: [id number] PATIENT: CELESTE JORDAN #[id number] (Continued)---- -------- MACROSCOPIC (Continued) follow up microscopic evaluation in a single cassette. GROSS PERFORMED AT [facility] [address] [place] [address] [phone] MICROSCOPIC All of the stains, includ ing any controls performed, stain appropriately. MICROSCOPIC PERFORMED A T [facility] [address] [place] [address] [phone] PERFORMING SITE Diagnosis perfo rmed at: [facility], [place] [address] [facility] [place] [address] Signed SIGNATURE ON FILE Lindsay Bolden MD 09/19/19 1525 END OF REPORT - XR SPINE 1 V SPEC [id number] 14:38:00 FAX: Sheyla Antonio MD [phone] [place] English: St: REG FAX: King Stroud MD [phone] Name: CELESTE JORDAN [facility] : 1945 Age/S: 74/M [address] [facility] Unit #: [id number] Loc: [place] [address] Phys: King Ahn MD Acct: [id number] Dis Date: Status: REG [facility] PHONE #: [phone] Exam Date: 09/16/2019 [facility] FAX #: [phone] Reason: LAMINECTOMY EXAMS: CPT CODE: [id number] XR SPINE 1 V SPEC LEVEL 56040 EXAM: The spine, one view, special level [...] m phenomenon. Location code: [facility] Rafa cullen Signed by Sohan Rose on 09/16/2019 at 1438 Reported and signed by: Abdoulaye valladares M.D. CC: Sheyla Collazo M.D.; King Ahn MD Technologist: Ioana Valle(R) Trnscrd Date/Time/By: 09/16/2019 (2924) : By: AleeGRW Orig Print D /T: S: 09/16/2019 (1865) PAGE 1 S igned Report - XR SPINE 1 V SPEC [id number] 14:38:00 FAX: Sheyla Antonio MD [phone] [place] English: B St: REG FAX: King Stroud MD [phone] Name: CELESTE JORDAN [facility] : 1945 Age/S: 74/M [address] [facility] Unit #: [id number] Loc: [place] [address] Phys: King Ahn MD Acct: [id number] Dis Date: Status: REG [facility] PHONE #: [phone] Exam Date: 09/16/2019 1359 FAX #: [phone] Reason: LAMINECTOMY EXAMS: CPT CODE: [id number] XR SPINE 1 V SPEC LEVEL [id number] EXAM: The spine, one view, special level [...] MD Technologist: Ioana Valle(Jacinto) Trnscrd Date/Time/By: 09/16/2019 (7223) : By: AleeGRW Orig Print D /T: S: 09/16/2019 (7174) PAGE 1 S igned Report [id number] 11:00:00* Test Item Value Reference Range Interpretation Comments GLUBED (test code = GLUBED) 144 mg/dL 74-106 H Performed by certified button cutting machine operator at [facility] PROTHROMBIN [id number] 10:10:00* Test Item Value Reference Range Interpretation [...] Mechanical prosthetic heart valves (2.5-3.5) THROMBOPLASTIN TIME [id number] 10:10:00* Test Item Value Reference Range Interpretation Comments THROMBOPLASTIN TIME PARTIAL (test code = PTT) 31.0 seconds 25.0-36. 5 N BASIC METABOLIC [id number] 10:02:00* Test Item Value Reference Range Interpretation [...] CA) 9.3 mg/dL 8.5-10.1 N BASIC METABOLIC [id number] 09:56:00* Test Item Value Reference Range Interpretation [...] CA) mg/dL 8.5-10.1 - XR CHEST 2 [id number] 09:53:00 FAX: Sheyla Antonio MD [phone] [place]: O St: PRE FAX: King Stroud MD [phone] Name: CELESTE JORDAN [facility] : 1945 Age/S: 74/M [address] [facility] Unit #: [id number] Loc: [place] [address] Phys: King Ahn MD Acct: [id number] Dis Date: Status: PRE IN PHONE #: [phone] Exam Date: 09/15/2019 09 FAX #: [phone] Reason: PRE OP EXAMS: CPT CODE: [id number] XR CHEST 2 V 83270 HISTORY: Preop. COMPARISON: Chest x-ray from October 24, 2018. Location: [facility]. AP and lateral view of the chest: [...] AleeTH4 O rig Print D/T: S: 09/15/2019 (9844) PAGE 1 Signed Report CBC W/AUTO [id number] 09:47:00* Test Item Value Reference Range Interpretation [...] 0.00 K/mm3 0.0-0.[address] Chest w/o [id number] 09:19:27Patient: CELESTE JORDAN Date/Time01/10/2019 09:05 CSTReason for [...] mithoraces consistent with history of asbestos exposure.LOCATION: T78Xcst CT exa m was performed according to our departmental dose optimization program, which i ncludes automated exposure control, adjustment of the mA and/or kV according to the patient size and/or use of iterative reconstructive technique. Final Dictated by: MD Ji Melanie CDictated DT/TM: 01/10/2019 9:17 amSigned by: MD Ji Melanie CSigned (Electronic Signature): 01/10/2019 9:19 amXR Chest 1 View [id number] 13:52:47Patient: CELESTE JORDAN Date/Time01/09/2019 13:21 CSTReason for [...] (Electronic Signature): 01/09/2019 1:52 pmHemoglobin A1c/Hemoglobin.total in [id number] 16:10:00* Test Item Value Reference Range Interpretation Comments A1C w/EAG (test code = A1C w/EAG) 8.7 % 1.0-5.7 H average blood glucose (test code = average blood glucose) 203 mg/dL [facility] W Auto Differential panel - [id number] 16:05:00 * Test Item Value Reference Range [...] code = baso#) 0.10 x10*3/?L 0.01-0.08 H [facility] 2000 panel - Serum or [...] non- (test code = eGFR non-jaime n montserratian) 50 mL/min/1.73m2 >60 L total bilirubin (test [...] (test code = anion gap) 9 calc [facility] HospitalLip[facility] 1995 panel - Serum or [id number] 15:53:00* Test Item Value Reference Range Interpretation [...] code = LDL calc.) 119 mg/dL 0-130 [facility] HospitalNatriuretic peptide B [Mass/volume] in Serum or Plasma 2017-11-22 13:17:00* Test Item Value Reference Range Interpretation Comments B type natriuretic peptide (BNP) (test code = B type n atriuretic peptide (BNP)) 98 pg/mL <100 [facility] 1999 panel - Serum or [...] non- (test code = eGFR non-jaime n montserratian) 46 mL/min/1.73m2 >60 L total bilirubin (test [...] (test code = anion gap) 12 calc [facility] HospitalLip[facility] 1996 panel - Serum or [id number] 11:53:00* Test Item Value Reference Range Interpretation [...] code = LDL calc.) 128 mg/dL 0-130 [facility] HospitalProstate specific Ag [Mass/volume] in Serum or Plasma 2017-04-27 11:53:00* Test Item Value Reference Range Interpretation Comments PSA, total (test code = PSA, total) 2.52 NG/mL <4.00 [facility] HospitalParathyrin.intact [Mass/volume] in Serum or Plasma 2017-04-27 09:46:00* Test Item Value Reference Range Interpretation Comments parathyroid hormone, intact (test code = parathyroid hormone , intact) 68 pg/mL 14-64 H [facility] HospitalMagnesium [Mass/volume] in Serum or [id number] 16:31:00* Test Item Value Reference Range Interpretation Comments magnesium (test code = magnesium) 1.8 mg/dL 1.5-2.5 [facility] PracticeSodium/Creatinine [Mass Ratio] in [id number] 16:31:00* Test Item Value Reference Range Interpretation Comments sodium/creat ratio (test code = sodium/creat ratio) 27 mmol/g creat 20-233 sodium, random urine (test code = sodium, random urine) 43 mmol/L 28-272 creatinine, random urine (test code = creatinine, random uri ne) 159 mg/dL 20-370 [facility] HospitalPhosphate [Mass/volume] in Serum or [id number] 16:31:00* Test Item Value Reference Range Interpretation Comments phosphate ( phosphorus) (test code = phosphate ( phospho promise)) 3.0 mg/dL 2.1-4.3 [facility] HospitalCBC W Auto Differential panel - [id number] 15:29:00 * Test Item Value Reference Range [...] (test code = baso#) 0.05 x10*3/?L 0.01-0.09 [facility] metabolic panel - [id number] 04:30:00* Test Item Value Reference Range Interpretation [...] performing lab: (test code = performing lab:) [facility] with Ordered Manual Differential panel [...] performing lab: (test code = performing lab:) [facility] HospitalInfluenza virus A Ag [Presence] in [id number] 18:04:00* Test Item Value Reference Range Interpretation Comments influenza A Ag (test code = influenza A Ag) see below performing lab: (test code = performing lab:) [facility] HospitalInfluenza virus B Ag [Presence] in Unspecified specimen 2016-11-22 18:04:00* Test Item Value Reference Range Interpretation Comments influenza B Ag (test code = influenza B Ag) see below performing lab: (test code = performing lab:) [facility] HospitalCB W Auto Differential panel - [id number] 04:21:00 * Test Item Value Reference Range [...] performing lab: (test code = performing lab:) [facility] HospitalHemoglobin A1c/Hemoglobin.total in [id number] 04:21:00* Test Item Value Reference Range Interpretation Comments glycosylated hemoglobin (ha1c) (test code = glycosylat ed hemoglobin (ha1c)) 6.9 % 4.5-6.2 H estimated average glucose (test code = estimated average glucose) 1 51 mg/dL performing lab: (test code = performing lab:) [facility] HospitalCom[facility] 2000 panel - Serum or [...] performing lab: (test code = performing lab:) [facility] HospitalPhosphate [Moles/volume] in [id number] 04:21:00* Test Item Value Reference Range Interpretation Comments phosphorus (test code = phosphorus) 2.1 mg/dL 2.6-4.7 L performing lab: (test code = performing lab:) [facility] HospitalLipase [Enzymatic activity/volume] in Serum or Plasma 2016-11-22 04:21:00* Test Item Value Reference Range Interpretation Comments lipase (test code = lipase) 93 U/L 73.0-393.0 performing lab: (test code = performing lab:) [facility] PracticeMagnesium [Moles/volume] in Serum or [id number] 04:21:00* Test Item Value Reference Range Interpretation Comments magnesium (test code = magnesium) 1.9 mg/dL 1.6-2.3 performing lab: (test code = performing lab:) [facility] HospitalMicroscopic observation [Identifier] in Sputum by Gram [id number] 02:00:00* Test Item Value Reference Range Interpretation Comments gram stain sputum (test code = gram stain sputum) see below performing lab: (test code = performing lab:) [facility] HospitalBacteria identified in Sputum by [id number] 02:00:00* Test Item Value Reference Range Interpretation Comments sputum culture (test code = sputum culture) see below performing lab: (test code = performing lab:) [facility] [facility]/volume] in Serum or Plasma 2016-11-21 09:58:00* Test Item Value Reference Range Interpretation Comments troponin-I (test code = troponin-I) <0.015 0.00-0.056 performing lab: (test code = performing lab:) [facility]Mass/volume] in Serum or Plasma 2016-11-21 06:45:00* Test Item Value Reference Range Interpretation Comments troponin-I (test code = troponin-I) <0.015 0.00-0.056 performing lab: (test code = performing lab:) [facility] by [id number] 04:40:00* Test Item Value Reference Range Interpretation Comments blood culture (test code = blood culture) see below performing lab: (test code = performing lab:) [facility] by [id number] 04:30:00* Test Item Value Reference Range Interpretation Comments blood culture (test code = blood culture) see below performing lab: (test code = performing lab:) [facility] [id number] 02:50:00* Test Item Value Reference Range Interpretation Comments troponin I rapid (test code = troponin I rapid) 0.01 NG/mL <0.08 performing lab: (test code = performing lab:) [facility] [id number] 02:49:00* Test Item Value Reference Range Interpretation Comments BNP rapid (test code = BNP rapid) 53 pg/mL 0-100 performing lab: (test code = performing lab:) [facility] Auto Differential panel - [id number] 02:40:00 * Test Item Value Reference Range [...] performing lab: (test code = performing lab:) [facility] 2000 panel - Serum or [...] performing lab: (test code = performing lab:) [facility]
--- NOTE | 2020-08-03 04:04 | NUR ---
PT IS TRANSFERRED FROM ER AOX3 .RESPIRATIONS ARE EVEN AND UN LABORED DENIES CHEST PAIN NOW .SKIN WARM AND DRY TOTOUCH TELE SHOWS SR WITH IST DEGREE BLOCK ORIENTED THE PT TO THE ENVIRONMENT .PHYSICAL ASSESSMENT DONE .PT RESTING ,CALL LIGHT WITH IN REACH ,CONTINUE TO MONITOR``
--- NOTE | 2020-08-03 05:28 | NUR ---
PT RESTED DURING THE NIGHT ,DENIES THE PAIN CALL LIGHT WITH IN REACH CONTINUE TO MONITOR
[2020-08-03] MEDS: HYDRALAZINE HCL 20 MG/ML VIAL IV PRN ×3 (05:48→21:30)
[2020-08-03] MEDS: NITROGLYCERIN 0.4 MG SUBL SL PRN ×6 (06:00→21:00)
--- NOTE | 2020-08-03 06:31 | NUR ---
Business Trainer responded to Rapid. Provided calming pastoral presence for pt and staff. Will follow as able. L[facility] O: [phone]
[2020-08-03] MEDS ORDERED: FENTANYL CITRATE/PF 100MCG/2 ML INJ ONE (06:38)
[2020-08-03 06:54] LABS: BASOPHILS # (AUTO) 0.1 (0.0-0.1); BASOPHILS % 0.8 % (0.0-1.0); EOSINOPHILS % 14.7 % (0.0-6.0); HEMATOCRIT 42.8 % (38.2-49.6); LYMPHOCYTES # (AUTO) 2.5 (1.0-3.2); LYMPHOCYTES % 18.8 % (18.0-39.1); MEAN CORPUSCULAR HEMOGLOBIN 33.5 pg (28-32); MEAN CORPUSCULAR VOLUME 95.5 fL (81-99); MONOCYTES % 7.3 % (4.4-11.3); NEUTROPHILS # (AUTO) 7.7 (2.1-6.9); PLATELET COUNT 198 x10e3/uL (140-360); RED BLOOD COUNT 4.48 x10e6/uL (4.3-5.7); RED CELL DISTRIBUTION WIDTH 12.4 % (11.7-14.4)
[2020-08-03] MEDS ORDERED: FENTANYL CITRATE/PF 100MCG/2 ML INJ IV ONE (07:00)
[2020-08-03 07:05] LABS: ALBUMIN 4.3 g/dL (3.5-5.0); ALBUMIN/GLOBULIN RATIO 1.4 (0.8-2.0); ANION GAP 17.6 mmol/L (8-16); CALCIUM 9.7 mg/dL (8.4-10.2); CREATININE, SERUM 1.32 mg/dL (0.72-1.25); POTASSIUM 3.6 mmol/L (3.5-5.1)
[2020-08-03 07:07] LABS: INR 0.89; PROTHROMBIN TIME 12.5 seconds (11.9-14.5)
[2020-08-03 07:12] LABS: CREATINE KINASE MB 0.8 ng/mL (0-5.0)
--- NOTE | 2020-08-03 07:15 | NUR ---
pt resting comfortably no c/o pain at this time.
--- NOTE | 2020-08-03 07:38 | NUR ---
BEDSIDE REPORT GIVEN TO THE ONCOMING NURSE
--- NOTE | 2020-08-03 07:38 | NUR ---
AT6.OO AM PT C/O LEFT SHOULDER PAIN EKG DONE AND PUT O2N/C .PT C/O CHEST PAIN AND GIVEN NITRO X2 .PT STILL C/O CHEST PAIN AND CALLED RAPID TEAM .LABS CBC ,CMP CARDIAC ENZYME PT/PTT /INR ADMINISTERED FENTANYL 50 MG I AND GIVEN NITRO O.4MG SL AT AT 0621 .ER DOCTOR ORDERED EKG AT 0730 AM AND CARDIAC ENZYMES AT 10AM ,DR LAMBERT IS NOTIFIED BY LOCKSTITCH MACHINE OPERATOR .PT RESTING NOW ,BEDSIDE REPORT GIVEN TO THE ONCOMING NURSE
--- NOTE | 2020-08-03 08:58 | Diagnostic Imaging Report ---
EXAM: CHEST SINGLE (PORTABLE) DATE: 08/03/2020 7:04 AM INDICATION: Chest pain COMPARISON: 08/03/2020 at 0020 FINDINGS: Post surgical changes from prior median sternotomy noted. The trachea is midline. Again noted are calcified pleural plaques. There is no evidence for new large focal consolidation, pneumothorax, or significant pleural effusion. The cardiomediastinal silhouette is stable in appearance. No acute osseous abnormality is identified. IMPRESSION: No acute cardiopulmonary or significant interval change is identified from earlier 08/03/2020. Signed by: Dr. Loki Gómez MD on 08/03/2020 8:55 AM
[2020-08-03] MEDS ORDERED: ASPIRIN 81 MG ENTERIC COATED PO SCH (09:00)
[2020-08-03] MEDS: CLOPIDOGREL BISULFATE 75 MG TAB PO SCH (09:00)
[2020-08-03] MEDS ORDERED: DEXTROSE 50% SYRINGE 50 ML IV PRN (11:00)
[2020-08-03 11:49] LABS: CREATINE KINASE MB 0.9 ng/mL (0-5.0)
--- NOTE | 2020-08-03 12:30 | NUR ---
dr. nobles rounded on pt. no new orders.
--- NOTE | 2020-08-03 15:46 | History and Physical ---
CHIEF COMPLAINT: Chest pain. HISTORY OF PRESENT ILLNESS: A 75-year-old male, morbidly obese, extensive cardiac history, had a CABG several times in the past, has a bioprosthetic aortic valve, history of hypertension, diabetes, hyperlipidemia, who comes into the ED with complaints of chest pressure and left arm discomfort. The patient reports that this began yesterday and his pain is similar to prior heart attacks. He recently was here several weeks ago and was discharged to home. He had a cardiac cath back in March at [facility] and underwent PCI at that time. The patient was seen and evaluated at bedside on the medical floor. He is currently doing well with no other issues at this time. He denies any chest pain during my evaluation. REVIEW OF SYSTEMS: Pertinent positive: Chest pain. Rest of the 14-point review of systems are reviewed with the patient and are negative. ALLERGIES: DARVOCET. HOME MEDICATIONS: Aspirin, Celebrex, Plavix, hydrochlorothiazide, irbesartan, Coreg, Toviaz, lisinopril, Prilosec, triamterene, hydrochlorothiazide, amlodipine, atorvastatin, finasteride, furosemide, loperamide, isosorbide mononitrate, metoprolol, Ranexa, simvastatin, Flomax. PAST MEDICAL HISTORY: He has BPH, hyperlipidemic, extensive cardiac history with CABG, CAD, PCIs in the past, type 2 diabetes, BPH, hypertension. PAST SURGICAL HISTORY: CABG in the past. PCIs in the past. He had left heart cath. PAST FAMILY HISTORY: Hypertension, diabetes. SOCIAL HISTORY: No drugs. No alcohol. Does not smoke. Good social support. PHYSICAL EXAMINATION: VITAL SIGNS: Temperature is 97.7, pulse 94, respiratory rate is 16, blood pressure , pulse ox 99% on 2 L nasal cannula. GENERAL: No acute distress. Alert and oriented x3. Cooperative on examination. HEENT: Head is normocephalic and atraumatic. Eyes; pupils are equal, round, reactive to light bilaterally. Extraocular movements are intact bilaterally. Throat, no evidence of erythema or exudate in the posterior pharynx. Has poor dentition. NECK: Supple. Good range of motion. PULMONARY: Clear to auscultation bilaterally. No wheezing, rales, or rhonchi. No crackles appreciated. CARDIOVASCULAR: Positive S1, S2. No murmurs, rubs, or gallops appreciated. ABDOMEN: Soft, nondistended, and nontender to palpation. Bowel sounds present. MUSCULOSKELETAL: Strength 5/5 throughout. No evidence of any muscle deficits on examination. SKIN: Intact. Warm to touch. Good cap refill. PSYCHIATRIC: Normal affect and mood. EXTREMITIES: No edema. Good range of motion throughout. LABORATORY FINDINGS: Show white count 13, hemoglobin 15, hematocrit is 43, platelets of 198. Chemistry; sodium 142, potassium 3.6, chloride 106, bicarb 22, anion gap of 17, BUN is 20, creatinine is 1.32, glucose is 128, calcium is 9.7. LFTs within normal range. Troponins were negative. Albumin 4.3. Serology; coronavirus is pending. MICROBIOLOGY: None. IMAGING STUDIES: Chest x-ray shows no acute cardiopulmonary or significant interval changes identified from earlier chest x-ray. He had a chest x-ray on admission, shows coronary stents with mild cardiomegaly. IMPRESSION: 1. Chest pain, rule out acute coronary syndrome with an extensive cardiac history with coronary artery bypass grafting, percutaneous coronary interventions. 2. Type 2 diabetes. 3. Hypertension. 4. Morbid obesity. 5. Benign prostatic hypertrophy. PLAN: At this time trend cardiac enzymes, EKG shows no acute findings. Cardiac telemetry, cardioprotective medications, aspirin, statin, and Cardiology consultation. Continue with Ranexa and resume same antihypertensive medications. Await for final recommendations by Cardiology. Once it is evaluated, I will restart all his home medications. Put him on Lovenox for DVT prophylaxis. I did order a CT of the chest to rule out any kind of dissection to evaluate the aorta due to his pain. We will monitor very closely. Heart healthy diet. Plan of care discussed with nursing staff. MD LARRY Rincon/ELIO /[id number]
--- NOTE | 2020-08-03 16:50 | NUR ---
pt signed consent for angiogram in am.
[2020-08-03] MEDS: RANOLAZINE 500 MG TABSR PO SCH (17:21)
[2020-08-03] MEDS: ENOXAPARIN 30 MG/0.3 ML SYR SC SCH (17:28)
--- NOTE | 2020-08-03 18:52 | Consultation ---
DATE OF CONSULTATION: Cardiology Consultation HISTORY OF PRESENT ILLNESS: This is a 75-year-old male with history of coronary artery disease status post percutaneous intervention and coronary artery bypass graft surgery with recent intervention of the saphenous vein graft, aortic valve replacement with a bioprosthetic valve, hypertension, diabetes mellitus, and hyperlipidemia, who presented to the emergency department with left arm discomfort. The patient states that his symptoms were [id number] in intensity, worse than previous episodes, no typical angina, associated with some mild shortness of breath, no other exacerbating or relieving factors. REVIEW OF SYSTEMS: A 12-point review of system was conducted, is negative except as stated above in the HPI. PAST MEDICAL HISTORY: As stated above in the HPI. PAST SURGICAL HISTORY: Percutaneous coronary intervention. PAST FAMILY HISTORY: Noncontributory to current illness. ALLERGIES: DARVOCET. MEDICATIONS: See medication reconciliation form. SOCIAL HISTORY: No illicit drug, alcohol, or tobacco use. PHYSICAL EXAMINATION: VITAL SIGNS: Temperature is 97.7, heart rate 77, respirations 16, blood pressure is 140/76, and saturation 100% on 2 L nasal cannula. GENERAL: Well appearing, well built, in no apparent distress. Alert and oriented x3. HEAD: Normocephalic and atraumatic. EYES: The extraocular muscles are intact. Conjunctivae are clear. NECK: No JVD. No bruits. CARDIOVASCULAR: Regular rate and rhythm. LUNGS: Clear to auscultation. ABDOMEN: Soft, nontender, and nondistended. EXTREMITIES: No clubbing, cyanosis, or edema. VASCULAR: 2+ pulses. SKIN: Warm, dry, and intact. NEUROLOGIC: No focal deficits noted. LABORATORY DATA: Reviewed. Medications reviewed. A 12-lead electrocardiogram, no ischemic changes, normal sinus rhythm. IMPRESSION: 1. Precordial pain, concerning for unstable angina. 2. Coronary artery disease, status post percutaneous coronary intervention and coronary artery bypass graft surgery. 3. Diabetes mellitus. 4. Hypertension. 5. Obesity. 6. Chronic kidney disease. RECOMMENDATIONS: The patient states that his pain is similar to previous episodes, where he required coronary intervention. The patient states that his symptoms have become severe at this point in time. Continue all current cardiovascular medications. The patient will require cardiac catheterization to evaluate previously placed stents and for the possibility of repeat intervention. We will continue to follow along with you. Joo DO MALLORY Mcginnis/ELIO /[id number]
[2020-08-03 19:01] LABS: CREATINE KINASE MB 0.9 ng/mL (0-5.0)
--- NOTE | 2020-08-03 19:07 | NUR ---
call to Dr. Mcginnis, for pt pain in left upper arm.
--- NOTE | 2020-08-03 19:18 | NUR ---
report given to oncoming nurse, resp evn and unlabored at this time no distress noted, walking rounds complete.
--- NOTE | 2020-08-03 19:41 | NUR ---
RECEIVED PT IN BED AOX3 .PT C/O PAIN 01/12 .PT IS NPO AFTER MIDNIGHT TO DO ANGIO GRAM ,CALL LIGHT WITH IN REACH CONTINUE TO MONITOR
[2020-08-03] MEDS: SIMVASTATIN 40 MG TAB PO SCH (21:20)
[2020-08-03] MEDS: MORPHINE SULFATE 2 MG/ML SYR 1ML IV PRN (22:09)
[2020-08-03] MEDS: ONDANSETRON HCL INJ 2MG/ML 2ML 2 MG/ML VIAL IV PRN (22:13)
--- NOTE | 2020-08-03 22:18 | NUR ---
PT C/O CHEST PAIN GIVEN NITRO X2 AND PT STILL C/O PAIN NOTIFIED DR SESAY AND GOT THE ORDER FOR MORPHINE 2MG ,STAT EKG AND TROPONIN .MEDICATED THE PT WITH MORPHINE .PT RESTING ,CONTINUE TO MONITOR
[2020-08-04] VITALS (7 sets, daily range): BP systolic 149–187; BP diastolic 63–86
[2020-08-04] MEDS: MORPHINE SULFATE 2 MG/ML SYR 1ML IV PRN ×2 (05:31→13:04)
[2020-08-04] MEDS: ONDANSETRON HCL INJ 2MG/ML 2ML 2 MG/ML VIAL IV PRN (05:31)
--- NOTE | 2020-08-04 06:01 | NUR ---
PT IS NPO FOR ANGIOGRAM C/O CHEST PAIN AND GIVEN ORDERED MORPHINE ,PT HAD SHOWER ,CALL LIGHT WITH IN REACH ,CONTINUE TO MONITOR
[2020-08-04 06:36] LABS: CHOL/HDL RATIO 6.1 (3.9-4.7); CHOLESTEROL 212 MD/DL (0-199); HDL CHOLESTEROL 35 MG/DL (40-60); TRIGLYCERIDES 439 MG/DL (0-149)
--- NOTE | 2020-08-04 07:14 | NUR ---
BEDSIDE REPORT GIVEN TO THE ONCOMING NURSE
[2020-08-04] MEDS: GLIMEPIRIDE 2 MG TAB PO SCH (07:30)
--- NOTE | 2020-08-04 07:38 | NUR ---
radiology called to inquire if CTA was to be done, pt is also scheduled for angiogram, concerned about amount of contrast patient would receive. notified Dr Diaz and MD is unsatisfied that CTA was not done yesterday when it was ordered. RN looked into order and discovered that the CTA was rescheduled for today's date 08/04/2020. According to CT, Dr. Mcginnis did not want the CTA to be done yesterday so he could re-do tests. relayed information to Dr. Diaz
[2020-08-04] MEDS: CLOPIDOGREL BISULFATE 75 MG TAB PO SCH (09:00)
[2020-08-04] MEDS: FINASTERIDE 5 MG TAB PO SCH (09:00)
[2020-08-04] MEDS: ISOSORBIDE MONONITRATE 30 MG TAB CR PO SCH (09:00)
[2020-08-04] MEDS ORDERED: ATORVASTATIN 20 MG TAB PO SCH (09:00)
[2020-08-04] MEDS ORDERED: ISOSORBIDE MONONITRATE 20 MG TAB PO SCH (09:00)
[2020-08-04] MEDS: TAMSULOSIN HCL 0.4 MG CAP PO SCH (09:00)
[2020-08-04] MEDS: RANOLAZINE 500 MG TABSR PO SCH ×2 (09:00→17:49)
[2020-08-04] MEDS: FUROSEMIDE 40 MG TAB PO SCH (09:00)
[2020-08-04] MEDS: AMLODIPINE BESYLATE 10 MG TAB PO SCH (09:00)
[2020-08-04] MEDS: METOPROLOL SUCCINATE 50 MG TAB XL PO SCH (09:00)
[2020-08-04] MEDS ORDERED: HEPARIN SOD (PORCINE) 1000 UNIT/ML 30ML ONE (09:12)
[2020-08-04] MEDS ORDERED: VERAPAMIL HCL 2.5 MG/ML 2 ML VIAL ONE (09:12)
[2020-08-04] MEDS ORDERED: LIDOCAINE HCL 2% LOCAL 20 ML VIAL ONE (09:13)
[2020-08-04] MEDS ORDERED: HEPARIN SOD/SOD CHLORIDE 2,000 ML ONE (09:13)
[2020-08-04] MEDS ORDERED: FENTANYL CITRATE/PF 100MCG/2 ML INJ ONE (09:13)
[2020-08-04] MEDS ORDERED: MIDAZOLAM HCL 2 MG/2 ML VIAL ONE (09:13)
[2020-08-04] MEDS ORDERED: SODIUM CHLORIDE 0.9% 1000ML 1,000 ML ONE (09:14)
[2020-08-04] MEDS ORDERED: IOPAMIDOL 370 MG/ML 200 ML INFUS..BTL INJ ONE ×2 (09:14→11:10)
[2020-08-04] MEDS ORDERED: NITROGLYCERIN/D5W 200 MCG/ML 250 ML ONE (09:14)
[2020-08-04] MEDS ORDERED: ADENOSINE 6MG/2ML 1 ML ONE (10:59)
[2020-08-04] MEDS ORDERED: SODIUM CHLORIDE 0.9% 250ML 250 ML ONE (10:59)
[2020-08-04] MEDS ORDERED: TICAGRELOR 90 MG TABLET ONE (11:07)
[2020-08-04] MEDS ORDERED: ASPIRIN 81 MG CHEW TAB ONE (11:07)
[2020-08-04] MEDS ORDERED: HYDRALAZINE HCL 20 MG/ML VIAL ONE (11:08)
--- NOTE | 2020-08-04 13:16 | Progress Note ---
DATE: Cardiology Progress Note SUBJECTIVE: The patient is status post heart catheterization, underwent percutaneous coronary intervention of the saphenous vein graft. He is feeling better. OBJECTIVE: VITAL SIGNS: Temperature is 97.7, heart rate is 93, respirations are 22, blood pressure is 187/86, and oxygen saturation 98% on 2 L nasal cannula. GENERAL: Well appearing, in no apparent distress. CARDIOVASCULAR: Regular rate and rhythm. LUNGS: Clear to auscultation. ABDOMEN: Soft, nontender, and nondistended. EXTREMITIES: No clubbing, cyanosis or edema. LABORATORY DATA: Reviewed. CARDIOVASCULAR MEDICATIONS: Reviewed. IMPRESSION: 1. Unstable angina. 2. Coronary artery disease, status post coronary artery bypass graft surgery and percutaneous coronary intervention most recently of the saphenous vein graft to his diagonal branch. 3. Diabetes mellitus. 4. Hypertension. 5. Obesity. 6. Chronic kidney disease. RECOMMENDATIONS: The patient's chest pain is better. He received two stents to saphenous vein graft to the first diagonal. The patient has residual disease in his left anterior descending coronary artery that will need to be fixed at a later date. Continue current cardiovascular medications with the exception of changing his Plavix to Brilinta. We will continue to follow along with you. DO MALLORY Vásquez/KASHL /[id number]
[2020-08-04] MEDS: TICAGRELOR 90 MG TABLET PO SCH (16:35)
--- NOTE | 2020-08-04 16:35 | NUR ---
SPOKE WITH DR. DEMARCO TO CLARIFY ORDERS, OKAY WITH PATIENT GETTING BRILINTA AND LOVENOX
[2020-08-04] MEDS: ENOXAPARIN 30 MG/0.3 ML SYR SC SCH (17:49)
--- NOTE | 2020-08-04 20:00 | NUR ---
INITIAL ASSESSMENT COMPLETE, CALL LIGHT IN REACH, TELE ON PT, RIGHT GROIN WITH PUNCTURE WOUND FROM CARDIAC CATH TODAY, PRESSURE DRESSING REINFORCED, NO BLEEDING NOTED AT THIS TIME, NO PAIN AT THIS TIME NOTED, ROOM AIR, VS WNL, NO DISTRESS NOTED,
[2020-08-04] MEDS: SIMVASTATIN 40 MG TAB PO SCH (20:43)
[2020-08-05] VITALS: BP 171/66
[2020-08-05 04:00] VITALS: BP 171/76
[2020-08-05 08:00] VITALS: BP 168/74
[2020-08-05] MEDS: ISOSORBIDE MONONITRATE 30 MG TAB CR PO SCH (08:15)
[2020-08-05] MEDS: TICAGRELOR 90 MG TABLET PO SCH (08:15)
[2020-08-05] MEDS: GLIMEPIRIDE 2 MG TAB PO SCH (08:15)
[2020-08-05] MEDS: TAMSULOSIN HCL 0.4 MG CAP PO SCH (08:15)
[2020-08-05] MEDS: AMLODIPINE BESYLATE 10 MG TAB PO SCH (08:16)
[2020-08-05] MEDS: RANOLAZINE 500 MG TABSR PO SCH (08:16)
[2020-08-05] MEDS: FINASTERIDE 5 MG TAB PO SCH (08:16)
[2020-08-05] MEDS: METOPROLOL SUCCINATE 50 MG TAB XL PO SCH (08:16)
[2020-08-05] MEDS: FUROSEMIDE 40 MG TAB PO SCH (08:16)
[2020-08-05 09:14] VITALS: BP 168/74
[2020-08-05 09:17] LABS: ANION GAP 12.7 mmol/L (8-16); CALCIUM 9.8 mg/dL (8.4-10.2); CREATININE, SERUM 1.27 mg/dL (0.72-1.25); POTASSIUM 3.7 mmol/L (3.5-5.1)
[2020-08-05 09:43] LABS: BASOPHILS # (AUTO) 0.1 (0.0-0.1); BASOPHILS % 0.7 % (0.0-1.0); EOSINOPHILS # (AUTO) 2.2 (0.0-0.4); EOSINOPHILS % 16.6 % (0.0-6.0); HEMATOCRIT 44.6 % (38.2-49.6); HEMOGLOBIN 15.4 g/dL (14.0-18.0); LYMPHOCYTES # (AUTO) 1.6 (1.0-3.2); LYMPHOCYTES % 12.1 % (18.0-39.1); MEAN CORPUSCULAR HEMOGLOBIN 32.8 pg (28-32); MEAN CORPUSCULAR HGB CONC 34.5 g/dL (31-35); MEAN CORPUSCULAR VOLUME 94.9 fL (81-99); MONOCYTES # (AUTO) 0.9 (0.2-0.8); MONOCYTES % 6.7 % (4.4-11.3); NEUTROPHILS # (AUTO) 8.5 (2.1-6.9); NEUTROPHILS % 63.4 % (38.7-80.0); PLATELET COUNT 225 x10e3/uL (140-360); RED CELL DISTRIBUTION WIDTH 12.6 % (11.7-14.4)
--- NOTE | 2020-08-05 10:30 | Progress Note ---
DATE: 08/04/2020 SUBJECTIVE: The patient underwent left heart catheterization earlier this morning, underwent having two cardiac stent placements by Cardiology. He is currently doing well post procedure with no complaints. LABORATORY DATA: Labs reviewed. CBC and chemistry were stable. MICROBIOLOGY: None. IMAGING STUDIES: None. PHYSICAL EXAMINATION: VITAL SIGNS: He is afebrile, normotensive. Respiratory rate is good. GENERAL: No acute distress, alert and oriented x3. PULMONARY: Clear to auscultation bilaterally. No wheezing, rales, or rhonchi. No crackles appreciated. CARDIOVASCULAR: Positive S1, S2. No murmurs, rubs, or gallops appreciated. ABDOMEN: Soft, nondistended, nontender to palpation. Bowel sounds present. MUSCULOSKELETAL: Strength 5/5 throughout. NEUROLOGICAL: Cranial nerves intact. SKIN: Intact. Warm to touch. Good cap refill. PSYCHIATRIC: Normal affect and mood. EXTREMITIES: No edema. Good range of motion throughout. IMPRESSION: 1. Unstable angina with extensive cardiac history with coronary artery bypass graft and percutaneous coronary intervention in the past, now status post left heart catheterization performed on 08/04/2020 with percutaneous coronary intervention placement. 2. Type 2 diabetes. 3. Hypertension. 4. Morbid obesity. 5. Benign prostatic hypertrophy. PLAN: At this time, the patient underwent heart catheterization today on 08/04/2020 with two stents placed. He is currently chest pain free . We will continue same plan of care. Cardioprotective medications. Anti-platelet therapy, statins. At this time, was canceled by the post partum nurse. He had an aortogram, which seems to be stable with no issues. At this point, once he has been cleared by Cardiology, we will discharge him to home. The patient has always had chest pain in the past. In fact, he was recently just discharged with no intervention, now he had an intervention. MD LARRY Rincon/MODL /[id number]
[2020-08-05 10:32] LABS: EOSINOPHILS % (MANUAL) 19 % (0-7); LYMPHOCYTES % (MANUAL) 8 % (19-48); MONOCYTES % (MANUAL) 3 % (3.4-9.0); NEUTROPHILS % (MANUAL) 65 % (40-74); PLATELET ESTIMATE ADEQUATE; PLATELET MORPHOLOGY COMMENT NORMAL; RBC MORPHOLOGY COMMENT NORMAL
[2020-08-05 12:00] VITALS: BP 135/73
[2020-08-05] MEDS ORDERED: LOSARTAN POTASSIUM 100 MG TAB PO SCH (15:00)
[2020-08-05 16:00] VITALS: BP 125/74
--- NOTE | 2020-08-05 17:28 | NUR ---
spoke with Dr. Mcginnis, he cleared the patient to go home and approved of prescriptions for Brilinta and Losartan that was left by Dr. Diaz. informed Dr. Diaz and patient will be discharged
--- NOTE | 2020-08-27 21:18 | Discharge Summary ---
DISCHARGE DIAGNOSES: 1. Unstable angina with extensive cardiac history with coronary bypass and PCI in the past, now status post left heart catheterization performed on 08/04/2020, with PCI placement. 2. Type 2 diabetes. 3. Hypertension. 4. Morbid obesity. 5. Benign prostatic hypertrophy. CONSULTANTS: Cardiology. PHYSICAL EXAMINATION: VITAL SIGNS: Temperature 97.6, pulse is 75, respirations 20, blood pressure 125/74, and pulse ox 98% on room air. LABORATORY FINDINGS: White count of 13, hemoglobin 15, hematocrit 44, and platelets of 225. Coagulation; PT 12, INR 0.89, PTT 30. Chemistry; sodium 136, potassium 3.7, chloride 104, bicarb 23, anion gap of 12, BUN 17 and creatinine 1.27, glucose 207, calcium is 9.8. Troponins were found to be negative. Triglycerides was 439, LDL was undetectable. It was extremely above the measurement. Serology; coronavirus was not detected. MICROBIOLOGY: None. IMAGING STUDIES: Chest x-ray showed coronary stents and mild cardiomegaly. HOSPITAL COURSE: A 75-year-old male has a significant cardiac history with multiple stents in the past and CABG, comes in with unstable angina, prompting Cardiology consultation. Cardiac enzymes were found to be negative. The patient underwent a left heart catheterization, in which the patient had stents placed via PCI during that procedure. Postprocedurally, the patient was doing well with no complaints. He maintained on anti-platelet therapy and cardioprotective medications. The patient's chest pain resolved. The patient is to continue with same home medications. The adjustment of medications was done appropriately and accordingly prior to being discharged. The patient was doing well back to baseline with no other issues. He was afebrile, normotensive, respiratory rate is good. The patient was cleared for discharge by Cardiology. On the day of discharge, vital signs were stable, labs reviewed and stable. The patient seen and evaluated and examined thoroughly on the day of discharge. No other complaints. The patient verbalized understanding and agrees to plan of care to follow up accordingly as an outpatient with the primary care physician in 1 week and supervisor mattress and boxsprings in 2 weeks' time. MEDICATIONS: See med reconciliation form. DISPOSITION: Home. CONDITION: Stable. DIET: Heart healthy. In the event of any worsening symptoms, the patient was advised to come back to the ED for further evaluation. Discharge summary took greater than 35 minutes. MD LARRY Rincon/ELIO /[id number]
--- NOTE | 2020-09-09 12:13 | Operative Report ---
DATE OF PROCEDURE: 08/04/2020 SURGEON: Joo Mcginnis DO PROCEDURES PERFORMED: 1. Conscious sedation, 45 minutes. 2. Selective coronary angiography x2. 3. Left heart catheterization. 4. Selective graft angiography x3. 5. Percutaneous coronary intervention of the saphenous vein graft anastomosed to the diagonal branch. PRE-PROCEDURE DIAGNOSIS: Non-ST elevation myocardial infarction with known coronary disease with unstable angina. POSTPROCEDURE DIAGNOSIS: Non-ST elevation myocardial infarction with known coronary disease with unstable angina. ESTIMATED BLOOD LOSS: Less than 30 mL. SPECIMENS REMOVED: None. PROCEDURE IN DETAIL: After informed consent was obtained, the patient was brought to the cardiac cath laboratory in a fasting and nonsedated state. Bilateral groins were prepped and draped in the usual sterile fashion. The patient received fentanyl and midazolam administered by the dental laboratory assistant nurse and his neurologic and physiologic status was monitored by myself and dental laboratory assistant staff for 45 minutes. Next, diagnostic selective coronary angiography x2 and diagnostic graft angiography x4 were performed. Diagnostic imaging revealed a 70 and 90% stenosis in the saphenous vein graft that is anastomosed to the first diagonal branch. Decision was made to intervene. The patient received additional heparin for therapeutic anticoagulation. Next, the lesion was crossed with a Runthrough wire and exchanged out for a filter wire. The distal lesion was stented with a 3.5 x 16 Synergy drug-eluting stent. The proximal lesion was stented with a 3.5 x 16 Synergy drug-eluting stent and post dilated with a 3.75 noncompliant balloon. The patient tolerated the procedure well, no immediate complications, transferred back to his room in stable condition. PROCEDURAL FINDINGS: 1. Left main coronary artery is patent. 2. The mid LAD is occluded as is the first diagonal branch. The distal LAD has a severe stenosis distal to the internal mammary anastomosis. 3. The proximal left circumflex coronary has severe diffuse disease and the 1st OM is occluded. 4. The right coronary artery is occluded proximally. 5. There is a patent saphenous vein graft seen anastomosed to the distal right coronary artery. 6. There is one saphenous vein graft anastomosed to the first obtuse marginal vessel which is patent. There are stents in the proximal portion of this graft that are patent. 7. There is a saphenous vein graft seen anastomosed to the diagonal branch with two tandem 70% and 90% lesions. 8. Left internal mammary artery is patent and sees anastomosed to the LAD. 9. Left ventricular end-diastolic pressure was 20 mmHg. IMPRESSION: Coronary artery disease with severe graft stenosis, status post intervention of the saphenous vein graft is seen anastomosed to the first diagonal branch. RECOMMENDATIONS: Continue dual antiplatelet therapy and aggressive medical management. DO MALLORY Vásquez/MODL /[id number]
== END 2020-08-05 18:18 | disposition home or self-care (01) ==
LOC: ER 08-03 00:01 → ERHOLD 08-03 02:06 → MED/SURG3 08-03 02:46
PROVIDERS: ADMIT Internal Medicine; ATTEND Internal Medicine
DX: I25.730 Atherosclerosis of nonautologous biological coronary artery bypass graft(s) with unstable angina pectoris (principal); R07.9 Chest pain, unspecified; I25.2 Old myocardial infarction; K21.9 Gastro-esophageal reflux disease without esophagitis; Z95.1 Presence of aortocoronary bypass graft; Z90.49 Acquired absence of other specified parts of digestive tract; Z95.2 Presence of prosthetic heart valve; Z95.5 Presence of coronary angioplasty implant and graft; E66.01 Morbid (severe) obesity due to excess calories; N40.0 Benign prostatic hyperplasia without lower urinary tract symptoms; E78.5 Hyperlipidemia, unspecified; Z83.3 Family history of diabetes mellitus; Z82.49 Family history of ischemic heart disease and other diseases of the circulatory system; E11.22 Type 2 diabetes mellitus with diabetic chronic kidney disease; I12.9 Hypertensive chronic kidney disease with stage 1 through stage 4 chronic kidney disease, or unspecified chronic kidney disease; N18.9 Chronic kidney disease, unspecified; Z11.59 Encounter for screening for other viral diseases; Z68.31 Body mass index [BMI] 31.0-31.9, adult
CPT/HCPCS: 93459; C9604; 36415; 71045; 80048; 80053; 80061; 82550; 82553; 82948; 84484; 85025; 85610; 85730; 92928; 93005; 93306; 99152; 99153; 99284; C1725; C1760; C1769; C1874; C1884; G0378; J0153; J0360; J1644; J1650; J2001; J2250; J2270; J2405; J3010; J7030; J7050; Q9967

== ENCOUNTER 2020-10-09 10:12 | Inpatient (IN) | payer MEDICARE, BC ==
[~2020-10-09] VITALS: Ht 180.3 cm; Wt 94.3 kg
[2020-10-09] MEDS ORDERED: PANTOPRAZOLE 40 MG 10ML VIAL IV STA (10:21)
[2020-10-09] MEDS ORDERED: CLOPIDOGREL BISULFATE 75 MG TAB PO ONE (10:30)
[2020-10-09] MEDS ORDERED: ASPIRIN 81 MG CHEW TAB PO ONE (10:30)
[2020-10-09 10:43] LABS: BASOPHILS # (AUTO) 0.1 (0.0-0.1); BASOPHILS % 0.4 % (0.0-1.0); EOSINOPHILS # (AUTO) 2.4 (0.0-0.4); EOSINOPHILS % 17.2 % (0.0-6.0); HEMATOCRIT 44.2 % (38.2-49.6); HEMOGLOBIN 15.3 g/dL (14.0-18.0); LYMPHOCYTES # (AUTO) 1.9 (1.0-3.2); LYMPHOCYTES % 13.8 % (18.0-39.1); MEAN CORPUSCULAR HEMOGLOBIN 32.8 pg (28-32); MEAN CORPUSCULAR HGB CONC 34.6 g/dL (31-35); MEAN CORPUSCULAR VOLUME 94.8 fL (81-99); MONOCYTES # (AUTO) 0.8 (0.2-0.8); MONOCYTES % 5.7 % (4.4-11.3); NEUTROPHILS # (AUTO) 8.6 (2.1-6.9); NEUTROPHILS % 62.5 % (38.7-80.0); PLATELET COUNT 203 x10e3/uL (140-360); RED BLOOD COUNT 4.66 x10e6/uL (4.3-5.7); RED CELL DISTRIBUTION WIDTH 12.4 % (11.7-14.4)
[2020-10-09 10:51] LABS: INR 0.94; PARTIAL THROMBOPLASTIN TIME 27.7 seconds (23.8-35.5)
[2020-10-09 10:58] LABS: ALBUMIN 4.3 g/dL (3.5-5.0); ALBUMIN/GLOBULIN RATIO 1.2 (0.8-2.0); ANION GAP 19.4 mmol/L (8-16); CALCIUM 9.3 mg/dL (8.4-10.2); CREATININE, SERUM 1.59 mg/dL (0.72-1.25); POTASSIUM 3.4 mmol/L (3.5-5.1)
[2020-10-09] MEDS ORDERED: NITROGLYCERIN 0.4 MG SUBL SL PRN (11:00)
[2020-10-09] MEDS ORDERED: DEXTROSE 50% SYRINGE 50 ML IV PRN (11:00)
[2020-10-09 11:04] LABS: CREATINE KINASE MB 1.2 ng/mL (0-5.0)
[2020-10-09] MEDS: INSULIN LISPRO 100 UNIT/1 ML 3ML VIAL SQ SCH ×3 (11:48→21:19)
[2020-10-09 12:15] VITALS: BP 167/73
[2020-10-09] MEDS ORDERED: TOVIAZ8 MG PO (14:13)
[2020-10-09] MEDS ORDERED: CLOPIDOGREL75 MG PO (14:14)
[2020-10-09 15:20] VITALS: BP 167/73
[2020-10-09] MEDS ORDERED: AZITHROMYCIN 500MG/NS 250 ML 250 ML IV SCH ×2 (15:45→17:00)
[2020-10-09 16:00] VITALS: BP 167/73
[2020-10-09] MEDS ORDERED: SODIUM CHLORIDE 0.9% 250ML 250 ML ONE (16:15)
[2020-10-09] MEDS: AMLODIPINE BESYLATE 10 MG TAB PO SCH (16:22)
[2020-10-09] MEDS: IRBESARTAN 150 MG TAB PO SCH (16:22)
[2020-10-09] MEDS: CEFTRIAXONE SOD 1 GM/NS 50 ML 50 ML IV SCH (16:23)
[2020-10-09] MEDS: RANOLAZINE 500 MG TABSR PO SCH (17:20)
[2020-10-09] MEDS: CELECOXIB 200 MG CAP PO SCH (17:20)
[2020-10-09 18:41] LABS: CREATINE KINASE MB 0.8 ng/mL (0-5.0)
[2020-10-09 20:00] VITALS: BP 151/74
[2020-10-09 20:40] VITALS: BP 151/74
[2020-10-09] MEDS ORDERED: FAMOTIDINE 20 MG/2 ML VIAL IV SCH (21:00)
[2020-10-09] MEDS: SIMVASTATIN 40 MG TAB PO SCH (21:16)
[2020-10-10] VITALS (8 sets, daily range): BP systolic 124–155; BP diastolic 54–80
[2020-10-10 02:11] LABS: CREATINE KINASE MB 0.8 ng/mL (0-5.0)
[2020-10-10] MEDS: CEFTRIAXONE SOD 1 GM/NS 50 ML 50 ML IV SCH (04:50)
[2020-10-10 06:45] LABS: BASOPHILS # (AUTO) 0.1 (0.0-0.1); BASOPHILS % 0.5 % (0.0-1.0); EOSINOPHILS # (AUTO) 2.6 (0.0-0.4); EOSINOPHILS % 23.8 % (0.0-6.0); HEMATOCRIT 38.8 % (38.2-49.6); HEMOGLOBIN 13.2 g/dL (14.0-18.0); LYMPHOCYTES # (AUTO) 1.8 (1.0-3.2); LYMPHOCYTES % 16.4 % (18.0-39.1); MEAN CORPUSCULAR HEMOGLOBIN 32.7 pg (28-32); MONOCYTES # (AUTO) 0.8 (0.2-0.8); MONOCYTES % 7.3 % (4.4-11.3); NEUTROPHILS # (AUTO) 5.6 (2.1-6.9); NEUTROPHILS % 51.5 % (38.7-80.0); PLATELET COUNT 187 x10e3/uL (140-360); RED BLOOD COUNT 4.04 x10e6/uL (4.3-5.7); RED CELL DISTRIBUTION WIDTH 12.5 % (11.7-14.4)
[2020-10-10 07:11] LABS: MAGNESIUM 1.4 MG/DL (1.3-2.1)
[2020-10-10 07:19] LABS: CHOL/HDL RATIO 6.8 (3.9-4.7)
[2020-10-10 07:31] LABS: THYROID STIMULATING HORMONE 1.425 uIU/mL (0.350-4.940)
[2020-10-10 07:32] LABS: ALBUMIN 3.5 g/dL (3.5-5.0); ALBUMIN/GLOBULIN RATIO 1.2 (0.8-2.0); ANION GAP 10.2 mmol/L (8-16); CALCIUM 8.7 mg/dL (8.4-10.2); CREATININE, SERUM 1.24 mg/dL (0.72-1.25); POTASSIUM 3.2 mmol/L (3.5-5.1)
[2020-10-10] MEDS: INSULIN LISPRO 100 UNIT/1 ML 3ML VIAL SQ SCH ×4 (08:00→21:40)
[2020-10-10] MEDS ORDERED: GLIMEPIRIDE 2 MG TAB PO SCH (09:00)
[2020-10-10] MEDS: CELECOXIB 200 MG CAP PO SCH ×2 (09:28→16:57)
[2020-10-10] MEDS: HYDROCHLOROTHIAZIDE 25 MG TAB PO SCH (09:28)
[2020-10-10] MEDS: IRBESARTAN 150 MG TAB PO SCH (09:28)
[2020-10-10] MEDS: ASPIRIN 81 MG ENTERIC COATED PO SCH (09:28)
[2020-10-10] MEDS: TAMSULOSIN HCL 0.4 MG CAP PO SCH (09:29)
[2020-10-10] MEDS: FUROSEMIDE 40 MG TAB PO SCH (09:30)
[2020-10-10] MEDS: ISOSORBIDE MONONITRATE 20 MG TAB PO SCH (09:30)
[2020-10-10] MEDS: OMEPRAZOLE 20 MG CAP PO SCH (09:31)
[2020-10-10] MEDS: CLOPIDOGREL BISULFATE 75 MG TAB PO SCH (09:31)
[2020-10-10] MEDS: AMLODIPINE BESYLATE 10 MG TAB PO SCH (09:31)
[2020-10-10] MEDS: FINASTERIDE 5 MG TAB PO SCH (09:31)
[2020-10-10] MEDS: RANOLAZINE 500 MG TABSR PO SCH ×2 (09:31→16:57)
[2020-10-10] MEDS ORDERED: POTASSIUM CHLORIDE 20 MEQ TAB CR PO ONE (11:00)
[2020-10-10] MEDS ORDERED: LINAGLIPTIN PO SCH (11:30)
[2020-10-10] MEDS ORDERED: METFORMIN HCL PO SCH (11:30)
[2020-10-10] MEDS: SIMVASTATIN 40 MG TAB PO SCH (21:40)
[2020-10-11] VITALS (9 sets, daily range): BP systolic 136–173; BP diastolic 54–93
[2020-10-11 05:18] LABS: BASOPHILS # (AUTO) 0.1 (0.0-0.1); BASOPHILS % 0.8 % (0.0-1.0); EOSINOPHILS # (AUTO) 2.9 (0.0-0.4); EOSINOPHILS % 26.8 % (0.0-6.0); HEMATOCRIT 37.1 % (38.2-49.6); HEMOGLOBIN 12.8 g/dL (14.0-18.0); LYMPHOCYTES # (AUTO) 2.2 (1.0-3.2); LYMPHOCYTES % 20.4 % (18.0-39.1); MEAN CORPUSCULAR HGB CONC 34.5 g/dL (31-35); MEAN CORPUSCULAR VOLUME 95.6 fL (81-99); MONOCYTES # (AUTO) 0.8 (0.2-0.8); MONOCYTES % 7.9 % (4.4-11.3); NEUTROPHILS # (AUTO) 4.7 (2.1-6.9); NEUTROPHILS % 43.6 % (38.7-80.0); PLATELET COUNT 185 x10e3/uL (140-360); RED BLOOD COUNT 3.88 x10e6/uL (4.3-5.7); RED CELL DISTRIBUTION WIDTH 12.3 % (11.7-14.4)
[2020-10-11 05:51] LABS: ALBUMIN 3.4 g/dL (3.5-5.0); ALBUMIN/GLOBULIN RATIO 1.2 (0.8-2.0); ANION GAP 12.3 mmol/L (8-16); CALCIUM 8.4 mg/dL (8.4-10.2); CREATININE, SERUM 1.3 mg/dL (0.72-1.25); POTASSIUM 3.3 mmol/L (3.5-5.1)
[2020-10-11 07:09] LABS: EOSINOPHILS % (MANUAL) 34 % (0-7); LYMPHOCYTES % (MANUAL) 21 % (19-48); MONOCYTES % (MANUAL) 7 % (3.4-9.0); NEUTROPHILS % (MANUAL) 38 % (40-74); PLATELET ESTIMATE ADEQUATE; PLATELET MORPHOLOGY COMMENT NORMAL; RBC MORPHOLOGY COMMENT NORMAL
[2020-10-11] MEDS: INSULIN LISPRO 100 UNIT/1 ML 3ML VIAL SQ SCH ×4 (07:30→21:00)
[2020-10-11] MEDS: ASPIRIN 81 MG ENTERIC COATED PO SCH (09:00)
[2020-10-11] MEDS: HYDROCHLOROTHIAZIDE 25 MG TAB PO SCH (09:00)
[2020-10-11] MEDS: RANOLAZINE 500 MG TABSR PO SCH ×2 (09:00→17:00)
[2020-10-11] MEDS: TAMSULOSIN HCL 0.4 MG CAP PO SCH (09:00)
[2020-10-11] MEDS: AMLODIPINE BESYLATE 10 MG TAB PO SCH ×2 (09:00→21:14)
[2020-10-11] MEDS: OMEPRAZOLE 20 MG CAP PO SCH (09:00)
[2020-10-11] MEDS: IRBESARTAN 150 MG TAB PO SCH (09:00)
[2020-10-11] MEDS: FINASTERIDE 5 MG TAB PO SCH (09:00)
[2020-10-11] MEDS: CELECOXIB 200 MG CAP PO SCH ×2 (09:00→17:00)
[2020-10-11] MEDS: ISOSORBIDE MONONITRATE 20 MG TAB PO SCH (09:00)
[2020-10-11] MEDS: FUROSEMIDE 40 MG TAB PO SCH (09:00)
[2020-10-11] MEDS: CLOPIDOGREL BISULFATE 75 MG TAB PO SCH (09:00)
[2020-10-11] MEDS: POTASSIUM CHLORIDE 20MEQ/100ML 100 ML IV ONE ×2 (11:15→13:34)
[2020-10-11] MEDS ORDERED: MIDAZOLAM HCL 2 MG/2 ML VIAL ONE (17:19)
[2020-10-11] MEDS ORDERED: SODIUM CHLORIDE 0.9% 1000ML 1,000 ML ONE (17:20)
[2020-10-11] MEDS ORDERED: FENTANYL CITRATE/PF 100MCG/2 ML INJ ONE (17:20)
[2020-10-11] MEDS ORDERED: ATROPINE SULFATE 0.1 MG/ML 10ML SYR ONE (18:03)
[2020-10-11] MEDS: POTASSIUM CHLORIDE 20 MEQ TAB CR PO ONE ×2 (18:50→18:58)
[2020-10-11] MEDS ORDERED: POTASSIUM CHLORIDE 20 MEQ TAB CR PO NR (19:30)
[2020-10-11] MEDS: SIMVASTATIN 40 MG TAB PO SCH (21:14)
[2020-10-11] MEDS: ONDANSETRON HCL INJ 2MG/ML 2ML 2 MG/ML VIAL IV PRN (23:55)
[2020-10-11] MEDS: MORPHINE SULFATE 2 MG/ML SYR 1ML IV PRN (23:55)
[2020-10-12] VITALS: BP 153/68
[2020-10-12 04:00] VITALS: BP 130/55
[2020-10-12] MEDS: ONDANSETRON HCL INJ 2MG/ML 2ML 2 MG/ML VIAL IV PRN (04:01)
[2020-10-12] MEDS: MORPHINE SULFATE 2 MG/ML SYR 1ML IV PRN (04:01)
[2020-10-12 05:44] LABS: BASOPHILS # (AUTO) 0.1 (0.0-0.1); BASOPHILS % 0.9 % (0.0-1.0); EOSINOPHILS # (AUTO) 3.2 (0.0-0.4); EOSINOPHILS % 29.7 % (0.0-6.0); HEMOGLOBIN 13.6 g/dL (14.0-18.0); LYMPHOCYTES # (AUTO) 2.1 (1.0-3.2); LYMPHOCYTES % 19.2 % (18.0-39.1); MEAN CORPUSCULAR HEMOGLOBIN 33.3 pg (28-32); MEAN CORPUSCULAR HGB CONC 34.9 g/dL (31-35); MEAN CORPUSCULAR VOLUME 95.4 fL (81-99); MONOCYTES # (AUTO) 0.8 (0.2-0.8); MONOCYTES % 6.9 % (4.4-11.3); NEUTROPHILS # (AUTO) 4.6 (2.1-6.9); NEUTROPHILS % 42.9 % (38.7-80.0); PLATELET COUNT 198 x10e3/uL (140-360); RED BLOOD COUNT 4.09 x10e6/uL (4.3-5.7); RED CELL DISTRIBUTION WIDTH 12.1 % (11.7-14.4)
[2020-10-12 06:06] LABS: ANION GAP 12.2 mmol/L (8-16); BLOOD UREA NITROGEN 14 mg/dL (7-26); BUN/CREATININE RATIO 12 (6-25); CALCIUM 9.1 mg/dL (8.4-10.2); CARBON DIOXIDE 27 mmol/L (22-29); CHLORIDE 102 mmol/L (98-107); CREATININE, SERUM 1.17 mg/dL (0.72-1.25); EST GLOMERULAR FILTRATION RATE > 60 ML/MIN (60-); GLUCOSE 131 mg/dL (74-118); POTASSIUM 3.2 mmol/L (3.5-5.1); SODIUM 138 mmol/L (136-145)
[2020-10-12 08:19] VITALS: BP 139/64
[2020-10-12 08:21] VITALS: BP 139/64
[2020-10-12 08:45] LABS: EOSINOPHILS % (MANUAL) 35 % (0-7); LYMPHOCYTES % (MANUAL) 20 % (19-48); MONOCYTES % (MANUAL) 1 % (3.4-9.0); NEUTROPHILS % (MANUAL) 43 % (40-74)
[2020-10-12 08:46] LABS: PLATELET ESTIMATE SLIGHTLY DECREASED; PLATELET MORPHOLOGY COMMENT NORMAL; RBC MORPHOLOGY COMMENT NORMAL
[2020-10-12] MEDS: ASPIRIN 81 MG ENTERIC COATED PO SCH (10:22)
[2020-10-12] MEDS: FUROSEMIDE 40 MG TAB PO SCH (10:23)
[2020-10-12] MEDS: RANOLAZINE 500 MG TABSR PO SCH (10:23)
[2020-10-12] MEDS: ISOSORBIDE MONONITRATE 20 MG TAB PO SCH (10:23)
[2020-10-12] MEDS: IRBESARTAN 150 MG TAB PO SCH (10:23)
[2020-10-12] MEDS: AMLODIPINE BESYLATE 10 MG TAB PO SCH (10:23)
[2020-10-12] MEDS: CLOPIDOGREL BISULFATE 75 MG TAB PO SCH (10:23)
[2020-10-12] MEDS: HYDROCHLOROTHIAZIDE 25 MG TAB PO SCH (10:23)
[2020-10-12] MEDS: TAMSULOSIN HCL 0.4 MG CAP PO SCH (10:23)
[2020-10-12] MEDS: CELECOXIB 200 MG CAP PO SCH (10:23)
[2020-10-12] MEDS: FINASTERIDE 5 MG TAB PO SCH (10:23)
[2020-10-12] MEDS: OMEPRAZOLE 20 MG CAP PO SCH (10:23)
[2020-10-12] MEDS: INSULIN LISPRO 100 UNIT/1 ML 3ML VIAL SQ SCH ×2 (10:24→13:45)
[2020-10-12] MEDS ORDERED: MAGNESIUM SULFATE 2GM/50ML 50 ML IV ONE (12:00)
[2020-10-12] MEDS ORDERED: NITROSTAT0.4 MG SL (12:06)
[2020-10-12 12:13] VITALS: BP 128/78
[2020-10-12] MEDS ORDERED: ONDANSETRON HCL 4 MG ORAL DISINTEGRATING TAB PO PRN (12:15)
[2020-10-12] MEDS ORDERED: POTASSIUM CHLORIDE 20 MEQ TAB CR PO ONE (12:15)
== END 2020-10-12 15:30 | disposition home or self-care (01) | DRG 247 ==
LOC: ER 10:36 → ERHOLD 10:46 → MED/SURG2 12:17
PROVIDERS: ADMIT Internal Medicine; ATTEND Internal Medicine
PROC: 4A023N7 Measurement of Cardiac Sampling and Pressure, Left Heart, Percutaneous Approach (ICD-10-PCS; principal; 2020-10-11)
PROC: 027034Z Dilation of Coronary Artery, One Artery with Drug-eluting Intraluminal Device, Percutaneous Approach (ICD-10-PCS; 2020-10-11)
PROC: B2121ZZ Fluoroscopy of Single Coronary Artery Bypass Graft using Low Osmolar Contrast (ICD-10-PCS; 2020-10-11)
PROC: B2111ZZ Fluoroscopy of Multiple Coronary Arteries using Low Osmolar Contrast (ICD-10-PCS; 2020-10-11)
PROC: B2181ZZ Fluoroscopy of Left Internal Mammary Bypass Graft using Low Osmolar Contrast (ICD-10-PCS; 2020-10-11)
PROC: B2151ZZ Fluoroscopy of Left Heart using Low Osmolar Contrast (ICD-10-PCS; 2020-10-11)
DX: I25.720 Atherosclerosis of autologous artery coronary artery bypass graft(s) with unstable angina pectoris (principal); N17.9 Acute kidney failure, unspecified; E11.9 Type 2 diabetes mellitus without complications; I25.10 Atherosclerotic heart disease of native coronary artery without angina pectoris; I25.82 Chronic total occlusion of coronary artery; I25.2 Old myocardial infarction; K21.9 Gastro-esophageal reflux disease without esophagitis; Z95.2 Presence of prosthetic heart valve; I16.0 Hypertensive urgency; I13.10 Hypertensive heart and chronic kidney disease without heart failure, with stage 1 through stage 4 chronic kidney disease, or unspecified chronic kidney disease; N18.9 Chronic kidney disease, unspecified; E83.42 Hypomagnesemia; E87.6 Hypokalemia; Z20.828 Contact with and (suspected) exposure to other viral communicable diseases
CPT/HCPCS: 36415; 71045; 71250; 80048; 80053; 80061; 82550; 82553; 82948; 83735; 83880; 84443; 84484; 85025; 85610; 85730; 92937; 93005; 93306; 93455; 99152; 99153; 99284; C1725; C1760; C1769; C1874; C1887; C9604; J0456; J0696; J2250; J2270; J2405; J3010; J3475; J3480; J7030; J7050; U0002

== ENCOUNTER 2021-01-27 04:17 | Observation (INO) | payer BC, MEDICARE ==
[2021-01-27] VITALS (8 sets, daily range): BP systolic 141–206; BP diastolic 68–100
[~2021-01-27] VITALS: Ht 180.3 cm; Wt 100.2 kg
[~2021-01-27 04:17] MED LIST changes: +CLOPIDOGREL75 MG PO; +NITROSTAT0.4 MG SL; +TOVIAZ8 MG PO
[2021-01-27 04:26] LABS: BASOPHILS # (AUTO) 0.1 (0.0-0.1); BASOPHILS % 1.1 % (0.0-1.0); EOSINOPHILS # (AUTO) 1.1 (0.0-0.4); EOSINOPHILS % 9.5 % (0.0-6.0); HEMATOCRIT 40.4 % (38.2-49.6); LYMPHOCYTES # (AUTO) 2.9 (1.0-3.2); LYMPHOCYTES % 24.1 % (18.0-39.1); MEAN CORPUSCULAR HEMOGLOBIN 32.6 pg (28-32); MEAN CORPUSCULAR HGB CONC 34.7 g/dL (31-35); MONOCYTES # (AUTO) 0.8 (0.2-0.8); MONOCYTES % 6.7 % (4.4-11.3); NEUTROPHILS # (AUTO) 6.9 (2.1-6.9); NEUTROPHILS % 58.2 % (38.7-80.0); PLATELET COUNT 183 x10e3/uL (140-360); RED CELL DISTRIBUTION WIDTH 12.2 % (11.7-14.4)
[2021-01-27 04:35] LABS: INR 0.82; PROTHROMBIN TIME 11.8 seconds (11.9-14.5)
[2021-01-27 04:36] LABS: PARTIAL THROMBOPLASTIN TIME 27.4 seconds (23.8-35.5)
[2021-01-27 04:45] LABS: ALBUMIN 3.9 g/dL (3.5-5.0); ALBUMIN/GLOBULIN RATIO 1.1 (0.8-2.0); ANION GAP 16.2 mmol/L (8-16); CALCIUM 9.6 mg/dL (8.4-10.2); CREATININE, SERUM 2.01 mg/dL (0.72-1.25); POTASSIUM 3.2 mmol/L (3.5-5.1)
[2021-01-27 04:50] LABS: CLARITY,URINE CLEAR (CLEAR); COLOR,URINE YELLOW (YELLOW); KETONES,URINE NEGATIVE (NEGATIVE); LEUKOCYTE ESTERASE ,URINE NEGATIVE (NEGATIVE); NITRITE,URINE NEGATIVE (NEGATIVE); PROTEIN,URINE DIPSTICK 2+ (NEGATIVE); URINE UROBILINOGEN 0.2 mg/dL (0.2 - 1)
[2021-01-27 04:51] LABS: CREATINE KINASE MB 1.2 ng/mL (0-5.0)
[2021-01-27] MEDS ORDERED: HYDRALAZINE HCL 20 MG/ML VIAL IV STA (04:55)
[2021-01-27 04:56] LABS: BACTERIA,URINE FEW /HPF; EPITHELIAL CELLS,URINE RARE /LPF; RBC,URINE 0-5 /HPF (0-5); WBC,URINE (MAN) 0-5 /HPF (0-5)
[2021-01-27] MEDS ORDERED: ASPIRIN 81 MG CHEW TAB PO ONE (05:00)
[2021-01-27] MEDS ORDERED: HYDRALAZINE HCL 20 MG/ML VIAL ONE (05:05)
[2021-01-27] MEDS ORDERED: POTASSIUM CHLORIDE 20 MEQ TAB CR PO STA (05:12)
[2021-01-27] MEDS ORDERED: HYDRALAZINE HCL 20 MG/ML VIAL IV PRN (06:00)
[2021-01-27] MEDS ORDERED: CRESTOR10 MG PO (08:37)
[2021-01-27] MEDS ORDERED: METOPROLOL SUCC50 MG PO (08:37)
[2021-01-27] MEDS ORDERED: NITROGLYCERIN 0.4 MG SUBL SL PRN (11:15)
[2021-01-27] MEDS ORDERED: ONDANSETRON HCL INJ 2MG/ML 2ML 2 MG/ML VIAL IV PRN (11:15)
[2021-01-27] MEDS ORDERED: DEXTROSE 50% SYRINGE 50 ML IV PRN (11:15)
[2021-01-27] MEDS: INSULIN LISPRO 100 UNIT/1 ML 3ML VIAL SQ SCH ×3 (11:30→20:34)
[2021-01-27 11:33] LABS: CHOL/HDL RATIO 3.8 (3.9-4.7)
[2021-01-27 11:52] LABS: THYROID STIMULATING HORMONE 2.567 uIU/mL (0.350-4.940)
[2021-01-27 12:03] LABS: CREATINE KINASE MB 1.1 ng/mL (0-5.0)
[2021-01-27] MEDS: RANOLAZINE 500 MG TABSR PO SCH (16:09)
[2021-01-27] MEDS: METOPROLOL SUCCINATE 50 MG TAB XL PO SCH (17:46)
[2021-01-27] MEDS: CLOPIDOGREL BISULFATE 75 MG TAB PO SCH (17:46)
[2021-01-27] MEDS: HYDROCHLOROTHIAZIDE 25 MG TAB PO SCH (17:47)
[2021-01-27] MEDS: ISOSORBIDE MONONITRATE 30 MG TAB CR PO SCH (17:47)
[2021-01-27] MEDS: AMLODIPINE BESYLATE 10 MG TAB PO SCH (17:47)
[2021-01-27] MEDS: FUROSEMIDE 40 MG TAB PO SCH (17:47)
[2021-01-27] MEDS: IRBESARTAN 150 MG TAB PO SCH (17:50)
[2021-01-27] MEDS ORDERED: METOPROLOL TARTRATE INJ 1 MG/ML VIAL IV PRN (18:45)
[2021-01-27] MEDS ORDERED: MORPHINE SULFATE INJ 2 MG/ML SYR IV PRN (19:45)
[2021-01-27] MEDS ORDERED: SIMVASTATIN 40 MG TAB PO SCH (21:00)
[2021-01-28 00:40] VITALS: BP 134/64
[2021-01-28 04:10] VITALS: BP 141/65
[2021-01-28 06:08] LABS: CHOL/HDL RATIO 4.1 (3.9-4.7)
[2021-01-28] MEDS ORDERED: PANTOPRAZOLE SOD 40 MG TABEC PO SCH (07:30)
[2021-01-28] MEDS: INSULIN LISPRO 100 UNIT/1 ML 3ML VIAL SQ SCH ×3 (07:30→16:30)
[2021-01-28 08:09] VITALS: BP 142/67
[2021-01-28 08:09] LABS: BASOPHILS # (AUTO) 0.1 (0.0-0.1); BASOPHILS % 0.8 % (0.0-1.0); EOSINOPHILS % 8.1 % (0.0-6.0); HEMATOCRIT 40.4 % (38.2-49.6); HEMOGLOBIN 13.8 g/dL (14.0-18.0); LYMPHOCYTES # (AUTO) 2.1 (1.0-3.2); LYMPHOCYTES % 16.8 % (18.0-39.1); MEAN CORPUSCULAR HEMOGLOBIN 32.4 pg (28-32); MEAN CORPUSCULAR HGB CONC 34.2 g/dL (31-35); MEAN CORPUSCULAR VOLUME 94.8 fL (81-99); MONOCYTES % 8.4 % (4.4-11.3); NEUTROPHILS % 65.4 % (38.7-80.0); PLATELET COUNT 193 x10e3/uL (140-360); RED BLOOD COUNT 4.26 x10e6/uL (4.3-5.7); RED CELL DISTRIBUTION WIDTH 12.4 % (11.7-14.4)
[2021-01-28 08:23] LABS: CALCIUM 9.4 mg/dL (8.4-10.2); CREATININE, SERUM 1.7 mg/dL (0.72-1.25); POTASSIUM 3.1 mmol/L (3.5-5.1)
[2021-01-28 08:35] LABS: ANION GAP 17.1 mmol/L (8-16)
[2021-01-28 08:41] VITALS: BP 142/67
[2021-01-28] MEDS ORDERED: ASPIRIN 81 MG CHEW TAB PO SCH (09:00)
[2021-01-28] MEDS ORDERED: BALSAM PERU/CASTOR OIL 60 GM OINT...G. TP SCH (09:00)
[2021-01-28] MEDS ORDERED: FUROSEMIDE 40 MG TAB PO SCH (09:00)
[2021-01-28] MEDS ORDERED: IRBESARTAN 150 MG TAB PO SCH (09:00)
[2021-01-28] MEDS ORDERED: AMLODIPINE BESYLATE 10 MG TAB PO SCH (09:00)
[2021-01-28] MEDS ORDERED: TAMSULOSIN HCL 0.4 MG CAP PO SCH (09:00)
[2021-01-28] MEDS ORDERED: BETAMETHASONE/CLOTRIMAZOLE CR 15 GM TUBE TOP SCH (09:00)
[2021-01-28] MEDS ORDERED: METOPROLOL SUCCINATE 50 MG TAB XL PO SCH (09:00)
[2021-01-28] MEDS ORDERED: HYDROCHLOROTHIAZIDE 25 MG TAB PO SCH (09:00)
[2021-01-28] MEDS ORDERED: FINASTERIDE 5 MG TAB PO SCH (09:00)
[2021-01-28] MEDS ORDERED: ISOSORBIDE MONONITRATE 30 MG TAB CR PO SCH (09:00)
[2021-01-28] MEDS: HYDROCHLOROTHIAZIDE 25 MG TAB PO SCH (09:07)
[2021-01-28] MEDS: ISOSORBIDE MONONITRATE 30 MG TAB CR PO SCH (09:07)
[2021-01-28] MEDS: FUROSEMIDE 40 MG TAB PO SCH (09:07)
[2021-01-28] MEDS: IRBESARTAN 150 MG TAB PO SCH (09:07)
[2021-01-28] MEDS: CLOPIDOGREL BISULFATE 75 MG TAB PO SCH (09:08)
[2021-01-28] MEDS: AMLODIPINE BESYLATE 10 MG TAB PO SCH (09:08)
[2021-01-28] MEDS: RANOLAZINE 500 MG TABSR PO SCH ×2 (09:08→17:34)
[2021-01-28] MEDS: METOPROLOL SUCCINATE 50 MG TAB XL PO SCH (09:09)
[2021-01-28 12:20] VITALS: BP 153/83
[2021-01-28 16:22] VITALS: BP 160/67
== END 2021-01-28 18:07 | disposition home or self-care (01) ==
LOC: ER 04:58 → INTOOBSV 04:59 → ERHOLD 04:59 → MED/SURG3 06:46
PROVIDERS: ADMIT Internal Medicine; ATTEND Internal Medicine
DX: I20.0 Unstable angina (principal); Z20.822 Contact with and (suspected) exposure to COVID-19; I13.0 Hypertensive heart and chronic kidney disease with heart failure and stage 1 through stage 4 chronic kidney disease, or unspecified chronic kidney disease; N18.30 Chronic kidney disease, stage 3 unspecified; E11.22 Type 2 diabetes mellitus with diabetic chronic kidney disease; N40.0 Benign prostatic hyperplasia without lower urinary tract symptoms; I50.32 Chronic diastolic (congestive) heart failure; J15.9 Unspecified bacterial pneumonia; K21.9 Gastro-esophageal reflux disease without esophagitis; Z79.01 Long term (current) use of anticoagulants; Z95.2 Presence of prosthetic heart valve; G89.29 Other chronic pain; N17.9 Acute kidney failure, unspecified
CPT/HCPCS: 36415 ×2; 71046; 71250; 72125; 80048; 80053; 80061 ×2; 81001; 82550; 82553; 82948 ×2; 83036; 83880; 84443; 84484; 85025 ×2; 85610; 85730; 93005; 96372; 99251 ×2; 99284; G0378 ×2; J0360; J2270; S0164; U0002

== ENCOUNTER → 2021-03-01 | Day surgery (SDC) | payer BC, MEDICARE ==
[2021-02-24 14:16] LABS: BASOPHILS # (AUTO) 0.1 (0.0-0.1); BASOPHILS % 0.5 % (0.0-1.0); EOSINOPHILS # (AUTO) 1.5 (0.0-0.4); HEMATOCRIT 36.3 % (38.2-49.6); HEMOGLOBIN 12.6 g/dL (14.0-18.0); LYMPHOCYTES # (AUTO) 2.7 (1.0-3.2); LYMPHOCYTES % 17.7 % (18.0-39.1); MEAN CORPUSCULAR HEMOGLOBIN 32.5 pg (28-32); MEAN CORPUSCULAR HGB CONC 34.7 g/dL (31-35); MEAN CORPUSCULAR VOLUME 93.6 fL (81-99); MONOCYTES # (AUTO) 1.1 (0.2-0.8); MONOCYTES % 7.3 % (4.4-11.3); NEUTROPHILS # (AUTO) 9.7 (2.1-6.9); NEUTROPHILS % 64.1 % (38.7-80.0); PLATELET COUNT 189 x10e3/uL (140-360); RED BLOOD COUNT 3.88 x10e6/uL (4.3-5.7); RED CELL DISTRIBUTION WIDTH 12.4 % (11.7-14.4)
[~2021-03-01] MED LIST changes: +CRESTOR10 MG PO; +EPINEPHRINE HCL 1:1000 1ML 1 MG/ML AMP ONE; +LIDOCAINE HCL 2% LOCAL INJ 5 ML SDV VIAL INJ ONE; +ONDANSETRON HCL INJ 2MG/ML 2ML 2 MG/ML VIAL ONE; +PROPOFOL IV EMULSION 10 MG/ML 20 ML VIAL ONE
[2021-03-01 13:05] VITALS: BP 171/84
== END | disposition home or self-care (01) ==
LOC: OR 09:01
PROVIDERS: ATTEND Internal Medicine Gastroenterology
DX: K29.50 Unspecified chronic gastritis without bleeding (principal); D12.4 Benign neoplasm of descending colon; K31.7 Polyp of stomach and duodenum; K57.30 Diverticulosis of large intestine without perforation or abscess without bleeding; K21.00 Gastro-esophageal reflux disease with esophagitis, without bleeding; B96.81 Helicobacter pylori [H. pylori] as the cause of diseases classified elsewhere; K29.80 Duodenitis without bleeding; K64.8 Other hemorrhoids; K44.9 Diaphragmatic hernia without obstruction or gangrene; D64.9 Anemia, unspecified; E78.5 Hyperlipidemia, unspecified; E10.9 Type 1 diabetes mellitus without complications; I25.810 Atherosclerosis of coronary artery bypass graft(s) without angina pectoris; I11.0 Hypertensive heart disease with heart failure; I50.20 Unspecified systolic (congestive) heart failure; Z01.812 Encounter for preprocedural laboratory examination; Z20.822 Contact with and (suspected) exposure to COVID-19; Z88.6 Allergy status to analgesic agent; Z79.02 Long term (current) use of antithrombotics/antiplatelets; Z79.82 Long term (current) use of aspirin; Z79.84 Long term (current) use of oral hypoglycemic drugs; Z95.1 Presence of aortocoronary bypass graft
CPT/HCPCS: 36415 ×2; 43236; 43239; 43251; 45385; 82948; 85025; 88305; 88312; J0171; J2001; J2405; J2704; U0002; 45378

== ENCOUNTER 2021-07-19 07:15 | Inpatient (IN) | payer BC, MEDICARE ==
[~2021-07-19] VITALS: Ht 180.3 cm; Wt 100.2 kg
[~2021-07-19 07:15] MED LIST changes: -EPINEPHRINE HCL 1:1000 1ML 1 MG/ML AMP ONE; -LIDOCAINE HCL 2% LOCAL INJ 5 ML SDV VIAL INJ ONE; -ONDANSETRON HCL INJ 2MG/ML 2ML 2 MG/ML VIAL ONE; -PROPOFOL IV EMULSION 10 MG/ML 20 ML VIAL ONE
[2021-07-19] MEDS ORDERED: NITROGLYCERIN 2% OINT 1 GM PKT TOP STA (07:21)
[2021-07-19] MEDS ORDERED: ASPIRIN 81 MG CHEW TAB PO NR (07:30)
[2021-07-19] MEDS ORDERED: ASPIRIN 81 MG CHEW TAB PO ONE ×4 (07:30→23:15)
[2021-07-19 07:56] LABS: BASOPHILS # (AUTO) 0.1 (0.0-0.1); BASOPHILS % 0.9 % (0.0-1.0); EOSINOPHILS # (AUTO) 1.2 (0.0-0.4); EOSINOPHILS % 8.5 % (0.0-6.0); HEMATOCRIT 39.3 % (38.2-49.6); HEMOGLOBIN 13.2 g/dL (14.0-18.0); LYMPHOCYTES # (AUTO) 1.9 (1.0-3.2); MEAN CORPUSCULAR HEMOGLOBIN 31.3 pg (28-32); MEAN CORPUSCULAR HGB CONC 33.6 g/dL (31-35); MEAN CORPUSCULAR VOLUME 93.1 fL (81-99); MONOCYTES % 7.2 % (4.4-11.3); NEUTROPHILS # (AUTO) 9.5 (2.1-6.9); NEUTROPHILS % 68.8 % (38.7-80.0); PLATELET COUNT 161 x10e3/uL (140-360); RED BLOOD COUNT 4.22 x10e6/uL (4.3-5.7); RED CELL DISTRIBUTION WIDTH 13.7 % (11.7-14.4)
[2021-07-19 08:12] LABS: ALBUMIN 4.1 g/dL (3.5-5.0); ALBUMIN/GLOBULIN RATIO 1.2 (0.8-2.0); ANION GAP 18.2 mmol/L (8-16); CALCIUM 9.1 mg/dL (8.4-10.2); CREATININE, SERUM 1.66 mg/dL (0.72-1.25); POTASSIUM 3.2 mmol/L (3.5-5.1)
[2021-07-19 08:17] LABS: INR 0.95; PROTHROMBIN TIME 12.9 seconds (11.9-14.5)
[2021-07-19 08:18] LABS: PARTIAL THROMBOPLASTIN TIME 31.7 seconds (23.8-35.5)
[2021-07-19 08:19] LABS: CREATINE KINASE MB 1.3 ng/mL (0-5.0)
[2021-07-19] MEDS ORDERED: POTASSIUM CHLORIDE 20 MEQ TAB CR PO NR (08:30)
[2021-07-19] MEDS ORDERED: INSULIN REGULAR, HUMAN 100 UNIT/1 ML SQ NR (08:30)
[2021-07-19] MEDS ORDERED: SODIUM CHLORIDE 0.9% 500ML 500 ML IV ONE (08:30)
[2021-07-19 08:44] LABS: CLARITY,URINE CLEAR (CLEAR); COLOR,URINE YELLOW (YELLOW)
[2021-07-19 08:45] LABS: KETONES,URINE NEGATIVE (NEGATIVE); LEUKOCYTE ESTERASE ,URINE NEGATIVE (NEGATIVE); NITRITE,URINE NEGATIVE (NEGATIVE); PROTEIN,URINE DIPSTICK 2+ (NEGATIVE); URINE UROBILINOGEN 0.2 mg/dL (0.2 - 1)
[2021-07-19 08:47] LABS: BACTERIA,URINE MODERATE /HPF; EPITHELIAL CELLS,URINE FEW /LPF; RBC,URINE 0-5 /HPF (0-5); WBC,URINE (MAN) 21-50 /HPF (0-5)
[2021-07-19 11:00] VITALS: BP 151/74
[2021-07-19 13:00] VITALS: BP 151/74
[2021-07-19 14:00] VITALS: BP 164/75
[2021-07-19] MEDS ORDERED: ASPIRIN 81 MG ENTERIC COATED PO STA (14:57)
[2021-07-19] MEDS ORDERED: CLOPIDOGREL BISULFATE 75 MG TAB PO ONE (15:30)
[2021-07-19] MEDS ORDERED: DEXTROSE 50% SYRINGE 50 ML IV PRN (17:15)
[2021-07-19 17:18] VITALS: BP 170/70
[2021-07-19] MEDS ORDERED: HYDRALAZINE HCL 20 MG/ML VIAL IV PRN (17:30)
[2021-07-19] MEDS: RANOLAZINE 500 MG TABSR PO SCH (18:38)
[2021-07-19] MEDS: AMLODIPINE BESYLATE 10 MG TAB PO SCH (18:39)
[2021-07-19 20:08] VITALS: BP 178/75
[2021-07-19 20:58] VITALS: BP 178/75
[2021-07-19] MEDS: INSULIN LISPRO 100 UNIT/1 ML 3ML VIAL SQ SCH (21:41)
[2021-07-19] MEDS ORDERED: MORPHINE SULFATE INJ 2 MG/ML SYR IV ONE ×2 (22:45→23:15)
[2021-07-19 23:57] LABS: CREATINE KINASE MB 1.5 ng/mL (0-5.0)
[2021-07-20] VITALS (8 sets, daily range): BP systolic 141–168; BP diastolic 63–80
[2021-07-20 06:23] LABS: BASOPHILS # (AUTO) 0.1 (0.0-0.1); EOSINOPHILS # (AUTO) 1.3 (0.0-0.4); EOSINOPHILS % 9.1 % (0.0-6.0); HEMATOCRIT 37.7 % (38.2-49.6); HEMOGLOBIN 12.8 g/dL (14.0-18.0); LYMPHOCYTES # (AUTO) 2.3 (1.0-3.2); LYMPHOCYTES % 16.6 % (18.0-39.1); MEAN CORPUSCULAR HEMOGLOBIN 31.3 pg (28-32); MEAN CORPUSCULAR VOLUME 92.2 fL (81-99); MONOCYTES % 7.1 % (4.4-11.3); NEUTROPHILS % 65.7 % (38.7-80.0); PLATELET COUNT 172 x10e3/uL (140-360); RED BLOOD COUNT 4.09 x10e6/uL (4.3-5.7); RED CELL DISTRIBUTION WIDTH 13.8 % (11.7-14.4)
[2021-07-20 06:41] LABS: ALBUMIN 3.6 g/dL (3.5-5.0); ALBUMIN/GLOBULIN RATIO 1.1 (0.8-2.0); ANION GAP 15.2 mmol/L (8-16); CALCIUM 8.9 mg/dL (8.4-10.2); CREATININE, SERUM 1.31 mg/dL (0.72-1.25); POTASSIUM 3.2 mmol/L (3.5-5.1)
[2021-07-20 07:04] LABS: CREATINE KINASE MB 1.2 ng/mL (0-5.0)
[2021-07-20 07:05] LABS: THYROID STIMULATING HORMONE 1.586 uIU/mL (0.350-4.940)
[2021-07-20] MEDS: INSULIN LISPRO 100 UNIT/1 ML 3ML VIAL SQ SCH ×4 (07:30→21:48)
[2021-07-20] MEDS: LINAGLIPTIN PO SCH ×2 (08:00→17:00)
[2021-07-20] MEDS: METFORMIN HCL PO SCH ×2 (08:00→17:00)
[2021-07-20] MEDS: GLIMEPIRIDE 2 MG TAB PO SCH (08:42)
[2021-07-20] MEDS: PANTOPRAZOLE SOD 40 MG TABEC PO SCH (08:42)
[2021-07-20] MEDS: TAMSULOSIN HCL 0.4 MG CAP PO SCH (08:43)
[2021-07-20] MEDS: ASPIRIN 81 MG ENTERIC COATED PO SCH (08:43)
[2021-07-20] MEDS: ISOSORBIDE MONONITRATE 30 MG TAB CR PO SCH (08:43)
[2021-07-20] MEDS: AMLODIPINE BESYLATE 10 MG TAB PO SCH (08:44)
[2021-07-20] MEDS: FINASTERIDE 5 MG TAB PO SCH (08:44)
[2021-07-20] MEDS: CLOPIDOGREL BISULFATE 75 MG TAB PO SCH (08:44)
[2021-07-20] MEDS: IRBESARTAN 150 MG TAB PO SCH (08:50)
[2021-07-20] MEDS: RANOLAZINE 500 MG TABSR PO SCH ×2 (08:56→18:02)
[2021-07-20] MEDS ORDERED: NON-FORMULARY MEDICATION (Omeprazole (Prilosec) 40 MG) PO SCH (09:00)
[2021-07-20] MEDS ORDERED: REGADENOSON 0.4 MG/5 ML SYR IV ONE (13:37)
[2021-07-20] MEDS ORDERED: METOPROLOL SUCCINATE 50 MG TAB XL PO ONE (16:30)
[2021-07-20] MEDS: SIMVASTATIN 40 MG TAB PO SCH (21:47)
[2021-07-21] VITALS (8 sets, daily range): BP systolic 125–150; BP diastolic 63–77
[2021-07-21 05:53] LABS: BASOPHILS # (AUTO) 0.1 (0.0-0.1); BASOPHILS % 0.8 % (0.0-1.0); EOSINOPHILS # (AUTO) 1.1 (0.0-0.4); EOSINOPHILS % 8.7 % (0.0-6.0); HEMATOCRIT 35.6 % (38.2-49.6); HEMOGLOBIN 11.9 g/dL (14.0-18.0); LYMPHOCYTES # (AUTO) 2.4 (1.0-3.2); MEAN CORPUSCULAR HEMOGLOBIN 30.8 pg (28-32); MEAN CORPUSCULAR HGB CONC 33.4 g/dL (31-35); MEAN CORPUSCULAR VOLUME 92.2 fL (81-99); MONOCYTES % 8.1 % (4.4-11.3); NEUTROPHILS # (AUTO) 7.6 (2.1-6.9); NEUTROPHILS % 61.9 % (38.7-80.0); PLATELET COUNT 160 x10e3/uL (140-360); RED BLOOD COUNT 3.86 x10e6/uL (4.3-5.7)
[2021-07-21 06:27] LABS: ALBUMIN 3.4 g/dL (3.5-5.0); ALBUMIN/GLOBULIN RATIO 1.1 (0.8-2.0); ANION GAP 15.5 mmol/L (8-16); CALCIUM 8.8 mg/dL (8.4-10.2); CREATININE, SERUM 1.35 mg/dL (0.72-1.25); POTASSIUM 3.5 mmol/L (3.5-5.1)
[2021-07-21] MEDS: INSULIN LISPRO 100 UNIT/1 ML 3ML VIAL SQ SCH ×4 (07:30→21:45)
[2021-07-21] MEDS: METFORMIN HCL PO SCH ×2 (08:00→17:00)
[2021-07-21] MEDS: LINAGLIPTIN PO SCH ×2 (08:00→17:00)
[2021-07-21] MEDS: GLIMEPIRIDE 2 MG TAB PO SCH (10:32)
[2021-07-21] MEDS: PANTOPRAZOLE SOD 40 MG TABEC PO SCH (10:32)
[2021-07-21] MEDS: TAMSULOSIN HCL 0.4 MG CAP PO SCH (10:33)
[2021-07-21] MEDS: IRBESARTAN 150 MG TAB PO SCH (10:33)
[2021-07-21] MEDS: ISOSORBIDE MONONITRATE 30 MG TAB CR PO SCH (10:37)
[2021-07-21] MEDS: AMLODIPINE BESYLATE 10 MG TAB PO SCH (10:38)
[2021-07-21] MEDS: RANOLAZINE 500 MG TABSR PO SCH ×2 (10:38→17:38)
[2021-07-21] MEDS: FINASTERIDE 5 MG TAB PO SCH (10:38)
[2021-07-21] MEDS: METOPROLOL SUCCINATE 50 MG TAB XL PO SCH (10:38)
[2021-07-21] MEDS: CLOPIDOGREL BISULFATE 75 MG TAB PO SCH (10:39)
[2021-07-21] MEDS: ASPIRIN 81 MG ENTERIC COATED PO SCH (10:39)
[2021-07-21] MEDS ORDERED: SODIUM CHLORIDE 0.9% 1000ML 1,000 ML ONE (11:46)
[2021-07-21] MEDS ORDERED: LIDOCAINE HCL 2% LOCAL 20 ML VIAL ONE (11:46)
[2021-07-21] MEDS ORDERED: HEPARIN SOD/SOD CHLORIDE 2,000 ML ONE (11:46)
[2021-07-21] MEDS ORDERED: IOPAMIDOL 370 MG/ML 200 ML INFUS..BTL INJ ONE ×2 (11:46→12:50)
[2021-07-21] MEDS ORDERED: MIDAZOLAM HCL 2 MG/2 ML VIAL ONE ×2 (11:47→12:46)
[2021-07-21] MEDS ORDERED: FENTANYL CITRATE/PF 100MCG/2 ML INJ ONE (11:47)
[2021-07-21] MEDS ORDERED: ASPIRIN 325 MG TAB ONE (13:19)
[2021-07-21] MEDS ORDERED: TICAGRELOR 90 MG TABLET ONE (13:19)
[2021-07-21] MEDS: SIMVASTATIN 40 MG TAB PO SCH (21:50)
[2021-07-22] VITALS (7 sets, daily range): BP systolic 129–162; BP diastolic 68–73
[2021-07-22] MEDS: MORPHINE SULFATE INJ 2 MG/ML SYR IV PRN (04:25)
[2021-07-22 06:20] LABS: BASOPHILS # (AUTO) 0.1 (0.0-0.1); BASOPHILS % 0.8 % (0.0-1.0); EOSINOPHILS % 8.8 % (0.0-6.0); HEMATOCRIT 33.3 % (38.2-49.6); HEMOGLOBIN 11.6 g/dL (14.0-18.0); LYMPHOCYTES # (AUTO) 1.5 (1.0-3.2); LYMPHOCYTES % 12.5 % (18.0-39.1); MEAN CORPUSCULAR HEMOGLOBIN 32.1 pg (28-32); MEAN CORPUSCULAR HGB CONC 34.8 g/dL (31-35); MEAN CORPUSCULAR VOLUME 92.2 fL (81-99); MONOCYTES # (AUTO) 0.9 (0.2-0.8); NEUTROPHILS # (AUTO) 8.2 (2.1-6.9); NEUTROPHILS % 69.5 % (38.7-80.0); PLATELET COUNT 151 x10e3/uL (140-360); RED BLOOD COUNT 3.61 x10e6/uL (4.3-5.7); RED CELL DISTRIBUTION WIDTH 14.1 % (11.7-14.4)
[2021-07-22 06:50] LABS: ANION GAP 15.6 mmol/L (8-16); CREATININE, SERUM 1.36 mg/dL (0.72-1.25); POTASSIUM 3.6 mmol/L (3.5-5.1)
[2021-07-22] MEDS ORDERED: NITROGLYCERIN 0.4 MG SUBL SL PRN (07:45)
[2021-07-22] MEDS: METFORMIN HCL PO SCH ×2 (08:00→17:00)
[2021-07-22] MEDS: LINAGLIPTIN PO SCH ×2 (08:00→17:00)
[2021-07-22] MEDS: INSULIN LISPRO 100 UNIT/1 ML 3ML VIAL SQ SCH ×4 (09:50→22:18)
[2021-07-22] MEDS: PANTOPRAZOLE SOD 40 MG TABEC PO SCH (10:03)
[2021-07-22] MEDS: GLIMEPIRIDE 2 MG TAB PO SCH (10:03)
[2021-07-22] MEDS: TAMSULOSIN HCL 0.4 MG CAP PO SCH (10:04)
[2021-07-22] MEDS: ASPIRIN 81 MG ENTERIC COATED PO SCH (10:04)
[2021-07-22] MEDS: IRBESARTAN 150 MG TAB PO SCH (10:04)
[2021-07-22] MEDS: CLOPIDOGREL BISULFATE 75 MG TAB PO SCH (10:05)
[2021-07-22] MEDS: FINASTERIDE 5 MG TAB PO SCH (10:05)
[2021-07-22] MEDS: RANOLAZINE 500 MG TABSR PO SCH ×2 (10:06→19:10)
[2021-07-22] MEDS: ISOSORBIDE MONONITRATE 30 MG TAB CR PO SCH (10:06)
[2021-07-22] MEDS: METOPROLOL SUCCINATE 50 MG TAB XL PO SCH ×2 (10:07→22:18)
[2021-07-22] MEDS: AMLODIPINE BESYLATE 10 MG TAB PO SCH (10:07)
[2021-07-22] MEDS ORDERED: METOPROLOL SUCCINATE 50 MG TAB XL PO SCH (17:00)
[2021-07-22] MEDS: SIMVASTATIN 40 MG TAB PO SCH (22:17)
[2021-07-23] VITALS: BP 135/72
[2021-07-23 04:00] VITALS: BP 127/73
[2021-07-23 06:44] LABS: BASOPHILS # (AUTO) 0.1 (0.0-0.1); BASOPHILS % 0.6 % (0.0-1.0); EOSINOPHILS # (AUTO) 1.1 (0.0-0.4); EOSINOPHILS % 7.6 % (0.0-6.0); HEMATOCRIT 36.6 % (38.2-49.6); HEMOGLOBIN 12.5 g/dL (14.0-18.0); LYMPHOCYTES # (AUTO) 1.8 (1.0-3.2); LYMPHOCYTES % 12.6 % (18.0-39.1); MEAN CORPUSCULAR HGB CONC 34.2 g/dL (31-35); MEAN CORPUSCULAR VOLUME 90.8 fL (81-99); MONOCYTES # (AUTO) 1.1 (0.2-0.8); MONOCYTES % 7.5 % (4.4-11.3); NEUTROPHILS # (AUTO) 10.3 (2.1-6.9); NEUTROPHILS % 71.2 % (38.7-80.0); PLATELET COUNT 166 x10e3/uL (140-360); RED BLOOD COUNT 4.03 x10e6/uL (4.3-5.7); RED CELL DISTRIBUTION WIDTH 14.3 % (11.7-14.4)
[2021-07-23] MEDS: MORPHINE SULFATE INJ 2 MG/ML SYR IV PRN (06:51)
[2021-07-23 07:01] LABS: CHOL/HDL RATIO 3.6 (3.9-4.7)
[2021-07-23 07:27] LABS: ANION GAP 14.4 mmol/L (8-16); CALCIUM 9.2 mg/dL (8.4-10.2); CREATININE, SERUM 1.22 mg/dL (0.72-1.25); POTASSIUM 3.4 mmol/L (3.5-5.1)
[2021-07-23] MEDS: INSULIN LISPRO 100 UNIT/1 ML 3ML VIAL SQ SCH ×2 (07:30→11:30)
[2021-07-23] MEDS ORDERED: POTASSIUM CHLORIDE 20 MEQ TAB CR PO STA ×2 (07:55→08:24)
[2021-07-23 08:47] VITALS: BP 135/75
[2021-07-23 09:00] VITALS: BP 135/75
[2021-07-23] MEDS ORDERED: ISOSORBIDE MONONITRATE 30 MG TAB CR PO SCH (09:00)
[2021-07-23] MEDS: GLIMEPIRIDE 2 MG TAB PO SCH (09:25)
[2021-07-23] MEDS: PANTOPRAZOLE SOD 40 MG TABEC PO SCH (09:26)
[2021-07-23] MEDS: LINAGLIPTIN PO SCH (09:26)
[2021-07-23] MEDS: METFORMIN HCL PO SCH (09:26)
[2021-07-23] MEDS: TAMSULOSIN HCL 0.4 MG CAP PO SCH (09:26)
[2021-07-23] MEDS: IRBESARTAN 150 MG TAB PO SCH (09:26)
[2021-07-23] MEDS: ASPIRIN 81 MG ENTERIC COATED PO SCH (09:26)
[2021-07-23] MEDS: CLOPIDOGREL BISULFATE 75 MG TAB PO SCH (09:27)
[2021-07-23] MEDS: RANOLAZINE 500 MG TABSR PO SCH (09:27)
[2021-07-23] MEDS: FINASTERIDE 5 MG TAB PO SCH (09:27)
[2021-07-23] MEDS: AMLODIPINE BESYLATE 10 MG TAB PO SCH (09:27)
[2021-07-23] MEDS: METOPROLOL SUCCINATE 50 MG TAB XL PO SCH (09:27)
[2021-07-23] MEDS ORDERED: NITROSTAT0.4 MG SL (09:45)
[2021-07-23] MEDS ORDERED: RANEXA500 MG PO (09:45)
[2021-07-23] MEDS ORDERED: Isosorbide Mononitrate PO (09:45)
[2021-07-23] MEDS ORDERED: TOPROL XL50 MG PO (09:45)
[2021-07-23 11:45] VITALS: BP 135/68
== END 2021-07-23 13:24 | disposition home or self-care (01) | DRG 247 ==
LOC: ER 07:23 → ERHOLD 08:32 → MED/SURG 11:14 → OBSVTOIN 07-21 10:21
PROVIDERS: ADMIT Internal Medicine; ATTEND Internal Medicine
PROC: 027035Z Dilation of Coronary Artery, One Artery with Two Drug-eluting Intraluminal Devices, Percutaneous Approach (ICD-10-PCS; principal; 2021-07-21)
PROC: B245ZZ3 Ultrasonography of Left Heart, Intravascular (ICD-10-PCS; 2021-07-21)
PROC: 4A023N7 Measurement of Cardiac Sampling and Pressure, Left Heart, Percutaneous Approach (ICD-10-PCS; 2021-07-21)
PROC: B2121ZZ Fluoroscopy of Single Coronary Artery Bypass Graft using Low Osmolar Contrast (ICD-10-PCS; 2021-07-21)
PROC: B2111ZZ Fluoroscopy of Multiple Coronary Arteries using Low Osmolar Contrast (ICD-10-PCS; 2021-07-21)
PROC: B2181ZZ Fluoroscopy of Left Internal Mammary Bypass Graft using Low Osmolar Contrast (ICD-10-PCS; 2021-07-21)
DX: I25.110 Atherosclerotic heart disease of native coronary artery with unstable angina pectoris (principal); I50.22 Chronic systolic (congestive) heart failure; N17.9 Acute kidney failure, unspecified; E11.9 Type 2 diabetes mellitus without complications; N40.0 Benign prostatic hyperplasia without lower urinary tract symptoms; Z95.1 Presence of aortocoronary bypass graft; Z87.891 Personal history of nicotine dependence; I11.0 Hypertensive heart disease with heart failure; Z95.2 Presence of prosthetic heart valve; Z20.822 Contact with and (suspected) exposure to COVID-19; E66.9 Obesity, unspecified; Z68.30 Body mass index [BMI] 30.0-30.9, adult
CPT/HCPCS: 36415; 71045; 76937; 78452; 80048; 80053; 80061; 81001; 82550; 82553; 82948; 83036; 83880; 84443; 84484; 85025; 85610; 85730; 92928; 92978; 93005; 93017; 93455; 99152; 99153; 99284; A9502; C1725; C1753; C1760; C1769; C1874; C1887; C1894; G0378; J0360; J1817; J2001; J2250; J2270; J3010; J7030; J7040; Q9967; U0002

== ENCOUNTER 2021-12-07 12:28 | Inpatient (IN) | payer MEDICARE ==
[~2021-12-07] VITALS: Ht 180.3 cm; Wt 92.5 kg
[~2021-12-07 12:28] MED LIST changes: +Isosorbide Mononitrate PO; +TOPROL XL50 MG PO
[2021-12-07] MEDS ORDERED: SODIUM CHLORIDE 0.9% 1000ML 1,000 ML IV ONE (12:45)
[2021-12-07] MEDS ORDERED: ONDANSETRON HCL INJ 2MG/ML 2ML 2 MG/ML VIAL IV PRN ×3 (12:45→15:15)
[2021-12-07 13:09] LABS: BASOPHILS # (AUTO) 0.1 (0.0-0.1); BASOPHILS % 0.6 % (0.0-1.0); EOSINOPHILS # (AUTO) 0.5 (0.0-0.4); EOSINOPHILS % 3.8 % (0.0-6.0); HEMATOCRIT 35.9 % (38.2-49.6); LYMPHOCYTES # (AUTO) 1.6 (1.0-3.2); MEAN CORPUSCULAR HEMOGLOBIN 31.1 pg (28-32); MEAN CORPUSCULAR HGB CONC 33.4 g/dL (31-35); MONOCYTES # (AUTO) 0.8 (0.2-0.8); NEUTROPHILS # (AUTO) 9.5 (2.1-6.9); NEUTROPHILS % 76.2 % (38.7-80.0); PLATELET COUNT 182 x10e3/uL (140-360); RED BLOOD COUNT 3.86 x10e6/uL (4.3-5.7); RED CELL DISTRIBUTION WIDTH 12.8 % (11.7-14.4)
[2021-12-07 13:31] LABS: ALBUMIN 3.5 g/dL (3.5-5.0); ALBUMIN/GLOBULIN RATIO 0.9 (0.8-2.0); ANION GAP 20.5 mmol/L (8-16); CALCIUM 9.4 mg/dL (8.4-10.2); CREATININE, SERUM 3.17 mg/dL (0.72-1.25); POTASSIUM 3.5 mmol/L (3.5-5.1)
[2021-12-07] MEDS ORDERED: CEFTRIAXONE 1 GM VIAL IM ONE (13:45)
[2021-12-07] MEDS ORDERED: SODIUM CHLORIDE 0.9% IV ONE (13:45)
[2021-12-07] MEDS ORDERED: SODIUM CHLORIDE 0.9% 1000ML 1,000 ML ONE (13:46)
[2021-12-07 13:56] LABS: CLARITY,URINE CLOUDY (CLEAR); COLOR,URINE YELLOW (YELLOW); KETONES,URINE NEGATIVE (NEGATIVE); LEUKOCYTE ESTERASE ,URINE MODERATE (NEGATIVE); NITRITE,URINE NEGATIVE (NEGATIVE); PROTEIN,URINE DIPSTICK 2+ (NEGATIVE); URINE UROBILINOGEN 0.2 mg/dL (0.2 - 1)
[2021-12-07 14:16] LABS: BACTERIA,URINE MODERATE /HPF; WBC,URINE (MAN) >50 /HPF (0-5)
[2021-12-07] MEDS ORDERED: SODIUM CHLORIDE 0.9% 1000ML 1,000 ML IV SCH (15:15)
[2021-12-07 16:01] LABS: ANION GAP 19.3 mmol/L (8-16); CALCIUM 8.4 mg/dL (8.4-10.2); CREATININE, SERUM 3.09 mg/dL (0.72-1.25); POTASSIUM 3.3 mmol/L (3.5-5.1)
[2021-12-07] MEDS: MEROPENEM 500 MG in SODIUM CHLORIDE 0.9% 50ML 50 ML IV SCH (16:13)
[2021-12-07] MEDS ORDERED: POTASSIUM CHLORIDE 20 MEQ TAB CR PO STA (16:57)
[2021-12-07] MEDS ORDERED: Vancomycin IV 1 GM in SODIUM CHLORIDE 0.9% 250ML 250 ML IV ONE (17:00)
[2021-12-07 17:28] LABS: ABG HCO3 14 mmol/L (22-26); ABG PCO2 23 mmHg (35-45); ABG PH 7.41 (7.35-7.45); ABG PO2 70 mmHg (80-105); ABG TCO2 15
[2021-12-07] MEDS: LACTATED RINGER'S 1,000 ML INJ SCH ×2 (18:11→18:19)
[2021-12-07] MEDS ORDERED: SODIUM BICARBONATE 8.4% 50 ML in SODIUM CHLORIDE 0.45% 1,000 ML IV ONE (18:45)
[2021-12-07] MEDS: SODIUM BICARBONATE 8.4% 50 ML in SODIUM CHLORIDE 0.45% 1,000 ML IV SCH (19:27)
[2021-12-07 20:50] VITALS: BP 110/62
[2021-12-07 21:00] VITALS: BP 110/62
[2021-12-07] MEDS ORDERED: ZOLPIDEM TARTRATE 5 MG TAB PO PRN (21:00)
[2021-12-08] VITALS (8 sets, daily range): BP systolic 112–154; BP diastolic 55–68
[2021-12-08] MEDS: MEROPENEM 500 MG in SODIUM CHLORIDE 0.9% 50ML 50 ML IV SCH ×2 (03:53→15:08)
[2021-12-08] MEDS ORDERED: SODIUM BICARBONATE 8.4% SYRING 50 ML ONE (04:45)
[2021-12-08] MEDS ORDERED: SODIUM CHLORIDE 0.45% 1,000 ML ONE (04:45)
[2021-12-08 05:48] LABS: BASOPHILS # (AUTO) 0.1 (0.0-0.1); BASOPHILS % 0.6 % (0.0-1.0); EOSINOPHILS # (AUTO) 0.5 (0.0-0.4); EOSINOPHILS % 4.6 % (0.0-6.0); HEMATOCRIT 30.7 % (38.2-49.6); HEMOGLOBIN 10.4 g/dL (14.0-18.0); LYMPHOCYTES % 18.9 % (18.0-39.1); MEAN CORPUSCULAR HGB CONC 33.9 g/dL (31-35); MEAN CORPUSCULAR VOLUME 91.4 fL (81-99); MONOCYTES # (AUTO) 0.9 (0.2-0.8); MONOCYTES % 8.2 % (4.4-11.3); NEUTROPHILS # (AUTO) 7.3 (2.1-6.9); NEUTROPHILS % 67.2 % (38.7-80.0); PLATELET COUNT 142 x10e3/uL (140-360); RED BLOOD COUNT 3.36 x10e6/uL (4.3-5.7); RED CELL DISTRIBUTION WIDTH 12.8 % (11.7-14.4)
[2021-12-08] MEDS: SODIUM BICARBONATE 8.4% 50 ML in SODIUM CHLORIDE 0.45% 1,000 ML IV SCH (05:59)
[2021-12-08 06:00] LABS: ALBUMIN 2.9 g/dL (3.5-5.0); ALBUMIN/GLOBULIN RATIO 0.9 (0.8-2.0); CALCIUM 8.3 mg/dL (8.4-10.2); CREATININE, SERUM 2.68 mg/dL (0.72-1.25)
[2021-12-08] MEDS: FINASTERIDE 5 MG TAB PO SCH (08:41)
[2021-12-08] MEDS: TAMSULOSIN HCL 0.4 MG CAP PO SCH (08:41)
[2021-12-08] MEDS: CLOPIDOGREL BISULFATE 75 MG TAB PO SCH (08:41)
[2021-12-08] MEDS: ASPIRIN 81 MG CHEW TAB PO SCH (08:41)
[2021-12-08] MEDS ORDERED: SODIUM BICARBONATE 8.4% 50 ML in SODIUM CHLORIDE 0.45% 1,000 ML IV SCH (10:30)
[2021-12-08] MEDS: AMLODIPINE BESYLATE 10 MG TAB PO SCH (11:15)
[2021-12-08] MEDS ORDERED: POTASSIUM CHLORIDE 10MEQ/100ML 200 ML IV ONE (11:30)
[2021-12-08] MEDS ORDERED: DEXTROSE 50% SYRINGE 50 ML IV PRN (11:30)
[2021-12-08] MEDS ORDERED: POTASSIUM CHLORIDE 10MEQ EA PO ONE (11:30)
[2021-12-08] MEDS: INSULIN LISPRO 100 UNIT/1 ML 3ML VIAL SQ SCH ×3 (12:02→21:03)
[2021-12-08] MEDS: LACTATED RINGER'S 1,000 ML INJ SCH (15:53)
[2021-12-08] MEDS: METOPROLOL SUCCINATE 50 MG TAB XL PO SCH (17:00)
[2021-12-08] MEDS ORDERED: SIMVASTATIN 40 MG TAB PO SCH (21:00)
[2021-12-08] MEDS: CRESTOR 10MG PO SCH (21:21)
[2021-12-09] VITALS (8 sets, daily range): BP systolic 109–155; BP diastolic 50–81
[2021-12-09] MEDS: LACTATED RINGER'S 1,000 ML INJ SCH ×3 (03:29→21:43)
[2021-12-09] MEDS: MEROPENEM 500 MG in SODIUM CHLORIDE 0.9% 50ML 50 ML IV SCH ×2 (03:50→16:18)
[2021-12-09 05:49] LABS: BASOPHILS # (AUTO) 0.1 (0.0-0.1); BASOPHILS % 0.8 % (0.0-1.0); EOSINOPHILS # (AUTO) 0.7 (0.0-0.4); EOSINOPHILS % 5.9 % (0.0-6.0); HEMATOCRIT 32.3 % (38.2-49.6); HEMOGLOBIN 10.9 g/dL (14.0-18.0); LYMPHOCYTES # (AUTO) 1.9 (1.0-3.2); LYMPHOCYTES % 17.7 % (18.0-39.1); MEAN CORPUSCULAR HEMOGLOBIN 31.1 pg (28-32); MEAN CORPUSCULAR HGB CONC 33.7 g/dL (31-35); MONOCYTES # (AUTO) 0.9 (0.2-0.8); MONOCYTES % 8.1 % (4.4-11.3); NEUTROPHILS # (AUTO) 7.3 (2.1-6.9); NEUTROPHILS % 67.1 % (38.7-80.0); PLATELET COUNT 145 x10e3/uL (140-360); RED BLOOD COUNT 3.51 x10e6/uL (4.3-5.7); RED CELL DISTRIBUTION WIDTH 12.7 % (11.7-14.4)
[2021-12-09 06:43] LABS: ALBUMIN/GLOBULIN RATIO 0.9 (0.8-2.0); CALCIUM 8.8 mg/dL (8.4-10.2); CREATININE, SERUM 2.21 mg/dL (0.72-1.25)
[2021-12-09] MEDS: INSULIN LISPRO 100 UNIT/1 ML 3ML VIAL SQ SCH ×4 (07:39→21:43)
[2021-12-09] MEDS: GLIMEPIRIDE 2 MG TAB PO SCH (08:55)
[2021-12-09] MEDS: CLOPIDOGREL BISULFATE 75 MG TAB PO SCH (08:55)
[2021-12-09] MEDS: METOPROLOL SUCCINATE 50 MG TAB XL PO SCH ×2 (08:55→16:18)
[2021-12-09] MEDS: FINASTERIDE 5 MG TAB PO SCH (08:55)
[2021-12-09] MEDS: AMLODIPINE BESYLATE 10 MG TAB PO SCH (08:55)
[2021-12-09] MEDS: TAMSULOSIN HCL 0.4 MG CAP PO SCH (08:55)
[2021-12-09] MEDS: ASPIRIN 81 MG CHEW TAB PO SCH (08:55)
[2021-12-09] MEDS ORDERED: IRBESARTAN 150 MG TAB PO SCH (09:00)
[2021-12-09] MEDS ORDERED: FUROSEMIDE 40 MG TAB PO SCH (09:00)
[2021-12-09] MEDS ORDERED: POTASSIUM CHLORIDE 20 MEQ TAB CR PO ONE (15:00)
[2021-12-09] MEDS: Morphine 2mg Syringe 2 MG/ML SYR IV PRN ×2 (15:00→21:43)
[2021-12-09] MEDS ORDERED: METOPROLOL SUCCINATE 50 MG TAB XL PO ONE (17:00)
[2021-12-09] MEDS: CRESTOR 10MG PO SCH (21:42)
[2021-12-10] VITALS (7 sets, daily range): BP systolic 113–150; BP diastolic 53–75
[2021-12-10] MEDS: MEROPENEM 500 MG in SODIUM CHLORIDE 0.9% 50ML 50 ML IV SCH ×2 (03:46→15:10)
[2021-12-10] MEDS: Morphine 2mg Syringe 2 MG/ML SYR IV PRN ×3 (03:49→16:15)
[2021-12-10 07:19] LABS: BASOPHILS # (AUTO) 0.1 (0.0-0.1); BASOPHILS % 0.6 % (0.0-1.0); EOSINOPHILS # (AUTO) 0.9 (0.0-0.4); EOSINOPHILS % 6.3 % (0.0-6.0); HEMATOCRIT 34.9 % (38.2-49.6); HEMOGLOBIN 11.8 g/dL (14.0-18.0); LYMPHOCYTES % 13.6 % (18.0-39.1); MEAN CORPUSCULAR HGB CONC 33.8 g/dL (31-35); MEAN CORPUSCULAR VOLUME 91.6 fL (81-99); MONOCYTES # (AUTO) 1.2 (0.2-0.8); MONOCYTES % 8.5 % (4.4-11.3); NEUTROPHILS # (AUTO) 10.2 (2.1-6.9); NEUTROPHILS % 70.4 % (38.7-80.0); PLATELET COUNT 166 x10e3/uL (140-360); RED BLOOD COUNT 3.81 x10e6/uL (4.3-5.7); RED CELL DISTRIBUTION WIDTH 12.8 % (11.7-14.4)
[2021-12-10 07:47] LABS: ALBUMIN 3.1 g/dL (3.5-5.0); ALBUMIN/GLOBULIN RATIO 0.9 (0.8-2.0); ANION GAP 13.2 mmol/L (8-16); CALCIUM 9.5 mg/dL (8.4-10.2); CREATININE, SERUM 1.59 mg/dL (0.72-1.25); POTASSIUM 3.2 mmol/L (3.5-5.1)
[2021-12-10] MEDS: ASPIRIN 81 MG CHEW TAB PO SCH (09:02)
[2021-12-10] MEDS: LACTATED RINGER'S 1,000 ML INJ SCH ×2 (09:02→17:56)
[2021-12-10] MEDS: GLIMEPIRIDE 2 MG TAB PO SCH (09:02)
[2021-12-10] MEDS: AMLODIPINE BESYLATE 10 MG TAB PO SCH (09:03)
[2021-12-10] MEDS: TAMSULOSIN HCL 0.4 MG CAP PO SCH (09:03)
[2021-12-10] MEDS: CLOPIDOGREL BISULFATE 75 MG TAB PO SCH (09:04)
[2021-12-10] MEDS: FINASTERIDE 5 MG TAB PO SCH (09:04)
[2021-12-10] MEDS: METOPROLOL SUCCINATE 50 MG TAB XL PO SCH ×2 (09:05→17:55)
[2021-12-10] MEDS: INSULIN LISPRO 100 UNIT/1 ML 3ML VIAL SQ SCH ×4 (09:10→21:10)
[2021-12-10] MEDS: CRESTOR 10MG PO SCH (21:09)
[2021-12-11] VITALS: BP 141/66
[2021-12-11 04:00] VITALS: BP 136/76
[2021-12-11] MEDS: MEROPENEM 500 MG in SODIUM CHLORIDE 0.9% 50ML 50 ML IV SCH ×2 (04:41→16:34)
[2021-12-11] MEDS: LACTATED RINGER'S 1,000 ML INJ SCH ×2 (04:41→14:30)
[2021-12-11 06:33] LABS: BASOPHILS # (AUTO) 0.1 (0.0-0.1); BASOPHILS % 0.9 % (0.0-1.0); EOSINOPHILS # (AUTO) 0.8 (0.0-0.4); HEMATOCRIT 35.8 % (38.2-49.6); LYMPHOCYTES # (AUTO) 1.7 (1.0-3.2); LYMPHOCYTES % 12.1 % (18.0-39.1); MEAN CORPUSCULAR HEMOGLOBIN 31.1 pg (28-32); MEAN CORPUSCULAR HGB CONC 33.5 g/dL (31-35); MEAN CORPUSCULAR VOLUME 92.7 fL (81-99); MONOCYTES # (AUTO) 1.1 (0.2-0.8); MONOCYTES % 8.2 % (4.4-11.3); NEUTROPHILS # (AUTO) 10.1 (2.1-6.9); NEUTROPHILS % 72.2 % (38.7-80.0); PLATELET COUNT 147 x10e3/uL (140-360); RED BLOOD COUNT 3.86 x10e6/uL (4.3-5.7); RED CELL DISTRIBUTION WIDTH 12.6 % (11.7-14.4)
[2021-12-11 07:05] LABS: ALBUMIN/GLOBULIN RATIO 0.8 (0.8-2.0); ANION GAP 13.4 mmol/L (8-16); CALCIUM 9.4 mg/dL (8.4-10.2); CREATININE, SERUM 1.43 mg/dL (0.72-1.25); POTASSIUM 3.4 mmol/L (3.5-5.1)
[2021-12-11] MEDS: INSULIN LISPRO 100 UNIT/1 ML 3ML VIAL SQ SCH ×4 (07:30→21:57)
[2021-12-11 08:00] VITALS: BP 136/76
[2021-12-11] MEDS: GLIMEPIRIDE 2 MG TAB PO SCH (08:00)
[2021-12-11] MEDS ORDERED: POTASSIUM CHLORIDE 20 MEQ TAB CR PO STA (08:38)
[2021-12-11] MEDS: CLOPIDOGREL BISULFATE 75 MG TAB PO SCH (09:00)
[2021-12-11] MEDS: TAMSULOSIN HCL 0.4 MG CAP PO SCH (09:00)
[2021-12-11] MEDS: ASPIRIN 81 MG CHEW TAB PO SCH (09:00)
[2021-12-11] MEDS: AMLODIPINE BESYLATE 10 MG TAB PO SCH (09:00)
[2021-12-11] MEDS: METOPROLOL SUCCINATE 50 MG TAB XL PO SCH ×2 (09:00→17:00)
[2021-12-11] MEDS: FINASTERIDE 5 MG TAB PO SCH (09:00)
[2021-12-11 12:19] VITALS: BP 150/67
[2021-12-11 20:00] VITALS: BP 148/52
[2021-12-11] MEDS: CRESTOR 10MG PO SCH (20:35)
[2021-12-12] VITALS: BP 147/50
[2021-12-12] MEDS: LACTATED RINGER'S 1,000 ML INJ SCH ×2 (02:24→10:30)
[2021-12-12 04:00] VITALS: BP 130/55
[2021-12-12] MEDS: MEROPENEM 500 MG in SODIUM CHLORIDE 0.9% 50ML 50 ML IV SCH ×2 (04:18→15:12)
[2021-12-12 05:30] LABS: BASOPHILS # (AUTO) 0.1 (0.0-0.1); BASOPHILS % 0.8 % (0.0-1.0); EOSINOPHILS % 7.1 % (0.0-6.0); HEMATOCRIT 34.7 % (38.2-49.6); HEMOGLOBIN 11.9 g/dL (14.0-18.0); LYMPHOCYTES % 13.7 % (18.0-39.1); MEAN CORPUSCULAR HEMOGLOBIN 31.2 pg (28-32); MEAN CORPUSCULAR HGB CONC 34.3 g/dL (31-35); MEAN CORPUSCULAR VOLUME 91.1 fL (81-99); MONOCYTES # (AUTO) 1.2 (0.2-0.8); MONOCYTES % 8.5 % (4.4-11.3); NEUTROPHILS % 69.5 % (38.7-80.0); PLATELET COUNT 162 x10e3/uL (140-360); RED BLOOD COUNT 3.81 x10e6/uL (4.3-5.7); RED CELL DISTRIBUTION WIDTH 12.6 % (11.7-14.4)
[2021-12-12 06:37] LABS: ALBUMIN 2.9 g/dL (3.5-5.0); ALBUMIN/GLOBULIN RATIO 0.8 (0.8-2.0); ANION GAP 14.2 mmol/L (8-16); CALCIUM 9.5 mg/dL (8.4-10.2); CREATININE, SERUM 1.33 mg/dL (0.72-1.25); POTASSIUM 3.2 mmol/L (3.5-5.1)
[2021-12-12] MEDS: INSULIN LISPRO 100 UNIT/1 ML 3ML VIAL SQ SCH ×4 (07:30→21:43)
[2021-12-12 07:59] VITALS: BP 136/70
[2021-12-12 08:00] VITALS: BP 130/55
[2021-12-12] MEDS: GLIMEPIRIDE 2 MG TAB PO SCH (08:00)
[2021-12-12] MEDS: FINASTERIDE 5 MG TAB PO SCH (09:00)
[2021-12-12] MEDS: METOPROLOL SUCCINATE 50 MG TAB XL PO SCH ×2 (09:00→17:00)
[2021-12-12] MEDS: AMLODIPINE BESYLATE 10 MG TAB PO SCH (09:00)
[2021-12-12] MEDS: TAMSULOSIN HCL 0.4 MG CAP PO SCH (09:00)
[2021-12-12] MEDS: CLOPIDOGREL BISULFATE 75 MG TAB PO SCH (09:00)
[2021-12-12] MEDS: ASPIRIN 81 MG CHEW TAB PO SCH (09:00)
[2021-12-12 11:40] VITALS: BP 133/64
[2021-12-12] MEDS ORDERED: POTASSIUM CHLORIDE 20 MEQ TAB CR PO ONE (13:45)
[2021-12-12 20:00] VITALS: BP 122/56
[2021-12-12] MEDS: CRESTOR 10MG PO SCH (21:20)
[2021-12-13] VITALS: BP 123/83
[2021-12-13 04:00] VITALS: BP 131/58
[2021-12-13] MEDS: MEROPENEM 500 MG in SODIUM CHLORIDE 0.9% 50ML 50 ML IV SCH (04:20)
[2021-12-13 04:58] LABS: BASOPHILS # (AUTO) 0.1 (0.0-0.1); BASOPHILS % 1.2 % (0.0-1.0); EOSINOPHILS % 8.6 % (0.0-6.0); HEMATOCRIT 34.5 % (38.2-49.6); HEMOGLOBIN 11.2 g/dL (14.0-18.0); MEAN CORPUSCULAR HEMOGLOBIN 31.1 pg (28-32); MEAN CORPUSCULAR HGB CONC 32.5 g/dL (31-35); MONOCYTES # (AUTO) 1.1 (0.2-0.8); MONOCYTES % 9.4 % (4.4-11.3); NEUTROPHILS # (AUTO) 7.5 (2.1-6.9); NEUTROPHILS % 63.6 % (38.7-80.0); PLATELET COUNT 179 x10e3/uL (140-360); RED CELL DISTRIBUTION WIDTH 12.8 % (11.7-14.4)
[2021-12-13 05:08] LABS: MEAN CORPUSCULAR VOLUME 95.8 fL (81-99)
[2021-12-13 05:44] LABS: ANION GAP 12.5 mmol/L (8-16); CREATININE, SERUM 1.46 mg/dL (0.72-1.25); POTASSIUM 3.5 mmol/L (3.5-5.1)
[2021-12-13 08:12] VITALS: BP 156/54
[2021-12-13] MEDS: TAMSULOSIN HCL 0.4 MG CAP PO SCH (09:15)
[2021-12-13] MEDS: ASPIRIN 81 MG CHEW TAB PO SCH (09:15)
[2021-12-13] MEDS: GLIMEPIRIDE 2 MG TAB PO SCH (09:15)
[2021-12-13] MEDS: CLOPIDOGREL BISULFATE 75 MG TAB PO SCH (09:16)
[2021-12-13] MEDS: AMLODIPINE BESYLATE 10 MG TAB PO SCH (09:16)
[2021-12-13] MEDS: FINASTERIDE 5 MG TAB PO SCH (09:17)
[2021-12-13] MEDS: METOPROLOL SUCCINATE 50 MG TAB XL PO SCH (09:17)
[2021-12-13] MEDS: INSULIN LISPRO 100 UNIT/1 ML 3ML VIAL SQ SCH ×2 (09:29→12:16)
[2021-12-13] MEDS ORDERED: TOPROL XL50 MG PO (14:07)
[2021-12-13] MEDS ORDERED: ONDANSETRON HCL 4 MG ORAL DISINTEGRATING TAB PO PRN (14:30)
== END 2021-12-13 16:56 | disposition home or self-care (01) | DRG 683 ==
LOC: ER 12:32 → ERHOLD 15:04 → IMCU 20:25 → MED/SURG2 12-09 15:36
PROVIDERS: ADMIT Internal Medicine; ATTEND Internal Medicine
DX: N17.9 Acute kidney failure, unspecified (principal); N39.0 Urinary tract infection, site not specified; E87.2 Acidosis; I13.0 Hypertensive heart and chronic kidney disease with heart failure and stage 1 through stage 4 chronic kidney disease, or unspecified chronic kidney disease; I50.22 Chronic systolic (congestive) heart failure; E87.1 Hypo-osmolality and hyponatremia; Z16.24 Resistance to multiple antibiotics; E86.0 Dehydration; I25.10 Atherosclerotic heart disease of native coronary artery without angina pectoris; G89.29 Other chronic pain; M54.50 Low back pain, unspecified; E78.5 Hyperlipidemia, unspecified; E87.6 Hypokalemia; R62.7 Adult failure to thrive; Z68.28 Body mass index [BMI] 28.0-28.9, adult; N18.9 Chronic kidney disease, unspecified; Z77.090 Contact with and (suspected) exposure to asbestos; Z79.01 Long term (current) use of anticoagulants; Z95.2 Presence of prosthetic heart valve; Z95.5 Presence of coronary angioplasty implant and graft; Z95.1 Presence of aortocoronary bypass graft; R63.4 Abnormal weight loss; E11.65 Type 2 diabetes mellitus with hyperglycemia; Z95.810 Presence of automatic (implantable) cardiac defibrillator; Z87.891 Personal history of nicotine dependence; Z20.822 Contact with and (suspected) exposure to COVID-19; Z82.49 Family history of ischemic heart disease and other diseases of the circulatory system
CPT/HCPCS: 36415; 36600; 71045; 74176; 78580; 80048; 80053; 81001; 82805; 82948; 83605; 83880; 84484; 85025; 85379; 87040; 87086; 93005; 93306; 94799; 97139; 99251; 99284; A9540; J0696; J2185; J2270; J2405; J3370; J3480; J7030; J7050; J7121; U0002

== ENCOUNTER 2022-05-14 11:24 | Inpatient (IN) | payer MEDICARE ==
[~2022-05-14] VITALS: Ht 180.3 cm; Wt 92.5 kg
[2022-05-14] MEDS ORDERED: ONDANSETRON HCL INJ 2MG/ML 2ML 2 MG/ML VIAL IV NR (11:32)
[2022-05-14] MEDS ORDERED: Morphine 2mg Syringe 2 MG/ML SYR IV NR (11:45)
[2022-05-14 11:53] LABS: BASOPHILS # (AUTO) 0.1 (0.0-0.1); BASOPHILS % 0.7 % (0.0-1.0); EOSINOPHILS # (AUTO) 0.5 (0.0-0.4); EOSINOPHILS % 2.8 % (0.0-6.0); HEMATOCRIT 44.3 % (38.2-49.6); HEMOGLOBIN 14.8 g/dL (14.0-18.0); LYMPHOCYTES # (AUTO) 1.4 (1.0-3.2); LYMPHOCYTES % 8.6 % (18.0-39.1); MEAN CORPUSCULAR HEMOGLOBIN 31.8 pg (28-32); MEAN CORPUSCULAR HGB CONC 33.4 g/dL (31-35); MEAN CORPUSCULAR VOLUME 95.3 fL (81-99); MONOCYTES % 6.3 % (4.4-11.3); NEUTROPHILS # (AUTO) 13.2 (2.1-6.9); NEUTROPHILS % 81.3 % (38.7-80.0); PLATELET COUNT 254 x10e3/uL (140-360); RED BLOOD COUNT 4.65 x10e6/uL (4.3-5.7); RED CELL DISTRIBUTION WIDTH 12.5 % (11.7-14.4)
[2022-05-14 12:05] LABS: INR 0.9
[2022-05-14 12:06] LABS: PARTIAL THROMBOPLASTIN TIME 29.7 seconds (23.8-35.5)
[2022-05-14 12:11] LABS: CLARITY,URINE SL CLOUDY (CLEAR); COLOR,URINE YELLOW (YELLOW)
[2022-05-14 12:12] LABS: KETONES,URINE NEGATIVE (NEGATIVE); LEUKOCYTE ESTERASE ,URINE TRACE (NEGATIVE); NITRITE,URINE NEGATIVE (NEGATIVE); PROTEIN,URINE DIPSTICK 2+ (NEGATIVE)
[2022-05-14 12:13] LABS: BACTERIA,URINE RARE /HPF; RBC,URINE >50 /HPF (0-5); URINE UROBILINOGEN 0.2 mg/dL (0.2 - 1)
[2022-05-14 12:16] LABS: ALBUMIN 3.4 g/dL (3.5-5.0); ALBUMIN/GLOBULIN RATIO 0.7 (0.8-2.0); ANION GAP 16.7 mmol/L (8-16); CALCIUM 8.9 mg/dL (8.4-10.2); CREATININE, SERUM 1.95 mg/dL (0.72-1.25); MAGNESIUM 1.6 MG/DL (1.3-2.1); POTASSIUM 3.7 mmol/L (3.5-5.1)
[2022-05-14 12:23] LABS: CREATINE KINASE MB 1.8 ng/mL (0-5.0)
[2022-05-14] MEDS ORDERED: SODIUM CHLORIDE 0.9% 1000ML 1,000 ML IV STA (12:48)
[2022-05-14] MEDS ORDERED: INSULIN REGULAR, HUMAN 100 UNIT/1 ML IV ONE (13:00)
[2022-05-14] MEDS ORDERED: MEROPENEM 1 GM in SODIUM CHLORIDE 0.9% 100 ML IV ONE (13:00)
[2022-05-14] MEDS ORDERED: SODIUM CHLORIDE 0.9% 1000ML 1,000 ML ONE (13:28)
[2022-05-14] MEDS ORDERED: SODIUM CHLORIDE 0.9% 500ML 500 ML IV ONE (13:30)
[2022-05-14] MEDS ORDERED: Morphine 2mg Syringe 2 MG/ML SYR IV PRN (14:00)
[2022-05-14] MEDS ORDERED: ONDANSETRON HCL INJ 2MG/ML 2ML 2 MG/ML VIAL IV PRN (14:00)
[2022-05-14] MEDS ORDERED: NITROGLYCERIN 0.4 MG SUBL SL PRN (14:00)
[2022-05-14] MEDS: SODIUM CHLORIDE 0.9% 1000ML 1,000 ML IV SCH (16:31)
[2022-05-14] MEDS: FAMOTIDINE 20 MG/2 ML VIAL IV SCH (16:31)
[2022-05-14 18:04] VITALS: BP 128/78
[2022-05-14 18:06] VITALS: BP 128/78
[2022-05-14 18:43] LABS: CREATINE KINASE MB 2.6 ng/mL (0-5.0)
[2022-05-14 20:00] VITALS: BP_SYST 128; BP_SYST 133; BP_DIAS 78; BP_DIAS 80
[2022-05-14] MEDS: METOPROLOL SUCCINATE 50 MG TAB XL PO SCH (21:27)
[2022-05-14] MEDS: RANOLAZINE 500 MG TABSR PO SCH (21:28)
[2022-05-14] MEDS: INSULIN LISPRO 100 UNIT/1 ML 3ML VIAL SQ SCH (21:32)
[2022-05-15] VITALS (7 sets, daily range): BP systolic 122–147; BP diastolic 62–78
[2022-05-15] MEDS: SODIUM CHLORIDE 0.9% 1000ML 1,000 ML IV SCH (01:12)
[2022-05-15 01:39] LABS: CREATINE KINASE MB 2.1 ng/mL (0-5.0)
[2022-05-15] MEDS: FAMOTIDINE 20 MG/2 ML VIAL IV SCH ×2 (02:00→12:55)
[2022-05-15 06:05] LABS: BASOPHILS # (AUTO) 0.1 (0.0-0.1); BASOPHILS % 0.5 % (0.0-1.0); EOSINOPHILS # (AUTO) 0.5 (0.0-0.4); EOSINOPHILS % 3.9 % (0.0-6.0); HEMATOCRIT 36.5 % (38.2-49.6); LYMPHOCYTES # (AUTO) 1.6 (1.0-3.2); LYMPHOCYTES % 12.7 % (18.0-39.1); MEAN CORPUSCULAR HEMOGLOBIN 31.6 pg (28-32); MEAN CORPUSCULAR HGB CONC 32.9 g/dL (31-35); MEAN CORPUSCULAR VOLUME 96.1 fL (81-99); MONOCYTES % 7.7 % (4.4-11.3); NEUTROPHILS # (AUTO) 9.7 (2.1-6.9); NEUTROPHILS % 74.8 % (38.7-80.0); PLATELET COUNT 214 x10e3/uL (140-360); RED CELL DISTRIBUTION WIDTH 12.5 % (11.7-14.4)
[2022-05-15 06:40] LABS: ALBUMIN 2.7 g/dL (3.5-5.0); ALBUMIN/GLOBULIN RATIO 0.7 (0.8-2.0); ANION GAP 12.5 mmol/L (8-16); CALCIUM 8.4 mg/dL (8.4-10.2); CHOL/HDL RATIO 4.8 (3.9-4.7); CREATININE, SERUM 1.7 mg/dL (0.72-1.25); POTASSIUM 3.5 mmol/L (3.5-5.1)
[2022-05-15 07:14] LABS: CREATINE KINASE MB 1.6 ng/mL (0-5.0); MAGNESIUM 1.4 MG/DL (1.3-2.1); PHOSPHORUS 2.5 MG/DL (2.3-4.7)
[2022-05-15] MEDS: INSULIN LISPRO 100 UNIT/1 ML 3ML VIAL SQ SCH ×4 (08:25→21:25)
[2022-05-15] MEDS ORDERED: SIMVASTATIN 40 MG TAB PO SCH ×2 (09:00→21:00)
[2022-05-15] MEDS: ASPIRIN 81 MG ENTERIC COATED PO SCH (09:32)
[2022-05-15] MEDS: GLIMEPIRIDE 2 MG TAB PO SCH (09:32)
[2022-05-15] MEDS: AMLODIPINE BESYLATE 10 MG TAB PO SCH (09:32)
[2022-05-15] MEDS: RANOLAZINE 500 MG TABSR PO SCH ×2 (09:33→18:33)
[2022-05-15] MEDS: ASPIRIN 81 MG CHEW TAB PO SCH (09:33)
[2022-05-15] MEDS: METOPROLOL SUCCINATE 50 MG TAB XL PO SCH ×2 (09:34→18:32)
[2022-05-15] MEDS: TAMSULOSIN HCL 0.4 MG CAP PO SCH (09:34)
[2022-05-15] MEDS: HYDROCHLOROTHIAZIDE 25 MG TAB PO SCH (09:34)
[2022-05-15] MEDS: CLOPIDOGREL BISULFATE 75 MG TAB PO SCH (09:34)
[2022-05-15] MEDS: CRESTOR 10MG PO SCH (21:18)
[2022-05-16] VITALS (7 sets, daily range): BP systolic 119–163; BP diastolic 58–78
[2022-05-16] MEDS: FAMOTIDINE 20 MG/2 ML VIAL IV SCH ×2 (01:12→14:45)
[2022-05-16 06:25] LABS: BASOPHILS # (AUTO) 0.1 (0.0-0.1); BASOPHILS % 0.4 % (0.0-1.0); EOSINOPHILS # (AUTO) 0.8 (0.0-0.4); EOSINOPHILS % 5.2 % (0.0-6.0); HEMATOCRIT 38.1 % (38.2-49.6); HEMOGLOBIN 12.8 g/dL (14.0-18.0); LYMPHOCYTES # (AUTO) 1.9 (1.0-3.2); LYMPHOCYTES % 11.9 % (18.0-39.1); MEAN CORPUSCULAR HEMOGLOBIN 31.6 pg (28-32); MEAN CORPUSCULAR HGB CONC 33.6 g/dL (31-35); MEAN CORPUSCULAR VOLUME 94.1 fL (81-99); MONOCYTES # (AUTO) 1.1 (0.2-0.8); MONOCYTES % 7.1 % (4.4-11.3); NEUTROPHILS # (AUTO) 11.7 (2.1-6.9); NEUTROPHILS % 74.8 % (38.7-80.0); PLATELET COUNT 204 x10e3/uL (140-360); RED BLOOD COUNT 4.05 x10e6/uL (4.3-5.7); RED CELL DISTRIBUTION WIDTH 12.5 % (11.7-14.4)
[2022-05-16 06:44] LABS: ANION GAP 16.2 mmol/L (8-16); CALCIUM 8.5 mg/dL (8.4-10.2); CREATININE, SERUM 1.92 mg/dL (0.72-1.25); POTASSIUM 3.2 mmol/L (3.5-5.1)
[2022-05-16] MEDS: INSULIN LISPRO 100 UNIT/1 ML 3ML VIAL SQ SCH ×4 (09:11→21:00)
[2022-05-16] MEDS: TAMSULOSIN HCL 0.4 MG CAP PO SCH (09:23)
[2022-05-16] MEDS: GLIMEPIRIDE 2 MG TAB PO SCH (09:23)
[2022-05-16] MEDS: HYDROCHLOROTHIAZIDE 25 MG TAB PO SCH (09:23)
[2022-05-16] MEDS: CLOPIDOGREL BISULFATE 75 MG TAB PO SCH (09:23)
[2022-05-16] MEDS: ASPIRIN 81 MG ENTERIC COATED PO SCH (09:23)
[2022-05-16] MEDS: AMLODIPINE BESYLATE 10 MG TAB PO SCH (09:23)
[2022-05-16] MEDS: METOPROLOL SUCCINATE 50 MG TAB XL PO SCH ×2 (09:23→17:14)
[2022-05-16] MEDS: ASPIRIN 81 MG CHEW TAB PO SCH (09:23)
[2022-05-16] MEDS: RANOLAZINE 500 MG TABSR PO SCH ×2 (09:23→17:13)
[2022-05-16] MEDS ORDERED: ONDANSETRON HCL 4 MG ORAL DISINTEGRATING TAB PO PRN (11:00)
[2022-05-16] MEDS ORDERED: REGADENOSON 0.4 MG/5 ML SYR IV ONE (12:26)
[2022-05-16] MEDS ORDERED: AMINOPHYLLINE INJ 25 MG/ML 20 ML VIAL ONE (13:10)
[2022-05-16] MEDS ORDERED: POTASSIUM CHLORIDE 10MEQ EA PO ONE (19:00)
[2022-05-16] MEDS: CRESTOR 10MG PO SCH (20:13)
[2022-05-17] VITALS (7 sets, daily range): BP systolic 135–157; BP diastolic 64–78
[2022-05-17] MEDS: FAMOTIDINE 20 MG/2 ML VIAL IV SCH ×2 (02:00→13:38)
[2022-05-17] MEDS: INSULIN GLARGINE 100 UNITS/ML VIAL SQ SCH (06:00)
[2022-05-17 06:27] LABS: BASOPHILS # (AUTO) 0.1 (0.0-0.1); BASOPHILS % 0.5 % (0.0-1.0); EOSINOPHILS # (AUTO) 0.8 (0.0-0.4); EOSINOPHILS % 6.2 % (0.0-6.0); HEMATOCRIT 37.7 % (38.2-49.6); HEMOGLOBIN 12.7 g/dL (14.0-18.0); LYMPHOCYTES # (AUTO) 1.5 (1.0-3.2); MEAN CORPUSCULAR HEMOGLOBIN 31.8 pg (28-32); MEAN CORPUSCULAR HGB CONC 33.7 g/dL (31-35); MEAN CORPUSCULAR VOLUME 94.3 fL (81-99); MONOCYTES % 7.4 % (4.4-11.3); NEUTROPHILS # (AUTO) 10.1 (2.1-6.9); NEUTROPHILS % 74.5 % (38.7-80.0); PLATELET COUNT 196 x10e3/uL (140-360); RED CELL DISTRIBUTION WIDTH 12.2 % (11.7-14.4)
[2022-05-17 06:55] LABS: CALCIUM 8.7 mg/dL (8.4-10.2)
[2022-05-17] MEDS: GLIMEPIRIDE 2 MG TAB PO SCH (07:30)
[2022-05-17] MEDS: INSULIN LISPRO 100 UNIT/1 ML 3ML VIAL SQ SCH ×4 (07:30→20:52)
[2022-05-17] MEDS: HYDROCHLOROTHIAZIDE 25 MG TAB PO SCH (09:00)
[2022-05-17] MEDS: METOPROLOL SUCCINATE 50 MG TAB XL PO SCH ×2 (09:00→17:59)
[2022-05-17] MEDS: RANOLAZINE 500 MG TABSR PO SCH ×2 (09:00→17:59)
[2022-05-17] MEDS: CLOPIDOGREL BISULFATE 75 MG TAB PO SCH (09:00)
[2022-05-17] MEDS: TAMSULOSIN HCL 0.4 MG CAP PO SCH (09:00)
[2022-05-17] MEDS: AMLODIPINE BESYLATE 10 MG TAB PO SCH (09:00)
[2022-05-17] MEDS: ASPIRIN 81 MG CHEW TAB PO SCH (09:00)
[2022-05-17] MEDS ORDERED: LIDOCAINE HCL 2% LOCAL 20 ML VIAL ONE (11:45)
[2022-05-17] MEDS ORDERED: HEPARIN SOD/SOD CHLORIDE 2,000 ML ONE (11:46)
[2022-05-17] MEDS ORDERED: IOPAMIDOL 370 MG/ML 100 ML INFUS..BTL INJ ONE (11:46)
[2022-05-17] MEDS ORDERED: SODIUM CHLORIDE 0.9% 1000ML 1,000 ML ONE (11:46)
[2022-05-17] MEDS ORDERED: MIDAZOLAM HCL 2 MG/2 ML VIAL ONE (12:17)
[2022-05-17] MEDS ORDERED: FENTANYL CITRATE/PF 100MCG/2 ML INJ ONE (12:17)
[2022-05-17] MEDS ORDERED: POTASSIUM CHLORIDE 20 MEQ TAB CR PO ONE (18:05)
[2022-05-17] MEDS: CRESTOR 10MG PO SCH (20:50)
[2022-05-18] VITALS: BP 162/62
[2022-05-18] MEDS: FAMOTIDINE 20 MG/2 ML VIAL IV SCH ×2 (01:00→14:36)
[2022-05-18 04:00] VITALS: BP 144/67
[2022-05-18] MEDS: INSULIN GLARGINE 100 UNITS/ML VIAL SQ SCH (06:00)
[2022-05-18 06:40] LABS: BASOPHILS # (AUTO) 0.1 (0.0-0.1); BASOPHILS % 0.5 % (0.0-1.0); EOSINOPHILS # (AUTO) 0.6 (0.0-0.4); HEMATOCRIT 37.9 % (38.2-49.6); HEMOGLOBIN 13.4 g/dL (14.0-18.0); LYMPHOCYTES # (AUTO) 0.8 (1.0-3.2); LYMPHOCYTES % 7.3 % (18.0-39.1); MEAN CORPUSCULAR HEMOGLOBIN 31.8 pg (28-32); MEAN CORPUSCULAR HGB CONC 35.4 g/dL (31-35); MEAN CORPUSCULAR VOLUME 89.8 fL (81-99); MONOCYTES # (AUTO) 1.1 (0.2-0.8); NEUTROPHILS # (AUTO) 8.5 (2.1-6.9); NEUTROPHILS % 76.7 % (38.7-80.0); PLATELET COUNT 188 x10e3/uL (140-360); RED BLOOD COUNT 4.22 x10e6/uL (4.3-5.7); RED CELL DISTRIBUTION WIDTH 12.4 % (11.7-14.4)
[2022-05-18 07:07] LABS: ANION GAP 14.2 mmol/L (8-16); CALCIUM 8.9 mg/dL (8.4-10.2); CREATININE, SERUM 1.79 mg/dL (0.72-1.25); POTASSIUM 3.2 mmol/L (3.5-5.1)
[2022-05-18 08:22] VITALS: BP 149/79
[2022-05-18] MEDS: GLIMEPIRIDE 2 MG TAB PO SCH (08:22)
[2022-05-18] MEDS: INSULIN LISPRO 100 UNIT/1 ML 3ML VIAL SQ SCH ×3 (08:23→16:30)
[2022-05-18] MEDS: RANOLAZINE 500 MG TABSR PO SCH ×2 (08:25→17:05)
[2022-05-18] MEDS: ASPIRIN 81 MG CHEW TAB PO SCH (08:25)
[2022-05-18] MEDS: AMLODIPINE BESYLATE 10 MG TAB PO SCH (08:26)
[2022-05-18] MEDS: HYDROCHLOROTHIAZIDE 25 MG TAB PO SCH (08:26)
[2022-05-18] MEDS: CLOPIDOGREL BISULFATE 75 MG TAB PO SCH (08:27)
[2022-05-18] MEDS: TAMSULOSIN HCL 0.4 MG CAP PO SCH (08:28)
[2022-05-18] MEDS: METOPROLOL SUCCINATE 50 MG TAB XL PO SCH ×2 (08:28→17:06)
[2022-05-18 08:40] VITALS: BP 149/79
[2022-05-18 11:09] VITALS: BP 150/68
[2022-05-18] MEDS ORDERED: POTASSIUM CHLORIDE 20 MEQ TAB CR PO ONE (11:30)
[2022-05-18 15:30] VITALS: BP 133/69
[2022-05-18] MEDS ORDERED: HIPREX1 GM PO (17:12)
[2022-05-19] MEDS ORDERED: FAMOTIDINE 20 MG TAB PO SCH (07:30)
== END 2022-05-18 17:27 | disposition home or self-care (01) | DRG 872 ==
LOC: ER 11:33 → ERHOLD 14:04 → MED/SURG3 17:09
PROVIDERS: ADMIT Internal Medicine; ATTEND Internal Medicine
PROC: 4A023N7 Measurement of Cardiac Sampling and Pressure, Left Heart, Percutaneous Approach (ICD-10-PCS; principal; 2022-05-17)
PROC: B2111ZZ Fluoroscopy of Multiple Coronary Arteries using Low Osmolar Contrast (ICD-10-PCS; 2022-05-17)
PROC: B2121ZZ Fluoroscopy of Single Coronary Artery Bypass Graft using Low Osmolar Contrast (ICD-10-PCS; 2022-05-17)
PROC: B2181ZZ Fluoroscopy of Left Internal Mammary Bypass Graft using Low Osmolar Contrast (ICD-10-PCS; 2022-05-17)
DX: A41.59 Other Gram-negative sepsis (principal); N39.0 Urinary tract infection, site not specified; Z16.12 Extended spectrum beta lactamase (ESBL) resistance; I13.0 Hypertensive heart and chronic kidney disease with heart failure and stage 1 through stage 4 chronic kidney disease, or unspecified chronic kidney disease; I50.22 Chronic systolic (congestive) heart failure; N17.9 Acute kidney failure, unspecified; I25.119 Atherosclerotic heart disease of native coronary artery with unspecified angina pectoris; R65.20 Severe sepsis without septic shock; I48.91 Unspecified atrial fibrillation; Z79.01 Long term (current) use of anticoagulants; I10 Essential (primary) hypertension; Z95.810 Presence of automatic (implantable) cardiac defibrillator; N18.9 Chronic kidney disease, unspecified; B96.1 Klebsiella pneumoniae [K. pneumoniae] as the cause of diseases classified elsewhere; Z95.2 Presence of prosthetic heart valve; I25.2 Old myocardial infarction; Z95.1 Presence of aortocoronary bypass graft; I49.3 Ventricular premature depolarization; E11.22 Type 2 diabetes mellitus with diabetic chronic kidney disease; E11.65 Type 2 diabetes mellitus with hyperglycemia; Z95.5 Presence of coronary angioplasty implant and graft; Z79.82 Long term (current) use of aspirin; Z79.899 Other long term (current) drug therapy
CPT/HCPCS: 36415; 71045; 76937; 78452; 80048; 80053; 80061; 81001; 82550; 82553; 82948; 83036; 83605; 83735; 83880; 84100; 84484; 85025; 85379; 85610; 85730; 87040; 87086; 87186; 93005; 93017; 93455; 94799; 99152; 99153; A9502; C1760; C1769; C1894; J0280; J1815; J1817; J2001; J2185; J2250; J2270; J2405; J3010; J7030; J7040; J7050; Q9967

== ENCOUNTER 2022-11-22 17:56 | Inpatient (IN) | payer MEDICARE ==
[~2022-11-22] VITALS: Ht 180.3 cm; Wt 92.5 kg
[~2022-11-22 17:56] MED LIST changes: +HIPREX1 GM PO
[2022-11-22 18:40] LABS: BASOPHILS # (AUTO) 0.2 (0.0-0.1); BASOPHILS % 1.3 % (0.0-1.0); EOSINOPHILS # (AUTO) 1.9 (0.0-0.4); EOSINOPHILS % 14.2 % (0.0-6.0); HEMATOCRIT 41.9 % (38.2-49.6); HEMOGLOBIN 12.9 g/dL (14.0-18.0); LYMPHOCYTES % 14.9 % (18.0-39.1); MEAN CORPUSCULAR HEMOGLOBIN 32.6 pg (28-32); MEAN CORPUSCULAR HGB CONC 30.8 g/dL (31-35); MEAN CORPUSCULAR VOLUME 105.8 fL (81-99); MONOCYTES # (AUTO) 0.8 (0.2-0.8); MONOCYTES % 6.1 % (4.4-11.3); NEUTROPHILS # (AUTO) 8.3 (2.1-6.9); PLATELET COUNT 211 x10e3/uL (140-360); RED BLOOD COUNT 3.96 x10e6/uL (4.3-5.7); RED CELL DISTRIBUTION WIDTH 13.2 % (11.7-14.4)
[2022-11-22] MEDS ORDERED: ASPIRIN 81 MG CHEW TAB PO ONE (18:45)
[2022-11-22 19:07] LABS: ALBUMIN 3.5 g/dL (3.5-5.0); ALBUMIN/GLOBULIN RATIO 0.9 (0.8-2.0); ANION GAP 18.7 mmol/L (8-16); CALCIUM 9.2 mg/dL (8.4-10.2); CREATININE, SERUM 2.49 mg/dL (0.72-1.25); POTASSIUM 3.7 mmol/L (3.5-5.1)
[2022-11-22 19:13] LABS: CREATINE KINASE MB 1.4 ng/mL (0-5.0)
[2022-11-22] MEDS ORDERED: DEXTROSE 50% SYRINGE 50 ML IV PRN (21:15)
[2022-11-22] MEDS: FUROSEMIDE INJ 10 MG/ML 4 ML VIAL IV SCH (21:21)
[2022-11-23] VITALS (7 sets, daily range): BP systolic 141–160; BP diastolic 65–107
[2022-11-23] MEDS ORDERED: BUMETANIDE1 MG PO (01:05)
[2022-11-23] MEDS ORDERED: XARELTO20 MG PO (01:05)
[2022-11-23] MEDS ORDERED: METOPROLOL SUCC50 MG PO (01:05)
[2022-11-23] MEDS ORDERED: ISOSORBIDE MONO30 MG PO (01:05)
[2022-11-23] MEDS ORDERED: HYDRALAZINE HCL50 MG PO (01:05)
[2022-11-23] MEDS ORDERED: JARDIANCE25 MG (01:05)
[2022-11-23] MEDS ORDERED: MITIGARE0.6 MG (01:05)
[2022-11-23] MEDS ORDERED: ALLOPURINOL100 MG PO (01:05)
[2022-11-23 04:58] LABS: BASOPHILS # (AUTO) 0.1 (0.0-0.1); BASOPHILS % 1.2 % (0.0-1.0); EOSINOPHILS % 17.7 % (0.0-6.0); HEMOGLOBIN 13.1 g/dL (14.0-18.0); LYMPHOCYTES # (AUTO) 1.4 (1.0-3.2); LYMPHOCYTES % 12.1 % (18.0-39.1); MEAN CORPUSCULAR HEMOGLOBIN 32.2 pg (28-32); MEAN CORPUSCULAR HGB CONC 32.8 g/dL (31-35); MEAN CORPUSCULAR VOLUME 98.3 fL (81-99); MONOCYTES # (AUTO) 0.8 (0.2-0.8); NEUTROPHILS % 61.6 % (38.7-80.0); PLATELET COUNT 202 x10e3/uL (140-360); RED BLOOD COUNT 4.07 x10e6/uL (4.3-5.7); RED CELL DISTRIBUTION WIDTH 13.3 % (11.7-14.4)
[2022-11-23 05:25] LABS: ALBUMIN 3.5 g/dL (3.5-5.0); ALBUMIN/GLOBULIN RATIO 0.9 (0.8-2.0); ANION GAP 16.1 mmol/L (8-16); CALCIUM 9.1 mg/dL (8.4-10.2); CREATININE, SERUM 2.07 mg/dL (0.72-1.25); POTASSIUM 3.1 mmol/L (3.5-5.1)
[2022-11-23 05:52] LABS: CREATINE KINASE MB 1.3 ng/mL (0-5.0)
[2022-11-23] MEDS: INSULIN REGULAR, HUMAN 100 UNIT/1 ML SQ SCH ×4 (07:30→21:25)
[2022-11-23] MEDS: ALLOPURINOL 100 MG TAB PO SCH (09:00)
[2022-11-23] MEDS: FINASTERIDE 5 MG TAB PO SCH (09:00)
[2022-11-23] MEDS: TAMSULOSIN HCL 0.4 MG CAP PO SCH (09:00)
[2022-11-23] MEDS: ASPIRIN 81 MG CHEW TAB PO SCH (09:00)
[2022-11-23] MEDS: RIVAROXABAN 20 MG TABLET PO SCH (09:00)
[2022-11-23] MEDS: METOPROLOL SUCCINATE 50 MG TAB XL PO SCH (09:00)
[2022-11-23] MEDS: FUROSEMIDE INJ 10 MG/ML 4 ML VIAL IV SCH ×2 (09:00→17:00)
[2022-11-23] MEDS: ISOSORBIDE MONONITRATE 30 MG TAB CR PO SCH (09:00)
[2022-11-23] MEDS ORDERED: POTASSIUM CHLORIDE 10MEQ EA PO ONE (09:30)
[2022-11-23] MEDS ORDERED: SODIUM CHLORIDE 0.9% 250ML 250 ML ONE (09:32)
[2022-11-23 15:43] LABS: CREATINE KINASE MB 1.3 ng/mL (0-5.0)
[2022-11-24 02:04] VITALS: BP 117/61
[2022-11-24 04:43] LABS: BASOPHILS # (AUTO) 0.1 (0.0-0.1); EOSINOPHILS % 17.8 % (0.0-6.0); HEMATOCRIT 40.4 % (38.2-49.6); HEMOGLOBIN 13.3 g/dL (14.0-18.0); LYMPHOCYTES # (AUTO) 1.6 (1.0-3.2); LYMPHOCYTES % 14.3 % (18.0-39.1); MEAN CORPUSCULAR HEMOGLOBIN 32.4 pg (28-32); MEAN CORPUSCULAR HGB CONC 32.9 g/dL (31-35); MEAN CORPUSCULAR VOLUME 98.3 fL (81-99); MONOCYTES # (AUTO) 0.7 (0.2-0.8); MONOCYTES % 6.4 % (4.4-11.3); NEUTROPHILS # (AUTO) 6.8 (2.1-6.9); NEUTROPHILS % 60.1 % (38.7-80.0); PLATELET COUNT 192 x10e3/uL (140-360); RED BLOOD COUNT 4.11 x10e6/uL (4.3-5.7); RED CELL DISTRIBUTION WIDTH 13.4 % (11.7-14.4)
[2022-11-24 04:59] LABS: ANION GAP 17.3 mmol/L (8-16); CALCIUM 9.1 mg/dL (8.4-10.2); CREATININE, SERUM 1.98 mg/dL (0.72-1.25); POTASSIUM 3.3 mmol/L (3.5-5.1)
[2022-11-24 05:54] LABS: EOSINOPHILS % (MANUAL) 13 % (0-7); LYMPHOCYTES % (MANUAL) 18 % (19-48); MONOCYTES % (MANUAL) 3 % (3.4-9.0); NEUTROPHILS % (MANUAL) 65 % (40-74); PLATELET ESTIMATE ADEQUATE; PLATELET MORPHOLOGY COMMENT FEW LARGE; RBC MORPHOLOGY COMMENT NORMAL
[2022-11-24 06:00] VITALS: BP 125/73
[2022-11-24] MEDS: INSULIN REGULAR, HUMAN 100 UNIT/1 ML SQ SCH ×2 (07:30→13:11)
[2022-11-24 08:11] VITALS: BP 157/74
[2022-11-24 08:29] VITALS: BP 157/74
[2022-11-24] MEDS ORDERED: POTASSIUM CHLORIDE 10MEQ EA PO ONE (08:30)
[2022-11-24] MEDS ORDERED: POTASSIUM CHLORIDE 10MEQ EA PO SCH (09:00)
[2022-11-24] MEDS: TAMSULOSIN HCL 0.4 MG CAP PO SCH (09:07)
[2022-11-24] MEDS: FINASTERIDE 5 MG TAB PO SCH (09:07)
[2022-11-24] MEDS: ALLOPURINOL 100 MG TAB PO SCH (09:07)
[2022-11-24] MEDS: ASPIRIN 81 MG CHEW TAB PO SCH (09:07)
[2022-11-24] MEDS: RIVAROXABAN 20 MG TABLET PO SCH (09:07)
[2022-11-24] MEDS: METOPROLOL SUCCINATE 50 MG TAB XL PO SCH (09:10)
[2022-11-24] MEDS: FUROSEMIDE INJ 10 MG/ML 4 ML VIAL IV SCH (09:10)
[2022-11-24] MEDS: ISOSORBIDE MONONITRATE 30 MG TAB CR PO SCH (09:14)
[2022-11-24 12:00] VITALS: BP 133/72
[2022-11-24 16:18] VITALS: BP 120/66
== END 2022-11-24 17:19 | disposition home or self-care (01) | DRG 291 ==
LOC: ER 19:45 → ERHOLD 21:10 → MED/SURG 23:43 → OBSVTOIN 11-23 08:43
PROVIDERS: ADMIT Internal Medicine; ATTEND Internal Medicine
DX: I13.0 Hypertensive heart and chronic kidney disease with heart failure and stage 1 through stage 4 chronic kidney disease, or unspecified chronic kidney disease (principal); I50.23 Acute on chronic systolic (congestive) heart failure; J18.9 Pneumonia, unspecified organism; J90 Pleural effusion, not elsewhere classified; J94.8 Other specified pleural conditions; I25.2 Old myocardial infarction; E11.22 Type 2 diabetes mellitus with diabetic chronic kidney disease; N18.9 Chronic kidney disease, unspecified; E87.6 Hypokalemia; K21.9 Gastro-esophageal reflux disease without esophagitis; I25.119 Atherosclerotic heart disease of native coronary artery with unspecified angina pectoris; E78.5 Hyperlipidemia, unspecified; D71 Functional disorders of polymorphonuclear neutrophils; N40.0 Benign prostatic hyperplasia without lower urinary tract symptoms; Z85.828 Personal history of other malignant neoplasm of skin; Z87.440 Personal history of urinary (tract) infections; Z90.49 Acquired absence of other specified parts of digestive tract; Z95.1 Presence of aortocoronary bypass graft; Z95.5 Presence of coronary angioplasty implant and graft; Z98.49 Cataract extraction status, unspecified eye; Z98.890 Other specified postprocedural states; Z95.2 Presence of prosthetic heart valve; Z87.891 Personal history of nicotine dependence; Z88.8 Allergy status to other drugs, medicaments and biological substances; Z79.02 Long term (current) use of antithrombotics/antiplatelets; Z79.84 Long term (current) use of oral hypoglycemic drugs; Z79.82 Long term (current) use of aspirin; Z79.899 Other long term (current) drug therapy; Z95.810 Presence of automatic (implantable) cardiac defibrillator
CPT/HCPCS: 36415; 71045; 71250; 80048; 80053; 82550; 82553; 82948; 83880; 84484; 85025; 93005; 94799; 99285; G0378; J0456; J0696; J1817; J1940; J7050

== ENCOUNTER 2022-12-11 23:15 | Inpatient (IN) | payer MEDICARE ==
[~2022-12-11] VITALS: Ht 185.4 cm; Wt 92.5 kg
[~2022-12-11 23:15] MED LIST changes: +ALLOPURINOL100 MG PO; +BUMETANIDE1 MG PO; +HYDRALAZINE HCL50 MG PO; +ISOSORBIDE MONO30 MG PO; +JARDIANCE25 MG; +MITIGARE0.6 MG; +XARELTO20 MG PO
[2022-12-11] MEDS ORDERED: SODIUM CHLORIDE FLUSH 10 ML SYR IV PRN (23:50)
[2022-12-11 23:58] LABS: BASOPHILS # (AUTO) 0.1 (0.0-0.1); BASOPHILS % 0.7 % (0.0-1.0); EOSINOPHILS # (AUTO) 1.3 (0.0-0.4); EOSINOPHILS % 10.8 % (0.0-6.0); HEMATOCRIT 36.9 % (38.2-49.6); HEMOGLOBIN 11.3 g/dL (14.0-18.0); LYMPHOCYTES # (AUTO) 1.8 (1.0-3.2); LYMPHOCYTES % 14.9 % (18.0-39.1); MEAN CORPUSCULAR HGB CONC 30.6 g/dL (31-35); MEAN CORPUSCULAR VOLUME 104.5 fL (81-99); MONOCYTES % 8.3 % (4.4-11.3); NEUTROPHILS # (AUTO) 7.9 (2.1-6.9); NEUTROPHILS % 64.9 % (38.7-80.0); PLATELET COUNT 199 x10e3/uL (140-360); RED BLOOD COUNT 3.53 x10e6/uL (4.3-5.7); RED CELL DISTRIBUTION WIDTH 13.1 % (11.7-14.4)
[2022-12-12] VITALS (7 sets, daily range): BP systolic 115–141; BP diastolic 60–72
[2022-12-12] MEDS ORDERED: ASPIRIN 325 MG TAB PO ONE
[2022-12-12 00:01] LABS: INR 1.5; PARTIAL THROMBOPLASTIN TIME 33.2 seconds (23.8-35.5); PROTHROMBIN TIME 18.3 seconds (11.9-14.5)
[2022-12-12 00:11] LABS: ALBUMIN 3.7 g/dL (3.5-5.0); ALBUMIN/GLOBULIN RATIO 0.9 (0.8-2.0); ANION GAP 16.9 mmol/L (8-16); CALCIUM 9.3 mg/dL (8.4-10.2); CREATININE, SERUM 2.32 mg/dL (0.72-1.25); POTASSIUM 3.9 mmol/L (3.5-5.1)
[2022-12-12] MEDS ORDERED: ONDANSETRON HCL INJ 2MG/ML 2ML 2 MG/ML VIAL IV STA (01:07)
[2022-12-12] MEDS ORDERED: Morphine 2mg Syringe 2 MG/ML SYR IV ONE (01:15)
[2022-12-12] MEDS ORDERED: ONDANSETRON HCL INJ 2MG/ML 2ML 2 MG/ML VIAL IV PRN (02:45)
[2022-12-12 02:52] LABS: AMPHETAMINES SCREEN,URINE NEGATIVE (NEGATIVE); BENZODIAZEPINES SCREEN,URINE NEGATIVE (NEGATIVE); CLARITY,URINE SL CLOUDY (CLEAR); COLOR,URINE YELLOW (YELLOW); KETONES,URINE NEGATIVE (NEGATIVE); LEUKOCYTE ESTERASE ,URINE NEGATIVE (NEGATIVE); NITRITE,URINE NEGATIVE (NEGATIVE); PHENCYCLIDINE SCREEN,URINE NEGATIVE (NEGATIVE); PROTEIN,URINE DIPSTICK 2+ (NEGATIVE); URINE UROBILINOGEN 0.2 mg/dL (0.2 - 1)
[2022-12-12 02:55] LABS: BACTERIA,URINE MANY /HPF; EPITHELIAL CELLS,URINE FEW /LPF; WBC,URINE (MAN) 21-50 /HPF (0-5)
[2022-12-12 02:58] LABS: CREATINE KINASE MB 1.2 ng/mL (0-5.0)
[2022-12-12] MEDS ORDERED: ACETAMINOPHEN 325 MG TAB PO PRN (04:30)
[2022-12-12] MEDS ORDERED: POLYETHYLENE GLYCOL 3350 17 GM PACK PO PRN (04:30)
[2022-12-12] MEDS ORDERED: HYDRALAZINE HCL 20 MG/ML VIAL IV PRN (04:30)
[2022-12-12] MEDS ORDERED: FAMOTIDINE 20 MG TAB PO SCH (07:30)
[2022-12-12 08:01] LABS: PHOSPHORUS 4.8 MG/DL (2.3-4.7)
[2022-12-12 08:21] LABS: THYROID STIMULATING HORMONE 2.124 uIU/mL (0.350-4.940)
[2022-12-12 08:30] LABS: CREATINE KINASE MB 1.2 ng/mL (0-5.0)
[2022-12-12] MEDS ORDERED: Morphine 2mg Syringe 2 MG/ML SYR IV PRN (08:30)
[2022-12-12] MEDS: DOCUSATE SODIUM 100 MG CAP PO SCH ×2 (09:03→17:13)
[2022-12-12] MEDS: FAMOTIDINE 20 MG TAB PO SCH ×2 (09:04→17:13)
[2022-12-12 15:49] LABS: CREATINE KINASE MB 1.1 ng/mL (0-5.0)
[2022-12-12] MEDS ORDERED: FUROSEMIDE INJ 10 MG/ML 4 ML VIAL IV ONE (19:30)
[2022-12-12] MEDS ORDERED: DEXTROSE 50% SYRINGE 50 ML IV PRN (20:30)
[2022-12-12] MEDS: INSULIN REGULAR, HUMAN 100 UNIT/1 ML SQ SCH (21:00)
[2022-12-13 00:21] VITALS: BP 131/56
[2022-12-13 04:00] VITALS: BP 119/52
[2022-12-13 05:21] LABS: BASOPHILS # (AUTO) 0.1 (0.0-0.1); BASOPHILS % 0.8 % (0.0-1.0); EOSINOPHILS # (AUTO) 1.1 (0.0-0.4); EOSINOPHILS % 10.1 % (0.0-6.0); HEMATOCRIT 34.9 % (38.2-49.6); HEMOGLOBIN 11.7 g/dL (14.0-18.0); LYMPHOCYTES # (AUTO) 1.4 (1.0-3.2); LYMPHOCYTES % 12.7 % (18.0-39.1); MEAN CORPUSCULAR HEMOGLOBIN 32.6 pg (28-32); MEAN CORPUSCULAR HGB CONC 33.5 g/dL (31-35); MEAN CORPUSCULAR VOLUME 97.2 fL (81-99); MONOCYTES % 9.5 % (4.4-11.3); NEUTROPHILS # (AUTO) 7.1 (2.1-6.9); NEUTROPHILS % 66.4 % (38.7-80.0); PLATELET COUNT 189 x10e3/uL (140-360); RED BLOOD COUNT 3.59 x10e6/uL (4.3-5.7); RED CELL DISTRIBUTION WIDTH 13.2 % (11.7-14.4)
[2022-12-13 05:41] LABS: ALBUMIN 3.7 g/dL (3.5-5.0); ANION GAP 15.4 mmol/L (8-16); CALCIUM 9.5 mg/dL (8.4-10.2); CHOL/HDL RATIO 4.5 (3.9-4.7); CREATININE, SERUM 2.06 mg/dL (0.72-1.25); POTASSIUM 3.4 mmol/L (3.5-5.1)
[2022-12-13 08:00] VITALS: BP 140/61
[2022-12-13 08:19] VITALS: BP 110/74
[2022-12-13] MEDS: DOCUSATE SODIUM 100 MG CAP PO SCH ×2 (08:47→15:39)
[2022-12-13] MEDS: TAMSULOSIN HCL 0.4 MG CAP PO SCH (08:47)
[2022-12-13] MEDS: FINASTERIDE 5 MG TAB PO SCH (08:47)
[2022-12-13] MEDS: FAMOTIDINE 20 MG TAB PO SCH ×2 (08:47→15:39)
[2022-12-13] MEDS: BUMETANIDE 1 MG TAB PO SCH (08:47)
[2022-12-13] MEDS: INSULIN REGULAR, HUMAN 100 UNIT/1 ML SQ SCH ×4 (08:53→21:40)
[2022-12-13] MEDS ORDERED: POTASSIUM CHLORIDE 20 MEQ TAB CR PO ONE (09:00)
[2022-12-13] MEDS ORDERED: FUROSEMIDE INJ 10 MG/ML 4 ML VIAL IV ONE (09:00)
[2022-12-13] MEDS ORDERED: POTASSIUM CHLORIDE 20 MEQ TAB CR PO SCH (09:00)
[2022-12-13 12:00] VITALS: BP 141/62
[2022-12-13 16:00] VITALS: BP 135/86
[2022-12-13 18:56] LABS: CREATININE,URINE RANDOM 51.33 mg/dL (63-166); TOTAL PROTEIN, URINE 38.7 mg/dL (1-14)
[2022-12-14 05:36] LABS: BASOPHILS # (AUTO) 0.1 (0.0-0.1); BASOPHILS % 0.8 % (0.0-1.0); EOSINOPHILS % 10.3 % (0.0-6.0); HEMATOCRIT 38.4 % (38.2-49.6); HEMOGLOBIN 11.7 g/dL (14.0-18.0); LYMPHOCYTES # (AUTO) 1.5 (1.0-3.2); LYMPHOCYTES % 14.4 % (18.0-39.1); MEAN CORPUSCULAR HEMOGLOBIN 31.5 pg (28-32); MEAN CORPUSCULAR HGB CONC 30.5 g/dL (31-35); MEAN CORPUSCULAR VOLUME 103.5 fL (81-99); MONOCYTES # (AUTO) 0.8 (0.2-0.8); MONOCYTES % 8.1 % (4.4-11.3); NEUTROPHILS # (AUTO) 6.7 (2.1-6.9); NEUTROPHILS % 66.1 % (38.7-80.0); PLATELET COUNT 196 x10e3/uL (140-360); RED BLOOD COUNT 3.71 x10e6/uL (4.3-5.7); RED CELL DISTRIBUTION WIDTH 12.3 % (11.7-14.4)
[2022-12-14 06:05] LABS: ANION GAP 13.4 mmol/L (8-16); CALCIUM 9.2 mg/dL (8.4-10.2); CREATININE, SERUM 2.18 mg/dL (0.72-1.25); POTASSIUM 3.4 mmol/L (3.5-5.1)
[2022-12-14 08:57] VITALS: BP 148/60
[2022-12-14 08:58] VITALS: BP 148/60
[2022-12-14] MEDS ORDERED: POTASSIUM CHLORIDE 20 MEQ TAB CR PO SCH ×2 (09:00)
[2022-12-14] MEDS: FINASTERIDE 5 MG TAB PO SCH (09:21)
[2022-12-14] MEDS: DOCUSATE SODIUM 100 MG CAP PO SCH ×2 (09:21→17:12)
[2022-12-14] MEDS: TAMSULOSIN HCL 0.4 MG CAP PO SCH (09:21)
[2022-12-14] MEDS: BUMETANIDE 1 MG TAB PO SCH (09:21)
[2022-12-14] MEDS: FAMOTIDINE 20 MG TAB PO SCH ×2 (09:21→17:12)
[2022-12-14] MEDS: INSULIN REGULAR, HUMAN 100 UNIT/1 ML SQ SCH ×3 (09:27→16:23)
[2022-12-14] MEDS ORDERED: AMLODIPINE BESYLATE 5 MG TAB PO SCH (10:00)
[2022-12-14] MEDS ORDERED: ONDANSETRON HCL 4 MG ORAL DISINTEGRATING TAB PO PRN (11:45)
[2022-12-14 12:26] VITALS: BP 143/66
[2022-12-14 16:38] VITALS: BP 139/55
[2022-12-14] MEDS ORDERED: POTASSIUM CHLORIDE 20 MEQ TAB CR PO ONE (18:00)
== END 2022-12-14 18:40 | disposition home or self-care (01) | DRG 683 ==
LOC: ER 23:24 → ERHOLD 12-12 02:35 → MED/SURG 12-12 03:42 → OBSVTOIN 12-13 14:45
PROVIDERS: ADMIT Internal Medicine; ATTEND Internal Medicine
DX: N17.9 Acute kidney failure, unspecified (principal); I13.0 Hypertensive heart and chronic kidney disease with heart failure and stage 1 through stage 4 chronic kidney disease, or unspecified chronic kidney disease; I50.22 Chronic systolic (congestive) heart failure; I48.20 Chronic atrial fibrillation, unspecified; E11.22 Type 2 diabetes mellitus with diabetic chronic kidney disease; N18.30 Chronic kidney disease, stage 3 unspecified; E11.65 Type 2 diabetes mellitus with hyperglycemia; I44.0 Atrioventricular block, first degree; I25.10 Atherosclerotic heart disease of native coronary artery without angina pectoris; E78.2 Mixed hyperlipidemia; E11.69 Type 2 diabetes mellitus with other specified complication; D63.1 Anemia in chronic kidney disease; Z95.5 Presence of coronary angioplasty implant and graft; Z79.899 Other long term (current) drug therapy; Z79.01 Long term (current) use of anticoagulants; Z79.82 Long term (current) use of aspirin; Z79.4 Long term (current) use of insulin; Z20.822 Contact with and (suspected) exposure to COVID-19; E87.6 Hypokalemia; R80.9 Proteinuria, unspecified; Z95.1 Presence of aortocoronary bypass graft; Z88.5 Allergy status to narcotic agent; Z88.8 Allergy status to other drugs, medicaments and biological substances; I25.2 Old myocardial infarction; N40.0 Benign prostatic hyperplasia without lower urinary tract symptoms; M10.9 Gout, unspecified; Z85.828 Personal history of other malignant neoplasm of skin
CPT/HCPCS: 36415; 71045; 76770; 80048; 80053; 80061; 80307; 81001; 82550; 82553; 82570; 82948; 83036; 83690; 83735; 83880; 84100; 84156; 84443; 84484; 85025; 85610; 85730; 93005; 94799; 99284; G0378; J1817; J1940; J2270; J2405

== ENCOUNTER 2023-02-07 02:02 | Inpatient (IN) | payer MEDICARE ==
[2023-02-07] VITALS (29 sets, daily range): BP systolic 137–202; BP diastolic 50–103
[~2023-02-07] VITALS: Ht 185.4 cm; Wt 92.5 kg
[2023-02-07] MEDS ORDERED: FUROSEMIDE INJ 10 MG/ML 4 ML VIAL ONE (02:14)
[2023-02-07] MEDS ORDERED: ASPIRIN 81 MG CHEW TAB PO ONE (02:15)
[2023-02-07] MEDS ORDERED: FUROSEMIDE INJ 10 MG/ML 4 ML VIAL IV ONE (02:15)
[2023-02-07 02:24] LABS: BASOPHILS # (AUTO) 0.1 (0.0-0.1); BASOPHILS % 0.8 % (0.0-1.0); EOSINOPHILS # (AUTO) 0.7 (0.0-0.4); HEMATOCRIT 43.5 % (38.2-49.6); HEMOGLOBIN 13.9 g/dL (14.0-18.0); LYMPHOCYTES % 14.6 % (18.0-39.1); MEAN CORPUSCULAR HEMOGLOBIN 29.7 pg (28-32); MEAN CORPUSCULAR VOLUME 92.9 fL (81-99); MONOCYTES # (AUTO) 1.1 (0.2-0.8); NEUTROPHILS # (AUTO) 9.9 (2.1-6.9); NEUTROPHILS % 71.2 % (38.7-80.0); PLATELET COUNT 212 x10e3/uL (140-360); RED BLOOD COUNT 4.68 x10e6/uL (4.3-5.7); RED CELL DISTRIBUTION WIDTH 14.8 % (11.7-14.4)
[2023-02-07] MEDS ORDERED: NITROGLYCERIN 2% OINT 1 GM PKT ONE (02:26)
[2023-02-07] MEDS ORDERED: NITROGLYCERIN 2% OINT 1 GM PKT TOP ONE (02:30)
[2023-02-07 02:43] LABS: ALBUMIN 4.3 g/dL (3.5-5.0); ALBUMIN/GLOBULIN RATIO 0.9 (0.8-2.0); ANION GAP 18.5 mmol/L (8-16); CALCIUM 9.8 mg/dL (8.4-10.2); CREATININE, SERUM 2.24 mg/dL (0.72-1.25); POTASSIUM 3.5 mmol/L (3.5-5.1)
[2023-02-07 02:49] LABS: CREATINE KINASE MB 1.7 ng/mL (0-5.0)
[2023-02-07] MEDS ORDERED: METOPROLOL TARTRATE INJ 1 MG/ML VIAL ONE (03:03)
[2023-02-07] MEDS ORDERED: SODIUM CHLORIDE FLUSH 10 ML SYR INJ PRN (03:15)
[2023-02-07] MEDS ORDERED: HYDRALAZINE HCL 20 MG/ML VIAL IV PRN (03:15)
[2023-02-07] MEDS ORDERED: METOPROLOL TARTRATE INJ 1 MG/ML VIAL IV ONE (03:15)
[2023-02-07] MEDS ORDERED: DEXTROSE 50% SYRINGE 50 ML IV PRN (03:15)
[2023-02-07] MEDS ORDERED: ALBUTEROL/IPRATROPIUM 3 ML NEB NEB PRN (04:00)
[2023-02-07] MEDS ORDERED: HYDROCODONE/APAP 10MG-325MG TAB PO PRN (04:00)
[2023-02-07] MEDS ORDERED: IPRATROPIUM BROMIDE 0.02% 2.5 ML NEB ONE (04:14)
[2023-02-07] MEDS ORDERED: ALBUTEROL SULF 0.083% NEB SOLN 3 ML NEB ONE (04:15)
[2023-02-07] MEDS ORDERED: FUROSEMIDE40 MG PO (04:36)
[2023-02-07] MEDS ORDERED: PROTONIX20 MG PO (04:36)
[2023-02-07] MEDS ORDERED: RANOLAZINE ER500 MG (04:36)
[2023-02-07] MEDS ORDERED: CRESTOR10 MG PO (04:36)
[2023-02-07] MEDS: NITROGLYCERIN 2% OINT 1 GM PKT TOP SCH ×3 (06:05→16:46)
[2023-02-07] MEDS ORDERED: AMIODARONE HCL 100 ML IV ONE (06:31)
[2023-02-07] MEDS ORDERED: AMIODARONE 900MG 500 ML IV ONE (06:32)
[2023-02-07] MEDS ORDERED: AMIODARONE HCL 150 MG/100 ML BAG IV ONE (06:45)
[2023-02-07] MEDS ORDERED: AMIODARONE 900MG 500 ML IV SCH (06:55)
[2023-02-07] MEDS: INSULIN REGULAR, HUMAN 100 UNIT/1 ML SQ SCH ×3 (07:30→16:30)
[2023-02-07] MEDS ORDERED: Morphine 2mg Syringe 2 MG/ML SYR IV PRN (08:30)
[2023-02-07] MEDS: FUROSEMIDE INJ 10 MG/ML 4 ML VIAL IV SCH ×2 (09:53→16:46)
[2023-02-07] MEDS: RIVAROXABAN 10 MG TABLET PO SCH (09:53)
[2023-02-07] MEDS: TAMSULOSIN HCL 0.4 MG CAP PO SCH (09:53)
[2023-02-07] MEDS: ALLOPURINOL 100 MG TAB PO SCH (09:53)
[2023-02-07] MEDS: PANTOPRAZOLE SOD 40 MG TABEC PO SCH (11:15)
[2023-02-07 12:17] LABS: CREATINE KINASE MB 1.9 ng/mL (0-5.0)
[2023-02-07] MEDS: AMIODARONE HCL 200 MG TAB PO SCH ×2 (13:48→20:46)
[2023-02-07] MEDS: ISOSORBIDE MONONITRATE 30 MG TAB CR PO SCH ×2 (13:48→20:48)
[2023-02-07] MEDS: RANOLAZINE 500 MG TABSR PO SCH ×2 (13:48→20:47)
[2023-02-07 19:38] LABS: CREATINE KINASE MB 1.5 ng/mL (0-5.0)
[2023-02-08] VITALS (19 sets, daily range): BP systolic 118–172; BP diastolic 46–89
[2023-02-08] MEDS: NITROGLYCERIN 2% OINT 1 GM PKT TOP SCH ×3 (00:30→12:39)
[2023-02-08] MEDS: INSULIN REGULAR, HUMAN 100 UNIT/1 ML SQ SCH ×5 (00:31→20:45)
[2023-02-08 08:03] LABS: BASOPHILS # (AUTO) 0.1 (0.0-0.1); BASOPHILS % 0.6 % (0.0-1.0); EOSINOPHILS # (AUTO) 0.6 (0.0-0.4); EOSINOPHILS % 6.1 % (0.0-6.0); HEMATOCRIT 34.7 % (38.2-49.6); HEMOGLOBIN 11.2 g/dL (14.0-18.0); LYMPHOCYTES % 9.3 % (18.0-39.1); MEAN CORPUSCULAR HEMOGLOBIN 29.7 pg (28-32); MEAN CORPUSCULAR HGB CONC 32.3 g/dL (31-35); MONOCYTES # (AUTO) 0.8 (0.2-0.8); MONOCYTES % 7.1 % (4.4-11.3); NEUTROPHILS % 76.5 % (38.7-80.0); PLATELET COUNT 166 x10e3/uL (140-360); RED BLOOD COUNT 3.77 x10e6/uL (4.3-5.7); RED CELL DISTRIBUTION WIDTH 14.6 % (11.7-14.4)
[2023-02-08 08:23] LABS: ALBUMIN 3.2 g/dL (3.5-5.0); ALBUMIN/GLOBULIN RATIO 0.9 (0.8-2.0); ANION GAP 15.2 mmol/L (8-16); CALCIUM 8.7 mg/dL (8.4-10.2); CREATININE, SERUM 2.11 mg/dL (0.72-1.25); POTASSIUM 3.2 mmol/L (3.5-5.1)
[2023-02-08] MEDS: RIVAROXABAN 10 MG TABLET PO SCH (09:32)
[2023-02-08] MEDS: ALLOPURINOL 100 MG TAB PO SCH (09:32)
[2023-02-08] MEDS: TAMSULOSIN HCL 0.4 MG CAP PO SCH (09:32)
[2023-02-08] MEDS: PANTOPRAZOLE SOD 40 MG TABEC PO SCH (09:32)
[2023-02-08] MEDS: RANOLAZINE 500 MG TABSR PO SCH ×2 (09:34→20:42)
[2023-02-08] MEDS: ISOSORBIDE MONONITRATE 30 MG TAB CR PO SCH ×2 (09:34→20:41)
[2023-02-08] MEDS: AMIODARONE HCL 200 MG TAB PO SCH ×2 (09:34→20:42)
[2023-02-08] MEDS: FUROSEMIDE INJ 10 MG/ML 4 ML VIAL IV SCH ×2 (09:36→17:00)
[2023-02-09 01:00] VITALS: BP 170/57
[2023-02-09 05:54] VITALS: BP 158/71
[2023-02-09 06:08] LABS: BASOPHILS # (AUTO) 0.1 (0.0-0.1); BASOPHILS % 0.5 % (0.0-1.0); EOSINOPHILS # (AUTO) 0.8 (0.0-0.4); EOSINOPHILS % 7.4 % (0.0-6.0); HEMATOCRIT 33.6 % (38.2-49.6); LYMPHOCYTES # (AUTO) 1.2 (1.0-3.2); LYMPHOCYTES % 11.2 % (18.0-39.1); MEAN CORPUSCULAR HEMOGLOBIN 29.7 pg (28-32); MEAN CORPUSCULAR HGB CONC 32.7 g/dL (31-35); MEAN CORPUSCULAR VOLUME 90.8 fL (81-99); MONOCYTES # (AUTO) 0.9 (0.2-0.8); MONOCYTES % 8.3 % (4.4-11.3); NEUTROPHILS # (AUTO) 7.9 (2.1-6.9); NEUTROPHILS % 72.3 % (38.7-80.0); PLATELET COUNT 166 x10e3/uL (140-360); RED CELL DISTRIBUTION WIDTH 14.3 % (11.7-14.4)
[2023-02-09 06:45] LABS: ALBUMIN 3.2 g/dL (3.5-5.0); CALCIUM 8.9 mg/dL (8.4-10.2); CREATININE, SERUM 2.33 mg/dL (0.72-1.25)
[2023-02-09] MEDS: INSULIN REGULAR, HUMAN 100 UNIT/1 ML SQ SCH ×3 (07:30→16:30)
[2023-02-09 07:56] VITALS: BP 139/94
[2023-02-09] MEDS: TAMSULOSIN HCL 0.4 MG CAP PO SCH (10:01)
[2023-02-09] MEDS: PANTOPRAZOLE SOD 40 MG TABEC PO SCH (10:01)
[2023-02-09] MEDS: AMIODARONE HCL 200 MG TAB PO SCH (10:01)
[2023-02-09] MEDS: FUROSEMIDE INJ 10 MG/ML 4 ML VIAL IV SCH ×2 (10:01→17:00)
[2023-02-09] MEDS: ISOSORBIDE MONONITRATE 30 MG TAB CR PO SCH (10:02)
[2023-02-09] MEDS: RANOLAZINE 500 MG TABSR PO SCH (10:03)
[2023-02-09] MEDS: ALLOPURINOL 100 MG TAB PO SCH (10:03)
[2023-02-09] MEDS: RIVAROXABAN 10 MG TABLET PO SCH (10:03)
[2023-02-09 10:14] VITALS: BP 139/94
[2023-02-09] MEDS ORDERED: POTASSIUM CHLORIDE 20 MEQ TAB CR PO ONE (11:15)
[2023-02-09 11:27] VITALS: BP 166/66
[2023-02-09] MEDS ORDERED: Isosorbide Mononitrate PO (15:05)
[2023-02-09] MEDS ORDERED: Ranolazine PO (15:05)
[2023-02-09] MEDS ORDERED: AMIODARONE HCL200 MG PO (15:05)
[2023-02-09] MEDS ORDERED: SPIRONOLACTONE25 MG PO (16:48)
[2023-02-09 17:22] VITALS: BP 147/91
== END 2023-02-09 18:30 | disposition home or self-care (01) | DRG 291 ==
LOC: ER 02:09 → ERHOLD 03:08 → ICU 03:39 → MED/SURG 02-08 22:22
PROVIDERS: ADMIT Internal Medicine; ATTEND Internal Medicine
DX: I13.0 Hypertensive heart and chronic kidney disease with heart failure and stage 1 through stage 4 chronic kidney disease, or unspecified chronic kidney disease (principal); I50.23 Acute on chronic systolic (congestive) heart failure; I48.92 Unspecified atrial flutter; N18.30 Chronic kidney disease, stage 3 unspecified; E11.22 Type 2 diabetes mellitus with diabetic chronic kidney disease; E03.9 Hypothyroidism, unspecified; I25.2 Old myocardial infarction; K21.9 Gastro-esophageal reflux disease without esophagitis; E78.5 Hyperlipidemia, unspecified; E87.6 Hypokalemia; M54.9 Dorsalgia, unspecified; N40.0 Benign prostatic hyperplasia without lower urinary tract symptoms; C44.309 Unspecified malignant neoplasm of skin of other parts of face; I48.91 Unspecified atrial fibrillation; I25.119 Atherosclerotic heart disease of native coronary artery with unspecified angina pectoris; M10.9 Gout, unspecified; G89.29 Other chronic pain; Z20.822 Contact with and (suspected) exposure to COVID-19; Z90.49 Acquired absence of other specified parts of digestive tract; Z95.1 Presence of aortocoronary bypass graft; Z96.659 Presence of unspecified artificial knee joint; Z95.2 Presence of prosthetic heart valve; Z95.5 Presence of coronary angioplasty implant and graft; Z79.82 Long term (current) use of aspirin; Z87.891 Personal history of nicotine dependence; Z95.810 Presence of automatic (implantable) cardiac defibrillator; Z79.01 Long term (current) use of anticoagulants; Z79.4 Long term (current) use of insulin
CPT/HCPCS: 36415; 71045; 80053; 82550; 82553; 82948; 83605; 83735; 83880; 84484; 85025; 85379; 87040; 93005; 94799; 96372; 99252; 99284; J1940

== ENCOUNTER 2023-04-10 11:41 | Inpatient (IN) | payer MEDICARE ==
[~2023-04-10] VITALS: Ht 185.4 cm; Wt 92.5 kg
[~2023-04-10 11:41] MED LIST changes: +AMIODARONE HCL200 MG PO; +PROTONIX20 MG PO; +RANOLAZINE ER500 MG; +Ranolazine PO; +SPIRONOLACTONE25 MG PO
[2023-04-10 12:15] LABS: BASOPHILS # (AUTO) 0.1 (0.0-0.1); BASOPHILS % 0.8 % (0.0-1.0); EOSINOPHILS % 8.3 % (0.0-6.0); HEMATOCRIT 39.4 % (38.2-49.6); HEMOGLOBIN 12.6 g/dL (14.0-18.0); LYMPHOCYTES # (AUTO) 1.1 (1.0-3.2); LYMPHOCYTES % 9.3 % (18.0-39.1); MEAN CORPUSCULAR VOLUME 90.8 fL (81-99); MONOCYTES # (AUTO) 0.8 (0.2-0.8); MONOCYTES % 6.6 % (4.4-11.3); NEUTROPHILS # (AUTO) 8.5 (2.1-6.9); NEUTROPHILS % 74.7 % (38.7-80.0); PLATELET COUNT 240 x10e3/uL (140-360); RED BLOOD COUNT 4.34 x10e6/uL (4.3-5.7); RED CELL DISTRIBUTION WIDTH 17.8 % (11.7-14.4)
[2023-04-10 12:34] LABS: ALBUMIN 3.8 g/dL (3.5-5.0); ALBUMIN/GLOBULIN RATIO 0.8 (0.8-2.0); ANION GAP 15.8 mmol/L (8-16); CALCIUM 9.6 mg/dL (8.4-10.2); CREATININE, SERUM 3.35 mg/dL (0.72-1.25); POTASSIUM 3.8 mmol/L (3.5-5.1)
[2023-04-10 18:14] VITALS: BP 144/74; PULSE 71; RESP 22; TEMP 97.9; O2SAT 100
[2023-04-10] MEDS ORDERED: BUMETANIDE1 MG PO (18:29)
[2023-04-10 18:35] VITALS: BP 144/74; PULSE 71; RESP 22; TEMP 97.9; O2SAT 100
[2023-04-10] MEDS ORDERED: ACETAMINOPHEN 325 MG TAB PO PRN (19:00)
[2023-04-10 20:00] VITALS: BP 167/85; PULSE 62; RESP 18; TEMP 97.1; O2SAT 99
[2023-04-10 20:15] LABS: CLARITY,URINE SL CLOUDY (CLEAR); COLOR,URINE YELLOW (YELLOW)
[2023-04-10] MEDS: AZELASTINE HCL 137 MCG NASAL SPRAY NS SCH (20:15)
[2023-04-10 20:16] LABS: KETONES,URINE NEGATIVE (NEGATIVE); LEUKOCYTE ESTERASE ,URINE NEGATIVE (NEGATIVE); NITRITE,URINE POSITIVE (NEGATIVE); PROTEIN,URINE DIPSTICK 2+ (NEGATIVE); URINE UROBILINOGEN 0.2 mg/dL (0.2 - 1)
[2023-04-10 20:22] LABS: RBC,URINE 0-5 /HPF (0-5); WBC,URINE (MAN) 21-50 /HPF (0-5)
[2023-04-10 20:23] LABS: BACTERIA,URINE MODERATE /HPF; EPITHELIAL CELLS,URINE FEW /LPF
[2023-04-10] MEDS ORDERED: MELATONIN 5 MG TABLET PO PRN (20:45)
[2023-04-10] MEDS ORDERED: DEXTROSE 50% SYRINGE 50 ML IV PRN (20:45)
[2023-04-10] MEDS ORDERED: HYDRALAZINE HCL 20 MG/ML VIAL IV PRN ×2 (20:45)
[2023-04-10 20:51] VITALS: BP 167/85; PULSE 62; RESP 18; TEMP 97.1; O2SAT 99
[2023-04-10] MEDS: AMIODARONE HCL 200 MG TAB PO SCH (21:00)
[2023-04-10] MEDS ORDERED: INSULIN REGULAR, HUMAN 100 UNIT/1 ML SQ SCH (21:00)
[2023-04-10] MEDS ORDERED: FAMOTIDINE 20 MG TAB PO PRN (21:15)
[2023-04-10] MEDS: HYDRALAZINE HCL 25 MG TAB PO SCH (21:36)
[2023-04-10] MEDS: RANOLAZINE 500 MG TABSR PO SCH (21:37)
[2023-04-10] MEDS: ISOSORBIDE MONONITRATE 30 MG TAB CR PO SCH (21:38)
[2023-04-10] MEDS: INSULIN LISPRO 100 UNIT/1 ML 3ML VIAL SQ SCH (21:44)
[2023-04-10 23:30] VITALS: PULSE 62; RESP 18; O2SAT 98
[2023-04-11] VITALS (10 sets, daily range): BP systolic 109–150; BP diastolic 65–92; PULSE 60–68; RESP 17–21; TEMP 97.6–98.7; O2SAT 94–100
[2023-04-11 05:32] LABS: BASOPHILS # (AUTO) 0.1 (0.0-0.1); BASOPHILS % 0.7 % (0.0-1.0); EOSINOPHILS # (AUTO) 0.7 (0.0-0.4); HEMATOCRIT 37.5 % (38.2-49.6); LYMPHOCYTES # (AUTO) 1.1 (1.0-3.2); LYMPHOCYTES % 9.9 % (18.0-39.1); MEAN CORPUSCULAR HEMOGLOBIN 28.8 pg (28-32); MEAN CORPUSCULAR VOLUME 89.9 fL (81-99); MONOCYTES # (AUTO) 0.8 (0.2-0.8); MONOCYTES % 6.7 % (4.4-11.3); NEUTROPHILS # (AUTO) 8.7 (2.1-6.9); NEUTROPHILS % 76.3 % (38.7-80.0); PLATELET COUNT 214 x10e3/uL (140-360); RED BLOOD COUNT 4.17 x10e6/uL (4.3-5.7); RED CELL DISTRIBUTION WIDTH 17.8 % (11.7-14.4)
[2023-04-11 06:04] LABS: ANION GAP 15.7 mmol/L (8-16); CALCIUM 9.3 mg/dL (8.4-10.2); CREATININE, SERUM 2.89 mg/dL (0.72-1.25); POTASSIUM 3.7 mmol/L (3.5-5.1)
[2023-04-11 06:26] LABS: ALBUMIN 3.4 g/dL (3.5-5.0)
[2023-04-11 06:27] LABS: ALBUMIN/GLOBULIN RATIO 0.9 (0.8-2.0)
[2023-04-11 06:43] LABS: MAGNESIUM 2.2 MG/DL (1.3-2.1)
[2023-04-11] MEDS: INSULIN LISPRO 100 UNIT/1 ML 3ML VIAL SQ SCH ×4 (07:30→20:58)
[2023-04-11] MEDS ORDERED: SPIRONOLACTONE 25 MG TAB PO SCH (09:00)
[2023-04-11] MEDS ORDERED: GUAIFENESIN 600 MG TAB PO PRN (09:30)
[2023-04-11] MEDS: RIVAROXABAN 20 MG TABLET PO SCH (09:50)
[2023-04-11] MEDS: ASPIRIN 81 MG CHEW TAB PO SCH (09:50)
[2023-04-11] MEDS: RANOLAZINE 500 MG TABSR PO SCH ×2 (09:51→20:55)
[2023-04-11] MEDS: SENNA-S TABLET PO SCH (09:51)
[2023-04-11] MEDS: TAMSULOSIN HCL 0.4 MG CAP PO SCH (09:51)
[2023-04-11] MEDS: HYDRALAZINE HCL 25 MG TAB PO SCH ×3 (09:51→20:55)
[2023-04-11] MEDS: SIMVASTATIN 40 MG TAB PO SCH (09:52)
[2023-04-11] MEDS: METOPROLOL SUCCINATE 50 MG TAB XL PO SCH (09:52)
[2023-04-11] MEDS: ISOSORBIDE MONONITRATE 30 MG TAB CR PO SCH ×2 (09:52→20:54)
[2023-04-11] MEDS: FINASTERIDE 5 MG TAB PO SCH (09:53)
[2023-04-11] MEDS: ALLOPURINOL 100 MG TAB PO SCH (09:53)
[2023-04-11] MEDS: PANTOPRAZOLE SOD 40 MG TABEC PO SCH (09:53)
[2023-04-11] MEDS: AMIODARONE HCL 200 MG TAB PO SCH ×3 (09:53→20:55)
[2023-04-11] MEDS: AZELASTINE HCL 137 MCG NASAL SPRAY NS SCH (10:20)
[2023-04-11] MEDS ORDERED: BUMETANIDE 1 MG TAB PO SCH (18:00)
[2023-04-12] VITALS (9 sets, daily range): BP systolic 101–137; BP diastolic 57–81; PULSE 60–69; RESP 17–21; TEMP 97.5–98.9; O2SAT 98–100
[2023-04-12 05:53] LABS: BASOPHILS # (AUTO) 0.1 (0.0-0.1); BASOPHILS % 0.9 % (0.0-1.0); EOSINOPHILS # (AUTO) 0.9 (0.0-0.4); EOSINOPHILS % 8.8 % (0.0-6.0); HEMOGLOBIN 11.9 g/dL (14.0-18.0); LYMPHOCYTES # (AUTO) 1.3 (1.0-3.2); LYMPHOCYTES % 11.9 % (18.0-39.1); MEAN CORPUSCULAR HEMOGLOBIN 28.7 pg (28-32); MEAN CORPUSCULAR HGB CONC 32.2 g/dL (31-35); MEAN CORPUSCULAR VOLUME 89.4 fL (81-99); MONOCYTES # (AUTO) 0.7 (0.2-0.8); MONOCYTES % 6.7 % (4.4-11.3); NEUTROPHILS # (AUTO) 7.5 (2.1-6.9); NEUTROPHILS % 71.3 % (38.7-80.0); PLATELET COUNT 228 x10e3/uL (140-360); RED BLOOD COUNT 4.14 x10e6/uL (4.3-5.7); RED CELL DISTRIBUTION WIDTH 17.7 % (11.7-14.4)
[2023-04-12] MEDS ORDERED: ONDANSETRON HCL INJ 2MG/ML 2ML 2 MG/ML VIAL IV PRN (06:00)
[2023-04-12 06:25] LABS: ANION GAP 13.8 mmol/L (8-16); CALCIUM 8.9 mg/dL (8.4-10.2); POTASSIUM 3.8 mmol/L (3.5-5.1)
[2023-04-12] MEDS: HYDRALAZINE HCL 25 MG TAB PO SCH ×3 (08:12→20:59)
[2023-04-12] MEDS: AZELASTINE HCL 137 MCG NASAL SPRAY NS SCH (08:12)
[2023-04-12] MEDS: FINASTERIDE 5 MG TAB PO SCH (08:13)
[2023-04-12] MEDS: AMIODARONE HCL 200 MG TAB PO SCH ×2 (08:13→21:00)
[2023-04-12] MEDS: TAMSULOSIN HCL 0.4 MG CAP PO SCH (08:13)
[2023-04-12] MEDS: ASPIRIN 81 MG CHEW TAB PO SCH (08:13)
[2023-04-12] MEDS: RANOLAZINE 500 MG TABSR PO SCH ×2 (08:14→20:59)
[2023-04-12] MEDS: PANTOPRAZOLE SOD 40 MG TABEC PO SCH (08:14)
[2023-04-12] MEDS: SENNA-S TABLET PO SCH (08:15)
[2023-04-12] MEDS: METOPROLOL SUCCINATE 50 MG TAB XL PO SCH (08:15)
[2023-04-12] MEDS: RIVAROXABAN 20 MG TABLET PO SCH (08:15)
[2023-04-12] MEDS: SIMVASTATIN 40 MG TAB PO SCH (08:15)
[2023-04-12] MEDS: ALLOPURINOL 100 MG TAB PO SCH (08:15)
[2023-04-12] MEDS: ISOSORBIDE MONONITRATE 30 MG TAB CR PO SCH ×2 (08:18→21:00)
[2023-04-12] MEDS: INSULIN LISPRO 100 UNIT/1 ML 3ML VIAL SQ SCH ×4 (08:19→21:05)
[2023-04-12] MEDS: BUMETANIDE 1 MG TAB PO SCH (10:01)
[2023-04-12] MEDS: HIPREX 1 GM PO SCH ×2 (10:01→17:24)
[2023-04-13 00:18] VITALS: BP 127/79; PULSE 66; RESP 20; TEMP 97.2; O2SAT 97
[2023-04-13 04:00] VITALS: BP 120/66; PULSE 60; RESP 18; TEMP 97.6; O2SAT 97
[2023-04-13 06:04] LABS: ANION GAP 13.9 mmol/L (8-16); CALCIUM 9.1 mg/dL (8.4-10.2); CREATININE, SERUM 3.14 mg/dL (0.72-1.25); POTASSIUM 3.9 mmol/L (3.5-5.1)
[2023-04-13 07:54] VITALS: BP 124/84; PULSE 61; RESP 18; TEMP 97.9; O2SAT 98
[2023-04-13 07:56] VITALS: BP 124/84; PULSE 61; RESP 18; TEMP 97.6; O2SAT 98
[2023-04-13] MEDS: SENNA-S TABLET PO SCH (09:00)
[2023-04-13] MEDS: ALLOPURINOL 100 MG TAB PO SCH (09:11)
[2023-04-13] MEDS: FINASTERIDE 5 MG TAB PO SCH (09:11)
[2023-04-13] MEDS: PANTOPRAZOLE SOD 40 MG TABEC PO SCH (09:11)
[2023-04-13] MEDS: TAMSULOSIN HCL 0.4 MG CAP PO SCH (09:12)
[2023-04-13] MEDS: BUMETANIDE 1 MG TAB PO SCH (09:12)
[2023-04-13] MEDS: ASPIRIN 81 MG CHEW TAB PO SCH (09:12)
[2023-04-13] MEDS: ISOSORBIDE MONONITRATE 30 MG TAB CR PO SCH (09:13)
[2023-04-13] MEDS: AMIODARONE HCL 200 MG TAB PO SCH (09:13)
[2023-04-13] MEDS: RIVAROXABAN 20 MG TABLET PO SCH (09:13)
[2023-04-13] MEDS: SIMVASTATIN 40 MG TAB PO SCH (09:13)
[2023-04-13] MEDS: METOPROLOL SUCCINATE 50 MG TAB XL PO SCH (09:14)
[2023-04-13] MEDS: RANOLAZINE 500 MG TABSR PO SCH (09:14)
[2023-04-13] MEDS: HIPREX 1 GM PO SCH ×2 (09:15→16:13)
[2023-04-13] MEDS: AZELASTINE HCL 137 MCG NASAL SPRAY NS SCH (09:15)
[2023-04-13] MEDS: HYDRALAZINE HCL 25 MG TAB PO SCH ×2 (09:15→16:13)
[2023-04-13] MEDS: INSULIN LISPRO 100 UNIT/1 ML 3ML VIAL SQ SCH ×3 (09:18→16:14)
[2023-04-13 11:21] VITALS: BP 126/75; PULSE 63; RESP 20; TEMP 97.2; O2SAT 99
[2023-04-13 15:28] VITALS: BP 130/75; PULSE 56; RESP 20; TEMP 97.6; O2SAT 98
[2023-04-13] MEDS ORDERED: AZELASTINE137 MCG/0. (18:36)
[2023-04-13] MEDS ORDERED: BUMETANIDE1 MG PO (18:36)
[2023-04-13] MEDS ORDERED: HIPREX1 GM PO (18:36)
[2023-04-13] MEDS ORDERED: FLUTICASONE P15.8 ML (18:41)
[2023-04-13] MEDS ORDERED: ONDANSETRON HCL 4 MG ORAL DISINTEGRATING TAB PO PRN (19:15)
== END 2023-04-13 19:22 | disposition home or self-care (01) | DRG 153 ==
LOC: ER 11:46 → ERHOLD 15:11 → INTOOBSV 15:11 → MED/SURG3 18:10 → OBSVTOIN 04-12 08:01
PROVIDERS: ADMIT Family Medicine Adult Medicine; ATTEND Family Medicine Adult Medicine
DX: J06.9 Acute upper respiratory infection, unspecified (principal); N17.9 Acute kidney failure, unspecified; I13.0 Hypertensive heart and chronic kidney disease with heart failure and stage 1 through stage 4 chronic kidney disease, or unspecified chronic kidney disease; I48.20 Chronic atrial fibrillation, unspecified; I50.22 Chronic systolic (congestive) heart failure; N18.4 Chronic kidney disease, stage 4 (severe); E11.22 Type 2 diabetes mellitus with diabetic chronic kidney disease; I25.10 Atherosclerotic heart disease of native coronary artery without angina pectoris; E78.5 Hyperlipidemia, unspecified; R09.82 Postnasal drip; Z95.810 Presence of automatic (implantable) cardiac defibrillator; Z87.440 Personal history of urinary (tract) infections; Z95.1 Presence of aortocoronary bypass graft; Z95.5 Presence of coronary angioplasty implant and graft; Z20.822 Contact with and (suspected) exposure to COVID-19
CPT/HCPCS: 0223U; 36415; 71045; 76770; 80048; 80053; 81001; 82550; 82948; 83735; 83880; 84100; 84484; 85025; 87086; 87186; 87400; 87420; 93005; 93306; 94799; 96372; 99284; G0378

== ENCOUNTER 2024-05-06 15:17 | Inpatient (IN) | payer MEDICARE ==
[~2024-05-06] VITALS: Ht 180.3 cm; Wt 80.7 kg
[~2024-05-06 15:17] MED LIST changes: +AZELASTINE137 MCG/0.; +COREG12.5 MG PO; +FLUTICASONE P15.8 ML; +NITROGLYCERIN0.4 MG SL; +POTASSIUM CHLO20 ME1 PO; +POTASSIUM CHLO20 ME2 PO
[2024-05-06 16:00] VITALS: TEMP 98
[2024-05-06] MEDS ORDERED: SODIUM CHLORIDE FLUSH 10 ML SYR IV PRN (16:15)
[2024-05-06 16:24] LABS: BASOPHILS # (AUTO) 0.1 (0.0-0.1); BASOPHILS % 0.5 % (0.0-1.0); EOSINOPHILS # (AUTO) 0.6 (0.0-0.4); EOSINOPHILS % 6.9 % (0.0-6.0); HEMATOCRIT 32.8 % (38.2-49.6); HEMOGLOBIN 9.9 g/dL (14.0-18.0); LYMPHOCYTES # (AUTO) 0.8 (1.0-3.2); LYMPHOCYTES % 8.5 % (18.0-39.1); MEAN CORPUSCULAR HEMOGLOBIN 29.7 pg (28-32); MEAN CORPUSCULAR HGB CONC 30.2 g/dL (31-35); MEAN CORPUSCULAR VOLUME 98.5 fL (81-99); MONOCYTES # (AUTO) 0.7 (0.2-0.8); MONOCYTES % 7.5 % (4.4-11.3); NEUTROPHILS # (AUTO) 7.1 (2.1-6.9); NEUTROPHILS % 76.1 % (38.7-80.0); PLATELET COUNT 265 x10e3/uL (140-360); RED BLOOD COUNT 3.33 x10e6/uL (4.3-5.7); RED CELL DISTRIBUTION WIDTH 18.7 % (11.7-14.4); WHITE BLOOD COUNT 9.33 x10e3/uL (4.8-10.8)
[2024-05-06 16:44] LABS: ALBUMIN/GLOBULIN RATIO 0.7 (0.8-2.0); ANION GAP 17.1 mmol/L (8-16); BILIRUBIN,TOTAL 1.9 mg/dL (0.2-1.2); CALCIUM 9.3 mg/dL (8.4-10.2); CREATININE, SERUM 1.77 mg/dL (0.72-1.25); TOTAL PROTEIN 7.6 g/dL (6.5-8.1)
[2024-05-06 16:45] LABS: POTASSIUM 3.1 mmol/L (3.5-5.1)
[2024-05-06 16:50] LABS: TROPONIN I 0.032 ng/mL (0-0.300)
[2024-05-06] MEDS ORDERED: ONDANSETRON HCL INJ 2MG/ML 2ML 2 MG/ML VIAL IV PRN (17:30)
[2024-05-06] MEDS ORDERED: SODIUM CHLORIDE FLUSH 10 ML SYR INJ PRN (17:30)
[2024-05-06] MEDS: FUROSEMIDE INJ 10 MG/ML 4 ML VIAL IV SCH (18:21)
[2024-05-06] MEDS: NITROGLYCERIN 2% OINT 1 GM PKT TOP ONE (19:01)
[2024-05-06] MEDS: ASPIRIN 81 MG CHEW TAB PO ONE (19:32)
[2024-05-06 19:33] VITALS: PULSE 97; RESP 20
[2024-05-06 22:25] VITALS: BP 153/81; PULSE 92; RESP 19; TEMP 97.3; O2SAT 99
[2024-05-06 23:27] VITALS: BP 153/81; PULSE 92; RESP 18; TEMP 97.3; O2SAT 99
[2024-05-06 23:30] VITALS: BP 153/81; PULSE 92; RESP 18; TEMP 97.3; O2SAT 99
[2024-05-07] VITALS (11 sets, daily range): BP systolic 102–155; BP diastolic 57–81; PULSE 63–92; RESP 17–19; TEMP 97.3–98; O2SAT 94–100
[2024-05-07] MEDS ORDERED: NITROGLYCERIN 0.4 MG SUBL SL PRN (04:30)
[2024-05-07 05:35] LABS: BASOPHILS # (AUTO) 0.1 (0.0-0.1); BASOPHILS % 0.7 % (0.0-1.0); EOSINOPHILS # (AUTO) 1.1 (0.0-0.4); EOSINOPHILS % 13.1 % (0.0-6.0); HEMOGLOBIN 8.9 g/dL (14.0-18.0); LYMPHOCYTES % 11.6 % (18.0-39.1); MEAN CORPUSCULAR HEMOGLOBIN 29.9 pg (28-32); MEAN CORPUSCULAR HGB CONC 30.7 g/dL (31-35); MEAN CORPUSCULAR VOLUME 97.3 fL (81-99); MONOCYTES # (AUTO) 0.7 (0.2-0.8); MONOCYTES % 7.9 % (4.4-11.3); NEUTROPHILS # (AUTO) 5.5 (2.1-6.9); NEUTROPHILS % 66.2 % (38.7-80.0); PLATELET COUNT 231 x10e3/uL (140-360); RED BLOOD COUNT 2.98 x10e6/uL (4.3-5.7); RED CELL DISTRIBUTION WIDTH 18.2 % (11.7-14.4); WHITE BLOOD COUNT 8.37 x10e3/uL (4.8-10.8)
[2024-05-07 06:11] LABS: ALBUMIN 2.6 g/dL (3.5-5.0); ALBUMIN/GLOBULIN RATIO 0.7 (0.8-2.0); ANION GAP 13.8 mmol/L (8-16); CREATININE, SERUM 1.67 mg/dL (0.72-1.25); TOTAL PROTEIN 6.6 g/dL (6.5-8.1)
[2024-05-07 06:15] LABS: POTASSIUM 2.8 mmol/L (3.5-5.1)
[2024-05-07 06:39] LABS: TROPONIN I 0.043 ng/mL (0-0.300)
[2024-05-07] MEDS: FINASTERIDE 5 MG TAB PO SCH (08:38)
[2024-05-07] MEDS: ASPIRIN 81 MG CHEW TAB PO SCH (08:38)
[2024-05-07] MEDS: ISOSORBIDE MONONITRATE 30 MG TAB CR PO SCH (08:38)
[2024-05-07] MEDS: PANTOPRAZOLE SOD 40 MG TABEC PO SCH (08:38)
[2024-05-07] MEDS: POTASSIUM CHLORIDE 20 MEQ TAB CR PO SCH (08:39)
[2024-05-07] MEDS: AMIODARONE HCL 200 MG TAB PO SCH (08:39)
[2024-05-07] MEDS: CARVEDILOL 12.5 MG TAB PO SCH (08:39)
[2024-05-07] MEDS: ALLOPURINOL 100 MG TAB PO SCH (08:39)
[2024-05-07] MEDS: TAMSULOSIN HCL 0.4 MG CAP PO SCH (08:40)
[2024-05-07] MEDS: RIVAROXABAN 20 MG TABLET PO SCH (08:40)
[2024-05-07] MEDS: SIMVASTATIN 40 MG TAB PO SCH (08:40)
[2024-05-07] MEDS ORDERED: FUROSEMIDE 40 MG TAB PO SCH (09:00)
[2024-05-07 13:39] LABS: TROPONIN I 0.041 ng/mL (0-0.300)
[2024-05-07] MEDS ORDERED: ONDANSETRON HCL 4 MG ORAL DISINTEGRATING TAB PO PRN (16:30)
[2024-05-07] MEDS: POTASSIUM CHLORIDE 20MEQ/100ML 100 ML IV SCH (17:17)
[2024-05-08] VITALS (10 sets, daily range): BP systolic 98–138; BP diastolic 53–78; PULSE 65–79; RESP 17–19; TEMP 97.4–98.2; O2SAT 95–100
[2024-05-08 05:53] LABS: ANION GAP 15.3 mmol/L (8-16); CALCIUM 8.7 mg/dL (8.4-10.2); CREATININE, SERUM 2.06 mg/dL (0.72-1.25); MAGNESIUM 1.7 MG/DL (1.3-2.1)
[2024-05-08 06:06] LABS: POTASSIUM 3.3 mmol/L (3.5-5.1)
[2024-05-08] MEDS: POTASSIUM CHLORIDE 20 MEQ TAB CR PO ONE (14:05)
[2024-05-08] MEDS: MAGNESIUM OXIDE 400 MG TAB PO ONE (14:06)
[2024-05-09] VITALS (8 sets, daily range): BP systolic 107–125; BP diastolic 52–70; PULSE 62–79; RESP 16–20; TEMP 97.6–98.6; O2SAT 97–100
[2024-05-09 06:25] LABS: ANION GAP 16.5 mmol/L (8-16); CALCIUM 8.8 mg/dL (8.4-10.2); CREATININE, SERUM 2.66 mg/dL (0.72-1.25); POTASSIUM 4.5 mmol/L (3.5-5.1)
[2024-05-09] MEDS ORDERED: FUROSEMIDE 40 MG TAB PO SCH (09:00)
[2024-05-10] VITALS (9 sets, daily range): BP systolic 91–130; BP diastolic 55–69; PULSE 62–78; RESP 18–20; TEMP 97.6–98.5; O2SAT 96–100
[2024-05-10] MEDS: TRAMADOL HCL 50 MG TAB PO PRN (01:55)
[2024-05-10 06:21] LABS: ANION GAP 15.7 mmol/L (8-16); CALCIUM 8.8 mg/dL (8.4-10.2); CREATININE, SERUM 2.88 mg/dL (0.72-1.25); POTASSIUM 4.7 mmol/L (3.5-5.1)
[2024-05-10] MEDS: SODIUM CHLORIDE 0.9% 1000ML 1,000 ML IV SCH (15:18)
[2024-05-11] VITALS (10 sets, daily range): BP systolic 95–129; BP diastolic 48–85; PULSE 61–78; RESP 18–20; TEMP 97.3–98.3; O2SAT 93–100
[2024-05-11 06:58] LABS: ANION GAP 16.8 mmol/L (8-16); CALCIUM 8.6 mg/dL (8.4-10.2); CREATININE, SERUM 2.75 mg/dL (0.72-1.25); POTASSIUM 4.8 mmol/L (3.5-5.1)
[2024-05-12 03:38] VITALS: BP 115/54; PULSE 67; RESP 20; TEMP 97.8; O2SAT 99
[2024-05-12 06:22] VITALS: PULSE 78; RESP 20; O2SAT 96
[2024-05-12 07:01] LABS: ANION GAP 15.3 mmol/L (8-16); CALCIUM 8.4 mg/dL (8.4-10.2); CREATININE, SERUM 2.84 mg/dL (0.72-1.25); POTASSIUM 4.3 mmol/L (3.5-5.1)
[2024-05-12 07:31] VITALS: BP 116/66; PULSE 63; RESP 18; TEMP 97.4; O2SAT 99
[2024-05-12 08:51] VITALS: BP 116/66; PULSE 63; RESP 18; TEMP 97.4; O2SAT 99
[2024-05-12] MEDS ORDERED: XARELTO10 MG PO (12:45)
[2024-05-12 13:41] VITALS: BP 112/63; PULSE 65; RESP 17; O2SAT 93
[2024-05-13] MEDS ORDERED: RIVAROXABAN 15 MG TABLET PO SCH (09:00)
== END 2024-05-12 19:00 | disposition home or self-care (01) | DRG 291 ==
LOC: ER 15:46 → ERHOLD 17:17 → MED/SURG3 21:58 → OBSVTOIN 05-07 17:46
PROVIDERS: ADMIT Internal Medicine; ATTEND Internal Medicine
PROC: 5A0935A Assistance with Respiratory Ventilation, Less than 24 Consecutive Hours, High Flow/Velocity Cannula (ICD-10-PCS; principal; 2024-05-10)
DX: I13.0 Hypertensive heart and chronic kidney disease with heart failure and stage 1 through stage 4 chronic kidney disease, or unspecified chronic kidney disease (principal); I50.33 Acute on chronic diastolic (congestive) heart failure; N17.9 Acute kidney failure, unspecified; I44.39 Other atrioventricular block; E11.22 Type 2 diabetes mellitus with diabetic chronic kidney disease; N18.32 Chronic kidney disease, stage 3b; E87.6 Hypokalemia; E88.09 Other disorders of plasma-protein metabolism, not elsewhere classified; I25.118 Atherosclerotic heart disease of native coronary artery with other forms of angina pectoris; I25.2 Old myocardial infarction; Z95.1 Presence of aortocoronary bypass graft; Z95.5 Presence of coronary angioplasty implant and graft; I48.91 Unspecified atrial fibrillation; Z79.01 Long term (current) use of anticoagulants; Z95.810 Presence of automatic (implantable) cardiac defibrillator; Z95.2 Presence of prosthetic heart valve; E11.65 Type 2 diabetes mellitus with hyperglycemia; Z79.84 Long term (current) use of oral hypoglycemic drugs; E78.5 Hyperlipidemia, unspecified; N40.0 Benign prostatic hyperplasia without lower urinary tract symptoms; Z87.891 Personal history of nicotine dependence; Z99.81 Dependence on supplemental oxygen; E03.9 Hypothyroidism, unspecified; D63.8 Anemia in other chronic diseases classified elsewhere; M10.9 Gout, unspecified; R53.81 Other malaise; R53.1 Weakness; R53.83 Other fatigue; Z11.52 Encounter for screening for COVID-19; Z79.899 Other long term (current) drug therapy; Z79.82 Long term (current) use of aspirin
CPT/HCPCS: 36415; 71045; 80048; 80053; 82550; 82948; 83735; 83880; 84484; 85025; 93005; 94760; 94799; 99284; G0378; J1940; J3480; J7030; U0002

== ENCOUNTER 2024-10-09 15:29 | Inpatient (IN) | payer MEDICARE ==
[~2024-10-09] VITALS: Ht 180.3 cm; Wt 72.6 kg
[~2024-10-09 15:29] MED LIST changes: +XARELTO10 MG PO
[2024-10-09 16:00] VITALS: TEMP 97.9
[2024-10-09 16:57] LABS: BASOPHILS # (AUTO) 0.1 (0.0-0.1); BASOPHILS % 0.9 % (0.0-1.0); EOSINOPHILS # (AUTO) 1.2 (0.0-0.4); EOSINOPHILS % 10.1 % (0.0-6.0); HEMATOCRIT 39.8 % (38.2-49.6); HEMOGLOBIN 12.5 g/dL (14.0-18.0); LYMPHOCYTES # (AUTO) 1.3 (1.0-3.2); LYMPHOCYTES % 11.4 % (18.0-39.1); MEAN CORPUSCULAR HEMOGLOBIN 32.1 pg (28-32); MEAN CORPUSCULAR HGB CONC 31.4 g/dL (31-35); MEAN CORPUSCULAR VOLUME 102.3 fL (81-99); MONOCYTES # (AUTO) 0.8 (0.2-0.8); MONOCYTES % 6.9 % (4.4-11.3); NEUTROPHILS # (AUTO) 8.2 (2.1-6.9); NEUTROPHILS % 70.2 % (38.7-80.0); PLATELET COUNT 196 x10e3/uL (140-360); RED BLOOD COUNT 3.89 x10e6/uL (4.3-5.7); RED CELL DISTRIBUTION WIDTH 17.2 % (11.7-14.4); WHITE BLOOD COUNT 11.73 x10e3/uL (4.8-10.8)
[2024-10-09 17:26] LABS: ALBUMIN 3.5 g/dL (3.5-5.0); ALBUMIN/GLOBULIN RATIO 0.8 (0.8-2.0); BILIRUBIN,TOTAL 1.8 mg/dL (0.2-1.2); CREATININE, SERUM 3.44 mg/dL (0.72-1.25)
[2024-10-09 17:32] LABS: TROPONIN I 0.043 ng/mL (0-0.300)
[2024-10-09] MEDS: ONDANSETRON HCL INJ 2MG/ML 2ML 2 MG/ML VIAL IV STA (18:06)
[2024-10-09] MEDS: SODIUM CHLORIDE 0.9% 1000ML 1,000 ML IV STA (18:06)
[2024-10-09 18:50] VITALS: PULSE 77; RESP 16; O2SAT 100
[2024-10-09 18:55] LABS: COLOR,URINE YELLOW (YELLOW)
[2024-10-09 18:56] LABS: BILIRUBIN,URINE NEGATIVE (NEGATIVE); CLARITY,URINE CLEAR (CLEAR); GLUCOSE, URINE NEGATIVE (NEGATIVE); KETONES,URINE NEGATIVE (NEGATIVE); LEUKOCYTE ESTERASE ,URINE NEGATIVE (NEGATIVE); NITRITE,URINE NEGATIVE (NEGATIVE); PH,URINE 5.5 (5 - 7); PROTEIN,URINE DIPSTICK TRACE (NEGATIVE); URINE UROBILINOGEN 0.2 mg/dL (0.2 - 1)
[2024-10-09 19:00] LABS: EPITHELIAL CELLS,URINE FEW /LPF; RBC,URINE 0-5 /HPF (0-5); WBC,URINE (MAN) 0-5 /HPF (0-5)
[2024-10-09] MEDS ORDERED: DEXTROSE 50% SYRINGE 50 ML IV PRN (19:00)
[2024-10-09] MEDS ORDERED: ONDANSETRON HCL INJ 2MG/ML 2ML 2 MG/ML VIAL IV PRN (19:00)
[2024-10-09] MEDS ORDERED: SODIUM CHLORIDE FLUSH 10 ML SYR INJ PRN (19:00)
[2024-10-09 20:00] VITALS: BP 129/77; PULSE 72; RESP 18; TEMP 97.7; O2SAT 100
[2024-10-09] MEDS: ASPIRIN 325 MG TAB PO ONE (20:02)
[2024-10-09] MEDS: CLOPIDOGREL BISULFATE 75 MG TAB PO ONE (20:02)
[2024-10-09 20:03] VITALS: PULSE 72; RESP 16
[2024-10-09 20:40] VITALS: BP 139/85; PULSE 72; RESP 18; TEMP 97.7; O2SAT 100
[2024-10-09 21:00] VITALS: BP 129/77; PULSE 72; RESP 18; TEMP 97.7; O2SAT 100
[2024-10-09] MEDS: INSULIN REGULAR, HUMAN 100 UNIT/1 ML SQ SCH (21:00)
[2024-10-10] VITALS (10 sets, daily range): BP systolic 101–142; BP diastolic 50–74; PULSE 73–86; RESP 16–20; TEMP 97.6–98.2; O2SAT 97–100
[2024-10-10 05:45] LABS: BASOPHILS # (AUTO) 0.1 (0.0-0.1); BASOPHILS % 0.7 % (0.0-1.0); EOSINOPHILS # (AUTO) 1.4 (0.0-0.4); EOSINOPHILS % 13.1 % (0.0-6.0); HEMATOCRIT 35.5 % (38.2-49.6); HEMOGLOBIN 11.2 g/dL (14.0-18.0); LYMPHOCYTES # (AUTO) 1.5 (1.0-3.2); MEAN CORPUSCULAR HEMOGLOBIN 32.2 pg (28-32); MEAN CORPUSCULAR HGB CONC 31.5 g/dL (31-35); MONOCYTES # (AUTO) 0.8 (0.2-0.8); MONOCYTES % 7.8 % (4.4-11.3); NEUTROPHILS # (AUTO) 6.8 (2.1-6.9); NEUTROPHILS % 63.9 % (38.7-80.0); PLATELET COUNT 165 x10e3/uL (140-360); RED BLOOD COUNT 3.48 x10e6/uL (4.3-5.7); RED CELL DISTRIBUTION WIDTH 16.9 % (11.7-14.4); WHITE BLOOD COUNT 10.57 x10e3/uL (4.8-10.8)
[2024-10-10 06:19] LABS: ALBUMIN 3.1 g/dL (3.5-5.0); ALBUMIN/GLOBULIN RATIO 0.8 (0.8-2.0); ANION GAP 16.6 mmol/L (8-16); BILIRUBIN,TOTAL 1.8 mg/dL (0.2-1.2); CALCIUM 9.4 mg/dL (8.4-10.2); CREATININE, SERUM 3.14 mg/dL (0.72-1.25); POTASSIUM 4.6 mmol/L (3.5-5.1); TOTAL PROTEIN 6.9 g/dL (6.5-8.1)
[2024-10-10 06:24] LABS: TROPONIN I 0.034 ng/mL (0-0.300)
[2024-10-10] MEDS: CLOPIDOGREL BISULFATE 75 MG TAB PO SCH (10:14)
[2024-10-10] MEDS ORDERED: HYDRALAZINE HCL25 MG PO (12:02)
[2024-10-10 15:58] LABS: TROPONIN I 0.025 ng/mL (0-0.300)
[2024-10-11] VITALS (8 sets, daily range): BP systolic 126–145; BP diastolic 52–77; PULSE 73–86; RESP 16–19; TEMP 97.5–98.2; O2SAT 97–100
[2024-10-11] MEDS: CARVEDILOL 12.5 MG TAB PO SCH (18:22)
[2024-10-11] MEDS: PANTOPRAZOLE SODIUM 20 MG TABLET.DR PO ONE (18:22)
[2024-10-11] MEDS: POTASSIUM CHLORIDE 10MEQ EA PO ONE (18:22)
[2024-10-11] MEDS: FUROSEMIDE 40 MG TAB PO SCH (18:23)
[2024-10-11] MEDS: AMIODARONE HCL 200 MG TAB PO SCH (18:23)
[2024-10-11] MEDS: FINASTERIDE 5 MG TAB PO SCH (18:23)
[2024-10-11] MEDS: TAMSULOSIN HCL 0.4 MG CAP PO SCH (21:08)
[2024-10-11] MEDS: CRESTOR 10MG PO SCH (21:08)
[2024-10-12] VITALS (7 sets, daily range): BP systolic 111–140; BP diastolic 45–66; PULSE 53–73; RESP 17–18; TEMP 97.4–98.5; O2SAT 98–100
[2024-10-12] MEDS: RIVAROXABAN 15 MG TABLET PO SCH (09:57)
[2024-10-12] MEDS: COLCHICINE 0.6 MG TAB PO SCH (09:57)
[2024-10-12] MEDS: SITAGLIPTIN 100 MG TAB PO SCH (09:57)
[2024-10-13] VITALS: BP 129/65; PULSE 67; RESP 18; TEMP 97.8; O2SAT 100
[2024-10-13 04:00] VITALS: BP 155/81; PULSE 73; RESP 18; TEMP 97.7; O2SAT 100
[2024-10-13 07:47] VITALS: BP 121/81; PULSE 66; RESP 18; TEMP 97.5; O2SAT 100
[2024-10-13 11:29] VITALS: BP 125/66; PULSE 76; RESP 18; TEMP 97.5; O2SAT 100
[2024-10-13 17:05] VITALS: BP 116/51; PULSE 71; RESP 18; TEMP 97.5; O2SAT 100
[2024-10-13 17:10] VITALS: BP 116/51; PULSE 71
[2024-10-13] MEDS ORDERED: ONDANSETRON HCL 4 MG ORAL DISINTEGRATING TAB PO PRN (17:30)
== END 2024-10-13 18:25 | disposition home health service (06) | DRG 312 ==
LOC: ER 16:22 → ERHOLD 18:49 → MED/SURG2 20:15 → OBSVTOIN 10-12 17:29
PROVIDERS: ADMIT Internal Medicine; ATTEND Internal Medicine
DX: I95.1 Orthostatic hypotension (principal); N17.9 Acute kidney failure, unspecified; I13.0 Hypertensive heart and chronic kidney disease with heart failure and stage 1 through stage 4 chronic kidney disease, or unspecified chronic kidney disease; I50.22 Chronic systolic (congestive) heart failure; E11.22 Type 2 diabetes mellitus with diabetic chronic kidney disease; E11.65 Type 2 diabetes mellitus with hyperglycemia; N18.9 Chronic kidney disease, unspecified; D63.1 Anemia in chronic kidney disease; I48.0 Paroxysmal atrial fibrillation; G43.909 Migraine, unspecified, not intractable, without status migrainosus; K21.9 Gastro-esophageal reflux disease without esophagitis; E78.5 Hyperlipidemia, unspecified; E03.9 Hypothyroidism, unspecified; N40.0 Benign prostatic hyperplasia without lower urinary tract symptoms; H53.9 Unspecified visual disturbance; M54.9 Dorsalgia, unspecified; R11.0 Nausea; Z79.01 Long term (current) use of anticoagulants; Z79.84 Long term (current) use of oral hypoglycemic drugs; Z79.82 Long term (current) use of aspirin; Z95.810 Presence of automatic (implantable) cardiac defibrillator; Z95.1 Presence of aortocoronary bypass graft; Z95.5 Presence of coronary angioplasty implant and graft; Z95.2 Presence of prosthetic heart valve; Z85.828 Personal history of other malignant neoplasm of skin; Z90.49 Acquired absence of other specified parts of digestive tract; Z88.5 Allergy status to narcotic agent
CPT/HCPCS: 36415; 70450; 80053; 81001; 82550; 82948; 84484; 85025; 93005; 93306; 93880; 94799; 95819; 96372; 99284; G0378; J2405; J7030

== ENCOUNTER 2025-02-11 18:21 | Emergency (ER) | payer MEDICARE ==
[~2025-02-11] VITALS: Ht 180.3 cm; Wt 72.6 kg
[~2025-02-11 18:21] MED LIST changes: +HYDRALAZINE HCL25 MG PO
[2025-02-11 19:25] LABS: BASOPHILS # (AUTO) 0.1 (0.0-0.1); BASOPHILS % 1.2 % (0.0-1.0); EOSINOPHILS # (AUTO) 1.3 (0.0-0.4); EOSINOPHILS % 11.1 % (0.0-6.0); HEMATOCRIT 35.6 % (38.2-49.6); HEMOGLOBIN 11.1 g/dL (14.0-18.0); LYMPHOCYTES # (AUTO) 1.2 (1.0-3.2); LYMPHOCYTES % 10.7 % (18.0-39.1); MEAN CORPUSCULAR HEMOGLOBIN 31.6 pg (28-32); MEAN CORPUSCULAR HGB CONC 31.2 g/dL (31-35); MEAN CORPUSCULAR VOLUME 101.4 fL (81-99); MONOCYTES % 8.4 % (4.4-11.3); NEUTROPHILS # (AUTO) 7.8 (2.1-6.9); NEUTROPHILS % 68.2 % (38.7-80.0); PLATELET COUNT 222 x10e3/uL (140-360); RED BLOOD COUNT 3.51 x10e6/uL (4.3-5.7); RED CELL DISTRIBUTION WIDTH 14.6 % (11.7-14.4); WHITE BLOOD COUNT 11.44 x10e3/uL (4.8-10.8)
[2025-02-11 19:42] LABS: INR 1.05; PARTIAL THROMBOPLASTIN TIME 30.9 seconds (23.8-35.5); PROTHROMBIN TIME 14.3 seconds (11.9-14.5)
[2025-02-11 19:51] LABS: ALBUMIN 3.8 g/dL (3.5-5.0); ALBUMIN/GLOBULIN RATIO 0.8 (0.8-2.0); ANION GAP 17.1 mmol/L (8-16); BILIRUBIN,TOTAL 1.5 mg/dL (0.2-1.2); CALCIUM 9.7 mg/dL (8.4-10.2); CREATININE, SERUM 3.15 mg/dL (0.72-1.25); POTASSIUM 4.1 mmol/L (3.5-5.1); TOTAL PROTEIN 8.3 g/dL (6.5-8.1)
[2025-02-11 21:23] LABS: COLOR,URINE YELLOW (YELLOW)
[2025-02-11 21:24] LABS: BILIRUBIN,URINE NEGATIVE (NEGATIVE); CLARITY,URINE SL CLOUDY (CLEAR); GLUCOSE, URINE NEGATIVE (NEGATIVE); KETONES,URINE NEGATIVE (NEGATIVE); LEUKOCYTE ESTERASE ,URINE NEGATIVE (NEGATIVE); NITRITE,URINE NEGATIVE (NEGATIVE); PH,URINE 5.5 (5 - 7); PROTEIN,URINE DIPSTICK >=300 (NEGATIVE); URINE UROBILINOGEN 0.2 mg/dL (0.2 - 1)
[2025-02-11 21:25] LABS: BACTERIA,URINE FEW /HPF; EPITHELIAL CELLS,URINE RARE /LPF; RBC,URINE >50 /HPF (0-5); WBC,URINE (MAN) 0-5 /HPF (0-5)
[2025-02-11] MEDS: HYDRALAZINE HCL 20 MG/ML VIAL IV STA (21:31)
[2025-02-11 22:19] VITALS: PULSE 68; RESP 16; TEMP 97.7
[2025-02-11 22:26] VITALS: BP 150/78; PULSE 68; RESP 14; TEMP 97.7; O2SAT 98
== END 2025-02-11 22:29 | disposition home or self-care (01) ==
LOC: ER 19:04
DX: R31.9 Hematuria, unspecified (principal); R04.0 Epistaxis; I12.9 Hypertensive chronic kidney disease with stage 1 through stage 4 chronic kidney disease, or unspecified chronic kidney disease; E11.22 Type 2 diabetes mellitus with diabetic chronic kidney disease; E11.65 Type 2 diabetes mellitus with hyperglycemia; N18.9 Chronic kidney disease, unspecified; I50.9 Heart failure, unspecified; E78.5 Hyperlipidemia, unspecified; E03.9 Hypothyroidism, unspecified; K21.9 Gastro-esophageal reflux disease without esophagitis; M54.9 Dorsalgia, unspecified; G89.29 Other chronic pain; I25.2 Old myocardial infarction; Z95.810 Presence of automatic (implantable) cardiac defibrillator; Z95.5 Presence of coronary angioplasty implant and graft; Z85.828 Personal history of other malignant neoplasm of skin; Z95.4 Presence of other heart-valve replacement
CPT/HCPCS: 36415; 74176; 80053; 81001; 85025; 85610; 85730; 99284; J0360